=== PATIENT | female | born 1970 | race Caucasian/White ===

== ENCOUNTER 2023-05-31 13:55 | Inpatient (IN) | payer OTHER, SELFPAY ==
[2023-05-31 14:09] VITALS: PULSE 88; RESP 18; TEMP 36.8; O2SAT 99; BMI 39.5
[2023-05-31 14:13] VITALS: BP 150/82
--- NOTE | 2023-05-31 14:14 | XR_ITS ---
The [address] [address] Patient Name: LILI MADRID MRN: [id number] date: 1970 Sex: F Assigned Patient Location: ER Current Patient Location: ER Accession/Order Number: [id number] Exam Date: 05/31/2023 14:30 Report Date: 05/31/2023 15:41 At the request of: DAVID MAHAJAN Procedure: XR tibia fibula RT 2V EXAM: XR tibia fibula RT 2V HISTORY: fall COMPARISON: None. TECHNIQUE: AP and lateral views of the right tibia and fibula FINDINGS: Acute comminuted displaced distal third diaphysis right tibia is seen. Acute comminuted distal fibular fracture is also seen with mild medial and posterior displacement. Right ankle x-rays been scheduled. The ankle mortise can be better evaluated with a dedicated ankle x-ray. Soft tissue swelling is seen. Large plantar calcaneal spur is seen. XR/XR tibia fibula RT 2V IMPRESSION: Acute comminuted fractures of the distal tibia and fibula. Electronically authenticated by: THERESA HERNÁNDEZ Date: 05/31/2023 15:41
--- NOTE | 2023-05-31 15:07 | XR_ITS ---
The [address] [address] Patient Name: LILI MADRID MRN: [id number] date: 1970 Sex: F Assigned Patient Location: ER Current Patient Location: ER Accession/Order Number: [id number] Exam Date: 05/31/2023 15:20 Report Date: 05/31/2023 16:49 At the request of: DAVID MAHAJAN Procedure: XR chest 1V PROCEDURE: XR chest 1V, 05/31/2023 3:20 PM EST CLINICAL INDICATIONS: Preoperative assessment, lower extremity fracture COMPARISON: None TECHNIQUE: Upright AP portable chest 1521 hours FINDINGS: The heart is normal. The mediastinum unremarkable. Lung volumes are diminished with perihilar subsegmental atelectasis. Acute consolidation, pleural effusion, or pneumothorax is not demonstrated. No acute osseous abnormality is seen. Regional soft tissues are unremarkable. XR/XR chest 1V IMPRESSION: 1. Decreased lung volumes with perihilar subsegmental atelectasis 2. No acute pulmonary consolidation, pleural effusion or pneumothorax Electronically authenticated by: JERROD GUTIÉRREZ Date: 05/31/2023 16:49
--- NOTE | 2023-05-31 15:07 | ECG_ITS ---
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
[2023-05-31 15:24] VITALS: PULSE 86
--- NOTE | 2023-05-31 15:24 | ED_ITS ---
HPI - General Adult General Chief complaint: Extremity Injury, Lower Stated complaint: FALL/ LOWER EXTREMITY INJURY TO RIGHT LEG Time Seen by Provider: 05/31/23 14:48 Source: patient Mode of arrival: Wheelchair Limitations: no limitations History of Present Illness HPI narrative: Patient is a 53-year-old female who is presenting to the Emergency Room with complaint Of a right lower extremity injury. Patient is walked down the steps, patient had a misstep, uncertain the mechanism of injury the patient felt a snapping sensation to her right lower leg and ankle. Patient only takes Ritalin and Flexeril for medications, she is on no blood thinners. Patient did not have any type of head injury or no other injuries. She has no headache or neck pain. No chest pain or shortness of breath. No abdominal complaints, no nausea or vomiting, patient has no other acute complaints besides right lower extremity pain. Patient has no obvious for many, patient doesn't swelling with no signs of compartment syndrome. Patient neurovascular intact distally to the right lower extremity. Patient mother and daughter at bedside. Patient does have a history of MS. Related Data Home Medications Medication Instructions Recorded Confirmed aspirin 81 mg capsule 81 mg PO DAILY 05/31/23 05/31/23 cyclobenzaprine 10 mg tablet 10 mg PO QPM 05/31/23 05/31/23 methylphenidate HCl 5 mg tablet 5 mg PO TID 05/31/23 05/31/23 (Ritalin) Allergies Allergy/AdvReac Type Severity Reaction Status Date / Time No Known Drug Allergies Allergy Verified 05/31/23 14:12 Review of Systems ROS Narrative All systems are negative except as noted/marked. All systems reviewed and otherwise negative. Nurses note and vital signs reviewed and patient is not hypoxic. Patient has a modified Splint to the right lower extremity. General: The patient appears well and in no apparent distress. Patient is resting uncomfortably on cart. Patient is not toxic, lethargic, or listless Skin: Warm, dry, no pallor noted. There is no rash noted. No petechiae, purpura. Head: Normocephalic, atraumatic Eye: Normal conjunctiva, no drainage, EOMI. PERRL Ears, Nose, Mouth, and Throat: oral mucosa is moist. Nares patent. Mouth without vesicles. Cardiovascular: Regular Rate and Rhythm, no murmur, gallop, rub Respiratory: Patient is in no distress, no accessory muscle use, lungs are clear to auscultation, no wheezing, rales or rhonchi Back: non-tender, no CVA tenderness bilaterally to percussion. No CT LS midline pain GI: soft, no tenderness Musculoskeletal: Patient has full range of motion of all of the extremities Exc ept to the right lower extremity. Patient has severe pain with any range of motion to the right foot, ankle, knee. Patient has no tenderness to palpation to the right hip, pelvis is stable. Full range of motion of bilateral upper extremities and left lower leg with no difficulty. No signs of compartment syndrome. Patient is neurovascularly intact distally to the right ankle, normal cap refill to the right foot, normal sensation and normal motor skills to the right foot. Otherwise no motor, sensory, or focal neurological deficits Neurological: A&O x3, normal speech Psychiatric: Cooperative [facility] Medical History (Updated 05/31/23 @ 21:21 by Alexander Lopez MD) Degenerative disc disease Multiple sclerosis ?G35 - Multiple sclerosis (ICD-10) Surgical History (Updated 05/31/23 @ 17:44 by Angelica Hurst RN) H/O: hysterectomy ?Z90.710 - Acquired absence of both cervix and uterus (ICD-10) Family History (Updated 05/31/23 @ 17:19 by Angelica Hurst RN) Grandfather Family history of CHF (congestive heart failure) Family history of COPD (chronic obstructive pulmonary disease) Family history of diabetes mellitus Family history of hypertension Family history of myocardial infarction Mother Family history of cancer Aunt Family history of diabetes mellitus Family history of hypertension Family history of stroke Social History (Updated 05/31/23 @ 17:19 by Angelica Hurst RN) Within the past year, how often did you have a drink containing alcohol: 2-4 times a month Smoking status: Former smoker Non-prescribed substance use: denies use Gender Identity: female Exam Constitutional Vital Signs, click to edit/add: Last Vital Signs Temp 98.1 F 05/31/23 17:27 Pulse 88 05/31/23 20:12 Resp 18 05/31/23 17:27 BP 162/89 H 05/31/23 17:27 Pulse Ox 98 05/31/23 17:27 O2 Del Method Room Air 05/31/23 17:27 Course Vital Signs Vital signs: Vital Signs Temperature 98.3 F 05/31/23 14:09 Pulse Rate 88 05/31/23 14:09 Respiratory Rate 18 05/31/23 14:09 Pulse Oximetry 99 05/31/23 14:09 Oxygen Delivery Method Room Air 05/31/23 14:09 Temperature 98.1 F 05/31/23 17:27 Pulse Rate 88 05/31/23 20:12 Respiratory Rate 18 05/31/23 17:27 Blood Pressure 162/89 H 05/31/23 17:27 Pulse Oximetry 98 05/31/23 17:27 Oxygen Delivery Method Room Air 05/31/23 17:27 Medical Decision Making MDM Narrative Medical decision making narrative: Dr. Rivera has visualize patient's pictures of the right leg. He recommended patient be admitted to the hospital, have preop testing, and by mouth after midnight, and patient will have surgery tomorrow. Patient had a long posterior right leg and a long right leg stirrup/sugar tong splint placed to the right leg. Patient again pain relief after the splint was placed. Patient was initially given 1 mg of Dilaudid and Zofran to help with pain.. Testing was done. Patient will be admitted to medicine with preop testing done and patient will follow-up with orthopedic surgeon tomorrow. No other recommendations from Dr. Rivera. Dr. Rivera will be in consultation and perform surgery tomorrow on Thursday. He requested patient be admitted to medicine was Dr. Nicole was gracious to do. Patient takes Ritalin and Flexeril daily, patient has a history of MS with no symptoms at this time. She is on the blood thinners. Lab Data Lab results reviewed: Yes I reviewed the patient's lab results Labs: Lab Results 05/31/23 Range/Units 15:16 WBC 6.6 (4.0-11.0) 10^3/uL RBC 4.40 (4.20-5.40) 10^6/uL Hgb 13.5 (12.0-16.0) g/dL Hct 40.2 (36.0-48.0) % MCV 91.4 (81.0-99.0) fL MCH 30.7 (26.7-34.0) pg MCHC 33.6 (29.9-35.2) g/dL RDW 12.4 (11.0-15.0) % Plt Count 209 (150-450) 10^3/uL MPV 8.6 L (9.5-13.5) fL Neut % (Auto) 74.0 (43.0-75.0) % Lymph % (Auto) 14.0 L (20.5-60.0) % Harmon % (Auto) 8.6 (1.7-12.0) % Eos % (Auto) 2.3 (0.9-7.0) % Baso % (Auto) 0.5 (0.2-2.0) % Neut # (Auto) 4.9 (1.4-6.5) 10^3/uL Lymph # (Auto) 0.9 L (1.2-3.8) 10^3/uL Harmon # (Auto) 0.6 (0.3-0.8) 10^3/uL Eos # (Auto) 0.2 (0.0-0.7) 10^3/uL Baso # (Auto) 0.0 (0.0-0.1) 10^3/uL Abs Immat Gran (auto) 0.04 H (0.00-0.03) 10^3/uL Imm/Tot Granulo (auto) 0.6 H (0.0-0.5) % PT 10.2 (9.0-11.6) sec INR 0.96 Sodium 141 (136-145) mmol/L Potassium 3.7 (3.5-5.1) mmol/L Chloride 104 (98-107) mmol/L Carbon Dioxide 26.8 (21.0-32.0) mmol/L Anion Gap 13.9 BUN 11.0 (7.0-18.0) mg/dL Creatinine 0.66 (0.55-1.02) mg/dL Est GFR ( Amer) >60 (>=60) Est GFR (Non-Af Amer) >60 (>=60) BUN/Creatinine Ratio 16.7 Glucose 100 (74-106) mg/dL Calcium 9.1 (8.5-10.1) mg/dL ECG Data Attestation: I personally reviewed and interpreted this ECG as follows: (EKG interpretation. Normal sinus rhythm at 79 beats a minute. Normal axis deviation. No acute ST elevation, no acute ectopy. QTC of 406.) Discharge Plan Discharge Chief Complaint: Extremity Injury, Lower Clinical Impression: Closed right fibular fracture, Closed right tibial fracture Patient Disposition: Admitted as Observation Condition: Serious Discharge Date/Time: 05/31/23 17:10 Procedures ED Procedure Instructions Procedures Procedures: Patient had a long posterior leg splint placed with a long leg stirrup placed to the right leg. 4 in Ortho-Glass was used. Splint was assisted with . the patient was neurovascularly intact before and after the splint was placed. the affected bones/injured area had proper alignment in a splint. Education on splint care at home was given at bedside. Patient and family have no questions at discharge.
--- NOTE | 2023-05-31 15:25 | XR_ITS ---
The [address] [address] Patient Name: LILI MADRID MRN: [id number] date: 1970 Sex: F Assigned Patient Location: MS Current Patient Location: MS Accession/Order Number: [id number] Exam Date: 05/31/2023 18:00 Report Date: 05/31/2023 19:15 At the request of: DAVID MAHAJAN Procedure: XR ankle RT min 3V EXAM: XR ankle RT min 3V HISTORY: ankle fx COMPARISON: Tibia/fibular films, same date TECHNIQUE: 3 views of the right ankle are performed. FINDINGS: There is fiberglass splinting material which obscures fine bony detail. The comminuted fracture of the distal tibial diaphysis demonstrates similar alignment. No change in alignment to the mildly displaced fracture of the distal fibula. The ankle mortise is not widened. There is soft tissue edema at the ankle. XR/XR ankle RT min 3V IMPRESSION: No significant change in alignment to the known distal tibial and fibular fractures. The ankle mortise is not widened. Electronically authenticated by: DAMION CLARK Date: 05/31/2023 19:15
[2023-05-31] MEDS: HYDROMORPHONE HCL 1 MG/ML CARTRIDGE IV (15:26)
[2023-05-31] MEDS: ONDANSETRON PF 4 MG/2 ML VIAL IV (15:26)
[2023-05-31 15:27] LABS: Basophils Percent Auto 0.5 % (0.2-2.0); Eosinophils Absolute Auto 0.2 10^3/uL (0.0-0.7); Eosinophils Percent Auto 2.3 % (0.9-7.0); Hematocrit 40.2 % (36.0-48.0); Hemoglobin 13.5 g/dL (12.0-16.0); Immature Granulocytes Abs Auto 0.04 10^3/uL (0.00-0.03); Immature Granulocytes Pct Auto 0.6 % (0.0-0.5); Lymphocytes Absolute Auto 0.9 10^3/uL (1.2-3.8); Mean Corpuscular HGB Conc 33.6 g/dL (29.9-35.2); Mean Corpuscular Hemoglobin 30.7 pg (26.7-34.0); Mean Corpuscular Volume 91.4 fL (81.0-99.0); Mean Platelet Volume 8.6 fL (9.5-13.5); Monocytes Absolute Auto 0.6 10^3/uL (0.3-0.8); Monocytes Percent Auto 8.6 % (1.7-12.0); Neutrophils Absolute Auto 4.9 10^3/uL (1.4-6.5); Platelet Count 209 10^3/uL (150-450); Red Cell Distribution Width 12.4 % (11.0-15.0); White Blood Count 6.6 10^3/uL (4.0-11.0)
[2023-05-31 15:37] LABS: Anion Gap 13.9; BUN Creatinine Ratio 16.7; Calcium 9.1 mg/dL (8.5-10.1); Carbon Dioxide 26.8 mmol/L (21.0-32.0); Chloride 104 mmol/L (98-107); Estimated GFR (African America >60 (>=60); Estimated GFR (Non-African Ame >60 (>=60); Glucose 100 mg/dL (74-106); Potassium 3.7 mmol/L (3.5-5.1); Sodium 141 mmol/L (136-145)
[2023-05-31 15:39] LABS: INR 0.96; Prothrombin Time 10.2 sec (9.0-11.6)
[2023-05-31 17:27] VITALS: BP 162/89; PULSE 78; RESP 18; TEMP 36.7; O2SAT 98; BMI 37.7
[2023-05-31 20:12] VITALS: PULSE 88
[2023-05-31] MEDS: OXYCODONE HCL/ACETAMINOPHEN 5MG/325MG 1 TAB PO (20:35)
[2023-05-31] MEDS: 0.9 % SODIUM CHLORIDE 1,000 ML 100 ML IV (20:35)
[2023-05-31] MEDS: ENOXAPARIN SODIUM 40 MG/0.4 ML SYRINGE SUBQ (20:35)
[2023-05-31] MEDS: CYCLOBENZAPRINE HCL 10 MG TABLET PO (20:37)
[2023-05-31 21:27] VITALS: BP 108/73; PULSE 88; RESP 16; TEMP 36.8; O2SAT 95
[2023-06-01] VITALS (19 sets, daily range): BP systolic 106–154; BP diastolic 70–90; PULSE 77–105; RESP 5–23; TEMP 36.6–37.3; O2SAT 89–98
--- NOTE | 2023-06-01 | FL_ITS ---
[place] [id number] Patient Name: LILI MADRID MRN: [id number] date: 1970 Sex: F Assigned Patient Location: MS Current Patient Location: MS Accession/Order Number: [id number] Exam Date: 06/01/2023 17:00 Report Date: 06/02/2023 08:12 At the request of: LEIDY RDZ Procedure: FL fluoroscopy <1hr NON-READ EXAM: FL fluoroscopy <1hr NON-READ HISTORY: ORIF TECHNIQUE: FINDINGS: Please see Operative Report. Electronically authenticated by: RADIOLOGIST NO Date: 06/02/2023 08:12
[2023-06-01] MEDS: OXYCODONE HCL/ACETAMINOPHEN 5MG/325MG 1 TAB PO ×4 (00:08→13:13)
[2023-06-01 05:02] LABS: Basophils Percent Auto 0.5 % (0.2-2.0); Eosinophils Absolute Auto 0.2 10^3/uL (0.0-0.7); Eosinophils Percent Auto 2.9 % (0.9-7.0); Hematocrit 34.8 % (36.0-48.0); Hemoglobin 11.6 g/dL (12.0-16.0); Immature Granulocytes Abs Auto 0.02 10^3/uL (0.00-0.03); Immature Granulocytes Pct Auto 0.3 % (0.0-0.5); Lymphocytes Absolute Auto 1.3 10^3/uL (1.2-3.8); Lymphocytes Percent Auto 21.2 % (20.5-60.0); Mean Corpuscular HGB Conc 33.3 g/dL (29.9-35.2); Mean Corpuscular Hemoglobin 31.3 pg (26.7-34.0); Mean Corpuscular Volume 93.8 fL (81.0-99.0); Mean Platelet Volume 8.7 fL (9.5-13.5); Monocytes Absolute Auto 0.8 10^3/uL (0.3-0.8); Neutrophils Absolute Auto 3.9 10^3/uL (1.4-6.5); Neutrophils Percent Auto 62.1 % (43.0-75.0); Platelet Count 199 10^3/uL (150-450); Red Blood Count 3.71 10^6/uL (4.20-5.40); Red Cell Distribution Width 12.8 % (11.0-15.0); White Blood Count 6.2 10^3/uL (4.0-11.0)
[2023-06-01 05:09] LABS: Anion Gap 11.6; BUN Creatinine Ratio 16.7; Calcium 8.6 mg/dL (8.5-10.1); Carbon Dioxide 27.2 mmol/L (21.0-32.0); Chloride 105 mmol/L (98-107); Estimated GFR (African America >60 (>=60); Estimated GFR (Non-African Ame >60 (>=60); Glucose 108 mg/dL (74-106); Potassium 3.8 mmol/L (3.5-5.1); Sodium 140 mmol/L (136-145)
[2023-06-01] MEDS: 0.9 % SODIUM CHLORIDE 1,000 ML 100 ML IV ×2 (06:15→20:15)
--- NOTE | 2023-06-01 07:24 | P.HP_ITS ---
H&P: HPI History of Present Illness Chief complaint: FALL/ LOWER EXTREMITY INJURY TO RIGHT LEG Narrative: Patient sustained a fall going down steps, she did not have any chest pain or shortness of breath or lightheaded episode, just a trip and fall. Had instant pain. Presented to emergency room and found to have tib-fib fractures. Only other complication for her immediately would be her blood pressure significantly elevated on admission. This is likely secondary to pain. Does have a history of MS but has not had a flareup in quite some time. She had a cardiac workup about 7 or 8 years ago but nothing abnormal was found. Review of Systems ROS Status of ROS 10 or more systems reviewed and unremarkable except as noted in history and below Constitutional Denies: fever Eyes Denies: change in vision Ears, nose, mouth, and throat Denies: throat pain Cardiovascular Denies: chest pain Respiratory Denies: shortness of breath Gastrointestinal Denies: abdominal pain Genitourinary Denies: painful urination Musculoskeletal Reports: extremity pain; Denies: back pain Integumentary/Breast Denies: rash Neurological Denies: headache PFSH PFSH Medical History (Updated 05/31/23 @ 21:21 by Alexander Lopez MD) Degenerative disc disease Multiple sclerosis ?G35 - Multiple sclerosis (ICD-10) Surgical History (Updated 05/31/23 @ 17:44 by Angelica Hurst RN) H/O: hysterectomy ?Z90.710 - Acquired absence of both cervix and uterus (ICD-10) Family History (Updated 05/31/23 @ 17:19 by Angelica Hurst RN) Grandfather Family history of CHF (congestive heart failure) Family history of COPD (chronic obstructive pulmonary disease) Family history of diabetes mellitus Family history of hypertension Family history of myocardial infarction Mother Family history of cancer Aunt Family history of diabetes mellitus Family history of hypertension Family history of stroke Social History (Updated 05/31/23 @ 17:19 by Angelica Hurst RN) Within the past year, how often did you have a drink containing alcohol: 2-4 ti mes a month Smoking status: Former smoker Non-prescribed substance use: denies use Gender Identity: female Meds Home Medications and Allergies Home Medications Medication Instructions Recorded Confirmed Type aspirin 81 mg capsule 81 mg PO DAILY 05/31/23 05/31/23 History cyclobenzaprine 10 mg tablet 10 mg PO QPM 05/31/23 05/31/23 History methylphenidate HCl 5 mg tablet 5 mg PO TID 05/31/23 05/31/23 History (Ritalin) Allergies Allergy/AdvReac Type Severity Reaction Status Date / Time No Known Drug Allergies Allergy Verified 05/31/23 14:12 Exam Constitutional Vital Signs, click to edit/add: Last Vital Signs Temp 98.2 F 06/01/23 06:00 Pulse 83 06/01/23 06:00 Resp 18 06/01/23 06:00 BP 135/83 06/01/23 06:00 Pulse Ox 93 L 06/01/23 06:00 O2 Del Method Room Air 06/01/23 06:00 Documenting provider has reviewed patient's vital signs: yes Common normals: no apparent distress HENMT Common normals: normocephalic and head/scalp atraumatic Chest Common normals: inspection of chest normal Respiratory Common normals: normal respiratory effort, no retractions and clear to auscultation bilaterally Cardio Common normals: regular rate and no murmurs GI Common normals: Normal to inspection, nondistended, normoactive bowel sounds present, soft to palpation and non-tender Extremity Common normals: abnormal to inspection (Splint on right lower leg) Results Labs Labs: Short CBC 05/31/23 06/01/23 Range/Units 15:16 04:29 WBC 6.6 6.2 (4.0-11.0) 10^3/uL Hgb 13.5 11.6 L (12.0-16.0) g/dL Hct 40.2 34.8 L (36.0-48.0) % Plt Count 209 199 (150-450) 10^3/uL BMP 05/31/23 06/01/23 15:16 04:29 Sodium 141 140 Potassium 3.7 3.8 Chloride 104 105 Carbon Dioxide 26.8 27.2 BUN 11.0 12.0 Creatinine 0.66 0.72 Glucose 100 108 H Calcium 9.1 8.6 Assessment and Plan Assessment and Plan (1) Closed right fibular fracture: (2) Closed right tibial fracture: (3) Multiple sclerosis: Plan Patient is status post fall with right tib-fib fractures. Consultation to orthopedics. Plan on surgery later today. Patient with no significant cardiac history. No history of strokes. No bleeding issues in the past. Patient is cleared for OR. Low cardiac risk Hypertension on admission-this is improved this morning. Will monitor as an outpatient. Acute blood loss anemia hemoglobin down almost 2 g -likely related to the above fractures with acute blood loss and as well as some delusional effect with fluids given so far. Can monitor as an outpatient Discharge disposition per orthopedics. Patient is anticipating being able to go home. Will maintain patient in observation status
[2023-06-01] MEDS: ENOXAPARIN SODIUM 40 MG/0.4 ML SYRINGE SUBQ (08:27)
--- NOTE | 2023-06-01 16:20 | PM.ORCN ---
History of Present Illness HPI Consult date: 06/01/23 Consult reason: fracture Chief complaint: FALL/ LOWER EXTREMITY INJURY TO RIGHT LEG Narrative: Patient is a 53-year-old who was walking down steps yesterday when she missed stepped feeling a crack in her right leg with the acute onset of pain and inability to bear weight. She was transported to the emergency room where x-rays revealed a right tib-fib fracture. Patient was admitted for operative treatment of this injury. She denies paresthesias in her right lower extremity. She denies pain elsewhere. She is a community ambulator. She has a history of multiple sclerosis. She denies head trauma or loss of consciousness. Review of Systems ROS Status of ROS 10 or more systems reviewed and unremarkable except as noted in history and below [facility] Medical History (Updated 05/31/23 @ 21:21 by Alexander Lopez MD) Degenerative disc disease Multiple sclerosis ?G35 - Multiple sclerosis (ICD-10) Surgical History (Updated 05/31/23 @ 17:44 by Angelica Hurst RN) H/O: hysterectomy ?Z90.710 - Acquired absence of both cervix and uterus (ICD-10) Family History (Updated 05/31/23 @ 17:19 by Angelica Hurst RN) Grandfather Family history of CHF (congestive heart failure) Family history of COPD (chronic obstructive pulmonary disease) Family history of diabetes mellitus Family history of hypertension Family history of myocardial infarction Mother Family history of cancer Aunt Family history of diabetes mellitus Family history of hypertension Family history of stroke Social History (Updated 05/31/23 @ 17:19 by Angelica Hurst RN) Within the past year, how often did you have a drink containing alcohol: 2-4 times a month Smoking status: Former smoker Non-prescribed substance use: denies use Gender Identity: female Meds Home Medications and Allergies Home Medications Medication Instructions Recorded Confirmed Type aspirin 81 mg capsule 81 mg PO DAILY 05/31/23 05/31/23 History cyclobenzaprine 10 mg tablet 10 mg PO QPM 05/31/23 05/31/23 History methylphenidate HCl 5 mg tablet 5 mg PO TID 05/31/23 05/31/23 History (Ritalin) Allergies Allergy/AdvReac Type Severity Reaction Status Date / Time No Known Drug Allergies Allergy Verified 05/31/23 14:12 Exam Narrative Exam Narrative: On exam she is in no obvious distress. Right lower extremity is appropriately splinted. Good capillary refill in the toes. Normal sensation in her toes. She is able to wiggle her toes. Left lower extremity has no swelling. Constitutional Vital Signs, click to edit/add: Last Vital Signs Temp 98.3 F 06/01/23 16:07 Pulse 85 06/01/23 16:07 Resp 18 06/01/23 16:07 BP 135/82 06/01/23 16:07 Pulse Ox 94 L 06/01/23 16:07 O2 Del Method Room Air 06/01/23 16:07 Results Labs Labs: Abnormal lab results 06/01/23 Range/Units 04:29 RBC 3.71 L (4.20-5.40) 10^6/uL Hgb 11.6 L (12.0-16.0) g/dL Hct 34.8 L (36.0-48.0) % MPV 8.7 L (9.5-13.5) fL Mayes % (Auto) 13.0 H (1.7-12.0) % Glucose 108 H (74-106) mg/dL H & H 05/31/23 06/01/23 Range/Units 15:16 04:29 Hgb 13.5 11.6 L (12.0-16.0) g/dL Hct 40.2 34.8 L (36.0-48.0) % Coagulation 05/31/23 Range/Units 15:16 INR 0.96 All other labs normal. Diagnostic results Ankle/Foot x-ray: report reviewed (Right tib-fib and ankle x-rays revealed a long spiral tibial shaft fracture in the distal third and a distal fibula fracture with mild displacement) Assessment and Plan Assessment and Plan (1) Closed right fibular fracture: (2) Closed right tibial fracture: (3) Multiple sclerosis: Plan For her right distal tibia and fibula fracture we will plan for a right tibia intramedullary nailing. Once this is aligned we will determine whether or not the fibula needs to be fixed. I have discussed risks of this injury and procedure including but not limited to risk of compartment syndrome, chronic numbness, neurovascular injury, chronic knee and ankle pain, nonunion and the need for additional surgery. She understands this can additional risks we have gone through the informed consent process and has elected to proceed.
--- NOTE | 2023-06-01 16:25 | PM.ORPRC ---
Procedure Note Date of procedure: 06/01/23 Pre-op diagnosis: Right tibia shaft fracture and right distal fibula fracture Post-op diagnosis: same as pre-op Procedure: Operation performed: Intramedullary nailing of right tibia shaft fracture Operative procedure: After informed consent was obtained the patient was brought to the operating room where general anesthetic was administered. A well-padded proximal thigh tourniquet was placed. The right leg was prepped and draped in the usual sterile fashion. Leg was elevated, exsanguinated, and the tourniquet was inflated to 275 mmHg. A 5 cm incision was made overlying the anterior knee in line with the shaft of the tibia. Blunt dissection was carried down through soft tissue. Patellar tendon was retracted laterally. Guidepin was placed at the ventral leading edge of the tibial plateau in line with the central axis of the tibia on the AP view. Appropriate placement was confirmed in the AP and lateral planes. This was then overreamed and next the long guidewire was placed. This was measured to 330 millimeters in length. The tourniquet was deflated. Sequential reaming was then performed to 10.5 mm. A Synthes 9 mm tibial nail was then placed. Nice reduction of the fracture was achieved. Using a freehand technique 2 distal locking screws were placed. X-rays in the AP and lateral views revealed maintained reduction at the fracture site and no gap at the fracture site. 2 additional locking screws were then placed proximally in the standard fashion from medial to lateral. Final x-rays of the tibia revealed reduced tibia fracture and appropriate implant placement and lengths. The fibula fracture with AP lateral and mortise views was reduced with a reduced ankle joint and thus no surgical indication. Wounds were irrigated. The anterior knee incision deep layer was closed with a 0 Vicryl suture in a [id number] fashion. Peritenon was closed with a 3-0 Vicryl in a running fashion and wounds were closed in standard fashion in layers. Sterile dressing was placed followed by a well-padded short leg fiberglass splint with stirrups. Patient was awakened and brought to the recovery room in stable condition. There were no intraoperative or immediate postoperative complications. Anesthesia: General-LMA Surgeon: Juan David Rivera Estimated blood loss (mL): 50 Pathology: none sent Condition: stable Disposition: PACU
[2023-06-01] MEDS: CEFAZOLIN SODIUM/DEXTROSE,ISO 2 GM/50 ML PIGGYBACK IV (16:34)
[2023-06-01] MEDS: LACTATED RINGER'S SOLUTION 1,000 ML 1000 ML IV (17:55)
[2023-06-01] MEDS: HYDROMORPHONE HCL 0.5 MG/0.5 ML SYRINGE IV (19:12)
--- NOTE | 2023-06-01 20:08 | PC.NURSE ---
Patient right toes noted pink warm with good capillary refill patient able to wiggle toes
[2023-06-01] MEDS: CYCLOBENZAPRINE HCL 10 MG TABLET PO (20:14)
[2023-06-01] MEDS: OXYCODONE HCL/ACETAMINOPHEN 5MG/325MG 2 TAB PO (20:14)
--- NOTE | 2023-06-01 23:10 | PC.NURSE ---
patient able to feel and wiggle toes
[2023-06-02] VITALS (7 sets, daily range): BP systolic 140–155; BP diastolic 80–92; PULSE 90–92; RESP 18–20; TEMP 36.4–37.2; O2SAT 94–98
[2023-06-02] MEDS: OXYCODONE HCL/ACETAMINOPHEN 5MG/325MG 2 TAB PO ×4 (03:17→17:55)
[2023-06-02 05:20] LABS: Basophils Percent Auto 0.2 % (0.2-2.0); Hematocrit 34.5 % (36.0-48.0); Immature Granulocytes Abs Auto 0.02 10^3/uL (0.00-0.03); Immature Granulocytes Pct Auto 0.3 % (0.0-0.5); Lymphocytes Absolute Auto 0.5 10^3/uL (1.2-3.8); Lymphocytes Percent Auto 7.4 % (20.5-60.0); Mean Corpuscular HGB Conc 31.9 g/dL (29.9-35.2); Mean Corpuscular Hemoglobin 30.5 pg (26.7-34.0); Mean Corpuscular Volume 95.6 fL (81.0-99.0); Mean Platelet Volume 8.8 fL (9.5-13.5); Monocytes Absolute Auto 0.4 10^3/uL (0.3-0.8); Monocytes Percent Auto 5.9 % (1.7-12.0); Neutrophils Absolute Auto 5.7 10^3/uL (1.4-6.5); Neutrophils Percent Auto 86.2 % (43.0-75.0); Platelet Count 186 10^3/uL (150-450); Red Blood Count 3.61 10^6/uL (4.20-5.40); Red Cell Distribution Width 12.6 % (11.0-15.0); White Blood Count 6.6 10^3/uL (4.0-11.0)
[2023-06-02 05:36] LABS: Anion Gap 10.6; BUN Creatinine Ratio 9.6; Calcium 8.1 mg/dL (8.5-10.1); Chloride 107 mmol/L (98-107); Estimated GFR (African America >60 (>=60); Estimated GFR (Non-African Ame >60 (>=60); Glucose 162 mg/dL (74-106); Potassium 3.6 mmol/L (3.5-5.1); Sodium 142 mmol/L (136-145)
[2023-06-02] MEDS: 0.9 % SODIUM CHLORIDE 1,000 ML 100 ML IV (06:08)
--- NOTE | 2023-06-02 09:17 | P.DS_ITS ---
DS: Providers Provider Date of admission: 06/01/23 12:57 Primary care physician: Raymond Sanderson MD Consults: 05/31/23 17:45 Occupational Therapy Eval and Treat Routine Reason for consultation: Tib/fib fracture Physical Therapy Eval and Treat Routine Reason for consultation: Tib/fib fracture 05/31/23 17:47 Consult to Orthopedic Surgery Routine Consulting Provider: Juan David Rivera Reason For Exam: Reason for consultation: Tib/Fib fracture 06/02/23 08:00 Physical Therapy Eval and Treat Routine Reason for consultation: non weight bearing right leg Has provider been notified: No DS: Diagnosis Discharge Diagnosis (1) Closed right fibular fracture: (2) Closed right tibial fracture: (3) Multiple sclerosis: Plan Patient is status post fall with right tib-fib fractures. Hypertension on admission Acute blood loss anemia hemoglobin down almost 2 g DS: Summary Hospital Course Hospital Course: Patient admitted status post fall. She did not have a syncopal episode she is not short of breath or chest pain just simply fell in the last couple of steps going down stairs. Sustained a tib-fib fracture. This was surgically repaired late last evening. Overnight her pain is fairly well-controlled this morning. Will have physical therapy and Occupational Therapy work with patient. Becky saunders on plan from orthopedics likely discharged home later today. Medications see list. Follow-up with orthopedics per his recommendations, does not need to follow-up in the office with me other than her routine office visits Status at Discharge Overall status at discharge: patient is not back to baseline Time Spent with Patient Time attestation: Total time spent providing and/or coordinating discharge services: Exam Constitutional Vital Signs, click to edit/add: Last Vital Signs Temp 98.1 F 06/02/23 04:49 Pulse 90 06/02/23 04:49 Resp 18 06/02/23 04:49 BP 140/80 06/02/23 04:49 Pulse Ox 95 06/02/23 04:49 O2 Del Method Room Air 06/02/23 04:49 O2 Flow Rate 2 06/02/23 03:12 Documenting provider has reviewed patient's vital signs: yes Common normals: no apparent distress HENMT Common normals: normocephalic and head/scalp atraumatic Chest Common normals: inspection of chest normal Respiratory Common normals: normal respiratory effort, no retractions and clear to auscultation bilaterally Cardio Common normals: regular rate and no murmurs GI Common normals: Normal to inspection, nondistended, normoactive bowel sounds present, soft to palpation and non-tender Extremity Common normals: abnormal to inspection (Splint on right lower leg) DS: Data Data Completed and Pending Labs on day of discharge: Labs from last 24 hours 06/02/23 04:20 WBC 6.6 RBC 3.61 L Hgb 11.0 L Hct 34.5 L MCV 95.6 MCH 30.5 MCHC 31.9 RDW 12.6 Plt Count 186 MPV 8.8 L Neut % (Auto) 86.2 H Lymph % (Auto) 7.4 L Dixon % (Auto) 5.9 Eos % (Auto) 0.0 L Baso % (Auto) 0.2 Neut # (Auto) 5.7 Lymph # (Auto) 0.5 L Dixon # (Auto) 0.4 Eos # (Auto) 0.0 Baso # (Auto) 0.0 Abs Immat Gran (auto) 0.02 Imm/Tot Granulo (auto) 0.3 Sodium 142 Potassium 3.6 Chloride 107 Carbon Dioxide 28.0 Anion Gap 10.6 BUN 7.0 Creatinine 0.73 Est GFR ( Amer) >60 Est GFR (Non-Af Amer) >60 BUN/Creatinine Ratio 9.6 Glucose 162 H Calcium 8.1 L Discharge Plan Discharge Disposition: Home, Self-Care Condition: Serious Discharge Medications: Continued methylphenidate HCl [Ritalin] 5 mg tablet 5 mg PO TID cyclobenzaprine 10 mg tablet 10 mg PO QPM aspirin 81 mg capsule 81 mg PO DAILY Forms: Portal Instructions
--- NOTE | 2023-06-02 10:29 | CM.NOTE ---
Message Dr. Sanderson about PT recommendations. Pt would need script for rolling walker and wheelchair.
--- NOTE | 2023-06-02 10:37 | CM.NOTE ---
Dr. Sanderson will send scripts to [facility].
--- NOTE | 2023-06-02 11:34 | CM.NOTE ---
Dr. Sanderson will send scripts for wheeled walker and wheelchair to [facility], updated pt. Pt verbalizes she has someone that is available to pick them up prior to her discharge to home.
[2023-06-02] MEDS: CALCIUM CARBONATE 600 MG TABLET PO ×2 (13:59→20:14)
[2023-06-02] MEDS: CEFAZOLIN SODIUM/DEXTROSE,ISO 1 GM/50 ML IV.SOLN IV (15:03)
--- NOTE | 2023-06-02 16:00 | CM.NOTE ---
Phone call received from Dr. Sanderson regarding the need for rolling walker and wheelchair at discharge. Discharge Summary, P.T. and O.T. notes faxed to [facility] in [place] ([phone]). They will check availability and insurance and call Latisha with insurance response. Questionable discharge today or in the a.m. Carleen aware of DME company and that they will call her. Carleen made aware that insurance will likely only pay for one DME. Agreeable and will purchase or rent if needed.
[2023-06-02] MEDS: ENOXAPARIN SODIUM 40 MG/0.4 ML SYRINGE SUBQ (16:29)
--- NOTE | 2023-06-02 17:27 | P.ORPN_ITS ---
Progress Note: A&P Assessment and Plan (1) Closed right fibular fracture: (2) Closed right tibial fracture: Assessment and Plan: POD#1 from IM nail right tib-fib fracture Continues to have significant knee pain Will have therapy see her tomorrow Plan for discharge home tomorrow Follow up in 2 weeks in [place] office. Call to schedule appointment. (3) Multiple sclerosis: Subjective Subjective Interval history: Patient complains of knee pain at the site of nail insertion. No paresthesias Exam Narrative Exam Narrative: Splint intact. Good cap. refill in toes. Normal sensation in toes. Constitutional Vital Signs, click to edit/add: Last Vital Signs Temp 98.4 F 06/02/23 13:24 Pulse 90 06/02/23 13:24 Resp 20 06/02/23 13:24 BP 141/83 06/02/23 13:24 Pulse Ox 98 06/02/23 13:24 O2 Del Method Room Air 06/02/23 13:24 O2 Flow Rate 2 06/02/23 03:12
[2023-06-02] MEDS: CYCLOBENZAPRINE HCL 10 MG TABLET PO (20:14)
[2023-06-03] MEDS: OXYCODONE HCL/ACETAMINOPHEN 5MG/325MG 2 TAB PO ×2 (02:35→13:53)
[2023-06-03 04:15] VITALS: BP 166/80; PULSE 90; RESP 20; TEMP 37.1; O2SAT 96
[2023-06-03] MEDS: CALCIUM CARBONATE 600 MG TABLET PO ×2 (04:54→13:06)
[2023-06-03 04:55] VITALS: O2SAT 95
[2023-06-03 05:13] LABS: Basophils Percent Auto 0.2 % (0.2-2.0); Eosinophils Absolute Auto 0.2 10^3/uL (0.0-0.7); Eosinophils Percent Auto 2.6 % (0.9-7.0); Hematocrit 33.1 % (36.0-48.0); Hemoglobin 10.6 g/dL (12.0-16.0); Immature Granulocytes Abs Auto 0.02 10^3/uL (0.00-0.03); Immature Granulocytes Pct Auto 0.3 % (0.0-0.5); Lymphocytes Absolute Auto 1.6 10^3/uL (1.2-3.8); Lymphocytes Percent Auto 25.6 % (20.5-60.0); Mean Corpuscular Hemoglobin 29.9 pg (26.7-34.0); Mean Corpuscular Volume 93.2 fL (81.0-99.0); Mean Platelet Volume 8.8 fL (9.5-13.5); Monocytes Absolute Auto 0.7 10^3/uL (0.3-0.8); Monocytes Percent Auto 12.1 % (1.7-12.0); Neutrophils Absolute Auto 3.6 10^3/uL (1.4-6.5); Neutrophils Percent Auto 59.2 % (43.0-75.0); Platelet Count 189 10^3/uL (150-450); Red Blood Count 3.55 10^6/uL (4.20-5.40); Red Cell Distribution Width 12.6 % (11.0-15.0); White Blood Count 6.1 10^3/uL (4.0-11.0)
[2023-06-03 05:29] LABS: Anion Gap 9.9; BUN Creatinine Ratio 14.5; Calcium 8.3 mg/dL (8.5-10.1); Carbon Dioxide 29.9 mmol/L (21.0-32.0); Chloride 106 mmol/L (98-107); Estimated GFR (African America >60 (>=60); Estimated GFR (Non-African Ame >60 (>=60); Glucose 126 mg/dL (74-106); Potassium 3.8 mmol/L (3.5-5.1); Sodium 142 mmol/L (136-145)
[2023-06-03 09:30] VITALS: O2SAT 95
--- NOTE | 2023-06-03 10:42 | CM.NOTE ---
Reached out to [facility] to see when wheelchair and walker could be picked up today. No record of pt in the system. Will receive call back once pt is located in the system and they have information.
--- NOTE | 2023-06-03 11:31 | PT.DAILY ---
Physical Therapy Daily Note PT Daily Note/Assess Start: 06/03/23 11:28 Freq: Status: Active Protocol: Document 06/03/23 11:28 MASON (Rec: 06/03/23 11:31 ANTONETTELILLY [id number]) Physical Therapy Daily Note/Assessment Time In/Time Out Time In 10:25 Time Out 10:40 Pain In Pain N/A Pain Out Pain N/A Subjective Subjective Pt supine upon arrival. needs to use restroom. Agrees to amb to restroom vs use bedside commode. Therapeutic Activity Time Therapeutic Activity Minutes (minutes) 10 Therapeutic Activity Units 1 Therapeutic Activity Treatment Bed Mobility Ability Minimum Assist Chair Transfer Ability Contact Guard Assist Therapeutic Activity Comments Supine>sit [place] with R LE. Sit >sit to RW CGA. Pt amb 25' with RW, NWB R LE (hops on L) and lowers herself to toilet with grab bar SBA. Pt able to perform pericare IND. Sit> stand using grab bar SBA. Amb 35' with RW, NWB R LE over to bedside chair. Pt's R foot is propped on end table and 3 pillows to elevate properly. Pt remains in BS chair with call light in reach. Pt is very fatigued with this - knee pain 7/10 upon completion. Total Physical Therapy Time Total Therapy Minutes 10 Total Physical Therapy Units 1 Summary Daily Note Summary Improved gait ability and endurance but is fatigued with activity.
[2023-06-03 13:36] VITALS: BP 125/82; PULSE 102; RESP 16; TEMP 36.6; O2SAT 98
== END 2023-06-03 15:03 | disposition home or self-care (01) | DRG 313 ==
LOC: ER 17:26 → MS 17:26
PROVIDERS: Family Medicine; Orthopaedic Surgery; Admitting Provider Family Medicine; Emergency Provider Emergency Medicine; PCP Family Medicine; Visit Provider Family Medicine
PROC: 0QSG06Z Reposition Right Tibia with Intramedullary Internal Fixation Device, Open Approach (ICD-10-PCS; principal; 2023-06-01 15:40)
DX: S82.291A Other fracture of shaft of right tibia, initial encounter for closed fracture (principal); S82.831A Other fracture of upper and lower end of right fibula, initial encounter for closed fracture; W10.9XXA Fall (on) (from) unspecified stairs and steps, initial encounter; G35 Multiple sclerosis; Z90.710 Acquired absence of both cervix and uterus; Z87.891 Personal history of nicotine dependence; Z79.82 Long term (current) use of aspirin; Z79.899 Other long term (current) drug therapy; I10 Essential (primary) hypertension; D62 Acute posthemorrhagic anemia
CPT/HCPCS: 29505; 36415; 71045; 73590; 73610; 76000; 80048; 85025; 85610; 93005; 94761; 96365; 96372; 96375; 96376; 97161; 97165; 97530; 99285; C1773; C1776; G0378; J1170; J2704

== ENCOUNTER 2023-06-15 10:17 | Outpatient (OUT) | payer OTHER, SELFPAY ==
--- NOTE | 2023-06-15 10:40 | XR_ITS ---
The [address] [address] Patient Name: LILI MADRID MRN: [id number] date: 1970 Sex: F Assigned Patient Location: [facility] Current Patient Location: RAD Accession/Order Number: [id number] Exam Date: 06/15/2023 10:30 Report Date: 06/15/2023 23:18 At the request of: DARINEL BROWNING Procedure: XR tibia fibula RT 2V PROCEDURE: XR tibia fibula RT 2V HISTORY: Displaced Spiral Fracture Right Tibia S82.241D COMPARISON: XR tibia fibula right 05/31/2023 FINDINGS: BONES:Mechanical repair of the distal tibia fracture via intramedullary abhi and locking screws; near normal alignment. Stable nondisplaced oblique fracture of distal fibula with 2 mm posterior displacement. SOFT TISSUES:Soft tissue swelling. EFFUSION:None visible. OTHER: Negative. XR/XR tibia fibula RT 2V IMPRESSION: 1. Mechanical repair of distal tibia fracture, now in near-anatomic alignment. 2. Stable minimally displaced distal fibular fracture. Electronically authenticated by: DARINEL LEWIS Date: 06/15/2023 23:18
== END 2023-06-15 10:18 | disposition home or self-care (01) ==
LOC: RAD 10:17
PROVIDERS: PCP Family Medicine; Visit Provider Orthopaedic Surgery
DX: S82.241D Displaced spiral fracture of shaft of right tibia, subsequent encounter for closed fracture with routine healing (principal); S82.441D Displaced spiral fracture of shaft of right fibula, subsequent encounter for closed fracture with routine healing
CPT/HCPCS: 73590

== ENCOUNTER 2023-07-20 08:34 | Outpatient (OUT) | payer OTHER, SELFPAY ==
--- NOTE | 2023-07-20 | XR_ITS ---
The [address] [address] Patient Name: LILI MADRID MRN: [id number] date: 1970 Sex: F Assigned Patient Location: [facility] Current Patient Location: [facility] Accession/Order Number: [id number] Exam Date: 07/20/2023 08:37 Report Date: 07/20/2023 11:52 At the request of: DARINEL BROWNING Procedure: XR tibia fibula RT 2V EXAMINATION: XR tibia fibula RT 2V, [id number] HISTORY: RIGHT LEG PAIN COMPARISON: Right tibia and fibula x-rays 06/15/2023. FINDINGS: Distal tibia and fibular fractures are similar in alignment and degree of displacement compared with 06/15/2023. There has been interval bony consolidation and callus formation compatible with healing. The fracture lines remain evident. Intramedullary abhi from the tibial ORIF is intact without evidence of loosening. No new osseous abnormality. XR/XR tibia fibula RT 2V IMPRESSION: Healing distal tibia and fibular fractures which are similar alignment and degree of displacement. Electronically authenticated by: RORO LOUIS Date: 07/20/2023 11:52
--- OUTSIDE RECORDS SUMMARY | 2023-07-20 08:37 | XMS_ITS | CCD ---
Author Name Unknown Address [address] [place] [address] Organization [facility] Care Team Providers Care Vision Mixer Name Role Phone ABEL BOOGIE Referring Unavailable ANGEL SANDERSON Primary Care Unavailable ABEL BOOGIE Referring Unavailable ANGEL SANDERSON Primary Care Unavailable Angel Sanderson Primary Care Provider [phone] KVNG, DR ORTIZ Attending Unavailable KVNG, DR ORTIZ Consulting Unavailable DR ANGEL SANDERSON Primary Care Unavailable KVNG, DR ORTIZ Admitting Unavailable CLEMENTINA, DR NICOLAS Consulting Unavailable GERARD LANDEROS Consulting Unavailable AYLIN JOHNSON Consulting Unavailable CRISTINA, DR LAGUNA Admitting Unavailable KVNG, DR ORTIZ Primary Care Unavailable DR JASE AGUSTIN Attending Unavailable DR JASE AGUSTIN Consulting Unavailable LIZETTE WILKS Admitting Unavailable LIZETTE WILKS Attending Unavailable LIZETTE WILKS Consulting Unavailable DR ANGEL SANDERSON Referring Unavailable Medications Completed/Discontinued Medications Medication Drug Class(es) Dates Sig (Normalized) Sig (Original) gadoteridol (PROHANCE) injection 20 mL (1 source) Start: 09-01-2019 End: 09-01-2019 gadoteridol (PROHANCE) injection 20 mL Problems Active Problems Problem Classification Problem Date Documented Da te Episodic/Chronic Blindness and vision defects (3 sources) Left homonymous hemianopsia; Translations: [Heteronymous bilateral visual field defects] Episodic Blindness and vision defects (1 source) Visual field defect of left eye; Translations: [Visual field defect of left eye] Diseases of white blood cells (1 source) Neutropenia, unspecified; Translations: [NEUTROPENIA UNSPECIFIED] Onset: 11-05-2020 Chronic Multiple sclerosis (7 sources) Multiple sclerosis; Translations: [Multiple sclerosis] Onset: 11-05-2020 Chronic Other aftercare (1 source) Encounter for therapeutic drug level monitoring; Translations: [ENC THERAPEUTC DRUG LEVL MONITORING] Onset: 07-23-2021 Episodic Pneumonia (except that caused by tuberculosis or sexually transmitted disease) (1 source) Pneumonia (except that caused by tuberculosis or sexually transmitted disease); Translations: [PNEUMONIA D/T CORONAVIRUS DIS 2019] Onset: 11-05-2020 Viral infection (3 sources) COVID-19; Translations: [COVID-19] Onset: 10-27-2020 Past or Other Problems Problem Classification Problem Date Documented Da te Episodic/Chronic Cardiac dysrhythmias (1 source) Tachycardia, unspecified; Translations: [TACHYCARDIA UNSPECIFIED] Onset: 11-05-2020 Episodic Fever of unknown origin (1 source) Fever, unspecified; Translations: [FEVER UNSPECIFIED] Onset: 11-05-2020 Episodic Other aftercare (1 source) Other residential (current) drug therapy; Translations: [OTH OPERATIONS LEAD CURRENT DRUG THERAPY] Onset: 11-05-2020 Episodic Other lower respiratory disease (1 source) Hypoxemia; Translations: [HYPOXEMIA] Onset: 11-05-2020 Episodic Residual codes; unclassified (1 source) Acquired absence of both cervix and uterus; Translations: [ACQUIRED ABSENCE BOTH CERVIX AND UTERUS] Onset: 11-05-2020 Episodic Results Test Name Value Interpretation Reference Range Facility CBC AUTO DIFFon 07-19-2021 BASO # 0.0 103/ul Normal 0.0-0.1 [facility] Comment on above: Performed By: #### C BC #### [facility] [address] [address] [address] Morris Castro Basophils/100 WBC (Bld) 0.5 % Normal 0.2-2.0 [facility] Comment on above: Performed By: #### C BC #### [facility] [address] [address] [address] Morris Castro EO # 0.2 103/ul Normal 0.0-0.7 [facility] Comment on above: Performed By: #### C BC #### [facility] [address] [address] [address] Morris Castro Eosinophils/100 WBC (Bld) 5.2 % Normal 0.9-7.0 [facility] Comment on above: Performed By: #### C BC #### [facility] [address] [address] [address] Morris Castro Erythrocyte distribution width (RBC) [Ratio] 12.6 % Normal 11.0-15.0 [facility] Comment on above: Performed By: #### C BC #### [facility] [address] [place] [address] Dr. Morris Castro Hematocrit (Bld) [Volume fraction] 39.0 % Normal 36.0-48.0 [facility] Comment on above: Performed By: #### C BC #### [facility] [address] [place] [address] Dr. Morris Castro Hemoglobin (Bld) [Mass/Vol] 13.1 g/dL Normal 12.0-16.0 [facility] Comment on above: Performed By: #### C BC #### [facility] [address] [place] [address] Dr. Morris Castro IG # 0.02 10e3/ul Normal 0.00-0.03 [facility] Comment on above: Performed By: #### C BC #### [facility] [address] [place] [address] Dr. Morris Castro IG % 0.5 % Normal 0.0-0.5 [facility] Comment on above: Performed By: #### C BC #### [facility] [address] [place] [address] Dr. Morris Castro LYMPH # 0.9 103/ul Critically low 1.2-3.8 [facility] Comment on above: Performed By: #### C BC #### [facility] [address] [place] [address] Dr. Morris Castro Lymphocytes/100 WBC (Bld) 23.1 % Normal 20.5-60.0 [facility] Comment on above: Performed By: #### C BC #### [facility] [address] [place] [address] Dr. Morris Castro MANUAL DIFF REQ NO Normal [facility] Comment on above: Performed By: #### C BC #### [facility] [address] [place] [address] Dr. Morris Castro MCH (RBC) [Entitic mass] 30.3 pg Normal 26.7-34.0 [facility] Comment on above: Performed By: #### C BC #### [facility] [address] [place] [address] Dr. Morris Castro MCHC (RBC) [Mass/Vol] 33.6 g/dL Normal 29.9-35.2 [facility] Comment on above: Performed By: #### C BC #### [facility] [address] [place] [address] Dr. Morris Castro MCV (RBC) [Entitic vol] 90.1 fL Normal 81.0-99.0 [facility] Comment on above: Performed By: #### C BC #### [facility] [address] [place] [address] Dr. Morris Castro MONO # 0.6 103/ul Normal 0.3-0.8 [facility] Comment on above: Performed By: #### C BC #### [facility] [address] [place] [address] Dr. Morris Castro Monocytes/100 WBC (Bld) 15.6 % Critically high 1.7-12.0 [facility] Comment on above: Performed By: #### C BC #### [facility] [address] [place] [address] Dr. Morris Castro NEUT # 2.1 103/ul Normal 1.4-6.5 [facility] Comment on above: Performed By: #### C BC #### [facility] [address] [place] [address] Dr. Morris Castro Neutrophils/100 WBC (Bld) 55.1 % Normal 43.0-75.0 [facility] Comment on above: Performed By: #### C BC #### [facility] [address] [place] [address] Dr. Morris Castro Platelet mean volume (Bld) [Entitic vol] 8.3 fL Critically low 9.5-13.5 [facility] Comment on above: Performed By: #### C BC #### [facility] [address] [place] [address] [address] [address] Morris Castro PLT 223 103/ul Normal 150-450 [facility] Comment on above: Performed By: #### C BC #### [facility] [address] [place], [place] [address] Dr. Morris Castro RBC 4.33 106/ul Normal 4.20-5.40 [facility] Comment on above: Performed By: #### C BC #### [facility] [address] [place] [address] Dr. Morris Castro WBC 3.9 103/ul Critically low 4.0-11.0 [facility] Comment on above: Performed By: #### C BC #### [facility] [address] [place] [address] Dr. Morris Castro LIVER PROFILEon 07-19-2021 Albumin [Mass/Vol] 3.9 g/dL Normal 3.5-5.0 [facility] Comment on above: Performed By: #### L ACT #### [facility] [address] [place], [place] [id number] Mere Brittany Albumin/Globulin [Mass ratio] 1.2 {ratio} Normal [facility] Comment on above: Performed By: #### L ACT #### [facility] [address] [place], [place] [address] Mere Brittany ALP [Catalytic activity/Vol] 77 U/L Normal 38-126 [facility] Comment on above: Performed By: #### L ACT #### [facility] [address] [place] [address] Mere Brittany ALT [Catalytic activity/Vol] 45 U/L Normal 9-52 [facility] Comment on above: Performed By: #### L ACT #### [facility] [address] [place], [place] [id number] Mere Brittany AST [Catalytic activity/Vol] 23 U/L Normal 14-36 [facility] Comment on above: Performed By: #### L ACT #### [facility] [address] [place], [place] [address] Mere Brittany BILI, CONJUGATED 0.1 mg/dL Normal 0.0-0.[address] [facility] Comment on above: Performed By: #### L ACT #### [facility] [address] [place], [place] [address] Mere Brittany Bilirubin [Mass/Vol] 0.6 mg/dL Normal 0.2-1.3 [facility] Comment on above: Performed By: #### L ACT #### [facility] [address] [place], [place] [address] Mere Brittany Globulin (S) [Mass/Vol] 3.3 g/dL Normal [facility] Comment on above: Performed By: #### L ACT #### [facility] [address] [place], [place] [address] Mere [place]any Protein [Mass/Vol] 7.2 g/dL Normal 6.1-8.2 [facility] Comment on above: Performed By: #### L ACT #### [facility] [address] [place], [place] [address] Mere Brittany PROF CHEM 8 (BAS METB)on Anion gap [Moles/Vol] 11.8 mmol/L Normal [facility] Comment on above: Performed By: #### C BC #### [facility] [address] [place], [place] [address] Mere Brittany Calcium [Mass/Vol] 9.0 mg/dL Normal 8.4-10.2 [facility] Comment on above: Performed By: #### C BC #### [facility] [address] [place], [place] [address] Mere Brittany Chloride [Moles/Vol] 106 mmol/L Normal 98-107 [facility] Comment on above: Performed By: #### C BC #### [facility] [address] [place], [place] [address] Mere Brittany CO2 [Moles/Vol] 27.5 mmol/L Normal 22.0-30.[address] [facility] Comment on above: Performed By: #### C BC #### [facility] [address] [place], [place] [address] Mere Brittany Creatinine [Mass/Vol] 0.68 mg/dL Normal 0.52-1.04 [facility] Comment on above: Performed By: #### C BC #### [facility] [address] [place], [place] [address] Mere Brittany EGFR-AF LIBYAN >60 Normal >=[address] [facility] Comment on above: Performed By: #### C BC #### [facility] [address] [place], [place] [address] Mere Brittany EGFR-NON AF LIBYAN >60 Normal >=60 [facility] Comment on above: Performed By: #### C BC #### [facility] [address] [id number] Mere Brittany Glucose [Mass/Vol] 103 mg/dL Normal 74-106 [facility] Comment on above: Performed By: #### C BC #### [facility] [address] [id number] Mere Brittany Potassium [Moles/Vol] 4.3 mmol/L Normal 3.4-5.0 [facility] Comment on above: Performed By: #### C BC #### [facility] [address] [place], [place] [address] Mere Brittany Sodium [Moles/Vol] 141 mmol/L Normal 137-145 [facility] Comment on above: Performed By: #### C BC #### [facility] [address] [place], [place] [address] Mere Brittany Urea nitrogen [Mass/Vol] 8.0 mg/dL Normal 7.0-17.0 [facility] Comment on above: Performed By: #### C BC #### [facility] [address] [place], [place] [address] Mere Brittany Urea nitrogen/Creatinine [Mass ratio] 11.8 mg/mg Normal [facility] Comment on above: Performed By: #### C BC #### [facility] [address] [place], [place] [address] Mere Brittany CBC W MANUAL DIFFon 10-31-19 21 ATYPICAL LYMPH # Normal [facility] Comment on above: Performed By: #### C BCMAN #### [facility] [address] [place], [place] [address] Mere Brittany ATYPICAL LYMPH % Normal [facility] Comment on above: Performed By: #### C BRAIN #### [facility] [address] [place] [address] Mere Brittany BAND # 0.3 103/ul Normal 0.0-0.3 [facility] Comment on above: Performed By: #### C BRAIN #### [facility] [address] [address] Mere Brittany BAND % 7 % Critically high 0-5 [facility] Comment on above: Performed By: #### C BRAIN #### [facility] [address] [place] [address] Mere Brittany BASOM # 0.00 103/ul Normal 0.00-0.10 [facility] Comment on above: Performed By: #### C BRAIN #### [facility] [address] [place] [address] Mere Brittany BASOM % 0.0 % Critically low 0.2-2.0 [facility] Comment on above: Performed By: #### C BRAIN #### [facility] [address] [place] [address] Mere Brittany BLAST # Normal [facility] Comment on above: Performed By: #### C BRAIN #### [facility] [address] [place] [address] Mere Brittany BLAST % Normal [facility] Comment on above: Performed By: #### C BRAIN #### [facility] [address] [place] [address] Mere Brittany CORRECTED WBC Normal 4.0-11.0 [facility] Comment on above: Performed By: #### C BRAIN #### [facility] [address] [place] [address] Mere Brittany EOS # 0.00 103/ul Normal 0.00-0.70 [facility] Comment on above: Performed By: #### C BRAIN #### [facility] [address] [place] [address] Mere Brittany EOS% 0.0 % Critically low 0.9-7.0 [facility] Comment on above: Performed By: #### Nia DE LA PAZ #### [facility] [address] [place] [address] Mere [place] HCT 33.4 % Critically low 36.0-48.0 [facility] Comment on above: Performed By: #### Nia DE LA PAZ #### [facility] [address] [address] Mereshahnaz Patelen HGB 11.6 g/dl Critically low 12.0-16.0 [facility] Comment on above: Performed By: #### Nia DE LA PAZ #### [facility] [address] [place] [address] Mere S[place] LYMPHM # 0.22 103/ul Critically low 1.20-3.80 [facility] Comment on above: Performed By: #### Nia DE LA PAZ #### [facility] [address] [place] [address] Mere [place] LYMPHM% 6.0 % Critically low 20.5-60.0 [facility] Comment on above: Performed By: #### Nia DE LA PAZ #### [facility] [address] [place] [address] Mere S[place] MCH 30.4 pg Normal 26.7-34.0 [facility] Comment on above: Performed By: #### Nia DE LA PAZ #### [facility] [address] [place] [address] Mere Soto MCHC 34.7 g/dl Normal 29.9-35.2 [facility] Comment on above: Performed By: #### Nia DE LA PAZ #### [facility] [address] [place] [address] Mere S[place] MCV 87.4 fL Normal 81.0-99.0 [facility] Comment on above: Performed By: #### Nia DE LA PAZ #### [facility] [address] [place] [address] Mere Patelen METAMYELOCYTE # Normal [facility] Comment on above: Performed By: #### Nia DE LA PAZ #### [facility] [address] [place], [place] [address] Mere Brittany METAMYELOCYTE % Normal [facility] Comment on above: Performed By: #### Nia DE LA PAZ #### [facility] [address] [place] [address] Mere Brittany MONOM# 0.41 103/ul Normal 0.30-0.80 [facility] Comment on above: Performed By: #### Nia DE LA PAZ #### [facility] [address] [place] [address] Mere Brittany MONOM% 11.0 % Normal 1.7-12.0 [facility] Comment on above: Performed By: #### Nia DE LA PAZ #### [facility] [address] [place] [address] Mere Brittany MPV 9.1 fL Critically low 9.5-13.5 [facility] Comment on above: Performed By: #### Nia DE LA PAZ #### [facility] [address] [place] [address] Mere Brittany MYELOCYTE # Normal [facility] Comment on above: Performed By: #### Nia DE LA PAZ #### [facility] [address] [place] [address] Mere Brittany MYELOCYTE % Normal [facility] Comment on above: Performed By: #### Nia DE LA PAZ #### [facility] [address] [place], [place] [address] Mere Brittany NRBC Normal [facility] Comment on above: Performed By: #### Nia DE LA PAZ #### [facility] [address] [place] [address] Mere Brittany PLT 219 103/ul Normal 150-450 [facility] Comment on above: Performed By: #### Nia DE LA PAZ #### [facility] [address] [place] [address] Mere Brittany RBC 3.82 106/ul Critically low 4.20-5.40 [facility] Comment on above: Performed By: #### Nia DE LA PAZ #### [facility] [address] [place] [address] Mere Brittany RDW 12.8 % Normal 11.0-15.0 [facility] Comment on above: Performed By: #### C BRAIN #### [facility] [address] [place] [address] Mere Brittany SEG # 2.81 103/ul Normal 1.40-6.50 [facility] Comment on above: Performed By: #### C BRAIN #### [facility] [address] [place], [place] [address] Mere Brittany SEG % 76.0 % Critically high 43.0-75.0 [facility] Comment on above: Performed By: #### C BRAIN #### [facility] [address] [place], [place] [address] Mere Brittany WBC 3.7 103/ul Critically low 4.0-11.0 [facility] Comment on above: Performed By: #### C BRAIN #### [facility] [address] [place] [address] Mere Brittany PROF CHEM 8 (BAS METB)on Anion gap [Moles/Vol] 12.7 mmol/L Normal [facility] Comment on above: Performed By: #### L ACT #### [facility] [address] [place], [place] [address] Mere Brittany Calcium [Mass/Vol] 9.1 mg/dL Normal 8.4-10.2 [facility] Comment on above: Performed By: #### L ACT #### [facility] [address] [place], [place] [address] Mere Brittany Chloride [Moles/Vol] 108 mmol/L Critically high 98-107 [facility] Comment on above: Performed By: #### L ACT #### [facility] [address] [place], [place] [address] Mere Brittany CO2 [Moles/Vol] 25.5 mmol/L Normal 22.0-30.0 [facility] Comment on above: Performed By: #### L ACT #### [facility] [address] [place], [place] [address] Mere Brittany Creatinine [Mass/Vol] 0.80 mg/dL Normal 0.52-1.04 [facility] Comment on above: Performed By: #### L ACT #### [facility] [address] [id number] Mere Brittany EGFR-AF LIBYAN >60 Normal >=60 [facility] Comment on above: Performed By: #### L ACT #### [facility] [address] [id number] Mere Brittany EGFR-NON AF LIBYAN >60 Normal >=60 [facility] Comment on above: Performed By: #### L ACT #### [facility] [address] [address] Mere Brittany Glucose [Mass/Vol] 166 mg/dL Critically high 74-106 [facility] Comment on above: Performed By: #### L ACT #### [facility] [address] [place] [address] Mere Brittany Potassium [Moles/Vol] 3.2 mmol/L Critically low 3.4-5.0 [facility] Comment on above: Performed By: #### L ACT #### [facility] [address] [place] [address] Mere Brittany Sodium [Moles/Vol] 143 mmol/L Normal 137-145 [facility] Comment on above: Performed By: #### L ACT #### [facility] [address] [place] [address] Mere Brittany Urea nitrogen [Mass/Vol] 15.0 mg/dL Normal 7.0-17.0 [facility] Comment on above: Performed By: #### L ACT #### [facility] [address] [place] [address] Mere Brittany Urea nitrogen/Creatinine [Mass ratio] 18.8 mg/mg Normal [facility] Comment on above: Performed By: #### L ACT #### [facility] [address] [place], [place] [address] Mere Brittany CBC AUTO DIFFon 10-29-2020 BASO # 0.0 103/ul Normal 0.0-0.1 [facility] Comment on above: Performed By: #### C BC #### [facility] [address] [id number] Mere Brittany Basophils/100 WBC (Bld) 0.7 % Normal 0.2-2.0 [facility] Comment on above: Performed By: #### C BC #### [facility] [address] [place], [place] [address] Mere Brittany EO # 0.0 103/ul Normal 0.0-0.7 [facility] Comment on above: Performed By: #### C BC #### [facility] [address] [place], [place] [address] Mere Brittany Eosinophils/100 WBC (Bld) 0.0 % Critically low 0.9-7.0 [facility] Comment on above: Performed By: #### C BC #### [facility] [address] [place] [address] Mere Brittany Erythrocyte distribution width (RBC) [Ratio] 12.8 % Normal 11.0-15.0 [facility] Comment on above: Performed By: #### C BC #### [facility] [address] [place] [address] Mere Brittany Hematocrit (Bld) [Volume fraction] 35.1 % Critically low 36.0-48.0 [facility] Comment on above: Performed By: #### C BC #### [facility] [address] [place], [place] [address] Mere Brittany Hemoglobin (Bld) [Mass/Vol] 12.3 g/dL Normal 12.0-16.0 [facility] Comment on above: Performed By: #### C BC #### [facility] [address] [place] [address] Mere Brittany IG # 0.02 10e3/ul Normal 0.00-0.03 [facility] Comment on above: Performed By: #### C BC #### [facility] [address] [place], [place] [address] Mere Brittany IG % 1.5 % Critically high 0.0-0.5 [facility] Comment on above: Performed By: #### C BC #### [facility] [address] [id number] Mere Brittany LYMPH # 0.2 103/ul Critically low 1.2-3.8 [facility] Comment on above: Performed By: #### C BC #### [facility] [address] [id number] Mere Brittany Lymphocytes/100 WBC (Bld) 11.8 % Critically low 20.5-60.0 [facility] Comment on above: Performed By: #### C BC #### [facility] [address] [place], [place] [address] Mere Brittany MANUAL DIFF REQ NO Normal [facility] Comment on above: Performed By: #### C BC #### [facility] [address] [place] [address] [place] MCH (RBC) [Entitic mass] 30.8 pg Normal 26.7-34.0 [facility] Comment on above: Performed By: #### C BC #### [facility] [address] [place] [address] [place] MCHC (RBC) [Mass/Vol] 35.0 g/dL Normal 29.9-35.2 [facility] Comment on above: Performed By: #### C BC #### [facility] [address] [place] [address] [place] MCV (RBC) [Entitic vol] 88.0 fL Normal 81.0-99.0 [facility] Comment on above: Performed By: #### C BC #### [facility] [address] [place] [address] [place] MONO # 0.1 103/ul Critically low 0.3-0.8 [facility] Comment on above: Performed By: #### C BC #### [facility] [address] [place], [place] [id number] [place] Monocytes/100 WBC (Bld) 9.6 % Normal 1.7-12.0 [facility] Comment on above: Performed By: #### C BC #### [facility] [address] [place] [address] [place] NEUT # 1.0 103/ul Critically low 1.4-6.5 [facility] Comment on above: Performed By: #### C BC #### [facility] [address] [id number] [place] Neutrophils/100 WBC (Bld) 76.4 % Critically high 43.0-75.0 [facility] Comment on above: Performed By: #### C BC #### [facility] [address] [address] [place] Platelet mean volume (Bld) [Entitic vol] 9.5 fL Normal 9.5-13.5 [facility] Comment on above: Performed By: #### C BC #### [facility] [address] [place] [address] [place] PLT 190 103/ul Normal 150-450 [facility] Comment on above: Performed By: #### C BC #### [facility] [address] [address] [place] RBC 3.99 106/ul Critically low 4.20-5.40 [facility] Comment on above: Performed By: #### C BC #### [facility] [address] [id number] [place] WBC 1.4 103/ul Critically low 4.0-11.0 [facility] Comment on above: Performed By: #### C BC #### [facility] [address] [place], [place] [address] [place] PROF CHEM 8 (BAS METB)on Anion gap [Moles/Vol] 11.9 mmol/L Normal [facility] Comment on above: Performed By: #### B MP #### [facility] [address] [id number] [place] Calcium [Mass/Vol] 9.2 mg/dL Normal 8.4-10.2 [facility] Comment on above: Performed By: #### B MP #### [facility] [address] [id number] [place] Chloride [Moles/Vol] 106 mmol/L Normal 98-107 [facility] Comment on above: Performed By: #### B MP #### [facility] [address] [address] [place] CO2 [Moles/Vol] 25.5 mmol/L Normal 22.0-30.0 [facility] Comment on above: Performed By: #### B MP #### [facility] [address] [place] [address] [place] Creatinine [Mass/Vol] 0.62 mg/dL Normal 0.52-1.04 [facility] Comment on above: Performed By: #### B MP #### [facility] [address] [place] [address] [place] EGFR-AF LIBYAN >60 Normal >=60 [facility] Comment on above: Performed By: #### B MP #### [facility] [address] [place] [address] [place] EGFR-NON AF LIBYAN >60 Normal >=60 [facility] Comment on above: Performed By: #### B MP #### [facility] [address] [place] [address] [place] Glucose [Mass/Vol] 223 mg/dL Critically high 74-106 [facility] Comment on above: Performed By: #### B MP #### [facility] [address] [place] [address] [place] Potassium [Moles/Vol] 3.4 mmol/L Normal 3.4-5.0 [facility] Comment on above: Performed By: #### B MP #### [facility] [address] [place] [address] [place] Sodium [Moles/Vol] 140 mmol/L Normal 137-145 [facility] Comment on above: Performed By: #### B MP #### [facility] [address] [place], [place] [address] [place] Urea nitrogen [Mass/Vol] 10.0 mg/dL Normal 7.0-17.0 [facility] Comment on above: Performed By: #### B MP #### [facility] [address] [place] [address] [place] Urea nitrogen/Creatinine [Mass ratio] 16.1 mg/mg Normal [facility] Comment on above: Performed By: #### B MP #### [facility] [address] [place] [address] [place] CBC W MANUAL DIFFon 10-29-19 ATYPICAL LYMPH # 0.03 103/ul Normal [facility] Comment on above: Performed By: #### L ACT #### [facility] [address] [place] [address] [place] ATYPICAL LYMPH % 2 % Normal [facility] Comment on above: Performed By: #### L ACT #### [facility] [address] [place] [address] [place] BAND # 0.0 103/ul Normal 0.0-0.3 [facility] Comment on above: Performed By: #### L ACT #### [facility] [address] [place] [address] [place] BAND % 0 % Normal 0-5 [facility] Comment on above: Performed By: #### L ACT #### [facility] [address] [place] [address] [place] BASOM # 0.00 103/ul Normal 0.00-0.10 [facility] Comment on above: Performed By: #### L ACT #### [facility] [address] [place] [address] [place] BASOM % 0.0 % Critically low 0.2-2.0 [facility] Comment on above: Performed By: #### L ACT #### [facility] [address] [place] [address] [place] BLAST # Normal [facility] Comment on above: Performed By: #### L ACT #### [facility] [address] [place] [address] [place] BLAST % Normal [facility] Comment on above: Performed By: #### L ACT #### [facility] [address] [address] [place] CORRECTED WBC Normal 4.0-11.0 [facility] Comment on above: Performed By: #### L ACT #### [facility] [address] [id number] [place] Patelen EOS # 0.00 103/ul Normal 0.00-0.70 [facility] Comment on above: Performed By: #### L ACT #### [facility] [address] [address] [place] EOS% 0.0 % Critically low 0.9-7.0 [facility] Comment on above: Performed By: #### L ACT #### [facility] [address] [place] [address] [place] HCT 34.0 % Critically low 36.0-48.0 [facility] Comment on above: Performed By: #### L ACT #### [facility] [address] [place] [address] [place] HGB 11.6 g/dl Critically low 12.0-16.0 [facility] Comment on above: Performed By: #### L ACT #### [facility] [address] [place] [address] [place] LYMPHM # 0.36 103/ul Critically low 1.20-3.80 [facility] Comment on above: Performed By: #### L ACT #### [facility] [address] [place] [address] [place] LYMPHM% 26.0 % Normal 20.5-60.0 [facility] Comment on above: Performed By: #### L ACT #### [facility] [address] [place], [place] [address] [place] MCH 30.7 pg Normal 26.7-34.0 [facility] Comment on above: Performed By: #### L ACT #### [facility] [address] [place] [address] [place] MCHC 34.1 g/dl Normal 29.9-35.2 [facility] Comment on above: Performed By: #### L ACT #### [facility] [address] [place] [address] [place] MCV 89.9 fL Normal 81.0-99.0 [facility] Comment on above: Performed By: #### L ACT #### [facility] [address] [place] [address] [place] METAMYELOCYTE # Normal [facility] Comment on above: Performed By: #### L ACT #### [facility] [address] [place] [address] [place] METAMYELOCYTE % Normal [facility] Comment on above: Performed By: #### L ACT #### [facility] [address] [place] [address] [place] MONOM# 0.21 103/ul Critically low 0.30-0.80 [facility] Comment on above: Performed By: #### L ACT #### [facility] [address] [place] [address] [place] MONOM% 15.0 % Critically high 1.7-12.0 [facility] Comment on above: Performed By: #### L ACT #### [facility] [address] [place] [address] [place] Patelen MPV 9.1 fL Critically low 9.5-13.5 [facility] Comment on above: Performed By: #### L ACT #### [facility] [address] [place] [address] [place] MYELOCYTE # Normal [facility] Comment on above: Performed By: #### L ACT #### [facility] [address] [place] [address] [place] MYELOCYTE % Normal [facility] Comment on above: Performed By: #### L ACT #### [facility] [address] [place] [address] [place] NRBC Normal [facility] Comment on above: Performed By: #### L ACT #### [facility] [address] [place] [address] [place] PLT 166 103/ul Normal 150-450 [facility] Comment on above: Performed By: #### L ACT #### [facility] [address] [id number] [place] RBC 3.78 106/ul Critically low 4.20-5.40 [facility] Comment on above: Performed By: #### L ACT #### [facility] [address] [id number] [place] RDW 13.0 % Normal 11.0-15.0 [facility] Comment on above: Performed By: #### L ACT #### [facility] [address] [place], [place] [address] [place] SEG # 0.80 103/ul Critically low 1.40-6.50 [facility] Comment on above: Performed By: #### L ACT #### [facility] [address] [place] [address] [place] SEG % 57.0 % Normal 43.0-75.0 [facility] Comment on above: Performed By: #### L ACT #### [facility] [address] [place], [place] [address] [place] WBC 1.4 103/ul Critically low 4.0-11.0 [facility] Comment on above: Performed By: #### L ACT #### [facility] [address] [place], [place] [address] [place] CULTURE BLOODon 10-28-2020 Microscopic examination of blood, culture Culture Observations: No growth at 5 days Normal [facility] Comment on above: Performed By: #### C BC #### [facility] [address] [place] [id number] [place] CULTURE SPUTUMon 10-28-2020 CULTURE SPUTUM Culture Observations : Normal respiratory bee. Normal [facility] Comment on above: Performed By: #### C BC #### [facility] [address] [place], [place] [address] [place] PROF CHEM 8 (BAS METB)on Anion gap [Moles/Vol] 16.1 mmol/L Normal [facility] Comment on above: Performed By: #### B MP #### [facility] [address] [id number] [place] Calcium [Mass/Vol] 8.4 mg/dL Normal 8.4-10.2 [facility] Comment on above: Performed By: #### B MP #### [facility] [address] [address] [place] Chloride [Moles/Vol] 104 mmol/L Normal 98-107 [facility] Comment on above: Performed By: #### B MP #### [facility] [address] [address] [place] CO2 [Moles/Vol] 21.2 mmol/L Critically low 22.0-30.0 [facility] Comment on above: Performed By: #### B MP #### [facility] [address] [address] [place] Creatinine [Mass/Vol] 0.77 mg/dL Normal 0.52-1.04 [facility] Comment on above: Performed By: #### B MP #### [facility] [address] [address] [place] EGFR-AF LIBYAN >60 Normal >=[address] [facility] Comment on above: Performed By: #### B MP #### [facility] [address] [address] [place] EGFR-NON AF LIBYAN >60 Normal >=60 [facility] Comment on above: Performed By: #### B MP #### [facility] [address] [address] [place] Glucose [Mass/Vol] 81 mg/dL Normal 74-106 [facility] Comment on above: Performed By: #### B MP #### [facility] [address] [address] [place] Potassium [Moles/Vol] 3.3 mmol/L Critically low 3.4-5.0 [facility] Comment on above: Performed By: #### B MP #### [facility] [address] [address] [place] Sodium [Moles/Vol] 138 mmol/L Normal 137-145 [facility] Comment on above: Performed By: #### B MP #### [facility] [address] [place] [address] [place] Urea nitrogen [Mass/Vol] 10.0 mg/dL Normal 7.0-17.0 [facility] Comment on above: Performed By: #### B MP #### [facility] [address] [place] [address] [place] Urea nitrogen/Creatinine [Mass ratio] 13.0 mg/mg Normal [facility] Comment on above: Performed By: #### B MP #### [facility] [address] [place] [address] [place] SPUTUM GRAM STAINon 10-29-19 COMMENTS Normal [facility] Comment on above: Performed By: #### S PUTGS #### [facility] [address] [place] [address] [place] DIPHTHEROIDS Normal [facility] Comment on above: Performed By: #### S PUTGS #### [facility] [address] [place] [address] [place] EPITHELIALS <25 Normal [facility] Comment on above: Performed By: #### S PUTGS #### [facility] [address] [place] [address] [place] FUNGAL ELEMENTS Normal [facility] Comment on above: Performed By: #### S PUTGS #### [facility] [address] [place] [address] [place] GRAM NEG BACILLI Normal [facility] Comment on above: Performed By: #### S PUTGS #### [facility] [address] [place] [address] [place] GRAM NEG DIPPLOCOCCI Normal [facility] Comment on above: Performed By: #### S PUTGS #### [facility] [address] [place] [address] [place] GRAM POS BACILLI MANY Normal [facility] Comment on above: Performed By: #### S PUTGS #### [facility] [address] [place] [address] [place] GRAM POSITIVE COCCI MANY Normal [facility] Comment on above: Performed By: #### S ARABELLA #### [facility] [address] [place] [address] [place] WBC (Bld) [#/Vol] 10*3/uL Normal [facility] Comment on above: Performed By: #### S ARABELLA #### [facility] [address] [place] [address] [place] CBC W MANUAL DIFFon 10-28-19 21 ATYPICAL LYMPH # 0.02 103/ul Normal [facility] Comment on above: Performed By: #### C BRAIN PERS #### [facility] [address] [place] [address] [place] ATYPICAL LYMPH % 2 % Normal [facility] Comment on above: Performed By: #### Nia DE LA PAZ PERS #### [facility] [address] [place] [address] [place] BAND # 0.0 103/ul Normal 0.0-0.3 [facility] Comment on above: Performed By: #### Nia DE LA PAZ PERS #### [facility] [address] [place] [address] [place] BAND % 0 % Normal 0-5 [facility] Comment on above: Performed By: #### Nia DE LA PAZ PERSMR #### [facility] [address] [place] [address] [place] BASOM # 0.00 103/ul Normal 0.00-0.10 [facility] Comment on above: Performed By: #### Nia DE LA PAZ PERS #### [facility] [address] [place] [address] [place] BASOM % 0.0 % Critically low 0.2-2.0 [facility] Comment on above: Performed By: #### Nia DE LA PAZ PERS #### [facility] [address] [place] [address] [place] BLAST # Normal [facility] Comment on above: Performed By: #### Nia DE LA PAZ, PERSMR #### [facility] [address] [address] [place] BLAST % Normal [facility] Comment on above: Performed By: #### Nia DE LA PAZ, PERSMR #### [facility] [address] [id number] [place] CORRECTED WBC Normal 4.0-11.0 [facility] Comment on above: Performed By: #### Nia DE LA PAZ, PERSMR #### [facility] [address] [address] [place] EOS # 0.02 103/ul Normal 0.00-0.70 [facility] Comment on above: Performed By: #### Nia DE LA PAZ, PERSMR #### [facility] [address] [address] [place] EOS% 2.0 % Normal 0.9-7.0 [facility] Comment on above: Performed By: #### Nia DE LA PAZ, PERSMR #### [facility] [address] [address] [place] HCT 38.3 % Normal 36.0-48.0 [facility] Comment on above: Performed By: #### Nia DE LA PAZ, PERSMR #### [facility] [address] [address] [place] HGB 13.0 g/dl Normal 12.0-16.0 [facility] Comment on above: Performed By: #### Nia DE LA PAZ, PERSMR #### [facility] [address] [address] [place] LYMPHM # 0.13 103/ul Critically low 1.20-3.80 [facility] Comment on above: Performed By: #### Nia DE LA PAZ, PERSMR #### [facility] [address] [address] [place] LYMPHM% 14.0 % Critically low 20.5-60.0 [facility] Comment on above: Performed By: #### Nia DE LA PAZ, PERSMR #### [facility] [address] [id number] [place] MCH 30.4 pg Normal 26.7-34.0 [facility] Comment on above: Performed By: #### Nia DE LA PAZ PERSMR #### [facility] [address] [id number] [place] MCHC 33.9 g/dl Normal 29.9-35.2 [facility] Comment on above: Performed By: #### Nia DE LA PAZ PERSMR #### [facility] [address] [address] [place] MCV 89.7 fL Normal 81.0-99.0 [facility] Comment on above: Performed By: #### Nia DE LA PAZ PERSMR #### [facility] [address] [address] [place] METAMYELOCYTE # Normal [facility] Comment on above: Performed By: #### Nia DE LA PAZ PERSMR #### [facility] [address] [address] [place] METAMYELOCYTE % Normal [facility] Comment on above: Performed By: #### Nia DE LA PAZ PERSMR #### [facility] [address] [address] [place] MONOM# 0.16 103/ul Critically low 0.30-0.80 [facility] Comment on above: Performed By: #### Nia DE LA PAZ PERSMR #### [facility] [address] [address] [place] MONOM% 18.0 % Critically high 1.7-12.0 [facility] Comment on above: Performed By: #### Nia DE LA PAZ PERSMR #### [facility] [address] [address] [place] MPV 8.6 fL Critically low 9.5-13.5 [facility] Comment on above: Performed By: #### Nia DE LA PAZ PERSMR #### [facility] [address] [address] [place] MYELOCYTE # Normal [facility] Comment on above: Performed By: #### Nia DE LA PAZ, PERSMR #### [facility] [address] [place], [place] [address] [place] MYELOCYTE % Normal [facility] Comment on above: Performed By: #### Nia DE LA PAZ, PERSMR #### [facility] [address] [id number] [place] NRBC Normal [facility] Comment on above: Performed By: #### Nia DE LA PAZ, PERSMR #### [facility] [address] [id number] [place] PLT 183 103/ul Normal 150-450 [facility] Comment on above: Performed By: #### Nia DE LA PAZ PERSMR #### [facility] [address] [address] [place] RBC 4.27 106/ul Normal 4.20-5.40 [facility] Comment on above: Performed By: #### Nia DE LA PAZ PERSMR #### [facility] [address] [place] [address] [place] RDW 12.8 % Normal 11.0-15.0 [facility] Comment on above: Performed By: #### Nia DE LA PAZ PERSMR #### [facility] [address] [address] [place]n SEG # 0.58 103/ul Critically low 1.40-6.50 [facility] Comment on above: Performed By: #### Nia DE LA PAZ PERSMR #### [facility] [address] [id number] [place] SEG % 64.0 % Normal 43.0-75.0 [facility] Comment on above: Performed By: #### Nia DE LA PAZ, PERSMR #### [facility] [address] [id number] [place] WBC 0.9 103/ul Critically low 4.0-11.0 [facility] Comment on above: Result Comment: test repeated critical value verified Performed By: #### Nia DE LA PAZ, PERSMR #### [facility] [address] [place], [place] [id number] [place] ER URINE PROFILEon 1 Bilirubin Ql (U) MODERATE Abnormal NEGATIVE [facility] Comment on above: Performed By: #### C BC #### [facility] [address] [place] [address] [place] Clarity (U) CLEAR Normal CLEAR [facility] Comment on above: Performed By: #### C BC #### [facility] [address] [address] [place] Color (U) YELLOW Normal YELLOW [facility] Comment on above: Performed By: #### C BC #### [facility] [address] [place] [address] [place] ERUAHD A micrscopic examination will be performed if indicated. Normal [facility] Comment on above: Performed By: #### C BC #### [facility] [address] [place] [address] [place] Glucose Ql (U) Negative Normal NEGATIVE [facility] Comment on above: Performed By: #### C BC #### [facility] [facility] [address] [place] [address] Mere Brittany Hemoglobin Ql (U) SMALL Abnormal NEGATIVE [facility] Comment on above: Performed By: #### C BC #### [facility] [address] [place] [address] Mere Brittany Ketones Ql (U) >=80 Abnormal NEGATIVE [facility] Comment on above: Performed By: #### C BC #### [facility] [address] [place] [address] Mere Brittany LEUKOCYTES Negative Normal NEGATIVE [facility] Comment on above: Performed By: #### C BC #### [facility] [address] [place] [address] Mere Brittany Nitrite Ql (U) Negative Normal NEGATIVE [facility] Comment on above: Performed By: #### C BC #### [facility] [address] [place] [address] Mere Brittany pH (U) 6.0 [pH] Normal 5-9 [facility] Comment on above: Performed By: #### C BC #### [facility] [address] [place], [place] [address] Mereshahnaz Soto Protein (U) [Mass/Vol] 30 mg/dL Abnormal NEGATIVE/ TRACE [facility] Comment on above: Performed By: #### C BC #### [facility] [address] [place], [place] [address] Mere Soto SPEC GRAVITY 1.020 Normal 1.005-<=1.025 [facility] Comment on above: Performed By: #### C BC #### [facility] [address] [place], [place] [address] Mere Soto UR MICRO IND INDICATED Normal [facility] Comment on above: Performed By: #### C BC #### [facility] [address] [place] [address] Mere Soto Urobilinogen Qn (U) 1.0 {Sage'U}/dL Normal 0.2 - 1. 0 [facility] Comment on above: Performed By: #### C BC #### [facility] [address] [place] [address] Mere Soto LACTATE/LACTIC ACIDon 2020 Lactate [Moles/Vol] 1.3 mmol/L Normal 0.7-2.0 [facility] Comment on above: Performed By: #### L ACT #### [facility] [address] [place] [address] Mere Soto LIPASEon 10-27-2020 Lipase [Catalytic activity/Vol] 94.0 U/L Normal 23.0-300.0 [facility] Comment on above: Performed By: #### C BC #### [facility] [address] [place] [address] Mere Soto PERIPHERAL SMEARon Pathologist Cyto stain Nom (Cvx/Vag) [ID] DR. COLLETTE COKER Normal [facility] Comment on above: Result Comment: Neut ropenia and lymphopenia of unknown etiology. CPT: [address] Dr. Collette Coker 10/30/2020 Performed By: #### C BCMAN, PERSMR #### [facility] [address] [place], [place] [id number] Mereshahnaz Patelen PROF 14(COMP METB)on 021 Albumin [Mass/Vol] 3.2 g/dL Critically low 3.5-5.0 [facility] Comment on above: Performed By: #### C BC #### [facility] [address] [place], [place] [id number] Mere Brittany Albumin/Globulin [Mass ratio] 0.7 {ratio} Normal [facility] Comment on above: Performed By: #### C BC #### [facility] [address] [place] [address] Mere Brittany ALP [Catalytic activity/Vol] 59 U/L Normal 38-126 [facility] Comment on above: Performed By: #### C BC #### [facility] [address] [place] [address] Mere Brittany ALT [Catalytic activity/Vol] 24 U/L Normal 9-52 [facility] Comment on above: Performed By: #### C BC #### [facility] [address] [place] [address] Mere Brittany Anion gap [Moles/Vol] 16.7 mmol/L Normal [facility] Comment on above: Performed By: #### C BC #### [facility] [address] [place] [address] Mere Brittany AST [Catalytic activity/Vol] 21 U/L Normal 14-36 [facility] Comment on above: Performed By: #### C BC #### [facility] [address] [place], [place] [id number] Mere Brittany Bilirubin [Mass/Vol] 0.4 mg/dL Normal 0.2-1.3 [facility] Comment on above: Performed By: #### C BC #### [facility] [address] [place], [place] [address] Mere Brittany Calcium [Mass/Vol] 8.8 mg/dL Normal 8.4-10.2 [facility] Comment on above: Performed By: #### C BC #### [facility] [address] [place], [place] [address] Mere Brittany Chloride [Moles/Vol] 98 mmol/L Normal 98-107 [facility] Comment on above: Performed By: #### C BC #### [facility] [address] [place], [place] [address] Mere Brittany CO2 [Moles/Vol] 25.0 mmol/L Normal 22.0-30.[address] [facility] Comment on above: Performed By: #### C BC #### [facility] [address] [place] [address] Mere Brittany Creatinine [Mass/Vol] 0.92 mg/dL Normal 0.52-1.04 [facility] Comment on above: Performed By: #### C BC #### [facility] [address] [place] [address] Mere Brittany EGFR-AF LIBYAN >60 Normal >=[address] [facility] Comment on above: Performed By: #### C BC #### [facility] [address] [place] [address] Mere Brittany EGFR-NON AF LIBYAN >60 Normal >=60 [facility] Comment on above: Performed By: #### C BC #### [facility] [address] [place], [place] [id number] Mere Brittany Globulin (S) [Mass/Vol] 4.8 g/dL Normal [facility] Comment on above: Performed By: #### C BC #### [facility] [address] [place] [address] Mere Brittany Glucose [Mass/Vol] 93 mg/dL Normal 74-106 [facility] Comment on above: Performed By: #### C BC #### [facility] [address] [place], [place] [address] Mere Brittany Potassium [Moles/Vol] 3.7 mmol/L Normal 3.4-5.0 [facility] Comment on above: Performed By: #### C BC #### [facility] [address] [place] [address] Mere Brittany Protein [Mass/Vol] 8.0 g/dL Normal 6.1-8.2 [facility] Comment on above: Performed By: #### C BC #### [facility] [address] [place] [id number] Mere Brittany Sodium [Moles/Vol] 136 mmol/L Critically low 137-[address] [facility] Comment on above: Performed By: #### C BC #### [facility] [address] [place] [id number] Mere Brittany Urea nitrogen [Mass/Vol] 14.0 mg/dL Normal 7.0-17.0 [facility] Comment on above: Performed By: #### C BC #### [facility] [address] [place], [place] [address] Mere Brittany Urea nitrogen/Creatinine [Mass ratio] 15.2 mg/mg Normal [facility] Comment on above: Performed By: #### C BC #### [facility] [address] [place] [address] Mere Brittany TROPONIN, HIGH SENSITIVITYon 10-27-2020 HSTROP 10.4 pg/mL Normal 4.0-35.5 [facility] Comment on above: Result Comment: CUT- OFF POINTS HAVE BEEN ESTABLISHED BASED ON THE FOURTH UNIVERSAL DEFINITIONS OF MYOCARDIAL INFARCTION. THE UPPER REFERENCE LIMIT (URL) OF TROPONIN, DEFINED THE 99TH PERCENTILE OF cTnI DISTRIBUTION IN A REFERENCE POPULATION, HAS BEEN CONFIRMED THE DECISION THRESHOLD FOR AL DIAGNOSIS. Performed By: #### C BC #### [facility] [address] [place], [place] [address] Mere Brittany URINE MICROSCOPIC ONLYon BACTERIA TRACE Abnormal NONE SEEN [facility] Comment on above: Performed By: #### C BC #### [facility] [address] [place], [place] [address] Mere Brittany Bacteria identified Cx Nom (U) NOT INDICATED Normal [facility] Comment on above: Performed By: #### C BC #### [facility] [address] [place], [place] [address] Mere Brittany CAST NONE SEEN Normal NONE SEEN [facility] Comment on above: Performed By: #### C BC #### [facility] [address] [place], [place] [id number] Mere Brittany Crystals LM Nom (Urine sed) NONE SEEN Normal NONE SEEN [facility] Comment on above: Performed By: #### C BC #### [facility] [address] [place], [place] [address] Mere Brittany Epithelial cells LM Ql (Urine sed) RARE Normal NONE SEEN /RARE [facility] Comment on above: Performed By: #### C BC #### [facility] [address] [place], [place] [address] Mere Brittany MUCOUS NONE SEEN Normal NONE SEEN [facility] Comment on above: Performed By: #### C BC #### [facility] [address] [place], [place] [address] Mere Brittany RBC 2-5 Abnormal 0-2 [facility] Comment on above: Performed By: #### C BC #### [facility] [address] [place], [place] [address] Mere Brittany WBC NONE SEEN Normal NONE SEEN [facility] Comment on above: Performed By: #### C BC #### [facility] [address] [place], [place] [address] Mere Brittany XR CHEST 1 Von 10-27-2020 SARS-CoV-2 (COVID-19) RNA SHANTA+probe Ql (Unsp spec) EXAM: XR CHEST 1 V HISTORY: Cough. Covid positive. COMPARISON: None. TECHNIQUE: Single AP view of the chest was performed. FINDINGS: Bilateral airspace opacity is noted. No pneumothorax or pleural effusion. The cardiomediastinal silhouette is unremarkable. The osseous structures are intact. IMPRESSION: Bilateral airspace opacity consistent with multifocal pneumonia, likely of a viral etiology given patient clinical history. Electronically authenticated by: AYLIN JOHNSON Date: 2020-10-27 20:41 Normal [facility] CBC AUTO DIFFon 07-27-2020 BASO # 0.0 103/ul Normal 0.0-0.1 [facility] Comment on above: Performed By: #### C BC #### [facility] [address] [place], [place] [address] Mere Brittany Basophils/100 WBC (Bld) 0.5 % Normal 0.2-2.0 [facility] Comment on above: Performed By: #### C BC #### [facility] [address] [place] [address] Mere Brittany EO # 0.1 103/ul Normal 0.0-0.7 [facility] Comment on above: Performed By: #### C BC #### [facility] [address] [place], [place] [address] Mere Brittany Eosinophils/100 WBC (Bld) 3.2 % Normal 0.9-7.0 [facility] Comment on above: Performed By: #### C BC #### [facility] [address] [place] [address] Mere Brittany Erythrocyte distribution width (RBC) [Ratio] 12.6 % Normal 11.0-15.0 [facility] Comment on above: Performed By: #### C BC #### [facility] [address] [place] [address] Mere Brittany Hematocrit (Bld) [Volume fraction] 39.9 % Normal 36.0-48.0 [facility] Comment on above: Performed By: #### C BC #### [facility] [address] [place] [address] Mere Brittany Hemoglobin (Bld) [Mass/Vol] 13.5 g/dL Normal 12.0-16.0 [facility] Comment on above: Performed By: #### C BC #### [facility] [address] [place] [address] Mere Brittany IG # 0.01 10e3/ul Normal 0.00-0.03 [facility] Comment on above: Performed By: #### C BC #### [facility] [address] [place] [address] Mere Brittany IG % 0.2 % Normal 0.0-0.5 [facility] Comment on above: Performed By: #### C BC #### [facility] [address] [place] [address] Mere Brittany LYMPH # 1.1 103/ul Critically low 1.2-3.8 [facility] Comment on above: Performed By: #### C BC #### [facility] [address] [place], [place] [address] Mere Brittany Lymphocytes/100 WBC (Bld) 24.0 % Normal 20.5-60.0 [facility] Comment on above: Performed By: #### C BC #### [facility] [address] [place], [place] [address] Mereshahnaz Soto MANUAL DIFF REQ NO Normal [facility] Comment on above: Performed By: #### C BC #### [facility] [address] [place], [place] [address] Mere Brittany MCH (RBC) [Entitic mass] 30.7 pg Normal 26.7-34.0 [facility] Comment on above: Performed By: #### C BC #### [facility] [address] [place], [place] [address] Mereshahnaz Soto MCHC (RBC) [Mass/Vol] 33.8 g/dL Normal 29.9-35.2 [facility] Comment on above: Performed By: #### C BC #### [facility] [address] [place] [address] Mere Brittany MCV (RBC) [Entitic vol] 90.7 fL Normal 81.0-99.0 [facility] Comment on above: Performed By: #### C BC #### [facility] [address] [place], [place] [address] Mere Brittany MONO # 0.5 103/ul Normal 0.3-0.8 [facility] Comment on above: Performed By: #### C BC #### [facility] [address] [place] [address] Mere Brittany Monocytes/100 WBC (Bld) 10.4 % Normal 1.7-12.0 [facility] Comment on above: Performed By: #### C BC #### [facility] [address] [place], [place] [address] Mere Brittany NEUT # 2.7 103/ul Normal 1.4-6.5 [facility] Comment on above: Performed By: #### C BC #### [facility] [address] [place], [place] [address] Mere Brittany Neutrophils/100 WBC (Bld) 61.7 % Normal 43.0-75.0 [facility] Comment on above: Performed By: #### C BC #### [facility] [address] [place], [place] [address] Mere Soto Platelet mean volume (Bld) [Entitic vol] 8.8 fL Critically low 9.5-13.5 [facility] Comment on above: Performed By: #### C BC #### [facility] [address] [place], [place] [address] Mere Soto PLT 224 103/ul Normal 150-450 [facility] Comment on above: Performed By: #### C BC #### [facility] [address] [place], [place] [address] Mere Soto RBC 4.40 106/ul Normal 4.20-5.40 [facility] Comment on above: Performed By: #### C BC #### [facility] [address] [place], [place] [address] Mere Soto WBC 4.4 103/ul Normal 4.0-11.0 [facility] Comment on above: Performed By: #### C BC #### [facility] [address] [place] [address] Mere Soto MRI BRAIN W WO CONTRASTon MRI BRAIN W WO CONTRAST EXAMINATION: MRI OF THE BRAIN WITHOUT AND WITH CONTRAST; MRI OF THE BRAIN AND MRI OF THE ORBITS WITH AND WITHOUT CONTRAST 09/01/2019 9:24 am TECHNIQUE: Multiplanar multisequence MRI of the head/brain was performed without and with the administration of intravenous contrast.; Multiplanar multisequence MRI of the brain and MRI of the orbits was performed with and without intravenous contrast. COMPARISON: None. HISTORY: ORDERING SYSTEM PROVIDED HISTORY: 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, left TECHNOLOGIST PROVIDED HISTORY: Atten: Orbits Is the patient ?->No; ORDERING SYSTEM PROVIDED HISTORY: 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, left TECHNOLOGIST PROVIDED HISTORY: Is the patient ?->No Initial evaluation. FINDINGS: MRI BRAIN: INTRACRANIAL STRUCTURES/VENTRICLES: There is no evidence of an acute infarct. There is an area of T2 shine through involving the right occipital lobe with associated patchy enhancement. No abnormal enhancement otherwise seen. No evidence of an acute intracranial hemorrhage. The size and configuration of the ventricles and sulci appear normal. Areas of T2 FLAIR hyperintensity are seen in the periventricular and subcortical white matter, which are nonspecific. No acute abnormality within the sellar or suprasellar region. SINUSES: The visualized paranasal sinuses and mastoid air cells are well aerated. BONES/SOFT TISSUES: The bone marrow signal intensity appears normal. The soft tissues demonstrate no acute abnormality. MRI ORBITS: ORBITS: The lenses are normally located. No acute abnormality identified of the globes. No abnormal signal or enhancement of the optic nerves. The extraocular muscles are symmetric. No orbital mass. IMPRESSION: 1. There is an area of T2 shine through involving the right occipital lobe with associated enhancement. Given history multiple sclerosis, this could represent an area of active demyelination. A subacute infarct is also a consideration, but less likely given patient's age. 2. Otherwise, no acute intracranial abnormality. No acute infarct. 3. T2 FLAIR hyperintense lesions within the periventricular and subcortical white matter compatible with a clinical diagnosis of multiple sclerosis. 4. No acute abnormality identified of the orbits. These results were sent to the [facility] ([facility]) on 09/01/2019 at 10:42 am to be communicated to the referring/covering health care provider/office. Interpreted by: Max Hunter MD Signed by: Max Hunter MD 09/01/19 Final result Normal [facility] MRI ORBITS FACE NECK W WO CO NTRASTon 09-01-2019 MRI ORBITS FACE NECK W WO CONTRAST EXAMINATION: MRI OF THE BRAIN WITHOUT AND WITH CONTRAST; MRI OF THE BRAIN AND MRI OF THE ORBITS WITH AND WITHOUT CONTRAST 09/01/2019 9:24 am TECHNIQUE: Multiplanar multisequence MRI of the head/brain was performed without and with the administration of intravenous contrast.; Multiplanar multisequence MRI of the brain and MRI of the orbits was performed with and without intravenous contrast. COMPARISON: None. HISTORY: ORDERING SYSTEM PROVIDED HISTORY: 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, left TECHNOLOGIST PROVIDED HISTORY: Atten: Orbits Is the patient ?->No; ORDERING SYSTEM PROVIDED HISTORY: 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, left TECHNOLOGIST PROVIDED HISTORY: Is the patient ?->No Initial evaluation. FINDINGS: MRI BRAIN: INTRACRANIAL STRUCTURES/VENTRICLES: There is no evidence of an acute infarct. There is an area of T2 shine through involving the right occipital lobe with associated patchy enhancement. No abnormal enhancement otherwise seen. No evidence of an acute intracranial hemorrhage. The size and configuration of the ventricles and sulci appear normal. Areas of T2 FLAIR hyperintensity are seen in the periventricular and subcortical white matter, which are nonspecific. No acute abnormality within the sellar or suprasellar region. SINUSES: The visualized paranasal sinuses and mastoid air cells are well aerated. BONES/SOFT TISSUES: The bone marrow signal intensity appears normal. The soft tissues demonstrate no acute abnormality. MRI ORBITS: ORBITS: The lenses are normally located. No acute abnormality identified of the globes. No abnormal signal or enhancement of the optic nerves. The extraocular muscles are symmetric. No orbital mass. IMPRESSION: 1. There is an area of T2 shine through involving the right occipital lobe with associated enhancement. Given history multiple sclerosis, this could represent an area of active demyelination. A subacute infarct is also a consideration, but less likely given patient's age. 2. Otherwise, no acute intracranial abnormality. No acute infarct. 3. T2 FLAIR hyperintense lesions within the periventricular and subcortical white matter compatible with a clinical diagnosis of multiple sclerosis. 4. No acute abnormality identified of the orbits. These results were sent to the [facility] ([facility]) on 09/01/2019 at 10:42 am to be communicated to the referring/covering health care provider/office. Interpreted by: Max Hunter MD Signed by: Max Hunter MD 09/01/19 Recipients: Jase Agustin MD - In Basket Final result Normal [facility] 09-01-2019 1. There is an area of T2 shine through involving the right occipital lobe with associated enhancement. Given history multiple sclerosis, this could represent an area of active demyelination. A subacute infarct is also a consideration, but less likely given patient's age. 2. Otherwise, no acute intracranial abnormality. No acute infarct. 3. T2 FLAIR hyperintense lesions within the periventricular and subcortical white matter compatible with a clinical diagnosis of multiple sclerosis. 4. No acute abnormality identified of the orbits. These results were sent to the [facility] ([facility]) on 09/01/2019 at 10:42 am to be communicated to the referring/covering health care provider/office. [facility] [place] EXAMINATION: MRI OF THE BRAIN WITHOUT AND WITH CONTRAST; MRI OF THE BRAIN AND MRI OF THE ORBITS WITH AND WITHOUT CONTRAST 09/01/2019 9:24 am TECHNIQUE: Multiplanar multisequence MRI of the head/brain was performed without and with the administration of intravenous contrast.; Multiplanar multisequence MRI of the brain and MRI of the orbits was performed with and without intravenous contrast. COMPARISON: None. HISTORY: ORDERING SYSTEM PROVIDED HISTORY: 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, left TECHNOLOGIST PROVIDED HISTORY: Atten: Orbits Is the patient ?->No; ORDERING SYSTEM PROVIDED HISTORY: 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, left TECHNOLOGIST PROVIDED HISTORY: Is the patient ?->No Initial evaluation. FINDINGS: MRI BRAIN: INTRACRANIAL STRUCTURES/VENTRICLES: There is no evidence of an acute infarct. There is an area of T2 shine through involving the right occipital lobe with associated patchy enhancement. No abnormal enhancement otherwise seen. No evidence of an acute intracranial hemorrhage. The size and configuration of the ventricles and sulci appear normal. Areas of T2 FLAIR hyperintensity are seen in the periventricular and subcortical white matter, which are nonspecific. No acute abnormality within the sellar or suprasellar region. SINUSES: The visualized paranasal sinuses and mastoid air cells are well aerated. BONES/SOFT TISSUES: The bone marrow signal intensity appears normal. The soft tissues demonstrate no acute abnormality. MRI ORBITS: ORBITS: The lenses are normally located. No acute abnormality identified of the globes. No abnormal signal or enhancement of the optic nerves. The extraocular muscles are symmetric. No orbital mass. [place], [place] [facility], [facility] Incoming Radiant Results From [employer] - 09/01/2019 10:44 AM EST EXAMINATION: MRI OF THE BRAIN WITHOUT AND WITH CONTRAST; MRI OF THE BRAIN AND MRI OF THE ORBITS WITH AND WITHOUT CONTRAST 09/01/2019 9:24 am TECHNIQUE: Multiplanar multisequence MRI of the head/brain was performed without and with the administration of intravenous contrast.; Multiplanar multisequence MRI of the brain and MRI of the orbits was performed with and without intravenous contrast. COMPARISON: None. HISTORY: ORDERING SYSTEM PROVIDED HISTORY: 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, left TECHNOLOGIST PROVIDED HISTORY: Atten: Orbits Is the patient ?->No; ORDERING SYSTEM PROVIDED HISTORY: 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, left TECHNOLOGIST PROVIDED HISTORY: Is the patient ?->No Initial evaluation. FINDINGS: MRI BRAIN: INTRACRANIAL STRUCTURES/VENTRICLES: There is no evidence of an acute infarct. There is an area of T2 shine through involving the right occipital lobe with associated patchy enhancement. No abnormal enhancement otherwise seen. No evidence of an acute intracranial hemorrhage. The size and configuration of the ventricles and sulci appear normal. Areas of T2 FLAIR hyperintensity are seen in the periventricular and subcortical white matter, which are nonspecific. No acute abnormality within the sellar or suprasellar region. SINUSES: The visualized paranasal sinuses and mastoid air cells are well aerated. BONES/SOFT TISSUES: The bone marrow signal intensity appears normal. The soft tissues demonstrate no acute abnormality. MRI ORBITS: ORBITS: The lenses are normally located. No acute abnormality identified of the globes. No abnormal signal or enhancement of the optic nerves. The extraocular muscles are symmetric. No orbital mass. IMPRESSION: 1. There is an area of T2 shine through involving the right occipital lobe with associated enhancement. Given history multiple sclerosis, this could represent an area of active demyelination. A subacute infarct is also a consideration, but less likely given patient's age. 2. Otherwise, no acute intracranial abnormality. No acute infarct. 3. T2 FLAIR hyperintense lesions within the periventricular and subcortical white matter compatible with a clinical diagnosis of multiple sclerosis. 4. No acute abnormality identified of the orbits. These results were sent to the [facility] ([facility]) on 09/01/2019 at 10:42 am to be communicated to the referring/covering health care provider/office. [place], [place] Coding Summary.on 01-12-2019 Coding Summary. CODING DATE: 019 FINAL [facility] STATUS: Home (Routine DC) PAYOR: Commercial Insurance ADMIT DX: REASON FOR VISIT DX: Z51.81 Encounter for therapeutic drug level monitoring FINAL DX: PRINCIPAL: Z51.81 Encounter for therapeutic drug level monitoring SECONDARY: G35 Multiple sclerosis PROCEDURES DOCTOR NAME DATE NOTE: The code number assigned matches the documented diagnosis and / or procedure in the patient's chart. However, the narrative phrase printed from the coding software may appear abbreviated, or result in slightly different terminology. Coded By: Laura Burns CphT Date Saved: 01/12/2019 11:24 am Normal [facility] Hbv Core Abon 01-12-2019 HBV core Ab IA Ql Negative Negative [facility] Comment on above: Result Comment: Perf ormed at: [address] [id number] PhD Roshan Carmona Performed By: #### 2 067209, 4614256, 4970316, 27681271, 8156581, 0232815, 36181828, [id number] ####[facility] [address] [place] [address] HBV core IgM IA Ql Negative Negative [facility] Comment on above: Performed By: #### 2 503499, 3375140, 7388078, 81520535, 2695849, 5581993, 73035539, 75517319 ####[facility] [address] [place] [address] Hep Bs Agon 01-12-2019 HBV surface Ag IA Ql Negative Negative [facility] Comment on above: Result Comment: Perf ormed at: [address] [id number] PhD Roshan Carmona Performed By: #### 2 212564, 4942246, 5448979, 17409940, 6578823, 0680660, 53655698, 31616470 #### [facility] [address] [place] [address] Varic IgGon 01-12-2019 VZV IgG IA Qn (S) 2223 Immune >165 [facility] Comment on above: Result Comment: Nega tive <135 Equivocal 135 - 165 Positive >165 A positive result generally indicates exposure to the pathogen or administration of specific immunoglobulins, but it is not indication of active infection or stage of disease. Performed at: [facility] [address] [place] [id number] PhD Roshan Carmona Performed By: #### 2 884976, 7224445, 8301374, 98993267, 1632876, 8437382, 02126036, 88873982 ####[facility] [address] [place] [address] Auto Diffon 01-11-2019 Basophils/100 WBC (Bld) 0.7 % Normal 0.0-2.0 [facility] Comment on above: Order Comment: Order Added by Discern Expert. Performed By: #### 2 472764, 6707156, 5756457, 48461389, 3705079, 6485361, 80900796, 62930991 #### [facility] [address] [place] [address] Basophils/Leukocyte s Auto (Bld) [Pure # fraction] 0.0 E9/L Normal 0.0-0.2 [facility] Comment on above: Order Comment: Order Added by Discern Expert. Performed By: #### 2 764327, 4744341, 8862836, 83604862, 9178491, 8126532, 56515005, 65087478 #### [facility] [address] [place] [address] Eosinophils/100 WBC (Bld) 3.3 % Normal 0.0-8.0 [facility] Comment on above: Order Comment: Order Added by Discern Expert. Performed By: #### 2 354546, 7671601, 0299331, 72605009, 8530017, 8918471, 23015804, 60661609 #### [facility] [address] [place] [address] Eosinophils/Leukocy cassi Auto (Bld) [Pure # fraction] 0.2 E9/L Normal 0.0-0.5 [facility] Comment on above: Order Comment: Order Added by Discern Expert. Performed By: #### 2 140421, 8961829, 7287406, 24003910, 6952906, 5245352, 67967916, 51070122 #### [facility] [address] [place] [address] Lymphocytes/100 WBC (Bld) 28.7 % Normal 14.0-50.0 [facility] Comment on above: Order Comment: Order Added by Discern Expert. Performed By: #### 2 037648, 0449352, 4920864, 39736750, 5332534, 7637181, 84307879, 18891756 #### [facility] [address] [place] [address] Lymphocytes/Leukocy cassi Auto (Bld) [Pure # fraction] 1.3 E9/L Normal 1.0-4.0 [facility] Comment on above: Order Comment: Order Added by Discern Expert. Performed By: #### 2 881248, 7796745, 7982399, 05789518, 8970642, 4369263, 64655450, 79177454 #### [facility] [address] [place] [address] Monocytes/100 WBC (Bld) 7.4 % Normal 4.0-14.0 [facility] Comment on above: Order Comment: Order Added by Discern Expert. Performed By: #### 2 500328, 4803304, 1578195, 85400698, 8057115, 5028396, 57582938, 08981384 #### [facility] [address] [place] [address] Monocytes/Leukocyte s Auto (Bld) [Pure # fraction] 0.3 E9/L Normal 0.2-1.0 [facility] Comment on above: Order Comment: Order Added by Discern Expert. Performed By: #### 2 551107, 3253444, 2057034, 26162331, 5650177, 7902487, 79310525, 74743969 #### [facility] [address] [place] [address] Neutrophils/100 WBC (Bld) 59.9 % Normal 36.0-75.0 [facility] Comment on above: Order Comment: Order Added by Discern Expert. Performed By: #### 2 120055, 5746635, 3432004, 65338216, 1232365, 0521548, 45645771, 60770516 #### [facility] [address] [place] [address] Neutrophils/Leukocy cassi Auto (Bld) [Pure # fraction] 2.8 E9/L Normal 2.0-7.5 [facility] Comment on above: Order Comment: Order Added by Discern Expert. Performed By: #### 2 732493, 4523142, 0370139, 72814442, 8200021, 5552968, 63803152, 09758670 #### [facility] [address] [place] [address] BMPon 01-11-2019 Anion gap [Moles/Vol] 14 mmol/L Normal 6-16 [facility] Comment on above: Performed By: #### 2 709804, 5089365, 8010327, 17895064, 4705688, 0289897, 38591113, 77646111 #### [facility] [address] [place] [address] Calcium [Mass/Vol] 9.0 mg/dL Normal 8.9-11.1 [facility] Comment on above: Performed By: #### 2 177524, 1460923, 0832228, 87922308, 5165226, 9720548, 30026346, 65927839 #### [facility] [address] [place] [address] Chloride [Moles/Vol] 103 mmol/L Normal 101-111 [facility] Comment on above: Performed By: #### 2 348839, 3553327, 5250557, 91433074, 0544900, 0946263, 59577383, 10628002 #### [facility] [address] [place] [address] CO2 [Moles/Vol] 24 mmol/L Normal 21-31 [facility] Comment on above: Performed By: #### 2 754063, 4765353, 4906089, 84765095, 9325281, 0908639, 15523342, 16662951 #### [facility] [address] [place] [address] Creatinine [Mass/Vol] 0.7 mg/dL Normal 0.5-1.3 [facility] Comment on above: Performed By: #### 2 794028, 7780597, 2105853, 04486675, 9971925, 3752372, 68752718, 82094965 #### [facility] [address] [place] [address] Glucose [Mass/Vol] 104 mg/dL Normal 55-199 [facility] Comment on above: Result Comment: If t his glucose result represents a fasting glucose, interpretation should refer to the following reference range: 55-99 mg/dL Performed By: #### 2 130093, 0461251, 8070303, 42847233, 5459938, 1567962, 17997785, 82017622 #### [facility] [address] [place] [address] Potassium [Moles/Vol] 3.0 mmol/L Low 3.5-5.3 [facility] Comment on above: Performed By: #### 2 603168, 7024753, 3557594, 93787192, 1307658, 3695408, 84724228, 67832979 #### [facility] [address] [place] [address] Sodium [Moles/Vol] 138 mmol/L Normal 135-145 [facility] Comment on above: Performed By: #### 2 351322, 1801352, 3638726, 91484442, 3848312, 7278316, 63019428, 80478595 #### [facility] [address] [place] [address] Urea nitrogen [Mass/Vol] 8 mg/dL Normal 5-21 [facility] Comment on above: Performed By: #### 2 605599, 4916396, 6445058, 66758281, 7068866, 1451797, 70394357, 34685106 #### [facility] [address] [place] [address] Urea nitrogen/Creatinine [Mass ratio] 11 No Units Normal 10-20 [facility] Comment on above: Performed By: #### 2 111393, 0997649, 4857622, 05770192, 5879157, 7795357, 17235679, 29463333 #### [facility] [address] [place] [address] CBC w/ Auto Diffon 9 Erythrocyte distribution width (RBC) [Ratio] 13.8 % Normal 10.9-14.2 [facility] Comment on above: Performed By: #### 2 192287, 7094905, 8658550, 05365422, 7620891, 4132237, 75624931, 41674898 #### [facility] [address] [place] [address] Hematocrit (Bld) [Volume fraction] 41.3 % Normal 34.0-46.0 [facility] Comment on above: Performed By: #### 2 125445, 1392979, 2693470, 89336080, 3447271, 9519256, 72747276, 07951244 #### [facility] [address] [place] [address] Hemoglobin (Bld) [Mass/Vol] 13.9 g/dL Normal 12.0-16.0 [facility] Comment on above: Performed By: #### 2 399127, 2006475, 4691374, 01212430, 9093325, 7636421, 18091074, 35651010 #### [facility] [address] [place] [address] MCH (RBC) [Entitic mass] 29.5 pg Normal 27.0-34.0 [facility] Comment on above: Performed By: #### 2 509827, 3353401, 6871801, 65618113, 2513469, 9106486, 58277007, 53495050 #### [facility] [address] [place] [address] MCHC (RBC) [Mass/Vol] 33.7 g/dL Normal 33.3-35.7 [facility] Comment on above: Performed By: #### 2 853924, 0101018, 9631993, 27327024, 5616139, 2074839, 15371913, 14828534 #### [facility] [address] [place] [address] MCV (RBC) [Entitic vol] 87.5 fL Normal 80.0-100.0 [facility] Comment on above: Performed By: #### 2 533525, 4687446, 8958776, 78193903, 4905374, 7970165, 17744614, 54292887 #### [facility] [address] [place] [address] Platelet mean volume (Bld) [Entitic vol] 7.7 fL Normal 6.4-10.8 [facility] Comment on above: Performed By: #### 2 315020, 7649096, 4677981, 30461205, 1475609, 7378619, 21501705, 94921063 #### [facility] [address] [place] [address] Platelets (Bld) [#/Vol] 290.0 E9/L Normal 150.0-500.0 [facility] Comment on above: Performed By: #### 2 354051, 8846405, 1853047, 56064683, 6994272, 6827729, 57967281, 95948217 #### [facility] [address] [place] [address] RBC (Bld) [#/Vol] 4.7 E12/L Normal 4.3-5.9 [facility] Comment on above: Performed By: #### 2 091701, 8253505, 6481929, 24967067, 0912953, 2214516, 01634110, 10867382 #### [facility] [address] [place] [address] WBC corrected for nucl RBC Auto (Bld) [#/Vol] 4.7 E9/L Normal 4.0-11.0 [facility] Comment on above: Performed By: #### 2 561796, 6266041, 4394130, 86768734, 3203487, 7274762, 77014248, 22865936 #### [facility] [address] [place] [address] TSHon 01-11-2019 TSH Qn 1.84 mcIU/mL Normal 0.34-5.60 [facility] Comment on above: Performed By: #### 2 628314, 7244006, 9804204, 13839170, 5602951, 9322634, 64231567, 92169696 #### [facility] [address] [place] [address] Urinalysison 01-11-2019 Bilirubin Ql (U) Negative Normal Negative [facility] Comment on above: Performed By: #### 1 3090666 #### [facility] [address] [place] [address] Clarity (U) CLEAR Normal Clear [facility] Comment on above: Performed By: #### 1 9124249 #### [facility] [address] [place] [address] Color (U) YELLOW Normal Yellow [facility] Comment on above: Performed By: #### 1 3634953 #### [facility] [address] [place] [address] Epithelial cells.squamous LM.HPF (Urine sed) [#/Area] 3-4 Normal 0-2 [facility] Comment on above: Performed By: #### 1 2790537 #### [facility] [address] [place] [address] Glucose Test strip (U) [Mass/Vol] Negative Normal Negative [facility] Comment on above: Performed By: #### 1 4787071 #### [facility] [address] [place] [address] Hemoglobin Ql (U) TRACE Abnormal Negative [facility] Comment on above: Performed By: #### 1 8978409 #### [facility] [address] [place] [address] Ketones (U) [Mass/Vol] Negative Normal Negative [facility] Comment on above: Performed By: #### 1 0128499 #### [facility] [address] [place] [address] [place].plasma/Lith ium.RBC (Bld) [Mass ratio] 0-3 Normal 0-3 [facility] Comment on above: Performed By: #### 1 6894018 #### [facility] [address] [place] [address] Mucus Ql (Urine sed) 1+ Normal [facility] Comment on above: Performed By: #### 1 8911840 #### [facility] [address] [place] [address] Nitrite Ql (U) Negative Normal Negative [facility] Comment on above: Performed By: #### 1 7641419 #### [facility] [address] [place] [address] pH (U) 5.5 [pH] 5.0-9.0 [facility] Comment on above: Performed By: #### 1 8827810 #### [facility] [address] [place] [address] Protein (U) [Mass/Vol] Negative Normal Negative [facility] Comment on above: Performed By: #### 1 4543207 #### [facility] [address] [place] [address] Specific gravity (U) [Rel density] 1.025 1.005-1.030 [facility] Comment on above: Performed By: #### 1 8627395 #### [facility] [address] [place] [address] UA Spec Desc Clean Catch Normal [facility] Comment on above: Performed By: #### 1 2638540 #### [facility] [address] [place] [address] Urobilinogen Qn (U) 0.2 {Sage'U}/dL Normal 0.0-1.0 [facility] Comment on above: Performed By: #### 1 6159842 #### [facility] [address] [place] [address] WBC Auto Ql (U) Negative Normal Negative [facility] Comment on above: Performed By: #### 1 1651576 #### [facility] [address] [place] [address] WBC LM.HPF (Urine sed) [#/Area] 0-5 Normal 0-5 [facility] Comment on above: Performed By: #### 1 1452620 #### [facility] [address] [place] [address] eGFRon 01-11-2019 GFR/1.73 sq M predicted among blacks MDRD (S/P/Bld) [Vol rate/Area] mL/min/{1.73_m2} Normal >=59 [facility] Comment on above: Order Comment: Order added by Discern Expert. Result Comment: eGFR is race adjusted. AA=. Performed By: #### 2 206108, 9293202, 6899488, 69366693, 5554433, 0919521, 12563077, 59532905 #### [facility] [address] [place] [address] GFR/1.73 sq M predicted among non-blacks MDRD (S/P/Bld) [Vol rate/Area] mL/min/{1.73_m2} Normal >=59 [facility] Comment on above: Order Comment: Order added by Discern Expert. Result Comment: Jewel Sawyer gautam kidney disease could be indicated at eGFR's of less than 60 mL/min/1.73m2. Kidney failure is indicated at less than 15 mL/min/1.73m2. Performed By: #### 2 845619, 8683634, 5133370, 93518038, 7889902, 6530487, 84333170, 76908064 #### [facility] [address] [place] [address] Coding Summary.on 12-14-2018 Coding Summary. CODING DATE: 019 FINAL [facility] STATUS: Home (Routine DC) PAYOR: Commercial Insurance APC DESCRIPTION 5572 Level 2 Imaging with Contrast ADMIT DX: REASON FOR VISIT DX: Z51.81 Encounter for therapeutic drug level monitoring FINAL DX: PRINCIPAL: Z51.81 Encounter for therapeutic drug level monitoring SECONDARY: G35 Multiple sclerosis PYMT PROC APC STAT DESCRIPTION DOCTOR NAME DATE NOTE: The code number assigned matches the documented diagnosis and / or procedure in the patient's chart. However, the narrative phrase printed from the coding software may appear abbreviated, or result in slightly different terminology. Coded By: Laura Burns CphT Date Saved: 12/14/2018 07:18 am Normal [facility] Hep Func Panelon 12-13-2018 Bilirubin.direct [Mass/Vol] UTC Abnormal 0.1-0.9 [facility] Comment on above: Result Comment: Resu lt verified by Discern Rule. Performed result UTC (Unable to Calculate) was sent as an Alpha code due the inability to calculate a valid numeric value. Performed By: #### 2 219120 #### [facility] [address] [place] [address] Albumin [Mass/Vol] 1.1 g/dL Normal 1.1-2.2 [facility] Comment on above: Performed By: #### 2 466576 #### [facility] [address] [place] [address] Albumin [Mass/Vol] 4.2 g/dL Normal 3.3-5.0 [facility] Comment on above: Performed By: #### 2 452903 #### [facility] [address] [place] [address] ALP [Catalytic activity/Vol] 63 Int._Unit/L Normal 21-98 [facility] Comment on above: Performed By: #### 2 344323 #### [facility] [address] [place] [address] ALT No additional P-5'-P [Catalytic activity/Vol] 21 Int._Unit/L Normal 6-46 [facility] Comment on above: Performed By: #### 2 260065 #### [facility] [address] [place] [address] AST [Catalytic activity/Vol] 19 Int._Unit/L Normal 5-43 [facility] Comment on above: Performed By: #### 2 453736 #### [facility] [address] [place] [address] Bilirubin [Mass/Vol] 0.8 mg/dL Normal 0.0-1.1 [facility] Comment on above: Performed By: #### 2 281002 #### [facility] [address] [place] [address] Bilirubin.direct [Mass/Vol] mg/dL Normal 0.1-0.4 [facility] Comment on above: Performed By: #### 2 700455 #### [facility] [address] [place] [address] Globulin (S) [Mass/Vol] 3.8 g/dL Normal 1.4-4.0 [facility] Comment on above: Performed By: #### 2 696212 #### [facility] [address] [place] [address] Protein [Mass/Vol] 8.0 g/dL High 6.0-7.8 [facility] Comment on above: Performed By: #### 2 878297 #### [facility] [address] [place] [address] MRI Brain w/ + w/o Contrasto n 12-13-2018 MRI Brain w/ + w/o Contrast Exam Date/Time: 12/13/2018 15:10 EDT Reason for Exam: G35 MS, Encounter for therapeutic drug level monitoring Report IMPRESSION: MULTIPLE EXTENSIVE FINDINGS CONSISTENT WITH THE CLINICAL DIAGNOSIS OF MULTIPLE SCLEROSIS, AND MOST OF THE LESIONS ARE UNCHANGED. HOWEVER, THERE ARE NEW CONTRAST-ENHANCING LESIONS, ONE INVOLVING RIGHT FRONTAL WHITE MATTER AND THE OTHER INVOLVING LEFT OCCIPITAL WHITE MATTER LATERALLY. TUMEFACTIVE MULTIPLE SCLEROSIS COULD ACCOUNT FOR THESE NEW LESIONS. THE LACK OF RESTRICTED DIFFUSION WOULD BE EVIDENCE AGAINST THESE REPRESENTING BRAIN ABSCESSES. MORE PROMINENT WHITE MATTER EDEMA AND ASSOCIATED MASS EFFECT WOULD BE MORE TYPICALLY SEEN WITH NEOPLASTIC LESIONS (PRIMARY OR METASTATIC), BUT NEOPLASTIC LESIONS ARE NOT ENTIRELY EXCLUDED ON THE BASIS OF THIS STUDY. FURTHER CLINICAL EVALUATION AND FOLLOW-UP ARE RECOMMENDED. CLINICAL HISTORY: G35 MS, Encounter for therapeutic drug level monitoring. COMPARISON: 12/05/2016. COMMENT: Unenhanced and intravenous contrast enhanced images were obtained. The ventricles and basal cisterns and cortical sulci appear normal. On T2-weighted and FLAIR images, there are multiple focal areas of increased signal intensity involving cerebral white matter bilaterally, including bilateral areas of confluent periventricular white matter posteriorly, focal ovoid shaped periventricular areas of increased signal intensity perpendicular to the lateral ventricles bilaterally, an area of confluent increased signal intensity involving subcortical white matter of the right frontal lobe, multiple small focal areas of increased signal intensity involving subcortical cerebral white matter bilaterally, small focal areas of increased signal intensity involving the right and left cerebellar peduncles, and a small focus involving white matter within the left cerebellar hemisphere. There also are very small areas of increased signal intensity within the tc. Most of these findings are unchanged when compared to the prior study. The confluent area of increased signal intensity involving right frontal white matter and the confluent area of increased signal intensity involving left occipital white matter laterally are interval changes, and within these areas, there are focal roughly ovoid shaped areas of contrast enhancement. These contrast enhancing lesions have developed since the prior study. The contrast enhancement of each lesion is nonuniform and is more prominent peripherally. Although there is some surrounding white matter edema around these enhancing lesions, there is no significant mass effect. There is no mass effect on the ventricular system and there is no midline shift. On diffusion-weighted images, the contrast enhancing lesions are of increased signal intensity, but there is also corresponding increased signal intensity on the ADC images, consistent with T2 shine through effect. These contrast enhancing lesions do not demonstrate restricted diffusion as would be expected if these were brain abscesses. Some of the other described white matter lesions also demonstrate T2 shine through effect on diffusion-weighted images. No recent/acute infarct is demonstrated on the diffusion weighted images. There is no evidence of brain hemorrhage on the gradient echo heme Exam Date/Time: 12/13/2018 15:10 EDT Report sequence. No extra-axial hematoma is noted. FINAL REPORT Dictated: 12/13/2018 5:35 pm Mik Avalos M.D. Signed (Electronic Signature): 12/13/2018 5:35 pm Signed by: Mik Avalos M.D. Transcribed by: PIERCE Technologist: DARLIN Technical Comments MultiHance Contrast amount in ml's: 20 Normal [facility] Encounters Encounter Date Encounter Type Care Provider Facility Start: 07-19-2021 End: 07-20-[address] JASE AGUSTIN Facility:[facility] Start: 10-27-2020 End: 10-30-2020 Evaluation and management of inpatient DR ANGEL SANDERSON Facility:[facility] Start: 07-27-2020 End: 07-28-2020 ambulatory LIZETTE WILKS Facility:[facility] Start: 09-01-2019 End: 09-04-2019 Patient encounter procedure ABEL BOOGIE [facility] Start: 09-01-2019 End: 09-03-2019 Subsequent hospital visit by physician [facility] MRI Comment on above: 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, left; MS (multiple sclerosis) (HCC) Heteronymous bilater al field defects; MS (multiple sclerosis) (HCC); Visual field defect of left eye; 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, left Procedures Date Procedure Procedure Detail Performing Clinician Start: 09-01-2019 Mri orbit face & nec k w/o & w/contrast cynthia BOOGIE Start: 09-01-2019 Mri brain brain stem w/o w/contrast material ABEL BOOGIE Start: 09-01-2019 Mri orbit face & nec k w/o & w/contrast denizl Abel Boogie Work Phone: Start: 09-01-2019 Mri brain brain stem w/o w/contrast material Abel Boogie Work Phone: Plan of Treatment Date Care Activity Detail Author Start: 2022 Shingles Vaccine (1 of 2) Shannon gles Vaccine (1 of 2) [place] Start: 03-06-2019 Influenza vaccination Flu vaccine (# 1) [place] Start: 2012 Lipid screen Lipid screen [place], [place] Start: 1993 Cervical cancer screen Cervical canc er screen [place], [place] Start: 1987 HIV screen HIV screen [place], [place] Start: 1983 DTaP/Tdap/Td vaccine (1 - Tdap) DTaP/Tdap/Td vaccine (1 - Tdap) [place] Payers Date Payer Category Payer Unknown [facility] xxxxxxxxxxxx 2014-Present [phone] [address] [place] [address] xxxxxxxxxxxx [id number] 1972 Unknown [id number] 1972 Unknown [id number] 1972 Unknown [id number] 1972 Unknown [id number] 1972 Unknown [id number] 1959 Unknown [id number] Social History Date Type Detail Facility Tobacco smoking status NHIS Unknown if ev er smoked [place], [place] Sex Assigned At Not on file [place] Summary Purpose Family History No Family History Records FoundNo Family History Records FoundNo Family History Records Found Advance Directives No Advanced Directives Records FoundDocuments on File Type Date 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 Advance Directives and Living Will Power of Pouncer Reason for Referral Status Reason Specialty Diagnoses / Procedures Referred By Contact Referred To Contact Canceled Radiology Diagnoses 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, left MS (multiple sclerosis) (HCC) Procedures MRI ORBITS FACE NECK W WO CONTRAST Abel Boogie, DO [address] [place] [address] Assessments Diagnosis 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, left MS (multiple sclerosis) (HCC) Multiple sclerosis Diagnosis Heteronymous bilateral field defects Heteronymous bilateral field defects in visual field MS (multiple sclerosis) (HCC) Multiple sclerosis Visual field defect of left eye 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, left Additional Source Comments INFORMATION SOURCE (unrecogn ized section and content) DATE CREATED AUTHOR 01/16/2019 [facility] DATE CREATED AUTHOR AUTHOR'S ORGANIZ ATION 09/03/2019 [facility] DATE CREATED AUTHOR AUTHOR'S ORGANIZ ATION 07/24/2021 [facility] Reason for Visit (unrecogniz ed section and content) Status Reason Specialty Diagnoses / Procedures Referred By Contact Referred To Contact Authorized Radiology Diagnoses MS (multiple sclerosis) (HCC) Visual field defects Procedures HC MRI FACE NECK EYE W CONTRAST Abel Boogie, DO [address] [place] [address] [facility] [address] [place] [address] Status Reason Specialty Diagnoses / Procedures Referred By Contact Referred To Contact Authorized Radiology Diagnoses MS (multiple sclerosis) (HCC) Visual field defects Procedures HC MRI-BRAIN WO & W CONTRAST Abel Boogie, DO [address] [place] [address] [place] [address] FOR RECORDS PERTAINING TO PATIENTS WHO ARE OR HAVE BEEN ENROLLED IN A CHEMICAL DEPENDENCY/SUBSTANCEABUSE PROGRAM, SOME INFORMATION MAY BE OMITTED. This clinical summary was aggregated from multiple sources. Caution should be exercised in using it in the provision of clinical care. This summary normalizes information from multiple sources, and as a consequence, information in this document may materially change the coding, format and clinical context of patient data. In addition, data may be omitted in some cases. CLINICAL DECISIONS SHOULD BE BASED ON THE PRIMARY CLINICAL RECORDS. [employer] provides no warranty or guarantee of the accuracy or completeness of information in this document.
== END 2023-07-20 08:35 | disposition home or self-care (01) ==
LOC: RAD 08:34
PROVIDERS: PCP Family Medicine; Visit Provider Orthopaedic Surgery
DX: S82.441D Displaced spiral fracture of shaft of right fibula, subsequent encounter for closed fracture with routine healing (principal); S82.241D Displaced spiral fracture of shaft of right tibia, subsequent encounter for closed fracture with routine healing
CPT/HCPCS: 73590

== ENCOUNTER 2023-08-17 09:19 | Outpatient (OUT) | payer SELFPAY ==
--- NOTE | 2023-08-17 | XR_ITS ---
The [address] [address] Patient Name: LILI MADRID MRN: [id number] date: 1970 Sex: F Assigned Patient Location: [facility] Current Patient Location: [facility] Accession/Order Number: [id number] Exam Date: 08/17/2023 09:19 Report Date: 08/17/2023 10:09 At the request of: DARINEL BROWNING Procedure: XR tibia fibula RT 2V PROCEDURE: XR tibia fibula RT 2V COMPARISON: 07/20/2023 HISTORY: RIGHT LOWER LEG PAIN FINDINGS: BONES:Stable distal tibial diaphyseal fracture with internal fixation utilizing a retrograde intramedullary nail pinned proximally and distally. Interval bony sclerosis. Stable remote distal fibular fracture SOFT TISSUES:Negative. No visible soft tissue swelling. EFFUSION:None visible. OTHER: Negative. XR/XR tibia fibula RT 2V IMPRESSION: Stable healing distal tibia and fibular fractures Electronically authenticated by: JESSICA BALDERRAMA Date: 08/17/2023 10:09
--- OUTSIDE RECORDS SUMMARY | 2023-08-17 09:23 | XMS_ITS | CCD ---
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 [address] [address] [address] Morris Castro Basophils/100 WBC (Bld) 0.5 % Normal 0.2-2.0 [facility] Comment on above: Performed By: #### C BC #### [facility] [address] [address] [address] Morris Castro EO # 0.2 103/ul Normal 0.0-0.7 [facility] Comment on above: Performed By: #### C BC #### [facility] [address] [address] [address] Morris Castro Eosinophils/100 WBC (Bld) 5.2 % Normal 0.9-7.0 [facility] Comment on above: Performed By: #### C BC #### [facility] [address] [address] [address] Morris Castro Erythrocyte distribution width (RBC) [Ratio] 12.6 % Normal 11.0-15.0 [facility] Comment on above: Performed By: #### C BC #### [facility] [address] [place] [address] Dr. Morris Castro Hematocrit (Bld) [Volume fraction] 39.0 % Normal 36.0-48.0 [facility] Comment on above: Performed By: #### C BC #### [facility] [address] [place] [address] Dr. Morris Castro Hemoglobin (Bld) [Mass/Vol] 13.1 g/dL Normal 12.0-16.0 [facility] Comment on above: Performed By: #### C BC #### [facility] [address] [place] [address] Dr. Morris Castro IG # 0.02 10e3/ul Normal 0.00-0.03 [facility] Comment on above: Performed By: #### C BC #### [facility] [address] [place] [address] Dr. Morris Castro IG % 0.5 % Normal 0.0-0.5 [facility] Comment on above: Performed By: #### C BC #### [facility] [address] [place] [address] Dr. Morris Castro LYMPH # 0.9 103/ul Critically low 1.2-3.8 [facility] Comment on above: Performed By: #### C BC #### [facility] [address] [place] [address] Dr. Morris Castro Lymphocytes/100 WBC (Bld) 23.1 % Normal 20.5-60.0 [facility] Comment on above: Performed By: #### C BC #### [facility] [address] [place] [address] Dr. Morris Castro MANUAL DIFF REQ NO Normal [facility] Comment on above: Performed By: #### C BC #### [facility] [address] [place] [address] Dr. Morris Castro MCH (RBC) [Entitic mass] 30.3 pg Normal 26.7-34.[address] [facility] Comment on above: Performed By: #### C BC #### [facility] [address] [place] [address] Dr. Morris Castro MCHC (RBC) [Mass/Vol] 33.6 g/dL Normal 29.9-35.[address] [facility] Comment on above: Performed By: #### C BC #### [facility] [address] [place] [address] Dr. Morris Castro MCV (RBC) [Entitic vol] 90.1 fL Normal 81.0-99.0 [facility] Comment on above: Performed By: #### C BC #### [facility] [address] [place] [address] Dr. Morris Castro MONO # 0.6 103/ul Normal 0.3-0.8 [facility] Comment on above: Performed By: #### C BC #### [facility] [address] [place] [address] Dr. Morris Castro Monocytes/100 WBC (Bld) 15.6 % Critically high 1.7-12.0 [facility] Comment on above: Performed By: #### C BC #### [facility] [address] [place] [address] Dr. Morris Castro NEUT # 2.1 103/ul Normal 1.4-6.[address] [facility] Comment on above: Performed By: #### C BC #### [facility] [address] [place] [address] Dr. Morris Castro Neutrophils/100 WBC (Bld) 55.1 % Normal 43.0-75.[address] [facility] Comment on above: Performed By: #### C BC #### [facility] [address] [place] [address] Dr. Morris Castro Platelet mean volume (Bld) [Entitic vol] 8.3 fL Critically low 9.5-13.[address] [facility] Comment on above: Performed By: #### C BC #### [facility] [address] [place] [address] [address] [address] Morris Castro PLT 223 103/ul Normal 150-450 [facility] Comment on above: Performed By: #### C BC #### [facility] [address] [place], [place] [address] Dr. Morris Castro RBC 4.33 106/ul Normal 4.20-5.40 [facility] Comment on above: Performed By: #### C BC #### [facility] [address] [place] [address] Dr. Morris Castro WBC 3.9 103/ul Critically low 4.0-11.0 [facility] Comment on above: Performed By: #### C BC #### [facility] [address] [place] [address] Dr. Morris Castro LIVER PROFILEon 07-19-2021 Albumin [Mass/Vol] 3.9 g/dL Normal 3.5-5.0 [facility] Comment on above: Performed By: #### L ACT #### [facility] [address] [place], [place] [address] Mere Brittany Albumin/Globulin [Mass ratio] 1.2 {ratio} Normal [facility] Comment on above: Performed By: #### L ACT #### [facility] [address] [place], [place] [address] Mere Brittany ALP [Catalytic activity/Vol] 77 U/L Normal 38-[address] [facility] Comment on above: Performed By: #### L ACT #### [facility] [address] [place] [address] Mere Brittany ALT [Catalytic activity/Vol] 45 U/L Normal 9-52 [facility] Comment on above: Performed By: #### L ACT #### [facility] [address] [place], [place] [address] Mere Brittany AST [Catalytic activity/Vol] 23 U/L Normal 14-36 [facility] Comment on above: Performed By: #### L ACT #### [facility] [address] [place], [place] [address] Mere Brittany BILI, CONJUGATED 0.1 mg/dL Normal 0.0-0.3 [facility] Comment on above: Performed By: #### L ACT #### [facility] [address] [place], [place] [address] Mere Brittany Bilirubin [Mass/Vol] 0.6 mg/dL Normal 0.2-1.[address] [facility] Comment on above: Performed By: #### L ACT #### [facility] [address] [place], [place] [address] Mere Brittany Globulin (S) [Mass/Vol] 3.3 g/dL Normal [facility] Comment on above: Performed By: #### L ACT #### [facility] [address] [place], [place] [address] Mere Brittany Protein [Mass/Vol] 7.2 g/dL Normal 6.1-8.2 [facility] Comment on above: Performed By: #### L ACT #### [facility] [address] [place], [place] [address] Mere Brittany PROF CHEM 8 (BAS METB)on Anion gap [Moles/Vol] 11.8 mmol/L Normal [facility] Comment on above: Performed By: #### C BC #### [facility] [address] [place], [place] [address] Mere Brittany Calcium [Mass/Vol] 9.0 mg/dL Normal 8.4-10.2 [facility] Comment on above: Performed By: #### C BC #### [facility] [address] [place], [place] [address] Mere Brittany Chloride [Moles/Vol] 106 mmol/L Normal 98-[address] [facility] Comment on above: Performed By: #### C BC #### [facility] [address] [place], [place] [address] Mere Brittany CO2 [Moles/Vol] 27.5 mmol/L Normal 22.0-30.0 [facility] Comment on above: Performed By: #### C BC #### [facility] [address] [place], [place] [address] Mere Brittany Creatinine [Mass/Vol] 0.68 mg/dL Normal 0.52-1.[address] [facility] Comment on above: Performed By: #### C BC #### [facility] [address] [place], [place] [address] Mere Brittany EGFR-AF EQUATORIAL GUINEAN >60 Normal >=60 [facility] Comment on above: Performed By: #### C BC #### [facility] [address] [place], [place] [address] Mere Brittany EGFR-NON AF EQUATORIAL GUINEAN >60 Normal >=60 [facility] Comment on above: Performed By: #### C BC #### [facility] [address] [id number] Mere Brittany Glucose [Mass/Vol] 103 mg/dL Normal 74-106 [facility] Comment on above: Performed By: #### C BC #### [facility] [address] [id number] Mere Brittany Potassium [Moles/Vol] 4.3 mmol/L Normal 3.4-5.0 [facility] Comment on above: Performed By: #### C BC #### [facility] [address] [place], [place] [address] Mere Brittany Sodium [Moles/Vol] 141 mmol/L Normal 137-145 [facility] Comment on above: Performed By: #### C BC #### [facility] [address] [place], [place] [address] Mere Brittany Urea nitrogen [Mass/Vol] 8.0 mg/dL Normal 7.0-17.[address] [facility] Comment on above: Performed By: #### C BC #### [facility] [address] [place], [place] [address] Mere Brittany Urea nitrogen/Creatinine [Mass ratio] 11.8 mg/mg Normal [facility] Comment on above: Performed By: #### C BC #### [facility] [address] [place], [place] [address] Mere Brittany CBC W MANUAL DIFFon 10-31-19 21 ATYPICAL LYMPH # Normal [facility] Comment on above: Performed By: #### C BCMAN #### [facility] [address] [place], [place] [address] Mere Brittany ATYPICAL LYMPH % Normal [facility] Comment on above: Performed By: #### C BRAIN #### [facility] [address] [place] [address] Mere Brittany BAND # 0.3 103/ul Normal 0.0-0.3 [facility] Comment on above: Performed By: #### C BRAIN #### [facility] [address] [address] Mere Brittany BAND % 7 % Critically high 0-5 [facility] Comment on above: Performed By: #### C BRAIN #### [facility] [address] [place] [address] Mere Brittany BASOM # 0.00 103/ul Normal 0.00-0.10 [facility] Comment on above: Performed By: #### C BRAIN #### [facility] [address] [place] [address] Mere Brittany BASOM % 0.0 % Critically low 0.2-2.0 [facility] Comment on above: Performed By: #### C BRAIN #### [facility] [address] [place] [address] Mere Brittany BLAST # Normal [facility] Comment on above: Performed By: #### C BRAIN #### [facility] [address] [place] [address] Mere Brittany BLAST % Normal [facility] Comment on above: Performed By: #### C BRAIN #### [facility] [address] [place] [address] Mere Brittany CORRECTED WBC Normal 4.0-11.0 [facility] Comment on above: Performed By: #### C BRAIN #### [facility] [address] [place] [address] Mere Brittany EOS # 0.00 103/ul Normal 0.00-0.[address] [facility] Comment on above: Performed By: #### C BRAIN #### [facility] [address] [place] [address] Mere Brittany EOS% 0.0 % Critically low 0.9-7.0 [facility] Comment on above: Performed By: #### Nia DE LA PAZ #### [facility] [address] [place] [address] Mere Soto HCT 33.4 % Critically low 36.0-48.0 [facility] Comment on above: Performed By: #### Nia DE LA PAZ #### [facility] [address] [address] Mereshahnaz Patelen HGB 11.6 g/dl Critically low 12.0-16.0 [facility] Comment on above: Performed By: #### Nia DE LA PAZ #### [facility] [address] [place] [address] Mere Soto LYMPHM # 0.22 103/ul Critically low 1.20-3.80 [facility] Comment on above: Performed By: #### Nia DE LA PAZ #### [facility] [address] [place] [address] Mere Soto LYMPHM% 6.0 % Critically low 20.5-60.0 [facility] Comment on above: Performed By: #### Nia DE LA PAZ #### [facility] [address] [place] [address] Mere Soto MCH 30.4 pg Normal 26.7-34.0 [facility] Comment on above: Performed By: #### Nia DE LA PAZ #### [facility] [address] [place] [address] Mere Soto MCHC 34.7 g/dl Normal 29.9-35.[address] [facility] Comment on above: Performed By: #### Nia DE LA PAZ #### [facility] [address] [place] [address] Mere Soto MCV 87.4 fL Normal 81.0-99.[address] [facility] Comment on above: Performed By: #### Nia DE LA PAZ #### [facility] [address] [place] [address] Mere Patelen METAMYELOCYTE # Normal [facility] Comment on above: Performed By: #### Nia DE LA PAZ #### [facility] [address] [place], [place] [address] Mere Brittany METAMYELOCYTE % Normal [facility] Comment on above: Performed By: #### Nia DE LA PAZ #### [facility] [address] [place] [address] Mere Brittany MONOM# 0.41 103/ul Normal 0.30-0.80 [facility] Comment on above: Performed By: #### Nia DE LA PAZ #### [facility] [address] [place] [address] Mere Brittany MONOM% 11.0 % Normal 1.7-12.0 [facility] Comment on above: Performed By: #### Nia DE LA PAZ #### [facility] [address] [place] [address] Mere Brittany MPV 9.1 fL Critically low 9.5-13.5 [facility] Comment on above: Performed By: #### Nia DE LA PAZ #### [facility] [address] [place] [address] Mere Brittany MYELOCYTE # Normal [facility] Comment on above: Performed By: #### Nia DE LA PAZ #### [facility] [address] [place] [address] Mere Brittany MYELOCYTE % Normal [facility] Comment on above: Performed By: #### Nia DE LA PAZ #### [facility] [address] [place], [place] [address] Mere Brittany NRBC Normal [facility] Comment on above: Performed By: #### Nia DE LA PAZ #### [facility] [address] [place] [address] Mere Brittany PLT 219 103/ul Normal 150-[address] [facility] Comment on above: Performed By: #### Nia DE LA PAZ #### [facility] [address] [place] [address] Mere Brittany RBC 3.82 106/ul Critically low 4.20-5.40 [facility] Comment on above: Performed By: #### Nia DE LA PAZ #### [facility] [address] [place] [address] Mere Brittany RDW 12.8 % Normal 11.0-15.0 [facility] Comment on above: Performed By: #### C BRAIN #### [facility] [address] [place] [address] Mere Brittany SEG # 2.81 103/ul Normal 1.40-6.50 [facility] Comment on above: Performed By: #### C BRAIN #### [facility] [address] [place], [place] [address] Mere Brittany SEG % 76.0 % Critically high 43.0-75.0 [facility] Comment on above: Performed By: #### C BRAIN #### [facility] [address] [place], [place] [address] Mere Brittany WBC 3.7 103/ul Critically low 4.0-11.0 [facility] Comment on above: Performed By: #### C BRAIN #### [facility] [address] [place] [address] Mere Brittany PROF CHEM 8 (BAS METB)on Anion gap [Moles/Vol] 12.7 mmol/L Normal [facility] Comment on above: Performed By: #### L ACT #### [facility] [address] [place], [place] [address] Mere Brittany Calcium [Mass/Vol] 9.1 mg/dL Normal 8.4-10.2 [facility] Comment on above: Performed By: #### L ACT #### [facility] [address] [place], [place] [address] Mere Brittany Chloride [Moles/Vol] 108 mmol/L Critically high 98-[address] [facility] Comment on above: Performed By: #### L ACT #### [facility] [address] [place], [place] [address] Mere Brittany CO2 [Moles/Vol] 25.5 mmol/L Normal 22.0-30.0 [facility] Comment on above: Performed By: #### L ACT #### [facility] [address] [place], [place] [address] Mere Brittany Creatinine [Mass/Vol] 0.80 mg/dL Normal 0.52-1.04 [facility] Comment on above: Performed By: #### L ACT #### [facility] [address] [id number] Mere Brittany EGFR-AF EQUATORIAL GUINEAN >60 Normal >=60 [facility] Comment on above: Performed By: #### L ACT #### [facility] [address] [id number] Mere Brittany EGFR-NON AF EQUATORIAL GUINEAN >60 Normal >=60 [facility] Comment on above: Performed By: #### L ACT #### [facility] [address] [address] Mere Brittany Glucose [Mass/Vol] 166 mg/dL Critically high 74-106 [facility] Comment on above: Performed By: #### L ACT #### [facility] [address] [place] [address] Mere Brittany Potassium [Moles/Vol] 3.2 mmol/L Critically low 3.4-5.0 [facility] Comment on above: Performed By: #### L ACT #### [facility] [address] [place] [address] Mere Brittany Sodium [Moles/Vol] 143 mmol/L Normal 137-145 [facility] Comment on above: Performed By: #### L ACT #### [facility] [address] [place] [address] Mere Brittany Urea nitrogen [Mass/Vol] 15.0 mg/dL Normal 7.0-17.0 [facility] Comment on above: Performed By: #### L ACT #### [facility] [address] [place] [address] Mere Brittany Urea nitrogen/Creatinine [Mass ratio] 18.8 mg/mg Normal [facility] Comment on above: Performed By: #### L ACT #### [facility] [address] [place], [place] [address] Mere Brittany CBC AUTO DIFFon 10-29-2020 BASO # 0.0 103/ul Normal 0.0-0.1 [facility] Comment on above: Performed By: #### C BC #### [facility] [address] [id number] Mere Brittany Basophils/100 WBC (Bld) 0.7 % Normal 0.2-2.0 [facility] Comment on above: Performed By: #### C BC #### [facility] [address] [place], [place] [address] Mere Brittany EO # 0.0 103/ul Normal 0.0-0.7 [facility] Comment on above: Performed By: #### C BC #### [facility] [address] [place], [place] [address] Mere Brittany Eosinophils/100 WBC (Bld) 0.0 % Critically low 0.9-7.0 [facility] Comment on above: Performed By: #### C BC #### [facility] [address] [place] [address] Mere Brittany Erythrocyte distribution width (RBC) [Ratio] 12.8 % Normal 11.0-15.0 [facility] Comment on above: Performed By: #### C BC #### [facility] [address] [place] [address] Mere Brittany Hematocrit (Bld) [Volume fraction] 35.1 % Critically low 36.0-48.0 [facility] Comment on above: Performed By: #### C BC #### [facility] [address] [place], [place] [address] Mere Brittany Hemoglobin (Bld) [Mass/Vol] 12.3 g/dL Normal 12.0-16.[address] [facility] Comment on above: Performed By: #### C BC #### [facility] [address] [place] [address] Mere Brittany IG # 0.02 10e3/ul Normal 0.00-0.[address] [facility] Comment on above: Performed By: #### C BC #### [facility] [address] [place], [place] [address] Mere Brittany IG % 1.5 % Critically high 0.0-0.[address] [facility] Comment on above: Performed By: #### C BC #### [facility] [address] [id number] Mere Brittany LYMPH # 0.2 103/ul Critically low 1.2-3.8 [facility] Comment on above: Performed By: #### C BC #### [facility] [address] [id number] Mere Brittany Lymphocytes/100 WBC (Bld) 11.8 % Critically low 20.5-60.[address] [facility] Comment on above: Performed By: #### C BC #### [facility] [address] [place], [place] [address] Mere Brittany MANUAL DIFF REQ NO Normal [facility] Comment on above: Performed By: #### C BC #### [facility] [address] [place] [address] Mere Brittany MCH (RBC) [Entitic mass] 30.8 pg Normal 26.7-34.[address] [facility] Comment on above: Performed By: #### C BC #### [facility] [address] [place] [address] Mere Brittany MCHC (RBC) [Mass/Vol] 35.0 g/dL Normal 29.9-35.[address] [facility] Comment on above: Performed By: #### C BC #### [facility] [address] [place] [address] Mere Brittany MCV (RBC) [Entitic vol] 88.0 fL Normal 81.0-99.[address] [facility] Comment on above: Performed By: #### C BC #### [facility] [address] [place] [address] Mere Brittany MONO # 0.1 103/ul Critically low 0.3-0.8 [facility] Comment on above: Performed By: #### C BC #### [facility] [address] [place], [place] [address] Mere Brittany Monocytes/100 WBC (Bld) 9.6 % Normal 1.7-12.[address] [facility] Comment on above: Performed By: #### C BC #### [facility] [address] [place] [address] Mere Soto NEUT # 1.0 103/ul Critically low 1.4-6.5 [facility] Comment on above: Performed By: #### C BC #### [facility] [address] [id number] Mere Soto Neutrophils/100 WBC (Bld) 76.4 % Critically high 43.0-75.0 [facility] Comment on above: Performed By: #### C BC #### [facility] [address] [address] Mere Soto Platelet mean volume (Bld) [Entitic vol] 9.5 fL Normal 9.5-13.[address] [facility] Comment on above: Performed By: #### C BC #### [facility] [address] [place] [address] Mere Soto PLT 190 103/ul Normal 150-[address] [facility] Comment on above: Performed By: #### C BC #### [facility] [address] [address] Mereshahnaz Soto RBC 3.99 106/ul Critically low 4.20-5.[address] [facility] Comment on above: Performed By: #### C BC #### [facility] [address] [id number] Mereshahnaz Soto WBC 1.4 103/ul Critically low 4.0-11.0 [facility] Comment on above: Performed By: #### C BC #### [facility] [address] [place], [place] [address] Mere Soto PROF CHEM 8 (BAS METB)on Anion gap [Moles/Vol] 11.9 mmol/L Normal [facility] Comment on above: Performed By: #### B MP #### [facility] [facility] [address] [id number] [place] Calcium [Mass/Vol] 9.2 mg/dL Normal 8.4-10.2 [facility] Comment on above: Performed By: #### B MP #### [facility] [address] [id number] [place] Chloride [Moles/Vol] 106 mmol/L Normal 98-107 [facility] Comment on above: Performed By: #### B MP #### [facility] [address] [address] [place] CO2 [Moles/Vol] 25.5 mmol/L Normal 22.0-30.0 [facility] Comment on above: Performed By: #### B MP #### [facility] [address] [place] [address] [place] Creatinine [Mass/Vol] 0.62 mg/dL Normal 0.52-1.04 [facility] Comment on above: Performed By: #### B MP #### [facility] [address] [place] [address] [place] EGFR-AF EQUATORIAL GUINEAN >60 Normal >=60 [facility] Comment on above: Performed By: #### B MP #### [facility] [address] [place] [address] [place] EGFR-NON AF EQUATORIAL GUINEAN >60 Normal >=60 [facility] Comment on above: Performed By: #### B MP #### [facility] [address] [place] [address] [place] Glucose [Mass/Vol] 223 mg/dL Critically high 74-106 [facility] Comment on above: Performed By: #### B MP #### [facility] [address] [place] [address] [place] Potassium [Moles/Vol] 3.4 mmol/L Normal 3.4-5.0 [facility] Comment on above: Performed By: #### B MP #### [facility] [address] [place] [address] [place] Sodium [Moles/Vol] 140 mmol/L Normal 137-145 [facility] Comment on above: Performed By: #### B MP #### [facility] [address] [place], [place] [id number] [place] Urea nitrogen [Mass/Vol] 10.0 mg/dL Normal 7.0-17.0 [facility] Comment on above: Performed By: #### B MP #### [facility] [address] [place] [address] [place] Urea nitrogen/Creatinine [Mass ratio] 16.1 mg/mg Normal [facility] Comment on above: Performed By: #### B MP #### [facility] [address] [place] [address] [place] CBC W MANUAL DIFFon 10-29-19 ATYPICAL LYMPH # 0.03 103/ul Normal [facility] Comment on above: Performed By: #### L ACT #### [facility] [address] [place] [address] [place] ATYPICAL LYMPH % 2 % Normal [facility] Comment on above: Performed By: #### L ACT #### [facility] [address] [place] [address] [place] BAND # 0.0 103/ul Normal 0.0-0.[address] [facility] Comment on above: Performed By: #### L ACT #### [facility] [address] [place] [address] [place] BAND % 0 % Normal 0-[address] [facility] Comment on above: Performed By: #### L ACT #### [facility] [address] [place] [address] [place] BASOM # 0.00 103/ul Normal 0.00-0.[address] [facility] Comment on above: Performed By: #### L ACT #### [facility] [address] [place] [address] [place] BASOM % 0.0 % Critically low 0.2-2.0 [facility] Comment on above: Performed By: #### L ACT #### [facility] [address] [place] [address] [place] BLAST # Normal [facility] Comment on above: Performed By: #### L ACT #### [facility] [address] [place] [address] [place] BLAST % Normal [facility] Comment on above: Performed By: #### L ACT #### [facility] [address] [address] [place] CORRECTED WBC Normal 4.0-11.0 [facility] Comment on above: Performed By: #### L ACT #### [facility] [address] [id number] Mereshahnaz Patelen EOS # 0.00 103/ul Normal 0.00-0.[address] [facility] Comment on above: Performed By: #### L ACT #### [facility] [address] [address] [place] EOS% 0.0 % Critically low 0.9-7.0 [facility] Comment on above: Performed By: #### L ACT #### [facility] [address] [place] [address] [place] HCT 34.0 % Critically low 36.0-48.0 [facility] Comment on above: Performed By: #### L ACT #### [facility] [address] [place] [address] [place] HGB 11.6 g/dl Critically low 12.0-16.0 [facility] Comment on above: Performed By: #### L ACT #### [facility] [address] [place] [address] [place] LYMPHM # 0.36 103/ul Critically low 1.20-3.[address] [facility] Comment on above: Performed By: #### L ACT #### [facility] [address] [place] [address] [place] LYMPHM% 26.0 % Normal 20.5-60.[address] [facility] Comment on above: Performed By: #### L ACT #### [facility] [address] [place], [place] [address] [place] MCH 30.7 pg Normal 26.7-34.[address] [facility] Comment on above: Performed By: #### L ACT #### [facility] [address] [place] [address] [place] MCHC 34.1 g/dl Normal 29.9-35.[address] [facility] Comment on above: Performed By: #### L ACT #### [facility] [address] [place] [address] Mereshahnaz Soto MCV 89.9 fL Normal 81.0-99.0 [facility] Comment on above: Performed By: #### L ACT #### [facility] [address] [place] [address] [place] METAMYELOCYTE # Normal [facility] Comment on above: Performed By: #### L ACT #### [facility] [address] [place] [address] [place] METAMYELOCYTE % Normal [facility] Comment on above: Performed By: #### L ACT #### [facility] [address] [place] [address] [place] MONOM# 0.21 103/ul Critically low 0.30-0.[address] [facility] Comment on above: Performed By: #### L ACT #### [facility] [address] [place] [address] [place] MONOM% 15.0 % Critically high 1.7-12.[address] [facility] Comment on above: Performed By: #### L ACT #### [facility] [address] [place] [address] Mereshahnaz aPtelen MPV 9.1 fL Critically low 9.5-13.5 [facility] Comment on above: Performed By: #### L ACT #### [facility] [address] [place] [address] [place] MYELOCYTE # Normal [facility] Comment on above: Performed By: #### L ACT #### [facility] [address] [place] [address] [place] MYELOCYTE % Normal [facility] Comment on above: Performed By: #### L ACT #### [facility] [address] [place] [address] [place] NRBC Normal [facility] Comment on above: Performed By: #### L ACT #### [facility] [address] [place] [address] [place] PLT 166 103/ul Normal 150-450 [facility] Comment on above: Performed By: #### L ACT #### [facility] [address] [id number] [place] RBC 3.78 106/ul Critically low 4.20-5.40 [facility] Comment on above: Performed By: #### L ACT #### [facility] [address] [id number] [place] RDW 13.0 % Normal 11.0-15.0 [facility] Comment on above: Performed By: #### L ACT #### [facility] [address] [place], [place] [address] [place] SEG # 0.80 103/ul Critically low 1.40-6.50 [facility] Comment on above: Performed By: #### L ACT #### [facility] [address] [place] [address] [place] SEG % 57.0 % Normal 43.0-75.0 [facility] Comment on above: Performed By: #### L ACT #### [facility] [address] [place], [place] [address] [place] WBC 1.4 103/ul Critically low 4.0-11.0 [facility] Comment on above: Performed By: #### L ACT #### [facility] [address] [place], [place] [address] [place] CULTURE BLOODon 10-28-2020 Microscopic examination of blood, culture Culture Observations: No growth at [address] [facility] Comment on above: Performed By: #### C BC #### [facility] [address] [place] [address] [place] CULTURE SPUTUMon 10-28-2020 CULTURE SPUTUM Culture Observations : Normal respiratory bee. Normal [facility] Comment on above: Performed By: #### C BC #### [facility] [address] [place], [place] [address] [place] PROF CHEM 8 (BAS METB)on Anion gap [Moles/Vol] 16.1 mmol/L Normal [facility] Comment on above: Performed By: #### B MP #### [facility] [address] [id number] [place] Calcium [Mass/Vol] 8.4 mg/dL Normal 8.4-10.2 [facility] Comment on above: Performed By: #### B MP #### [facility] [address] [address] [place] Chloride [Moles/Vol] 104 mmol/L Normal 98-[address] [facility] Comment on above: Performed By: #### B MP #### [facility] [address] [address] [place] CO2 [Moles/Vol] 21.2 mmol/L Critically low 22.0-30.[address] [facility] Comment on above: Performed By: #### B MP #### [facility] [address] [address] [place] Creatinine [Mass/Vol] 0.77 mg/dL Normal 0.52-1.[address] [facility] Comment on above: Performed By: #### B MP #### [facility] [address] [address] [place] EGFR-AF EQUATORIAL GUINEAN >60 Normal >=60 [facility] Comment on above: Performed By: #### B MP #### [facility] [address] [address] [place] EGFR-NON AF EQUATORIAL GUINEAN >60 Normal >=[address] [facility] Comment on above: Performed By: #### B MP #### [facility] [address] [address] [place] Glucose [Mass/Vol] 81 mg/dL Normal 74-106 [facility] Comment on above: Performed By: #### B MP #### [facility] [address] [address] [place] Potassium [Moles/Vol] 3.3 mmol/L Critically low 3.4-5.[address] [facility] Comment on above: Performed By: #### B MP #### [facility] [address] [address] [place] Sodium [Moles/Vol] 138 mmol/L Normal 137-145 [facility] Comment on above: Performed By: #### B MP #### [facility] [address] [place] [address] [place] Urea nitrogen [Mass/Vol] 10.0 mg/dL Normal 7.0-17.0 [facility] Comment on above: Performed By: #### B MP #### [facility] [address] [place] [address] [place] Urea nitrogen/Creatinine [Mass ratio] 13.0 mg/mg Normal [facility] Comment on above: Performed By: #### B MP #### [facility] [address] [place] [address] [place] SPUTUM GRAM STAINon 10-29-19 COMMENTS Normal [facility] Comment on above: Performed By: #### S PUTGS #### [facility] [address] [place] [address] [place] DIPHTHEROIDS Normal [facility] Comment on above: Performed By: #### S PUTGS #### [facility] [address] [place] [address] [place] EPITHELIALS <25 Normal [facility] Comment on above: Performed By: #### S PUTGS #### [facility] [address] [place] [address] [place] FUNGAL ELEMENTS Normal [facility] Comment on above: Performed By: #### S PUTGS #### [facility] [address] [place] [address] [place] GRAM NEG BACILLI Normal [facility] Comment on above: Performed By: #### S PUTGS #### [facility] [address] [place] [address] [place] GRAM NEG DIPPLOCOCCI Normal [facility] Comment on above: Performed By: #### S PUTGS #### [facility] [address] [place] [address] [place] GRAM POS BACILLI MANY Normal [facility] Comment on above: Performed By: #### S PUTGS #### [facility] [address] [place] [address] [place] GRAM POSITIVE COCCI MANY Normal The [facility] Comment on above: Performed By: #### S ARABELLA #### [facility] [address] [place] [address] [place] WBC (Bld) [#/Vol] 10*3/uL Normal The [facility] Comment on above: Performed By: #### S ARABELLA #### [facility] [address] [place] [address] [place] CBC W MANUAL DIFFon 10-28-19 21 ATYPICAL LYMPH # 0.02 103/ul Normal [facility] Comment on above: Performed By: #### C BRAIN PERS #### [facility] [address] [place] [address] [place] ATYPICAL LYMPH % 2 % Normal [facility] Comment on above: Performed By: #### Nai DE LA PAZ PERS #### [facility] [address] [place] [address] [place] BAND # 0.0 103/ul Normal 0.0-0.[address] [facility] Comment on above: Performed By: #### Nia DE LA PAZ PERS #### [facility] [address] [place] [address] [place] BAND % 0 % Normal 0-[address] [facility] Comment on above: Performed By: #### Nia DE LA PAZ PERSMR #### [facility] [address] [place] [address] [place] BASOM # 0.00 103/ul Normal 0.00-0.[address] [facility] Comment on above: Performed By: #### Nia DE LA PAZ PERS #### [facility] [address] [place] [address] [place] BASOM % 0.0 % Critically low 0.2-2.0 [facility] Comment on above: Performed By: #### Nia DE LA PAZ PERS #### [facility] [address] [place] [address] [place] BLAST # Normal [facility] Comment on above: Performed By: #### Nia DE LA PAZ, PERSMR #### [facility] [address] [address] [place] BLAST % Normal [facility] Comment on above: Performed By: #### Nia DE LA PAZ, PERSMR #### [facility] [address] [id number] [place] CORRECTED WBC Normal 4.0-11.0 [facility] Comment on above: Performed By: #### Nia DE LA PAZ, PERSMR #### [facility] [address] [address] [place] EOS # 0.02 103/ul Normal 0.00-0.70 [facility] Comment on above: Performed By: #### Nia DE LA PAZ, PERSMR #### [facility] [address] [address] [place] EOS% 2.0 % Normal 0.9-7.0 [facility] Comment on above: Performed By: #### Nia DE LA PAZ, PERSMR #### [facility] [address] [address] [place] HCT 38.3 % Normal 36.0-48.0 [facility] Comment on above: Performed By: #### Nia DE LA PAZ, PERSMR #### [facility] [address] [address] [place] HGB 13.0 g/dl Normal 12.0-16.[address] [facility] Comment on above: Performed By: #### Nia DE LA PAZ, PERSMR #### [facility] [address] [address] [place] LYMPHM # 0.13 103/ul Critically low 1.20-3.[address] [facility] Comment on above: Performed By: #### Nia DE LA PAZ, PERSMR #### [facility] [address] [address] [place] LYMPHM% 14.0 % Critically low 20.5-60.0 [facility] Comment on above: Performed By: #### Nia DE LA PAZ, PERSMR #### [facility] [address] [id number] [place] MCH 30.4 pg Normal 26.7-34.[address] [facility] Comment on above: Performed By: #### Nia DE LA PAZ PERSMR #### [facility] [address] [id number] [place] MCHC 33.9 g/dl Normal 29.9-35.[address] [facility] Comment on above: Performed By: #### Nia DE LA PAZ PERSMR #### [facility] [address] [address] [place] MCV 89.7 fL Normal 81.0-99.[address] [facility] Comment on above: Performed By: #### Nia DE LA PAZ PERSMR #### [facility] [address] [address] [place] METAMYELOCYTE # Normal [facility] Comment on above: Performed By: #### Nia DE LA PAZ PERSMR #### [facility] [address] [address] [place] METAMYELOCYTE % Normal [facility] Comment on above: Performed By: #### Nia DE LA PAZ PERSMR #### [facility] [address] [address] [place] MONOM# 0.16 103/ul Critically low 0.30-0.[address] [facility] Comment on above: Performed By: #### Nia DE LA PAZ PERSMR #### [facility] [address] [address] [place] MONOM% 18.0 % Critically high 1.7-12.[address] [facility] Comment on above: Performed By: #### Nia DE LA PAZ PERSMR #### [facility] [address] [address] [place] MPV 8.6 fL Critically low 9.5-13.5 [facility] Comment on above: Performed By: #### Nia DE LA PAZ PERSMR #### [facility] [address] [address] [place] MYELOCYTE # Normal [facility] Comment on above: Performed By: #### Nia DE LA PAZ, PERSMR #### [facility] [address] [place], [place] [address] [place] MYELOCYTE % Normal [facility] Comment on above: Performed By: #### Nia DE LA PAZ, PERSMR #### [facility] [address] [id number] [place] NRBC Normal [facility] Comment on above: Performed By: #### Nai DE LA PAZ, PERSMR #### [facility] [address] [id number] [place] PLT 183 103/ul Normal 150-[address] [facility] Comment on above: Performed By: #### Nia DE LA PAZ PERSMR #### [facility] [address] [address] Mere Brtitany RBC 4.27 106/ul Normal 4.20-5.40 [facility] Comment on above: Performed By: #### Nia DE LA PAZ PERSMR #### [facility] [address] [place] [address] [place] RDW 12.8 % Normal 11.0-15.0 [facility] Comment on above: Performed By: #### Nia DE LA PAZ PERSMR #### [facility] [address] [address] [place] SEG # 0.58 103/ul Critically low 1.40-6.[address] [facility] Comment on above: Performed By: #### Nia DE LA PAZ PERSMR #### [facility] [address] [id number] [place] SEG % 64.0 % Normal 43.0-75.0 [facility] Comment on above: Performed By: #### Nia DE LA PAZ, PERSMR #### [facility] [address] [id number] [place] WBC 0.9 103/ul Critically low 4.0-11.0 [facility] Comment on above: Result Comment: test repeated critical value verified Performed By: #### Nia DE LA PAZ, PERSMR #### [facility] [address] [place], [place] [address] Mere Brittany ER URINE PROFILEon 1 Bilirubin Ql (U) MODERATE Abnormal NEGATIVE [facility] Comment on above: Performed By: #### C BC #### [facility] [address] [place] [address] [place] Clarity (U) CLEAR Normal CLEAR [facility] Comment on above: Performed By: #### C BC #### [facility] [address] [address] [place] Color (U) YELLOW Normal YELLOW [facility] Comment on above: Performed By: #### C BC #### [facility] [address] [place] [address] Me[place] ERUAHD A micrscopic examination will be performed if indicated. Normal [facility] Comment on above: Performed By: #### C BC #### [facility] [address] [place] [address] [place] Glucose Ql (U) Negative Normal NEGATIVE [facility] Comment on above: Performed By: #### C BC #### [facility] [address] [place] [address] [place] Hemoglobin Ql (U) SMALL Abnormal NEGATIVE [facility] Comment on above: Performed By: #### C BC #### [facility] [address] [place] [address] [place]any Ketones Ql (U) >=80 Abnormal NEGATIVE [facility] Comment on above: Performed By: #### C BC #### [facility] [address] [place] [address] [place] LEUKOCYTES Negative Normal NEGATIVE [facility] Comment on above: Performed By: #### C BC #### [facility] [address] [place] [address] [place] Nitrite Ql (U) Negative Normal NEGATIVE [facility] Comment on above: Performed By: #### C BC #### [facility] [address] [place] [address] Me[place] pH (U) 6.0 [pH] Normal 5-[address] [facility] Comment on above: Performed By: #### C BC #### [facility] [address] [place], [place] [address] Mereshahnaz Soto Protein (U) [Mass/Vol] 30 mg/dL Abnormal NEGATIVE/ TRACE [facility] Comment on above: Performed By: #### C BC #### [facility] [address] [place], [place] [address] [place] SPEC GRAVITY 1.020 Normal 1.005-<=1.025 [facility] Comment on above: Performed By: #### C BC #### [facility] [address] [place], [place] [address] [place] UR MICRO IND INDICATED Normal [facility] Comment on above: Performed By: #### C BC #### [facility] [address] [place] [address] [place] Urobilinogen Qn (U) 1.0 {Sage'U}/dL Normal 0.2 - 1. 0 [facility] Comment on above: Performed By: #### C BC #### [facility] [address] [place] [address] [place] LACTATE/LACTIC ACIDon 2020 Lactate [Moles/Vol] 1.3 mmol/L Normal 0.7-2.0 [facility] Comment on above: Performed By: #### L ACT #### [facility] [address] [place] [address] [place] LIPASEon 10-27-2020 Lipase [Catalytic activity/Vol] 94.0 U/L Normal 23.0-300.0 [facility] Comment on above: Performed By: #### C BC #### [facility] [address] [place] [address] [place] PERIPHERAL SMEARon Pathologist Cyto stain Nom (Cvx/Vag) [ID] DR. COLLETTE COKER Normal [facility] Comment on above: Result Comment: Neut ropenia and lymphopenia of unknown etiology. CPT: [address] Dr. Collette Coker 10/30/2020 Performed By: #### C BCMAN, PERSMR #### [facility] [address] [place], [place] [address] Mereshahnaz Patelen PROF 14(COMP METB)on 021 Albumin [Mass/Vol] 3.2 g/dL Critically low 3.5-5.[address] [facility] Comment on above: Performed By: #### C BC #### [facility] [address] [place], [place] [address] Mere Birttany Albumin/Globulin [Mass ratio] 0.7 {ratio} Normal [facility] Comment on above: Performed By: #### C BC #### [facility] [address] [place] [address] [place] ALP [Catalytic activity/Vol] 59 U/L Normal 38-126 [facility] Comment on above: Performed By: #### C BC #### [facility] [address] [place] [address] [place] ALT [Catalytic activity/Vol] 24 U/L Normal 9-52 [facility] Comment on above: Performed By: #### C BC #### [facility] [address] [place] [address] [place] Anion gap [Moles/Vol] 16.7 mmol/L Normal [facility] Comment on above: Performed By: #### C BC #### [facility] [address] [place] [address] Mere Brittany AST [Catalytic activity/Vol] 21 U/L Normal 14-36 [facility] Comment on above: Performed By: #### C BC #### [facility] [address] [place], [place] [address] Mere Brittany Bilirubin [Mass/Vol] 0.4 mg/dL Normal 0.2-1.3 [facility] Comment on above: Performed By: #### C BC #### [facility] [address] [place], [place] [address] Mere Brittany Calcium [Mass/Vol] 8.8 mg/dL Normal 8.4-10.2 [facility] Comment on above: Performed By: #### C BC #### [facility] [address] [place], [place] [address] Mere Brittany Chloride [Moles/Vol] 98 mmol/L Normal 98-[address] [facility] Comment on above: Performed By: #### C BC #### [facility] [address] [place], [place] [address] Mere Brittany CO2 [Moles/Vol] 25.0 mmol/L Normal 22.0-30.0 [facility] Comment on above: Performed By: #### C BC #### [facility] [address] [place] [address] Mere Brittany Creatinine [Mass/Vol] 0.92 mg/dL Normal 0.52-1.[address] [facility] Comment on above: Performed By: #### C BC #### [facility] [address] [place] [address] Mere Brittany EGFR-AF EQUATORIAL GUINEAN >60 Normal >=60 [facility] Comment on above: Performed By: #### C BC #### [facility] [address] [place] [address] Mere Brittany EGFR-NON AF EQUATORIAL GUINEAN >60 Normal >=[address] [facility] Comment on above: Performed By: #### C BC #### [facility] [address] [place], [place] [address] Mere Brittany Globulin (S) [Mass/Vol] 4.8 g/dL Normal [facility] Comment on above: Performed By: #### C BC #### [facility] [address] [place] [address] Mere Brittany Glucose [Mass/Vol] 93 mg/dL Normal 74-106 [facility] Comment on above: Performed By: #### C BC #### [facility] [address] [place], [place] [address] Mere Brittany Potassium [Moles/Vol] 3.7 mmol/L Normal 3.4-5.[address] [facility] Comment on above: Performed By: #### C BC #### [facility] [address] [place] [address] Mere Brittany Protein [Mass/Vol] 8.0 g/dL Normal 6.1-8.2 [facility] Comment on above: Performed By: #### C BC #### [facility] [address] [id number] Mere Brittany Sodium [Moles/Vol] 136 mmol/L Critically low 137-145 [facility] Comment on above: Performed By: #### C BC #### [facility] [address] [id number] Mere Brittany Urea nitrogen [Mass/Vol] 14.0 mg/dL Normal 7.0-17.0 [facility] Comment on above: Performed By: #### C BC #### [facility] [address] [place], [place] [address] Mere Brittany Urea nitrogen/Creatinine [Mass ratio] 15.2 mg/mg Normal [facility] Comment on above: Performed By: #### C BC #### [facility] [address] [place] [address] Mere Brittany TROPONIN, HIGH SENSITIVITYon 10-27-2020 HSTROP 10.4 pg/mL Normal 4.0-35.5 [facility] Comment on above: Result Comment: CUT- OFF POINTS HAVE BEEN ESTABLISHED BASED ON THE FOURTH UNIVERSAL DEFINITIONS OF MYOCARDIAL INFARCTION. THE UPPER REFERENCE LIMIT (URL) OF TROPONIN, DEFINED THE 99TH PERCENTILE OF cTnI DISTRIBUTION IN A REFERENCE POPULATION, HAS BEEN CONFIRMED THE DECISION THRESHOLD FOR DE DIAGNOSIS. Performed By: #### C BC #### [facility] [address] [place], [place] [address] Mere Brittany URINE MICROSCOPIC ONLYon BACTERIA TRACE Abnormal NONE SEEN [facility] Comment on above: Performed By: #### C BC #### [facility] [address] [place], [place] [address] Mere Brittany Bacteria identified Cx Nom (U) NOT INDICATED Normal [facility] Comment on above: Performed By: #### C BC #### [facility] [address] [place], [place] [address] Mere Brittany CAST NONE SEEN Normal NONE SEEN [facility] Comment on above: Performed By: #### C BC #### [facility] [address] [place], [place] [address] Mere Brittany Crystals LM Nom (Urine sed) NONE SEEN Normal NONE SEEN [facility] Comment on above: Performed By: #### C BC #### [facility] [address] [place], [place] [address] Mere Brittany Epithelial cells LM Ql (Urine sed) RARE Normal NONE SEEN /RARE [facility] Comment on above: Performed By: #### C BC #### [facility] [address] [place], [place] [address] Mere Brittany MUCOUS NONE SEEN Normal NONE SEEN [facility] Comment on above: Performed By: #### C BC #### [facility] [address] [place], [place] [address] Mere Brittany RBC 2-5 Abnormal 0-[address] [facility] Comment on above: Performed By: #### C BC #### [facility] [address] [place], [place] [address] Mere Brittany WBC NONE SEEN Normal NONE SEEN [facility] Comment on above: Performed By: #### C BC #### [facility] [address] [place], [place] [address] Mere Brittany XR CHEST 1 Von 10-27-2020 [...] AYLIN JOHNSON Date: 2020-10-27 20:[address] [facility] CBC AUTO DIFFon 07-27-2020 BASO # 0.0 103/ul Normal 0.0-0.[address] [facility] Comment on above: Performed By: #### C BC #### [facility] [address] [place], [place] [address] Mere Brittany Basophils/100 WBC (Bld) 0.5 % Normal 0.2-2.[address] [facility] Comment on above: Performed By: #### C BC #### [facility] [address] [place] [address] Mere Brittany EO # 0.1 103/ul Normal 0.0-0.7 [facility] Comment on above: Performed By: #### C BC #### [facility] [address] [place], [place] [address] Mere Brittany Eosinophils/100 WBC (Bld) 3.2 % Normal 0.9-7.0 [facility] Comment on above: Performed By: #### C BC #### [facility] [address] [place] [address] Mere Brittany Erythrocyte distribution width (RBC) [Ratio] 12.6 % Normal 11.0-15.0 [facility] Comment on above: Performed By: #### C BC #### [facility] [address] [place] [address] Mere Brittany Hematocrit (Bld) [Volume fraction] 39.9 % Normal 36.0-48.0 [facility] Comment on above: Performed By: #### C BC #### [facility] [address] [place] [address] Mere Brittany Hemoglobin (Bld) [Mass/Vol] 13.5 g/dL Normal 12.0-16.0 [facility] Comment on above: Performed By: #### C BC #### [facility] [address] [place] [address] Mere Brittany IG # 0.01 10e3/ul Normal 0.00-0.[address] [facility] Comment on above: Performed By: #### C BC #### [facility] [address] [place] [address] Mere Brittany IG % 0.2 % Normal 0.0-0.[address] [facility] Comment on above: Performed By: #### C BC #### [facility] [address] [place] [address] Mere Brittany LYMPH # 1.1 103/ul Critically low 1.2-3.8 [facility] Comment on above: Performed By: #### C BC #### [facility] [address] [place], [place] [address] Mere Brittany Lymphocytes/100 WBC (Bld) 24.0 % Normal 20.5-60.[address] [facility] Comment on above: Performed By: #### C BC #### [facility] [address] [place], [place] [address] Mereshahnaz Soto MANUAL DIFF REQ NO Normal [facility] Comment on above: Performed By: #### C BC #### [facility] [address] [place], [place] [address] Mere Brittany MCH (RBC) [Entitic mass] 30.7 pg Normal 26.7-34.[address] [facility] Comment on above: Performed By: #### C BC #### [facility] [address] [place], [place] [address] Mereshahnaz Soto MCHC (RBC) [Mass/Vol] 33.8 g/dL Normal 29.9-35.[address] [facility] Comment on above: Performed By: #### C BC #### [facility] [address] [place] [address] Mere Brittany MCV (RBC) [Entitic vol] 90.7 fL Normal 81.0-99.[address] [facility] Comment on above: Performed By: #### C BC #### [facility] [address] [place], [place] [address] Mere Brittany MONO # 0.5 103/ul Normal 0.3-0.[address] [facility] Comment on above: Performed By: #### C BC #### [facility] [address] [place] [address] Mere Brittany Monocytes/100 WBC (Bld) 10.4 % Normal 1.7-12.[address] [facility] Comment on above: Performed By: #### C BC #### [facility] [address] [place], [place] [address] Mere Brittany NEUT # 2.7 103/ul Normal 1.4-6.[address] [facility] Comment on above: Performed By: #### C BC #### [facility] [address] [place], [place] [address] Mere Brittany Neutrophils/100 WBC (Bld) 61.7 % Normal 43.0-75.[address] [facility] Comment on above: Performed By: #### C BC #### [facility] [address] [place], [place] [address] Mere Soto Platelet mean volume (Bld) [Entitic vol] 8.8 fL Critically low 9.5-13.[address] [facility] Comment on above: Performed By: #### C BC #### [facility] [address] [place], [place] [address] Mere Soto PLT 224 103/ul Normal 150-[address] [facility] Comment on above: Performed By: #### C BC #### [facility] [address] [place], [place] [address] Mere Soto RBC 4.40 106/ul Normal 4.20-5.40 [facility] Comment on above: Performed By: #### C BC #### [facility] [address] [place], [place] [address] Mere Soto WBC 4.4 103/ul Normal 4.0-11.0 [facility] Comment on above: Performed By: #### C BC #### [facility] [address] [place] [address] Mere S[place] MRI BRAIN W WO CONTRASTon [...] Max Hunter MD 09/01/19 Final result Normal [facility] MRI ORBITS FACE NECK W WO CO [...] were sent to the Results Communication Center ([facility]) on 09/01/2019 at 10:42 am to be communicated to the referring/covering health care provider/office. Interpreted by: Max Hunter MD Signed by: Max Hunter MD 09/01/19 Recipients: Jase Agustin MD - In Basket Final result Normal [facility] 09-01-2019 1. There is an area of [...] communicated to the referring/covering health care provider/office. [facility] [place] EXAMINATION: MRI OF THE BRAIN WITHOUT AND [...] extraocular muscles are symmetric. No orbital mass. [place], [place] Km, [facility] Incoming Radiant Results From [employer] - 09/01/2019 10:44 AM EST EXAMINATION: MRI [...] communicated to the referring/covering health care provider/office. [place], [place] Coding Summary.on 01-12-2019 Coding Summary. CODING DATE: [address] 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 [...] CphT Date Saved: 01/12/2019 11:24 am Normal [facility] Hbv Core Abon 01-12-2019 HBV core Ab IA Ql Negative Negative [facility] Comment on above: Result Comment: Perf ormed at: [address] [id number] PhD Roshan Carmona Performed By: #### 2 686796, 4781688, 8608030, 85401464, 9497438, 3655389, 22596470, 32038245 ####[facility] [address] [place] [address] HBV core IgM IA Ql Negative Negative [facility] Comment on above: Performed By: #### 2 644167, 3775308, 7911147, 82951255, 3345225, 8088146, 02278126, 19022082 ####[facility] [address] [place] [address] Hep Bs Agon 01-12-2019 HBV surface Ag IA Ql Negative Negative [facility] Comment on above: Result Comment: Perf ormed at: [address] [id number] PhD Roshan Carmona Performed By: #### 2 555731, 6304507, 2566017, 40982398, 3498773, 1445949, 89293250, 35582787 #### [facility] [address] [place] [address] Varic IgGon 01-12-2019 VZV IgG IA Qn (S) 2223 Immune >165 [facility] Comment on above: Result Comment: Nega tive <135 Equivocal 135 - 165 Positive >165 A positive result generally indicates exposure to the pathogen or administration of specific immunoglobulins, but it is not indication of active infection or stage of disease. Performed at: [facility] [address] [place] [address] [id number] PhD Roshan Carmona Performed By: #### 2 889606, 3159745, 3014983, 41380664, 4206425, 2088424, 75260443, 70896801 ####[facility] [address] [place] [address] Auto Diffon 01-11-2019 Basophils/100 WBC (Bld) 0.7 % Normal 0.0-2.0 [facility] Comment on above: Order Comment: Order Added by Discern Expert. Performed By: #### 2 593922, 4955593, 8886061, 06413228, 7425604, 8357209, 66607487, 43082004 #### [facility] [address] [place] [address] Basophils/Leukocyte s Auto (Bld) [Pure # fraction] 0.0 E9/L Normal 0.0-0.2 [facility] Comment on above: Order Comment: Order Added by Discern Expert. Performed By: #### 2 363247, 1967252, 2400922, 08923602, 3975814, 5257399, 71864178, 95271328 #### [facility] [address] [place] [address] Eosinophils/100 WBC (Bld) 3.3 % Normal 0.0-8.0 [facility] Comment on above: Order Comment: Order Added by Discern Expert. Performed By: #### 2 753742, 4202252, 7352902, 59855362, 1771691, 6268879, 39201245, 37176260 #### [facility] [address] [place] [address] Eosinophils/Leukocy cassi Auto (Bld) [Pure # fraction] 0.2 E9/L Normal 0.0-0.5 [facility] Comment on above: Order Comment: Order Added by Discern Expert. Performed By: #### 2 188893, 7270401, 5921892, 19675750, 9752970, 3424224, 03280688, 60068737 #### [facility] [address] [place] [address] Lymphocytes/100 WBC (Bld) 28.7 % Normal 14.0-50.0 [facility] Comment on above: Order Comment: Order Added by Discern Expert. Performed By: #### 2 026206, 0146915, 0026017, 97041437, 8708917, 1947697, 01144793, 88997464 #### [facility] [address] [place] [address] Lymphocytes/Leukocy cassi Auto (Bld) [Pure # fraction] 1.3 E9/L Normal 1.0-4.0 [facility] Comment on above: Order Comment: Order Added by Discern Expert. Performed By: #### 2 433373, 0285497, 4622427, 93055413, 3106872, 0678691, 75913925, 24705268 #### [facility] [address] [place] [address] Monocytes/100 WBC (Bld) 7.4 % Normal 4.0-14.0 [facility] Comment on above: Order Comment: Order Added by Discern Expert. Performed By: #### 2 892742, 8313803, 2801363, 63641262, 4076996, 6610733, 44274883, 59725227 #### [facility] [address] [place] [address] Monocytes/Leukocyte s Auto (Bld) [Pure # fraction] 0.3 E9/L Normal 0.2-1.0 [facility] Comment on above: Order Comment: Order Added by Discern Expert. Performed By: #### 2 566872, 9531568, 0618549, 38952521, 5916125, 7744556, 59683607, 98004613 #### [facility] [address] [place] [address] Neutrophils/100 WBC (Bld) 59.9 % Normal 36.0-75.0 [facility] Comment on above: Order Comment: Order Added by Discern Expert. Performed By: #### 2 505546, 7059569, 0495546, 06112691, 7351877, 5766301, 72697667, 58426708 #### [facility] [address] [place] [address] Neutrophils/Leukocy cassi Auto (Bld) [Pure # fraction] 2.8 E9/L Normal 2.0-7.5 [facility] Comment on above: Order Comment: Order Added by Discern Expert. Performed By: #### 2 601160, 4279416, 9629694, 95167833, 3889194, 0204110, 36427266, 36549399 #### [facility] [address] [place] [address] BMPon 01-11-2019 Anion gap [Moles/Vol] 14 mmol/L Normal 6-16 [facility] Comment on above: Performed By: #### 2 036701, 5418422, 4341384, 96397622, 8178121, 0672755, 93817497, 40684581 #### [facility] [address] [place] [address] Calcium [Mass/Vol] 9.0 mg/dL Normal 8.9-11.1 [facility] Comment on above: Performed By: #### 2 381157, 4143176, 1648441, 14387248, 5358018, 2153603, 93771360, 44574343 #### [facility] [address] [place] [address] Chloride [Moles/Vol] 103 mmol/L Normal 101-111 [facility] Comment on above: Performed By: #### 2 172579, 8761725, 9198737, 14243901, 1975220, 7004360, 50026893, 66207148 #### [facility] [address] [place] [address] CO2 [Moles/Vol] 24 mmol/L Normal 21-31 [facility] Comment on above: Performed By: #### 2 838774, 0044408, 0168342, 59113655, 5583337, 9961513, 36194245, 99586187 #### [facility] [address] [place] [address] Creatinine [Mass/Vol] 0.7 mg/dL Normal 0.5-1.3 [facility] Comment on above: Performed By: #### 2 946039, 0016669, 5837578, 36749482, 8000492, 6334055, 31398276, 36379799 #### [facility] [address] [place] [address] Glucose [Mass/Vol] 104 mg/dL Normal 55-199 [facility] Comment on above: Result Comment: If t his glucose result represents a fasting glucose, interpretation should refer to the following reference range: 55-99 mg/dL Performed By: #### 2 044914, 7659231, 5555122, 88674848, 9272080, 8564269, 94803476, 38697331 #### [facility] [address] [place] [address] Potassium [Moles/Vol] 3.0 mmol/L Low 3.5-5.3 [facility] Comment on above: Performed By: #### 2 267087, 3480315, 3922170, 59951867, 7089459, 3153389, 10688847, 92705526 #### [facility] [address] [place] [address] Sodium [Moles/Vol] 138 mmol/L Normal 135-145 [facility] Comment on above: Performed By: #### 2 219285, 5452904, 4279711, 42165297, 3637506, 4143155, 48302611, 58843682 #### [facility] [address] [place] [address] Urea nitrogen [Mass/Vol] 8 mg/dL Normal 5-21 [facility] Comment on above: Performed By: #### 2 142815, 6302944, 4197811, 58772202, 7964403, 8935086, 98265714, 75720986 #### [facility] [address] [place] [address] Urea nitrogen/Creatinine [Mass ratio] 11 No Units Normal 10-20 [facility] Comment on above: Performed By: #### 2 856794, 5427802, 5733986, 82950376, 9801771, 7174445, 97550011, 81343547 #### [facility] [address] [place] [address] CBC w/ Auto Diffon 9 Erythrocyte distribution width (RBC) [Ratio] 13.8 % Normal 10.9-14.2 [facility] Comment on above: Performed By: #### 2 867752, 7019801, 7680477, 17835252, 8491342, 8709900, 18837090, 10947082 #### [facility] [address] [place] [address] Hematocrit (Bld) [Volume fraction] 41.3 % Normal 34.0-46.0 [facility] Comment on above: Performed By: #### 2 222441, 2551277, 4162102, 00701973, 9995215, 2604329, 38336458, 24385227 #### [facility] [address] [place] [address] Hemoglobin (Bld) [Mass/Vol] 13.9 g/dL Normal 12.0-16.0 [facility] Comment on above: Performed By: #### 2 846598, 1623573, 1374464, 08627497, 4757285, 2512639, 14422840, 66618171 #### [facility] [address] [place] [address] MCH (RBC) [Entitic mass] 29.5 pg Normal 27.0-34.0 [facility] Comment on above: Performed By: #### 2 883984, 0648098, 9830185, 92134146, 3791496, 7184449, 73551072, 47932972 #### [facility] [address] [place] [address] MCHC (RBC) [Mass/Vol] 33.7 g/dL Normal 33.3-35.7 [facility] Comment on above: Performed By: #### 2 979381, 5046798, 0864706, 91511572, 5675439, 7418690, 20154001, 51665515 #### [facility] [address] [place] [address] MCV (RBC) [Entitic vol] 87.5 fL Normal 80.0-100.0 [facility] Comment on above: Performed By: #### 2 915673, 6131141, 0198053, 15797589, 6994863, 3939380, 90878619, 12346559 #### [facility] [address] [place] [address] Platelet mean volume (Bld) [Entitic vol] 7.7 fL Normal 6.4-10.8 [facility] Comment on above: Performed By: #### 2 654085, 7436007, 8990866, 03710129, 8401434, 1215815, 27468461, 08708226 #### [facility] [address] [place] [address] Platelets (Bld) [#/Vol] 290.0 E9/L Normal 150.0-500.0 [facility] Comment on above: Performed By: #### 2 937042, 1007226, 7458407, 25002587, 1703718, 5465185, 42324280, 39594259 #### [facility] [address] [place] [address] RBC (Bld) [#/Vol] 4.7 E12/L Normal 4.3-5.9 [facility] Comment on above: Performed By: #### 2 142048, 9452515, 3501692, 41624646, 8286706, 9775203, 61378080, 17878882 #### [facility] [address] [place] [address] WBC corrected for nucl RBC Auto (Bld) [#/Vol] 4.7 E9/L Normal 4.0-11.0 [facility] Comment on above: Performed By: #### 2 620838, 0750822, 4478765, 97337024, 9005046, 1111197, 70300599, 94933599 #### [facility] [address] [place] [address] TSHon 01-11-2019 TSH Qn 1.84 mcIU/mL Normal 0.34-5.60 [facility] Comment on above: Performed By: #### 2 772071, 5565987, 8110650, 15235738, 9133221, 5554976, 46581005, 78920110 #### [facility] [address] [place] [address] Urinalysison 01-11-2019 Bilirubin Ql (U) Negative Normal Negative [facility] Comment on above: Performed By: #### 1 0273622 #### [facility] [address] [place] [address] Clarity (U) CLEAR Normal Clear [facility] Comment on above: Performed By: #### 1 1983837 #### [facility] [address] [place] [address] Color (U) YELLOW Normal Yellow [facility] Comment on above: Performed By: #### 1 4183210 #### [facility] [address] [place] [address] Epithelial cells.squamous LM.HPF (Urine sed) [#/Area] 3-4 Normal 0-2 [facility] Comment on above: Performed By: #### 1 9743109 #### [facility] [address] [place] [address] Glucose Test strip (U) [Mass/Vol] Negative Normal Negative [facility] Comment on above: Performed By: #### 1 2380269 #### [facility] [address] [place] [address] Hemoglobin Ql (U) TRACE Abnormal Negative [facility] [place] Comment on above: Performed By: #### 1 [id number] #### [facility] [place] [facility] [address] [place] [address] Ketones (U) [Mass/Vol] Negative Normal Negative [facility] [place] Comment on above: Performed By: #### 1 [id number] #### [facility] [place] [facility] [address] [place] [address] [place].plasma/Lith ium.RBC (Bld) [Mass ratio] 0-3 Normal 0-3 [facility] [place] Comment on above: Performed By: #### 1 [id number] #### [facility] [place] [facility] [address] [place] [address] Mucus Ql (Urine sed) 1+ Normal [facility] [place] Comment on above: Performed By: #### 1 [id number] #### [facility] [place] [facility] [address] [place] [address] Nitrite Ql (U) Negative Normal Negative [facility] Comment on above: Performed By: #### 1 [id number] #### [facility] [place] [facility] [address] [place] [address] pH (U) 5.5 [pH] 5.0-9.0 [facility] [place] Comment on above: Performed By: #### 1 [id number] #### [facility] [place] [facility] [address] [place] [address] Protein (U) [Mass/Vol] Negative Normal Negative [facility] [place] Comment on above: Performed By: #### 1 [id number] #### [facility] [place] [facility] [address] [place] [address] Specific gravity (U) [Rel density] 1.025 1.005-1.030 [facility] [place] Comment on above: Performed By: #### 1 [id number] #### [facility] [place] [facility] [address] [place] [address] UA Spec Desc Clean Catch Normal [facility] Comment on above: Performed By: #### 1 [id number] #### [facility] [place] [facility] [address] [place] [address] Urobilinogen Qn (U) 0.2 {Sage'U}/dL Normal 0.0-1.0 [facility] [place] Comment on above: Performed By: #### 1 [id number] #### [facility] [place] [facility] [address] [place] [address] WBC Auto Ql (U) Negative Normal Negative [facility] Comment on above: Performed By: #### 1 [id number] #### [facility] [place] [facility] [address] [place] [address] WBC LM.HPF (Urine sed) [#/Area] 0-5 Normal 0-5 [facility] [place] Comment on above: Performed By: #### 1 [id number] #### [facility] [place] [facility] [address] [place] [address] eGFRon 01-11-2019 GFR/1.73 sq M predicted among blacks MDRD (S/P/Bld) [Vol rate/Area] mL/min/{1.73_m2} Normal >=59 [facility] [place] Comment on above: Order Comment: Order added by Discern Expert. Result Comment: eGFR is race adjusted. AA=. Performed By: #### 2 [id number], [id number], [id number], [id number], [id number], [id number], [id number], [id number] #### [facility] [place] [facility] [address] [place] [address] GFR/1.73 sq M predicted among non-blacks MDRD (S/P/Bld) [Vol rate/Area] mL/min/{1.73_m2} Normal >=59 [facility] [place] Comment on above: Order Comment: Order added by Discern Expert. Result Comment: Automotive Dismantler gautam kidney disease could be indicated at eGFR's of less than 60 mL/min/1.73m2. Kidney failure is indicated at less than 15 mL/min/1.73m2. Performed By: #### 2 [id number], [id number], [id number], [id number], [id number], [id number], [id number], [id number] #### [facility] [place] [facility] [address] [place] [address] Coding Summary.on 12-14-2018 Coding Summary. CODING DATE: [address] 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 Performed result UTC (Unable to Calculate) was sent as an Alpha code due the inability to calculate a valid numeric value. Performed By: #### 2 [id number] #### [facility] [place] [facility] [address] [place] [address] Albumin [Mass/Vol] 1.1 g/dL Normal 1.1-2.2 [facility] [place] Comment on above: Performed By: #### 2 [id number] #### [facility] [place] [facility] [address] [place] [address] Albumin [Mass/Vol] 4.2 g/dL Normal 3.3-5.0 [facility] [place] Comment on above: Performed By: #### 2 [id number] #### [facility] [place] [facility] [address] [place] [address] ALP [Catalytic activity/Vol] 63 Int._Unit/L Normal 21-98 [facility] [place] Comment on above: Performed By: #### 2 [id number] #### [facility] [place] [facility] [address] [place] [address] ALT No additional P-5'-P [Catalytic activity/Vol] 21 Int._Unit/L Normal 6-46 [facility] [place] Comment on above: Performed By: #### 2 [id number] #### [facility] [place] [facility] [address] [place] [address] AST [Catalytic activity/Vol] 19 Int._Unit/L Normal 5-43 [facility] [place] Comment on above: Performed By: #### 2 [id number] #### [facility] [place] [facility] [address] [place] [address] Bilirubin [Mass/Vol] 0.8 mg/dL Normal 0.0-1.1 [facility] [place] Comment on above: Performed By: #### 2 [id number] #### [facility] [place] [facility] [address] [place] [address] Bilirubin.direct [Mass/Vol] mg/dL Normal 0.1-0.4 [facility] [place] Comment on above: Performed By: #### 2 [id number] #### [facility] [place] [facility] [address] [place] [address] Globulin (S) [Mass/Vol] 3.8 g/dL Normal 1.4-4.0 [facility] [place] Comment on above: Performed By: #### 2 [id number] #### [facility] [place] [facility] [address] [place] [address] Protein [Mass/Vol] 8.0 g/dL High 6.0-7.8 [facility] [place] Comment on above: Performed By: #### 2 [id number] #### [facility] [place] [facility] [address] [place] [address] MRI Brain w/ + w/o Contrasto n [...] MultiHance Contrast amount in ml's: 20 Normal [facility] [place] Encounters Encounter Date Encounter Type Care Provider Facility Start: 07-19-2021 End: 07-20-[address] JASE AGUSTIN Facility:[facility] Start: 10-27-2020 End: 10-30-2020 Evaluation and management of inpatient DR ANGEL SANDERSON Facility:[facility] Start: 07-27-2020 End: 07-28-2020 ambulatory LIZETTE WILKS Facility:[facility] Start: 09-01-2019 End: 09-04-2019 Patient encounter procedure ABEL BOOGIE [facility] Start: 09-01-2019 End: 09-03-2019 Subsequent hospital visit by physician [facility] Sc[facility] Comment on above: Homonymous bilateral field [...] 2) Shannon gles Vaccine (1 of 2) [place], [place] Start: 03-06-2019 Influenza vaccination Flu vaccine (# 1) [place] Start: 2012 Lipid screen Lipid screen [place], [place] Start: 1993 Cervical cancer screen Cervical canc er screen [place], [place] Start: 1987 HIV screen HIV screen [place], [place] Start: 1983 DTaP/Tdap/Td vaccine (1 - Tdap) DTaP/Tdap/Td vaccine (1 - Tdap) [place] Payers Date Payer Category Payer Unknown [facility] xxxxxxxxxxxx 2014-Present [phone] [address] [place] [address] xxxxxxxxxxxx [id number] 1972 Unknown [id number] 1972 Unknown [id number] 1972 Unknown [id number] 1972 Unknown [id number] 1972 Unknown [id number] 1959 Unknown [id number] Social History Date Type Detail Facility Tobacco smoking status NHIS Unknown if ev er smoked [place], [place] Sex Assigned At Not on file [place] Summary Purpose Family History No Family History Records FoundNo Family History Records FoundNo Family History Records Found Advance Directives No Advanced Directives Records FoundDocuments on File Type Date Recorded 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 Advance Directives and Living Will 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 Reason for Referral Status Reason Specialty Diagnoses / Procedures Referred By Contact Referred To Contact Canceled Radiology Diagnoses 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, left MS (multiple sclerosis) (HCC) Procedures MRI ORBITS FACE NECK W WO CONTRAST Abel Boogie, DO [address] [place] [address] Assessments Diagnosis 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, left MS (multiple sclerosis) (HCC) Multiple sclerosis Diagnosis Heteronymous bilateral field defects Heteronymous bilateral field defects in visual field MS (multiple sclerosis) (HCC) Multiple sclerosis Visual field defect of left eye 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, left Additional Source Comments INFORMATION SOURCE (unrecogn ized section and content) DATE CREATED AUTHOR 01/16/2019 [facility] DATE CREATED AUTHOR AUTHOR'S ORGANIZ ATION 09/03/2019 [facility] DATE CREATED AUTHOR AUTHOR'S ORGANIZ ATION 07/24/2021 [facility] Reason for Visit (unrecogniz ed section and content) Status Reason Specialty Diagnoses / Procedures Referred By Contact Referred To Contact Authorized Radiology Diagnoses MS (multiple sclerosis) (HCC) Visual field defects Procedures HC MRI FACE NECK EYE W CONTRAST Abel Boogie, DO [address] [place] [address] [facility] [address] [place] [address] Status Reason Specialty Diagnoses / Procedures Referred By Contact Referred To Contact Authorized Radiology Diagnoses MS (multiple sclerosis) (HCC) Visual field defects Procedures HC MRI-BRAIN WO & W CONTRAST Abel Boogie, DO [address] [place] [address] [place] [address] FOR RECORDS PERTAINING TO PATIENTS WHO ARE [...] BE BASED ON THE PRIMARY CLINICAL RECORDS. [employer] provides no warranty or guarantee of the accuracy or completeness of information in this document.
== END 2023-08-17 09:20 | disposition home or self-care (01) ==
LOC: RAD 09:19
PROVIDERS: PCP Family Medicine; Visit Provider Orthopaedic Surgery
DX: S82.441D Displaced spiral fracture of shaft of right fibula, subsequent encounter for closed fracture with routine healing (principal); S82.241D Displaced spiral fracture of shaft of right tibia, subsequent encounter for closed fracture with routine healing
CPT/HCPCS: 73590

== ENCOUNTER 2023-09-14 09:25 | Outpatient (OUT) | payer OTHER, SELFPAY ==
--- NOTE | 2023-09-14 | XR_ITS ---
[facility] [place] [id number] Patient Name: LILI MADRID MRN: [id number] date: 1970 Sex: F Assigned Patient Location: Current Patient Location: Accession/Order Number: [id number] Exam Date: 09/14/2023 09:30 Report Date: 09/14/2023 12:14 At the request of: DARINEL BROWNING Procedure: XR tibia fibula RT 2V PROCEDURE: XR tibia fibula RT 2V COMPARISON: 08/17/2023 HISTORY: RIGHT TIBFIB PAIN FINDINGS: BONES:Stable distal tibia and fibular fractures. Internal fixation of the fibular fracture with an intramedullary nail and proximally and distally. Interval increase in bone formation at both fracture sites SOFT TISSUES:Negative. No visible soft tissue swelling. EFFUSION:None visible. OTHER: Negative. XR/XR tibia fibula RT 2V IMPRESSION: Stable healing distal tibia and fibular fractures with internal fixation of the tibia Electronically authenticated by: JESSICA BALDERRAMA Date: 09/14/2023 12:14
--- OUTSIDE RECORDS SUMMARY | 2023-09-14 09:28 | XMS_ITS | CCD ---
Author Name Unknown Address [address] [place] [address] Organization [facility] Care Team Providers Care Fisheries Enforcement Officer Name Role Phone ABEL BOOGIE Referring Unavailable ANGEL SANDERSON Primary Care Unavailable ABEL BOOGIE Referring Unavailable ANGEL SANDERSON Primary Care Unavailable Angel Sanderson Primary Care Provider [phone] KVNG, DR ORTIZ Attending Unavailable KVNG, DR [...] 11-05-2020 Episodic Other aftercare (1 source) Other alf (current) drug therapy; Translations: [OTH LONGTERM CURRENT DRUG THERAPY] Onset: 11-05-2020 Episodic Other lower respiratory disease (1 source) Hypoxemia; Translations: [HYPOXEMIA] Onset: 11-05-2020 Episodic Residual codes; unclassified (1 source) Acquired absence of both cervix and uterus; Translations: [ACQUIRED ABSENCE BOTH CERVIX AND UTERUS] Onset: 11-05-2020 Episodic Results Test Name Value Interpretation Reference Range Facility CBC AUTO DIFFon 07-19-2021 BASO # 0.0 103/ul Normal 0.0-0.1 [facility] Comment on above: Performed By: #### C BC #### [facility] [address] [address] [address] Morris Castro Basophils/100 WBC (Bld) 0.5 % Normal 0.2-2.0 [facility] Comment on above: Performed By: #### C BC #### [facility] [address] [address] [address] Morris Castro EO # 0.2 103/ul Normal 0.0-0.7 [facility] Comment on above: Performed By: #### C BC #### [facility] [address] [address] [address] Morris Castro Eosinophils/100 WBC (Bld) 5.2 % Normal 0.9-7.0 [facility] Comment on above: Performed By: #### C BC #### [facility] [address] [address] [address] Morris Castro Erythrocyte distribution width (RBC) [Ratio] 12.6 % Normal 11.0-15.0 [facility] Comment on above: Performed By: #### C BC #### [facility] [address] [place] [address] Dr. Morris Castro Hematocrit (Bld) [Volume fraction] 39.0 % Normal 36.0-48.0 [facility] Comment on above: Performed By: #### C BC #### [facility] [address] [place] [address] Dr. Morris Castro Hemoglobin (Bld) [Mass/Vol] 13.1 g/dL Normal 12.0-16.0 [facility] Comment on above: Performed By: #### C BC #### [facility] [address] [place] [address] Dr. Morris Castro IG # 0.02 10e3/ul Normal 0.00-0.03 [facility] Comment on above: Performed By: #### C BC #### [facility] [address] [place] [address] Dr. Morris Castro IG % 0.5 % Normal 0.0-0.5 [facility] Comment on above: Performed By: #### C BC #### [facility] [address] [place] [address] Dr. Morris Castro LYMPH # 0.9 103/ul Critically low 1.2-3.8 [facility] Comment on above: Performed By: #### C BC #### [facility] [address] [place] [address] Dr. Morris Castro Lymphocytes/100 WBC (Bld) 23.1 % Normal 20.5-60.0 [facility] Comment on above: Performed By: #### C BC #### [facility] [address] [place] [address] Dr. Morris Castro MANUAL DIFF REQ NO Normal [facility] Comment on above: Performed By: #### C BC #### [facility] [address] [place] [address] Dr. Morris Castro MCH (RBC) [Entitic mass] 30.3 pg Normal 26.7-34.0 [facility] Comment on above: Performed By: #### C BC #### [facility] [address] [place] [address] Dr. Morris Castro MCHC (RBC) [Mass/Vol] 33.6 g/dL Normal 29.9-35.2 [facility] Comment on above: Performed By: #### C BC #### [facility] [address] [place] [address] Dr. Morris Castro MCV (RBC) [Entitic vol] 90.1 fL Normal 81.0-99.0 [facility] Comment on above: Performed By: #### C BC #### [facility] [address] [place] [address] Dr. Morris Castro MONO # 0.6 103/ul Normal 0.3-0.8 [facility] Comment on above: Performed By: #### C BC #### [facility] [address] [place] [address] Dr. Morris Castro Monocytes/100 WBC (Bld) 15.6 % Critically high 1.7-12.0 [facility] Comment on above: Performed By: #### C BC #### [facility] [address] [place] [address] Dr. Morris Castro NEUT # 2.1 103/ul Normal 1.4-6.5 [facility] Comment on above: Performed By: #### C BC #### [facility] [address] [place] [address] Dr. Morris Castro Neutrophils/100 WBC (Bld) 55.1 % Normal 43.0-75.0 [facility] Comment on above: Performed By: #### C BC #### [facility] [address] [place] [address] Dr. Morris Castro Platelet mean volume (Bld) [Entitic vol] 8.3 fL Critically low 9.5-13.5 [facility] Comment on above: Performed By: #### C BC #### [facility] [address] [place] [address] [address] [address] Morris Castro PLT 223 103/ul Normal 150-450 [facility] Comment on above: Performed By: #### C BC #### [facility] [address] [place], [place] [address] Dr. Morris Castro RBC 4.33 106/ul Normal 4.20-5.40 [facility] Comment on above: Performed By: #### C BC #### [facility] [address] [place] [address] Dr. Morris Castro WBC 3.9 103/ul Critically low 4.0-11.0 [facility] Comment on above: Performed By: #### C BC #### [facility] [address] [place] [address] Dr. Morris Castro LIVER PROFILEon 07-19-2021 Albumin [Mass/Vol] 3.9 g/dL Normal 3.5-5.0 [facility] Comment on above: Performed By: #### L ACT #### [facility] [address] [place], [place] [address] Mere Brittany Albumin/Globulin [Mass ratio] 1.2 {ratio} Normal [facility] Comment on above: Performed By: #### L ACT #### [facility] [address] [place], [place] [address] Mere Brittany ALP [Catalytic activity/Vol] 77 U/L Normal 38-126 [facility] Comment on above: Performed By: #### L ACT #### [facility] [address] [place] [address] Mere Brittany ALT [Catalytic activity/Vol] 45 U/L Normal 9-52 [facility] Comment on above: Performed By: #### L ACT #### [facility] [address] [place], [place] [address] Mere Brittany AST [Catalytic activity/Vol] 23 U/L Normal 14-36 [facility] Comment on above: Performed By: #### L ACT #### [facility] [address] [place], [place] [address] Mere Brittany BILI, CONJUGATED 0.1 mg/dL Normal 0.0-0.[address] [facility] Comment on above: Performed By: #### L ACT #### [facility] [address] [place], [place] [address] Mere Brittany Bilirubin [Mass/Vol] 0.6 mg/dL Normal 0.2-1.3 [facility] Comment on above: Performed By: #### L ACT #### [facility] [address] [place], [place] [address] Mere Brittany Globulin (S) [Mass/Vol] 3.3 g/dL Normal [facility] Comment on above: Performed By: #### L ACT #### [facility] [address] [place], [place] [address] Mere Brittany Protein [Mass/Vol] 7.2 g/dL Normal 6.1-8.2 [facility] Comment on above: Performed By: #### L ACT #### [facility] [address] [place], [place] [address] Mere Brittany PROF CHEM 8 (BAS METB)on Anion gap [Moles/Vol] 11.8 mmol/L Normal [facility] Comment on above: Performed By: #### C BC #### [facility] [address] [place], [place] [address] Mere Brittany Calcium [Mass/Vol] 9.0 mg/dL Normal 8.4-10.2 [facility] Comment on above: Performed By: #### C BC #### [facility] [address] [place], [place] [address] Mere Brittany Chloride [Moles/Vol] 106 mmol/L Normal 98-107 [facility] Comment on above: Performed By: #### C BC #### [facility] [address] [place], [place] [address] Mere Brittany CO2 [Moles/Vol] 27.5 mmol/L Normal 22.0-30.[address] [facility] Comment on above: Performed By: #### C BC #### [facility] [address] [place], [place] [address] Mere Brittany Creatinine [Mass/Vol] 0.68 mg/dL Normal 0.52-1.04 [facility] Comment on above: Performed By: #### C BC #### [facility] [address] [place], [place] [address] Mere Brittany EGFR-AF IRAQI >60 Normal >=[address] [facility] Comment on above: Performed By: #### C BC #### [facility] [address] [place], [place] [address] Mere Brittany EGFR-NON AF IRAQI >60 Normal >=60 [facility] Comment on above: Performed By: #### C BC #### [facility] [address] [id number] Mere Brittany Glucose [Mass/Vol] 103 mg/dL Normal 74-106 [facility] Comment on above: Performed By: #### C BC #### [facility] [address] [id number] Mere Brittany Potassium [Moles/Vol] 4.3 mmol/L Normal 3.4-5.0 [facility] Comment on above: Performed By: #### C BC #### [facility] [address] [place], [place] [address] Mere Brittany Sodium [Moles/Vol] 141 mmol/L Normal 137-145 [facility] Comment on above: Performed By: #### C BC #### [facility] [address] [place], [place] [address] Mere Brittany Urea nitrogen [Mass/Vol] 8.0 mg/dL Normal 7.0-17.0 [facility] Comment on above: Performed By: #### C BC #### [facility] [address] [place], [place] [address] Mere Brittany Urea nitrogen/Creatinine [Mass ratio] 11.8 mg/mg Normal [facility] Comment on above: Performed By: #### C BC #### [facility] [address] [place], [place] [address] Mere Brittany CBC W MANUAL DIFFon 10-31-19 21 ATYPICAL LYMPH # Normal [facility] Comment on above: Performed By: #### C BCMAN #### [facility] [address] [place], [place] [address] Mere Brittany ATYPICAL LYMPH % Normal [facility] Comment on above: Performed By: #### C BRAIN #### [facility] [address] [place] [address] Mere Brittany BAND # 0.3 103/ul Normal 0.0-0.3 [facility] Comment on above: Performed By: #### C BRAIN #### [facility] [address] [address] Mere Brittany BAND % 7 % Critically high 0-5 [facility] Comment on above: Performed By: #### C BRAIN #### [facility] [address] [place] [address] Mere Brittany BASOM # 0.00 103/ul Normal 0.00-0.10 [facility] Comment on above: Performed By: #### C BRAIN #### [facility] [address] [place] [address] Mere Brittany BASOM % 0.0 % Critically low 0.2-2.0 [facility] Comment on above: Performed By: #### C BRAIN #### [facility] [address] [place] [address] Mere Brittany BLAST # Normal [facility] Comment on above: Performed By: #### C BRAIN #### [facility] [address] [place] [address] Mere Brittany BLAST % Normal [facility] Comment on above: Performed By: #### C BRAIN #### [facility] [address] [place] [address] Mere Brittany CORRECTED WBC Normal 4.0-11.0 [facility] Comment on above: Performed By: #### C BRAIN #### [facility] [address] [place] [address] Mere Brittany EOS # 0.00 103/ul Normal 0.00-0.70 [facility] Comment on above: Performed By: #### C BRAIN #### [facility] [address] [place] [address] Mere Brittany EOS% 0.0 % Critically low 0.9-7.0 [facility] Comment on above: Performed By: #### Nia DE LA PAZ #### [facility] [address] [place] [address] Mere Soto HCT 33.4 % Critically low 36.0-48.0 [facility] Comment on above: Performed By: #### Nia DE LA PAZ #### [facility] [address] [address] Mereshahnaz Patelen HGB 11.6 g/dl Critically low 12.0-16.0 [facility] Comment on above: Performed By: #### Nia DE LA PAZ #### [facility] [address] [place] [address] Mere Soto LYMPHM # 0.22 103/ul Critically low 1.20-3.80 [facility] Comment on above: Performed By: #### Nia DE LA PAZ #### [facility] [address] [place] [address] Mere Soto LYMPHM% 6.0 % Critically low 20.5-60.0 [facility] Comment on above: Performed By: #### Nia DE LA PAZ #### [facility] [address] [place] [address] Mere Soto MCH 30.4 pg Normal 26.7-34.0 [facility] Comment on above: Performed By: #### Nia DE LA PAZ #### [facility] [address] [place] [address] Mere Soto MCHC 34.7 g/dl Normal 29.9-35.2 [facility] Comment on above: Performed By: #### Nia DE LA PAZ #### [facility] [address] [place] [address] Mere Soto MCV 87.4 fL Normal 81.0-99.0 [facility] Comment on above: Performed By: #### Nia DE LA PAZ #### [facility] [address] [place] [address] Mere Patelen METAMYELOCYTE # Normal [facility] Comment on above: Performed By: #### Nia DE LA PAZ #### [facility] [address] [place], [place] [address] Mere Brittany METAMYELOCYTE % Normal [facility] Comment on above: Performed By: #### Nia DE LA PAZ #### [facility] [address] [place] [address] Mere Brittany MONOM# 0.41 103/ul Normal 0.30-0.80 [facility] Comment on above: Performed By: #### Nia DE LA PAZ #### [facility] [address] [place] [address] Mere Brittany MONOM% 11.0 % Normal 1.7-12.0 [facility] Comment on above: Performed By: #### Nia DE LA PAZ #### [facility] [address] [place] [address] Mere Brittany MPV 9.1 fL Critically low 9.5-13.5 [facility] Comment on above: Performed By: #### Nia DE LA PAZ #### [facility] [address] [place] [address] Mere Brittany MYELOCYTE # Normal [facility] Comment on above: Performed By: #### Nia DE LA PAZ #### [facility] [address] [place] [address] Mere Brittany MYELOCYTE % Normal [facility] Comment on above: Performed By: #### Nia DE LA PAZ #### [facility] [address] [place], [place] [address] Mere Brittany NRBC Normal [facility] Comment on above: Performed By: #### Nia DE LA PAZ #### [facility] [address] [place] [address] Mere Brittany PLT 219 103/ul Normal 150-450 [facility] Comment on above: Performed By: #### Nia DE LA PAZ #### [facility] [address] [place] [address] Mere Brittany RBC 3.82 106/ul Critically low 4.20-5.40 [facility] Comment on above: Performed By: #### Nia DE LA PAZ #### [facility] [address] [place] [address] Mere Brittany RDW 12.8 % Normal 11.0-15.0 [facility] Comment on above: Performed By: #### C BRAIN #### [facility] [address] [place] [address] Mere Brittany SEG # 2.81 103/ul Normal 1.40-6.50 [facility] Comment on above: Performed By: #### C BRAIN #### [facility] [address] [place], [place] [address] Mere Brittany SEG % 76.0 % Critically high 43.0-75.0 [facility] Comment on above: Performed By: #### C BRAIN #### [facility] [address] [place], [place] [address] Mere Brittany WBC 3.7 103/ul Critically low 4.0-11.0 [facility] Comment on above: Performed By: #### C BRAIN #### [facility] [address] [place] [address] Mere Brittany PROF CHEM 8 (BAS METB)on Anion gap [Moles/Vol] 12.7 mmol/L Normal [facility] Comment on above: Performed By: #### L ACT #### [facility] [address] [place], [place] [address] Mere Brittany Calcium [Mass/Vol] 9.1 mg/dL Normal 8.4-10.2 [facility] Comment on above: Performed By: #### L ACT #### [facility] [address] [place], [place] [address] Mere Brittany Chloride [Moles/Vol] 108 mmol/L Critically high 98-107 [facility] Comment on above: Performed By: #### L ACT #### [facility] [address] [place], [place] [address] Mere Brittany CO2 [Moles/Vol] 25.5 mmol/L Normal 22.0-30.0 [facility] Comment on above: Performed By: #### L ACT #### [facility] [address] [place], [place] [address] Mere Brittany Creatinine [Mass/Vol] 0.80 mg/dL Normal 0.52-1.04 [facility] Comment on above: Performed By: #### L ACT #### [facility] [address] [id number] Mere Brittany EGFR-AF IRAQI >60 Normal >=60 [facility] Comment on above: Performed By: #### L ACT #### [facility] [address] [id number] Mere Brittany EGFR-NON AF IRAQI >60 Normal >=60 [facility] Comment on above: Performed By: #### L ACT #### [facility] [address] [address] Mere Brittany Glucose [Mass/Vol] 166 mg/dL Critically high 74-106 [facility] Comment on above: Performed By: #### L ACT #### [facility] [address] [place] [address] Mere Brittany Potassium [Moles/Vol] 3.2 mmol/L Critically low 3.4-5.0 [facility] Comment on above: Performed By: #### L ACT #### [facility] [address] [place] [address] Mere Brittany Sodium [Moles/Vol] 143 mmol/L Normal 137-145 [facility] Comment on above: Performed By: #### L ACT #### [facility] [address] [place] [address] Mere Brittany Urea nitrogen [Mass/Vol] 15.0 mg/dL Normal 7.0-17.0 [facility] Comment on above: Performed By: #### L ACT #### [facility] [address] [place] [address] Mere Brittany Urea nitrogen/Creatinine [Mass ratio] 18.8 mg/mg Normal [facility] Comment on above: Performed By: #### L ACT #### [facility] [address] [place], [place] [address] Mere Brittany CBC AUTO DIFFon 10-29-2020 BASO # 0.0 103/ul Normal 0.0-0.1 [facility] Comment on above: Performed By: #### C BC #### [facility] [address] [id number] Mere Brittany Basophils/100 WBC (Bld) 0.7 % Normal 0.2-2.0 [facility] Comment on above: Performed By: #### C BC #### [facility] [address] [place], [place] [address] Mere Brittany EO # 0.0 103/ul Normal 0.0-0.7 [facility] Comment on above: Performed By: #### C BC #### [facility] [address] [place], [place] [address] Mere Brittany Eosinophils/100 WBC (Bld) 0.0 % Critically low 0.9-7.0 [facility] Comment on above: Performed By: #### C BC #### [facility] [address] [place] [address] Mere Brittany Erythrocyte distribution width (RBC) [Ratio] 12.8 % Normal 11.0-15.0 [facility] Comment on above: Performed By: #### C BC #### [facility] [address] [place] [address] Mere Brittany Hematocrit (Bld) [Volume fraction] 35.1 % Critically low 36.0-48.0 [facility] Comment on above: Performed By: #### C BC #### [facility] [address] [place], [place] [address] Mere Brittany Hemoglobin (Bld) [Mass/Vol] 12.3 g/dL Normal 12.0-16.0 [facility] Comment on above: Performed By: #### C BC #### [facility] [address] [place] [address] Mere Brittany IG # 0.02 10e3/ul Normal 0.00-0.03 [facility] Comment on above: Performed By: #### C BC #### [facility] [address] [place], [place] [address] Mere Brittany IG % 1.5 % Critically high 0.0-0.5 [facility] Comment on above: Performed By: #### C BC #### [facility] [address] [id number] Mere Brittany LYMPH # 0.2 103/ul Critically low 1.2-3.8 [facility] Comment on above: Performed By: #### C BC #### [facility] [address] [id number] Mere Brittany Lymphocytes/100 WBC (Bld) 11.8 % Critically low 20.5-60.0 [facility] Comment on above: Performed By: #### C BC #### [facility] [address] [place], [place] [address] Mere Brittany MANUAL DIFF REQ NO Normal [facility] Comment on above: Performed By: #### C BC #### [facility] [address] [place] [address] Mere Brittany MCH (RBC) [Entitic mass] 30.8 pg Normal 26.7-34.0 [facility] Comment on above: Performed By: #### C BC #### [facility] [address] [place] [address] Mere Brittany MCHC (RBC) [Mass/Vol] 35.0 g/dL Normal 29.9-35.2 [facility] Comment on above: Performed By: #### C BC #### [facility] [address] [place] [address] Mere Brittany MCV (RBC) [Entitic vol] 88.0 fL Normal 81.0-99.0 [facility] Comment on above: Performed By: #### C BC #### [facility] [address] [place] [address] Mere Brittany MONO # 0.1 103/ul Critically low 0.3-0.8 [facility] Comment on above: Performed By: #### C BC #### [facility] [address] [place], [place] [address] Mere Brittany Monocytes/100 WBC (Bld) 9.6 % Normal 1.7-12.0 [facility] Comment on above: Performed By: #### C BC #### [facility] [address] [place] [address] Mere Soto NEUT # 1.0 103/ul Critically low 1.4-6.5 [facility] Comment on above: Performed By: #### C BC #### [facility] [address] [id number] Mere Soto Neutrophils/100 WBC (Bld) 76.4 % Critically high 43.0-75.0 [facility] Comment on above: Performed By: #### C BC #### [facility] [address] [address] Mere Soto Platelet mean volume (Bld) [Entitic vol] 9.5 fL Normal 9.5-13.5 [facility] Comment on above: Performed By: #### C BC #### [facility] [address] [place] [address] Mere Soto PLT 190 103/ul Normal 150-450 [facility] Comment on above: Performed By: #### C BC #### [facility] [address] [address] Mereshahnaz Soto RBC 3.99 106/ul Critically low 4.20-5.40 [facility] Comment on above: Performed By: #### C BC #### [facility] [address] [id number] Mereshahnaz Soto WBC 1.4 103/ul Critically low 4.0-11.0 [facility] Comment on above: Performed By: #### C BC #### [facility] [address] [place], [place] [id number] Mere Soto PROF CHEM 8 (BAS METB)on Anion gap [Moles/Vol] 11.9 mmol/L Normal [facility] Comment on above: Performed By: #### B MP #### [facility] [address] [id number] Mere Soto Calcium [Mass/Vol] 9.2 mg/dL Normal 8.4-10.2 [facility] Comment on above: Performed By: #### B MP #### [facility] [address] [id number] Mere Brittany Chloride [Moles/Vol] 106 mmol/L Normal 98-107 [facility] Comment on above: Performed By: #### B MP #### [facility] [address] [address] Mere Brittany CO2 [Moles/Vol] 25.5 mmol/L Normal 22.0-30.0 [facility] Comment on above: Performed By: #### B MP #### [facility] [address] [place] [address] Mere Brittany Creatinine [Mass/Vol] 0.62 mg/dL Normal 0.52-1.04 [facility] Comment on above: Performed By: #### B MP #### [facility] [address] [place] [address] Mere Brittany EGFR-AF IRAQI >60 Normal >=60 [facility] Comment on above: Performed By: #### B MP #### [facility] [address] [place] [address] Mere Brittany EGFR-NON AF IRAQI >60 Normal >=60 [facility] Comment on above: Performed By: #### B MP #### [facility] [address] [place] [address] Mere Brittany Glucose [Mass/Vol] 223 mg/dL Critically high 74-106 [facility] Comment on above: Performed By: #### B MP #### [facility] [address] [place] [address] Mere Brittany Potassium [Moles/Vol] 3.4 mmol/L Normal 3.4-5.0 [facility] Comment on above: Performed By: #### B MP #### [facility] [address] [place] [address] Mere Brittany Sodium [Moles/Vol] 140 mmol/L Normal 137-145 [facility] Comment on above: Performed By: #### B MP #### [facility] [address] [place], [place] [id number] Mere Brittany Urea nitrogen [Mass/Vol] 10.0 mg/dL Normal 7.0-17.0 [facility] Comment on above: Performed By: #### B MP #### [facility] [address] [place] [address] Mere Brittany Urea nitrogen/Creatinine [Mass ratio] 16.1 mg/mg Normal [facility] Comment on above: Performed By: #### B MP #### [facility] [address] [place] [address] Mere Brittany CBC W MANUAL DIFFon 10-29-19 ATYPICAL LYMPH # 0.03 103/ul Normal [facility] Comment on above: Performed By: #### L ACT #### [facility] [address] [place] [address] Mere Brittany ATYPICAL LYMPH % 2 % Normal [facility] Comment on above: Performed By: #### L ACT #### [facility] [address] [place] [address] Mere Brittany BAND # 0.0 103/ul Normal 0.0-0.3 [facility] Comment on above: Performed By: #### L ACT #### [facility] [address] [place] [address] Mere Brittany BAND % 0 % Normal 0-5 [facility] Comment on above: Performed By: #### L ACT #### [facility] [address] [place] [address] Mere Brittany BASOM # 0.00 103/ul Normal 0.00-0.10 [facility] Comment on above: Performed By: #### L ACT #### [facility] [address] [place] [address] Mere Brittany BASOM % 0.0 % Critically low 0.2-2.0 [facility] Comment on above: Performed By: #### L ACT #### [facility] [address] [place] [address] Mere Brittany BLAST # Normal [facility] Comment on above: Performed By: #### L ACT #### [facility] [address] [place] [address] Mere Brittany BLAST % Normal [facility] Comment on above: Performed By: #### L ACT #### [facility] [address] [address] Mere Brittany CORRECTED WBC Normal 4.0-11.0 [facility] Comment on above: Performed By: #### L ACT #### [facility] [address] [id number] Mereshahnaz Patelen EOS # 0.00 103/ul Normal 0.00-0.70 [facility] Comment on above: Performed By: #### L ACT #### [facility] [address] [address] Mere Brittany EOS% 0.0 % Critically low 0.9-7.0 [facility] Comment on above: Performed By: #### L ACT #### [facility] [address] [place] [address] Mere Brittany HCT 34.0 % Critically low 36.0-48.0 [facility] Comment on above: Performed By: #### L ACT #### [facility] [address] [place] [address] Mere Brittany HGB 11.6 g/dl Critically low 12.0-16.0 [facility] Comment on above: Performed By: #### L ACT #### [facility] [address] [place] [address] Mere Birttany LYMPHM # 0.36 103/ul Critically low 1.20-3.80 [facility] Comment on above: Performed By: #### L ACT #### [facility] [address] [place] [address] Mere Brittany LYMPHM% 26.0 % Normal 20.5-60.0 [facility] Comment on above: Performed By: #### L ACT #### [facility] [address] [place], [place] [id number] Mere Brittany MCH 30.7 pg Normal 26.7-34.0 [facility] Comment on above: Performed By: #### L ACT #### [facility] [address] [place] [address] Mere Brittany MCHC 34.1 g/dl Normal 29.9-35.2 [facility] Comment on above: Performed By: #### L ACT #### [facility] [address] [place] [address] Mereshahnaz Soto MCV 89.9 fL Normal 81.0-99.0 [facility] Comment on above: Performed By: #### L ACT #### [facility] [address] [place] [address] Mere Brittany METAMYELOCYTE # Normal [facility] Comment on above: Performed By: #### L ACT #### [facility] [address] [place] [address] Mere Brittany METAMYELOCYTE % Normal [facility] Comment on above: Performed By: #### L ACT #### [facility] [address] [place] [address] Mere Brittany MONOM# 0.21 103/ul Critically low 0.30-0.80 [facility] Comment on above: Performed By: #### L ACT #### [facility] [address] [place] [address] Mere Brittany MONOM% 15.0 % Critically high 1.7-12.0 [facility] Comment on above: Performed By: #### L ACT #### [facility] [address] [place] [address] Mereshahnaz Patelen MPV 9.1 fL Critically low 9.5-13.5 [facility] Comment on above: Performed By: #### L ACT #### [facility] [address] [place] [address] Mere Brittany MYELOCYTE # Normal [facility] Comment on above: Performed By: #### L ACT #### [facility] [address] [place] [address] Mere Brittany MYELOCYTE % Normal [facility] Comment on above: Performed By: #### L ACT #### [facility] [address] [place] [address] Mere Brittany NRBC Normal [facility] Comment on above: Performed By: #### L ACT #### [facility] [address] [place] [address] Mere Brittany PLT 166 103/ul Normal 150-450 [facility] Comment on above: Performed By: #### L ACT #### [facility] [address] [id number] Mere Soto RBC 3.78 106/ul Critically low 4.20-5.40 [facility] Comment on above: Performed By: #### L ACT #### [facility] [address] [id number] Mere Soto RDW 13.0 % Normal 11.0-15.0 [facility] Comment on above: Performed By: #### L ACT #### [facility] [address] [place], [place] [address] Mere Soto SEG # 0.80 103/ul Critically low 1.40-6.50 [facility] Comment on above: Performed By: #### L ACT #### [facility] [address] [place] [address] Mere Soto SEG % 57.0 % Normal 43.0-75.0 [facility] Comment on above: Performed By: #### L ACT #### [facility] [address] [place], [place] [address] Mere Soto WBC 1.4 103/ul Critically low 4.0-11.0 [facility] Comment on above: Performed By: #### L ACT #### [facility] [address] [place], [place] [address] Mere Soto CULTURE BLOODon 10-28-2020 Microscopic examination of blood, culture Culture Observations: No growth at 5 days Normal [facility] Comment on above: Performed By: #### C BC #### [facility] [address] [place] [address] Mere Soto CULTURE SPUTUMon 10-28-2020 CULTURE SPUTUM Culture Observations : Normal respiratory bee. Normal [facility] Comment on above: Performed By: #### C BC #### [facility] [address] [place], [place] [id number] Mere Soto PROF CHEM 8 (BAS METB)on Anion gap [Moles/Vol] 16.1 mmol/L Normal [facility] Comment on above: Performed By: #### B MP #### [facility] [address] [id number] Mere Brittany Calcium [Mass/Vol] 8.4 mg/dL Normal 8.4-10.2 [facility] Comment on above: Performed By: #### B MP #### [facility] [address] [address] Mere Brittany Chloride [Moles/Vol] 104 mmol/L Normal 98-107 [facility] Comment on above: Performed By: #### B MP #### [facility] [address] [address] Mere Brittany CO2 [Moles/Vol] 21.2 mmol/L Critically low 22.0-30.0 [facility] Comment on above: Performed By: #### B MP #### [facility] [address] [address] Mere Brittany Creatinine [Mass/Vol] 0.77 mg/dL Normal 0.52-1.04 [facility] Comment on above: Performed By: #### B MP #### [facility] [address] [address] Mere Brittany EGFR-AF IRAQI >60 Normal >=[address] [facility] Comment on above: Performed By: #### B MP #### [facility] [address] [address] Mere Brittany EGFR-NON AF IRAQI >60 Normal >=60 [facility] Comment on above: Performed By: #### B MP #### [facility] [address] [address] Mere Brittany Glucose [Mass/Vol] 81 mg/dL Normal 74-106 [facility] Comment on above: Performed By: #### B MP #### [facility] [address] [address] Mere Brittany Potassium [Moles/Vol] 3.3 mmol/L Critically low 3.4-5.0 [facility] Comment on above: Performed By: #### B MP #### [facility] [address] [address] Mere Brittany Sodium [Moles/Vol] 138 mmol/L Normal 137-145 [facility] Comment on above: Performed By: #### B MP #### [facility] [address] [place] [address] Mere Brittany Urea nitrogen [Mass/Vol] 10.0 mg/dL Normal 7.0-17.0 [facility] Comment on above: Performed By: #### B MP #### [facility] [address] [place] [address] Mere Brittany Urea nitrogen/Creatinine [Mass ratio] 13.0 mg/mg Normal [facility] Comment on above: Performed By: #### B MP #### [facility] [address] [place] [address] Mere Brittany SPUTUM GRAM STAINon 10-29-19 COMMENTS Normal [facility] Comment on above: Performed By: #### S PUTGS #### [facility] [address] [place] [address] Mere Brittany DIPHTHEROIDS Normal [facility] Comment on above: Performed By: #### S PUTGS #### [facility] [address] [place] [address] Mere Brittany EPITHELIALS <25 Normal [facility] Comment on above: Performed By: #### S PUTGS #### [facility] [address] [place] [address] Mere Brittany FUNGAL ELEMENTS Normal [facility] Comment on above: Performed By: #### S PUTGS #### [facility] [address] [place] [address] Mere Brittany GRAM NEG BACILLI Normal [facility] Comment on above: Performed By: #### S PUTGS #### [facility] [address] [place] [address] Mere Brittany GRAM NEG DIPPLOCOCCI Normal [facility] Comment on above: Performed By: #### S PUTGS #### [facility] [address] [place] [address] Mere Brittany GRAM POS BACILLI MANY Normal [facility] Comment on above: Performed By: #### S PUTGS #### [facility] [address] [place] [address] Mere Brittany GRAM POSITIVE COCCI MANY Normal [facility] Comment on above: Performed By: #### S ARABELLA #### [facility] [address] [place] [address] Mere Brittany WBC (Bld) [#/Vol] 10*3/uL Normal [facility] Comment on above: Performed By: #### S ARABELLA #### [facility] [address] [place] [address] Mere Brittany CBC W MANUAL DIFFon 10-28-19 21 ATYPICAL LYMPH # 0.02 103/ul Normal [facility] Comment on above: Performed By: #### C BRAIN PERS #### [facility] [address] [place] [address] Mere Brittany ATYPICAL LYMPH % 2 % Normal [facility] Comment on above: Performed By: #### Nia DE LA PAZ PERS #### [facility] [address] [place] [address] Mere Brittany BAND # 0.0 103/ul Normal 0.0-0.3 [facility] Comment on above: Performed By: #### Nia DE LA PAZ PERS #### [facility] [address] [place] [address] Mere Brittany BAND % 0 % Normal 0-5 [facility] Comment on above: Performed By: #### Nia DE LA PAZ PERSMR #### [facility] [address] [place] [address] Mere Brittany BASOM # 0.00 103/ul Normal 0.00-0.10 [facility] Comment on above: Performed By: #### Nia DE LA PAZ PERS #### [facility] [address] [place] [address] Mere Brittany BASOM % 0.0 % Critically low 0.2-2.0 [facility] Comment on above: Performed By: #### Nia DE LA PAZ PERS #### [facility] [address] [place] [address] Mere Brittany BLAST # Normal [facility] Comment on above: Performed By: #### Nia DE LA PAZ, PERSMR #### [facility] [address] [address] Mere Brittany BLAST % Normal [facility] Comment on above: Performed By: #### Nia DE LA PAZ, PERSMR #### [facility] [address] [id number] Mere Brittany CORRECTED WBC Normal 4.0-11.0 [facility] Comment on above: Performed By: #### Nia DE LA PAZ, PERSMR #### [facility] [address] [address] Mere Brittany EOS # 0.02 103/ul Normal 0.00-0.70 [facility] Comment on above: Performed By: #### Nia DE LA PAZ, PERSMR #### [facility] [address] [address] Mere Brittany EOS% 2.0 % Normal 0.9-7.0 [facility] Comment on above: Performed By: #### Nia DE LA PAZ, PERSMR #### [facility] [address] [address] Mere Brittany HCT 38.3 % Normal 36.0-48.0 [facility] Comment on above: Performed By: #### Nia DE LA PAZ, PERSMR #### [facility] [address] [address] Mere Brittany HGB 13.0 g/dl Normal 12.0-16.0 [facility] Comment on above: Performed By: #### Nia DE LA PAZ, PERSMR #### [facility] [address] [address] Mere Brittany LYMPHM # 0.13 103/ul Critically low 1.20-3.80 [facility] Comment on above: Performed By: #### Nia DE LA PAZ, PERSMR #### [facility] [address] [address] Mere Brittany LYMPHM% 14.0 % Critically low 20.5-60.0 [facility] Comment on above: Performed By: #### Nia DE LA PAZ, PERSMR #### [facility] [address] [id number] Mere Brittany MCH 30.4 pg Normal 26.7-34.0 [facility] Comment on above: Performed By: #### Nia DE LA PAZ PERSMR #### [facility] [address] [id number] Mere Brittany MCHC 33.9 g/dl Normal 29.9-35.2 [facility] Comment on above: Performed By: #### Nia DE LA PAZ PERSMR #### [facility] [address] [address] Mere Brittany MCV 89.7 fL Normal 81.0-99.0 [facility] Comment on above: Performed By: #### Nia DE LA PAZ PERSMR #### [facility] [address] [address] Mere Brittany METAMYELOCYTE # Normal [facility] Comment on above: Performed By: #### Nia DE LA PAZ PERSMR #### [facility] [address] [address] Mere Brittany METAMYELOCYTE % Normal [facility] Comment on above: Performed By: #### Nia DE LA PAZ PERSMR #### [facility] [address] [address] Mere Brittany MONOM# 0.16 103/ul Critically low 0.30-0.80 [facility] Comment on above: Performed By: #### Nia DE LA PAZ PERSMR #### [facility] [address] [address] Mere Brittany MONOM% 18.0 % Critically high 1.7-12.0 [facility] Comment on above: Performed By: #### Nia DE LA PAZ PERSMR #### [facility] [address] [address] Mere Brittany MPV 8.6 fL Critically low 9.5-13.5 [facility] Comment on above: Performed By: #### Nia DE LA PAZ PERSMR #### [facility] [address] [address] Mere Brittany MYELOCYTE # Normal [facility] Comment on above: Performed By: #### Nia DE LA PAZ, PERSMR #### [facility] [address] [place], [place] [address] Mere Brittany MYELOCYTE % Normal [facility] Comment on above: Performed By: #### Nia DE LA PAZ, PERSMR #### [facility] [address] [id number] Mere Brittany NRBC Normal [facility] Comment on above: Performed By: #### Nia DE LA PAZ, PERSMR #### [facility] [address] [id number] Mere Brittany PLT 183 103/ul Normal 150-450 [facility] Comment on above: Performed By: #### Nia DE LA PAZ PERSMR #### [facility] [address] [address] Mere Brittany RBC 4.27 106/ul Normal 4.20-5.40 [facility] Comment on above: Performed By: #### Nia DE LA PAZ PERSMR #### [facility] [address] [place] [address] Mere Brittany RDW 12.8 % Normal 11.0-15.0 [facility] Comment on above: Performed By: #### Nia DE LA PAZ PERSMR #### [facility] [address] [address] Mere Brittany SEG # 0.58 103/ul Critically low 1.40-6.50 [facility] Comment on above: Performed By: #### Nia DE LA PAZ PERSMR #### [facility] [address] [id number] Mere Brittany SEG % 64.0 % Normal 43.0-75.0 [facility] Comment on above: Performed By: #### Nia DE LA PAZ, PERSMR #### [facility] [address] [id number] Mere Brittany WBC 0.9 103/ul Critically low 4.0-11.0 [facility] Comment on above: Result Comment: test repeated critical value verified Performed By: #### Nia DE LA PAZ, PERSMR #### [facility] [address] [place], [place] [id number] Mere Brittany ER URINE PROFILEon 1 Bilirubin Ql (U) MODERATE Abnormal NEGATIVE [facility] Comment on above: Performed By: #### C BC #### [facility] [address] [place] [address] Mere Brittany Clarity (U) CLEAR Normal CLEAR [facility] Comment on above: Performed By: #### C BC #### [facility] [address] [address] Mere Brittany Color (U) YELLOW Normal YELLOW [facility] Comment on above: Performed By: #### C BC #### [facility] [address] [place] [address] Mere Brittany ERUAHD A micrscopic examination will be performed if indicated. Normal [facility] Comment on above: Performed By: #### C BC #### [facility] [address] [place] [address] Mere Brittany Glucose Ql (U) Negative Normal NEGATIVE [facility] Comment on above: Performed By: #### C BC #### [facility] [address] [place] [address] Mere Brittany Hemoglobin Ql (U) SMALL Abnormal NEGATIVE [facility] Comment on above: Performed By: #### C BC #### [facility] [address] [place] [address] Mere Brittany Ketones Ql (U) >=80 Abnormal NEGATIVE [facility] Comment on above: Performed By: #### C BC #### [facility] [address] [place] [address] Mere Brittany LEUKOCYTES Negative Normal NEGATIVE [facility] Comment on above: Performed By: #### C BC #### [facility] [address] [place] [address] Mere Brittany Nitrite Ql (U) Negative Normal NEGATIVE [facility] Comment on above: Performed By: #### C BC #### [facility] [address] [place] [address] Mere Brittany pH (U) 6.0 [pH] Normal 5-9 [facility] Comment on above: Performed By: #### C BC #### [facility] [address] [place], [place] [address] Mereshahnaz Soto Protein (U) [Mass/Vol] 30 mg/dL Abnormal NEGATIVE/ TRACE [facility] Comment on above: Performed By: #### C BC #### [facility] [address] [place], [place] [address] Mere Soto SPEC GRAVITY 1.020 Normal 1.005-<=1.025 [facility] Comment on above: Performed By: #### C BC #### [facility] [address] [place], [place] [address] Mere Soto UR MICRO IND INDICATED Normal [facility] Comment on above: Performed By: #### C BC #### [facility] [address] [place] [address] Mere Soto Urobilinogen Qn (U) 1.0 {Sage'U}/dL Normal 0.2 - 1. 0 [facility] Comment on above: Performed By: #### C BC #### [facility] [address] [place] [address] Mere Soto LACTATE/LACTIC ACIDon 2020 Lactate [Moles/Vol] 1.3 mmol/L Normal 0.7-2.0 [facility] Comment on above: Performed By: #### L ACT #### [facility] [address] [place] [address] Mere Soto LIPASEon 10-27-2020 Lipase [Catalytic activity/Vol] 94.0 U/L Normal 23.0-300.0 [facility] Comment on above: Performed By: #### C BC #### [facility] [address] [place] [address] Mere Soto PERIPHERAL SMEARon Pathologist Cyto stain Nom (Cvx/Vag) [ID] DR. COLLETTE COKER Normal [facility] Comment on above: Result Comment: Neut ropenia and lymphopenia of unknown etiology. CPT: [address] Dr. Collette Coker 10/30/2020 Performed By: #### C BCMAN, PERSMR #### [facility] [address] [place], [place] [address] Mereshahnaz Patelen PROF 14(COMP METB)on 021 Albumin [Mass/Vol] 3.2 g/dL Critically low 3.5-5.0 Th e [facility] Comment on above: Performed By: #### C BC #### [facility] [address] [place], [place] [address] Mere Brittany Albumin/Globulin [Mass ratio] 0.7 {ratio} Normal [facility] Comment on above: Performed By: #### C BC #### [facility] [address] [place] [address] Mere Brittany ALP [Catalytic activity/Vol] 59 U/L Normal 38-126 [facility] Comment on above: Performed By: #### C BC #### [facility] [address] [place] [address] Mere Brittany ALT [Catalytic activity/Vol] 24 U/L Normal 9-52 [facility] Comment on above: Performed By: #### C BC #### [facility] [address] [place] [address] Mere Brittany Anion gap [Moles/Vol] 16.7 mmol/L Normal [facility] Comment on above: Performed By: #### C BC #### [facility] [address] [place] [address] Mere Brittany AST [Catalytic activity/Vol] 21 U/L Normal 14-36 [facility] Comment on above: Performed By: #### C BC #### [facility] [address] [place], [place] [address] Mere Brittany Bilirubin [Mass/Vol] 0.4 mg/dL Normal 0.2-1.3 [facility] Comment on above: Performed By: #### C BC #### [facility] [address] [place], [place] [address] Mere Brittany Calcium [Mass/Vol] 8.8 mg/dL Normal 8.4-10.2 [facility] Comment on above: Performed By: #### C BC #### [facility] [address] [place], [place] [address] Mere Brittany Chloride [Moles/Vol] 98 mmol/L Normal 98-107 [facility] Comment on above: Performed By: #### C BC #### [facility] [address] [place], [place] [address] Mere Brittany CO2 [Moles/Vol] 25.0 mmol/L Normal 22.0-30.[address] [facility] Comment on above: Performed By: #### C BC #### [facility] [address] [place] [address] Mere Brittany Creatinine [Mass/Vol] 0.92 mg/dL Normal 0.52-1.04 [facility] Comment on above: Performed By: #### C BC #### [facility] [address] [place] [address] Mere Brittany EGFR-AF IRAQI >60 Normal >=[address] [facility] Comment on above: Performed By: #### C BC #### [facility] [address] [place] [address] Mere Brittany EGFR-NON AF IRAQI >60 Normal >=60 [facility] Comment on above: Performed By: #### C BC #### [facility] [address] [place], [place] [address] Mere Brittany Globulin (S) [Mass/Vol] 4.8 g/dL Normal [facility] Comment on above: Performed By: #### C BC #### [facility] [address] [place] [address] Mere Brittany Glucose [Mass/Vol] 93 mg/dL Normal 74-106 [facility] Comment on above: Performed By: #### C BC #### [facility] [address] [place], [place] [address] Mere Brittany Potassium [Moles/Vol] 3.7 mmol/L Normal 3.4-5.0 [facility] Comment on above: Performed By: #### C BC #### [facility] [address] [place] [address] Mere Brittany Protein [Mass/Vol] 8.0 g/dL Normal 6.1-8.2 [facility] Comment on above: Performed By: #### C BC #### [facility] [address] [id number] Mere Brittany Sodium [Moles/Vol] 136 mmol/L Critically low 137-145 [facility] Comment on above: Performed By: #### C BC #### [facility] [address] [id number] Mere Brittany Urea nitrogen [Mass/Vol] 14.0 mg/dL Normal 7.0-17.0 [facility] Comment on above: Performed By: #### C BC #### [facility] [address] [place], [place] [address] Mere Brittany Urea nitrogen/Creatinine [Mass ratio] 15.2 mg/mg Normal [facility] Comment on above: Performed By: #### C BC #### [facility] [address] [place] [address] Mere Brittany TROPONIN, HIGH SENSITIVITYon 10-27-2020 HSTROP 10.4 pg/mL Normal 4.0-35.5 [facility] Comment on above: Result Comment: CUT- OFF POINTS HAVE BEEN ESTABLISHED BASED ON THE FOURTH UNIVERSAL DEFINITIONS OF MYOCARDIAL INFARCTION. THE UPPER REFERENCE LIMIT (URL) OF TROPONIN, DEFINED THE 99TH PERCENTILE OF cTnI DISTRIBUTION IN A REFERENCE POPULATION, HAS BEEN CONFIRMED THE DECISION THRESHOLD FOR [place] DIAGNOSIS. Performed By: #### C BC #### [facility] [address] [place], [place] [address] Meer Brittany URINE MICROSCOPIC ONLYon BACTERIA TRACE Abnormal NONE SEEN [facility] Comment on above: Performed By: #### C BC #### [facility] [address] [place], [place] [address] Mere Brittany Bacteria identified Cx Nom (U) NOT INDICATED Normal [facility] Comment on above: Performed By: #### C BC #### [facility] [address] [place], [place] [address] Mere Brittany CAST NONE SEEN Normal NONE SEEN [facility] Comment on above: Performed By: #### C BC #### [facility] [address] [place], [place] [address] Mere Brittany Crystals LM Nom (Urine sed) NONE SEEN Normal NONE SEEN The [facility] Comment on above: Performed By: #### C BC #### [facility] [address] [place], [place] [address] Mere Brittany Epithelial cells LM Ql (Urine sed) RARE Normal NONE SEEN /RARE [facility] Comment on above: Performed By: #### C BC #### [facility] [address] [place], [place] [address] Mere Brittany MUCOUS NONE SEEN Normal NONE SEEN The [facility] Comment on above: Performed By: #### C BC #### [facility] [address] [place], [place] [address] Mere Brittany RBC 2-5 Abnormal 0-2 [facility] Comment on above: Performed By: #### C BC #### [facility] [address] [place], [place] [address] Mere Brittany WBC NONE SEEN Normal NONE SEEN The [facility] Comment on above: Performed By: #### C BC #### [facility] [address] [place], [place] [address] Mere Brittany XR CHEST 1 Von 10-27-2020 [...] AYLIN JOHNSON Date: 2020-10-27 20:41 Normal [facility] CBC AUTO DIFFon 07-27-2020 BASO # 0.0 103/ul Normal 0.0-0.1 [facility] Comment on above: Performed By: #### C BC #### [facility] [address] [place], [place] [address] Mere Brittany Basophils/100 WBC (Bld) 0.5 % Normal 0.2-2.0 [facility] Comment on above: Performed By: #### C BC #### [facility] [address] [place] [address] Mere Brittany EO # 0.1 103/ul Normal 0.0-0.7 [facility] Comment on above: Performed By: #### C BC #### [facility] [address] [place], [place] [address] Mere Brittany Eosinophils/100 WBC (Bld) 3.2 % Normal 0.9-7.0 [facility] Comment on above: Performed By: #### C BC #### [facility] [address] [place] [address] Mere Brittany Erythrocyte distribution width (RBC) [Ratio] 12.6 % Normal 11.0-15.0 [facility] Comment on above: Performed By: #### C BC #### [facility] [address] [place] [address] Mere Brittany Hematocrit (Bld) [Volume fraction] 39.9 % Normal 36.0-48.0 [facility] Comment on above: Performed By: #### C BC #### [facility] [address] [place] [address] Mere Brittany Hemoglobin (Bld) [Mass/Vol] 13.5 g/dL Normal 12.0-16.0 [facility] Comment on above: Performed By: #### C BC #### [facility] [address] [place] [address] Mere Brittany IG # 0.01 10e3/ul Normal 0.00-0.03 [facility] Comment on above: Performed By: #### C BC #### [facility] [address] [place] [address] Mere Brittany IG % 0.2 % Normal 0.0-0.5 [facility] Comment on above: Performed By: #### C BC #### [facility] [address] [place] [address] Mere Brittany LYMPH # 1.1 103/ul Critically low 1.2-3.8 The [facility] Comment on above: Performed By: #### C BC #### [facility] [address] [place], [place] [address] Mere Brittany Lymphocytes/100 WBC (Bld) 24.0 % Normal 20.5-60.0 [facility] Comment on above: Performed By: #### C BC #### [facility] [address] [place], [place] [address] Mereshahnaz Soto MANUAL DIFF REQ NO Normal [facility] Comment on above: Performed By: #### C BC #### [facility] [address] [place], [place] [address] Mere Brittany MCH (RBC) [Entitic mass] 30.7 pg Normal 26.7-34.0 [facility] Comment on above: Performed By: #### C BC #### [facility] [address] [place], [place] [address] Mereshahnaz Soto MCHC (RBC) [Mass/Vol] 33.8 g/dL Normal 29.9-35.2 [facility] Comment on above: Performed By: #### C BC #### [facility] [address] [place] [address] Mere Brittany MCV (RBC) [Entitic vol] 90.7 fL Normal 81.0-99.0 [facility] Comment on above: Performed By: #### C BC #### [facility] [address] [place], [place] [address] Mere Brittany MONO # 0.5 103/ul Normal 0.3-0.8 [facility] Comment on above: Performed By: #### C BC #### [facility] [address] [place] [address] Mere Brittany Monocytes/100 WBC (Bld) 10.4 % Normal 1.7-12.0 [facility] Comment on above: Performed By: #### C BC #### [facility] [address] [place], [place] [address] Mere Brittany NEUT # 2.7 103/ul Normal 1.4-6.5 [facility] Comment on above: Performed By: #### C BC #### [facility] [address] [place], [place] [address] Mere Brittany Neutrophils/100 WBC (Bld) 61.7 % Normal 43.0-75.0 [facility] Comment on above: Performed By: #### C BC #### [facility] [address] [place], [place] [address] Mere Soto Platelet mean volume (Bld) [Entitic vol] 8.8 fL Critically low 9.5-13.5 [facility] Comment on above: Performed By: #### C BC #### [facility] [address] [place], [place] [address] Mere Soto PLT 224 103/ul Normal 150-450 [facility] Comment on above: Performed By: #### C BC #### [facility] [address] [place], [place] [address] Mere Soto RBC 4.40 106/ul Normal 4.20-5.40 [facility] Comment on above: Performed By: #### C BC #### [facility] [address] [place], [place] [address] Mere Soto WBC 4.4 103/ul Normal 4.0-11.0 [facility] Comment on above: Performed By: #### C BC #### [facility] [address] [place] [address] Mere Soto MRI BRAIN W WO CONTRASTon [...] Max Hunter MD 09/01/19 Final result Normal [facility] MRI ORBITS FACE NECK W WO [...] were sent to the [facility] ([facility]) on 09/01/2019 at 10:42 am to be communicated to the referring/covering health care provider/office. Interpreted by: Max Hunter MD Signed by: Max Hunter MD 09/01/19 Recipients: Jase Agustin MD - In Basket Final result Normal [facility] 09-01-2019 1. There is an area [...] communicated to the referring/covering health care provider/office. [facility] [place] EXAMINATION: MRI OF THE BRAIN WITHOUT AND [...] extraocular muscles are symmetric. No orbital mass. [place], [place] Km, [facility] Incoming Radiant Results From [employer] - 09/01/2019 10:44 AM EST EXAMINATION: MRI [...] communicated to the referring/covering health care provider/office. [place], [place] Coding Summary.on 01-12-2019 Coding Summary. CODING DATE: 019 FINAL [facility] STATUS: Home (Routine DC) PAYOR: Commercial [...] CphT Date Saved: 01/12/2019 11:24 am Normal [facility] Hbv Core Abon 01-12-2019 HBV core Ab IA Ql Negative Negative [facility] Comment on above: Result Comment: Perf ormed at: [address] [id number] PhD Roshan Carmona Performed By: #### 2 350398, 3297450, 0141264, 71797179, 9040389, 9278135, 62555142, 54289011 ####[facility] [id number] [place] [address] HBV core IgM IA Ql Negative Negative [facility] Comment on above: Performed By: #### 2 337517, 3155790, 0543206, 75275389, 1337647, 3572420, 60157802, 51351201 ####[facility] [id number] [place] [address] Hep Bs Agon 01-12-2019 HBV surface Ag IA Ql Negative Negative [facility] Comment on above: Result Comment: Perf ormed at: [address] [id number] PhD Roshan Carmona Performed By: #### 2 857412, 0358763, 6818244, 80330488, 9674810, 0091872, 42735286, 94793676 #### [facility] [address] [place] [address] Varic IgGon 01-12-2019 VZV IgG IA Qn (S) 2223 Immune >165 [facility] Comment on above: Result Comment: Nega tive <135 Equivocal 135 - 165 Positive >165 A positive result generally indicates exposure to the pathogen or administration of specific immunoglobulins, but it is not indication of active infection or stage of disease. Performed at: [facility] [address] [place] [address] [id number] PhD Roshan Carmona Performed By: #### 2 880468, 8083252, 2424072, 37184561, 6598797, 6226260, 16018410, 25152027 ####[facility] [id number] [place] [address] Auto Diffon 01-11-2019 Basophils/100 WBC (Bld) 0.7 % Normal 0.0-2.0 [facility] Comment on above: Order Comment: Order Added by Discern Expert. Performed By: #### 2 439373, 1784736, 6354232, 75246701, 5908965, 6736512, 47009121, 62085046 #### [facility] [address] [place] [address] Basophils/Leukocyte s Auto (Bld) [Pure # fraction] 0.0 E9/L Normal 0.0-0.2 [facility] Comment on above: Order Comment: Order Added by Discern Expert. Performed By: #### 2 534802, 9984588, 0558473, 61048474, 3934069, 8452600, 10439773, 27737062 #### [facility] [address] [place] [address] Eosinophils/100 WBC (Bld) 3.3 % Normal 0.0-8.0 [facility] Comment on above: Order Comment: Order Added by Discern Expert. Performed By: #### 2 745487, 2294082, 7179908, 81913601, 8297825, 5540701, 00157437, 10908430 #### [facility] [address] [place] [address] Eosinophils/Leukocy cassi Auto (Bld) [Pure # fraction] 0.2 E9/L Normal 0.0-0.5 [facility] Comment on above: Order Comment: Order Added by Discern Expert. Performed By: #### 2 187534, 1945974, 3008940, 70606285, 9953584, 9917049, 15319030, 66370408 #### [facility] [address] [place] [address] Lymphocytes/100 WBC (Bld) 28.7 % Normal 14.0-50.0 [facility] Comment on above: Order Comment: Order Added by Discern Expert. Performed By: #### 2 780698, 8552118, 9194381, 23163674, 1574761, 3444272, 74960351, 34007382 #### [facility] [address] [place] [address] Lymphocytes/Leukocy cassi Auto (Bld) [Pure # fraction] 1.3 E9/L Normal 1.0-4.0 [facility] Comment on above: Order Comment: Order Added by Discern Expert. Performed By: #### 2 353565, 5377102, 7136979, 09214054, 8338320, 3653186, 56909746, 70523001 #### [facility] [address] [place] [address] Monocytes/100 WBC (Bld) 7.4 % Normal 4.0-14.0 [facility] Comment on above: Order Comment: Order Added by Discern Expert. Performed By: #### 2 256917, 5605531, 3545063, 88702330, 5546252, 7625698, 07343736, 40788862 #### [facility] [address] [place] [address] Monocytes/Leukocyte s Auto (Bld) [Pure # fraction] 0.3 E9/L Normal 0.2-1.0 [facility] Comment on above: Order Comment: Order Added by Discern Expert. Performed By: #### 2 208781, 8843684, 1376235, 23000918, 3763938, 6846893, 07383152, 03603573 #### [facility] [address] [place] [address] Neutrophils/100 WBC (Bld) 59.9 % Normal 36.0-75.0 [facility] Comment on above: Order Comment: Order Added by Discern Expert. Performed By: #### 2 480413, 0020215, 7464341, 72146972, 2420880, 5441782, 89176367, 40174287 #### [facility] [address] [place] [address] Neutrophils/Leukocy cassi Auto (Bld) [Pure # fraction] 2.8 E9/L Normal 2.0-7.5 [facility] Comment on above: Order Comment: Order Added by Discern Expert. Performed By: #### 2 373375, 2717310, 1051742, 45485430, 5571895, 4864331, 95552631, 03310154 #### [facility] [address] [place] [address] BMPon 01-11-2019 Anion gap [Moles/Vol] 14 mmol/L Normal 6-16 [facility] Comment on above: Performed By: #### 2 533429, 7900227, 8700212, 04416606, 4012194, 2888052, 02643174, 38518513 #### [facility] [address] [place] [address] Calcium [Mass/Vol] 9.0 mg/dL Normal 8.9-11.1 [facility] Comment on above: Performed By: #### 2 600133, 1687750, 3080268, 67819811, 6784120, 4527493, 99924466, 29050411 #### [facility] [address] [place] [address] Chloride [Moles/Vol] 103 mmol/L Normal 101-111 [facility] Comment on above: Performed By: #### 2 744651, 8926155, 3156346, 10751082, 7712034, 3729455, 78214494, 37859021 #### [facility] [address] [place] [address] CO2 [Moles/Vol] 24 mmol/L Normal 21-31 [facility] Comment on above: Performed By: #### 2 028548, 3919869, 8102274, 06938086, 4573548, 4500669, 20622234, 20297313 #### [facility] [address] [place] [address] Creatinine [Mass/Vol] 0.7 mg/dL Normal 0.5-1.3 [facility] Comment on above: Performed By: #### 2 413094, 1578097, 4142601, 54218160, 2004470, 4821536, 58141256, 10430944 #### [facility] [address] [place] [address] Glucose [Mass/Vol] 104 mg/dL Normal 55-199 [facility] Comment on above: Result Comment: If t his glucose result represents a fasting glucose, interpretation should refer to the following reference range: 55-99 mg/dL Performed By: #### 2 519771, 7879573, 0852149, 46683310, 2936306, 6715148, 85248869, 91485467 #### [facility] [address] [place] [address] Potassium [Moles/Vol] 3.0 mmol/L Low 3.5-5.3 [facility] Comment on above: Performed By: #### 2 412947, 5716511, 3981454, 93730235, 3504118, 4127861, 50719406, 72648390 #### [facility] [address] [place] [address] Sodium [Moles/Vol] 138 mmol/L Normal 135-145 [facility] Comment on above: Performed By: #### 2 379733, 1339281, 3978477, 15592965, 6658584, 5648799, 68788931, 29031633 #### [facility] [address] [place] [address] Urea nitrogen [Mass/Vol] 8 mg/dL Normal 5-21 [facility] Comment on above: Performed By: #### 2 273157, 4022706, 0607274, 95011035, 7956048, 5451490, 28203663, 72734572 #### [facility] [address] [place] [address] Urea nitrogen/Creatinine [Mass ratio] 11 No Units Normal 10-20 [facility] Comment on above: Performed By: #### 2 376107, 4809460, 0152679, 91132004, 9889389, 0604071, 67383914, 21805815 #### [facility] [address] [place] [address] CBC w/ Auto Diffon 9 Erythrocyte distribution width (RBC) [Ratio] 13.8 % Normal 10.9-14.2 [facility] Comment on above: Performed By: #### 2 082566, 5024370, 9580466, 79427222, 5282777, 2239083, 76378179, 79336907 #### [facility] [address] [place] [address] Hematocrit (Bld) [Volume fraction] 41.3 % Normal 34.0-46.0 [facility] Comment on above: Performed By: #### 2 884506, 7758085, 4177799, 43497879, 8877170, 3295380, 36155427, 18395059 #### [facility] [address] [place] [address] Hemoglobin (Bld) [Mass/Vol] 13.9 g/dL Normal 12.0-16.0 [facility] Comment on above: Performed By: #### 2 618492, 8080513, 4699267, 81732548, 5143650, 1295575, 87865121, 83653324 #### [facility] [address] [place] [address] MCH (RBC) [Entitic mass] 29.5 pg Normal 27.0-34.0 [facility] Comment on above: Performed By: #### 2 679540, 4686100, 8764094, 92295648, 1966751, 0273854, 61692608, 53702006 #### [facility] [address] [place] [address] MCHC (RBC) [Mass/Vol] 33.7 g/dL Normal 33.3-35.7 [facility] Comment on above: Performed By: #### 2 189522, 9050566, 6159677, 80977800, 2085760, 8054435, 79387099, 60474103 #### [facility] [address] [place] [address] MCV (RBC) [Entitic vol] 87.5 fL Normal 80.0-100.0 [facility] Comment on above: Performed By: #### 2 155792, 4055020, 7195780, 14563907, 2381909, 0020892, 24300422, 15681215 #### [facility] [address] [place] [address] Platelet mean volume (Bld) [Entitic vol] 7.7 fL Normal 6.4-10.8 [facility] Comment on above: Performed By: #### 2 955718, 5059870, 3985569, 09072119, 4170115, 2530443, 93567910, 21773924 #### [facility] [address] [place] [address] Platelets (Bld) [#/Vol] 290.0 E9/L Normal 150.0-500.0 [facility] Comment on above: Performed By: #### 2 [id number], [id number], 3900121, [id number], 9326752, 2397983, [id number], [id number] #### [facility] [address] [place] [address] 84888 RBC (Bld) [#/Vol] 4.7 E12/L Normal 4.3-5.9 [facility] Comment on above: Performed By: #### 2 132438, 3463468, 2380003, [id number], 3642710, 5947222, 30696656, [id number] #### [facility] [address] [place] [address]1755 WBC corrected for nucl RBC Auto (Bld) [#/Vol] 4.7 E9/L Normal 4.0-11.0 [facility] Comment on above: Performed By: #### 2 [id number], 2159032, 7601452, 03112697, 6310851, 7329214, 90686589, 96055644 #### [facility] [address] [place] [address] TSHon 01-11-2019 TSH Qn 1.84 mcIU/mL Normal 0.34-5.60 [facility] Comment on above: Performed By: #### 2 565276, 4184100, 5866350, 79034822, 9082012, 8671455, 57837050, 30433946 #### [facility] [address] [place] [address] Urinalysison 01-11-2019 Bilirubin Ql (U) Negative Normal Negative [facility] Comment on above: Performed By: #### 1 [id number] #### [facility] [address] [place] [address] 90755 Clarity (U) CLEAR Normal Clear [facility] Comment on above: Performed By: #### 1 [id number] #### [facility] [address] [place] [address] 42798 Color (U) YELLOW Normal Yellow [facility] Comment on above: Performed By: #### 1 [id number] #### [facility] [address] [place] [address] 43651 Epithelial cells.squamous LM.HPF (Urine sed) [#/Area] 3-4 Normal 0-2 [facility] Comment on above: Performed By: #### 1 [id number] #### [facility] [address] [place] [address] Glucose Test strip (U) [Mass/Vol] Negative Normal Negative [facility] Comment on above: Performed By: #### 1 [id number] #### [facility] [address] [place] [address] 24104 Hemoglobin Ql (U) TRACE Abnormal Negative [facility] Comment on above: Performed By: #### 1 [id number] #### [facility] [address] [place] [address]7819 Ketones (U) [Mass/Vol] Negative Normal Negative [facility] Comment on above: Performed By: #### 1 [id number] #### [facility] [address] [place] [address] [place].plasma/Lith ium.RBC (Bld) [Mass ratio] 0-3 Normal 0-3 [facility] Comment on above: Performed By: #### 1 [id number] #### [facility] [address] [place] [address] Mucus Ql (Urine sed) 1+ Normal [facility] Comment on above: Performed By: #### 1 [id number] #### [facility] [address] [place] [address] Nitrite Ql (U) Negative Normal Negative [facility] Comment on above: Performed By: #### 1 [id number] #### [facility] [address] [place] [address] pH (U) 5.5 [pH] 5.0-9.0 [facility] Comment on above: Performed By: #### 1 [id number] #### [facility] [address] [place] [address] Protein (U) [Mass/Vol] Negative Normal Negative [facility] Comment on above: Performed By: #### 1 [id number] #### [facility] [address] [place] [address] Specific gravity (U) [Rel density] 1.025 1.005-1.030 [facility] Comment on above: Performed By: #### 1 6358921 #### [facility] [address] [place] [address] UA Spec Desc Clean Catch Normal [facility] Comment on above: Performed By: #### 1 [id number] #### [facility] [address] [place] [address] Urobilinogen Qn (U) 0.2 {Sage'U}/dL Normal 0.0-1.0 [facility] Comment on above: Performed By: #### 1 [id number] #### [facility] [address] [place] [address] WBC Auto Ql (U) Negative Normal Negative [facility] Comment on above: Performed By: #### 1 [id number] #### [facility] [address] [place] [address] WBC LM.HPF (Urine sed) [#/Area] 0-5 Normal 0-5 [facility] Comment on above: Performed By: #### 1 [id number] #### [facility] [address] [place] [address] eGFRon 01-11-2019 GFR/1.73 sq M predicted among blacks MDRD (S/P/Bld) [Vol rate/Area] mL/min/{1.73_m2} Normal >=59 [facility] Comment on above: Order Comment: Order added by Discern Expert. Result Comment: eGFR is race adjusted. AA=. Performed By: #### 2 337249, 6893064, 2989110, 01742934, 8463319, 6824940, 35108322, [id number] #### [facility] [address] [place] [address] GFR/1.73 sq M predicted among non-blacks MDRD (S/P/Bld) [Vol rate/Area] mL/min/{1.73_m2} Normal >=59 [facility] Comment on above: Order Comment: Order added by Discern Expert. Result Comment: Substance Abuse Therapist gautam kidney disease could be indicated at eGFR's of less than 60 mL/min/1.73m2. Kidney failure is indicated at less than 15 mL/min/1.73m2. Performed By: #### 2 679347, 3455269, 5639389, 23634664, 6877843, 4908617, 62270842, 83087854 #### [facility] [address] [place] [address] Coding Summary.on 12-14-2018 Coding Summary. CODING DATE: 019 FINAL [facility] STATUS: Home (Routine DC) PAYOR: Commercial [...] CphT Date Saved: 12/14/2018 07:18 am Normal [facility] Hep Func Panelon 12-13-2018 Bilirubin.direct [Mass/Vol] UTC Abnormal 0.1-0.9 [facility] Comment on above: Result Comment: Resu lt verified by Discern Rule. Performed result UTC (Unable to Calculate) was sent as an Alpha code due the inability to calculate a valid numeric value. Performed By: #### 2 [id number] #### [facility] [address] [place] [address] Albumin [Mass/Vol] 1.1 g/dL Normal 1.1-2.2 [facility] Comment on above: Performed By: #### 2 056036 #### [facility] [address] [place] [address] Albumin [Mass/Vol] 4.2 g/dL Normal 3.3-5.0 [facility] Comment on above: Performed By: #### 2 801413 #### [facility] [address] [place] [address] ALP [Catalytic activity/Vol] 63 Int._Unit/L Normal 21-98 [facility] Comment on above: Performed By: #### 2 746652 #### [facility] [address] [place] [address] ALT No additional P-5'-P [Catalytic activity/Vol] 21 Int._Unit/L Normal 6-46 [facility] Comment on above: Performed By: #### 2 932751 #### [facility] [address] [place] [address] AST [Catalytic activity/Vol] 19 Int._Unit/L Normal 5-43 [facility] Comment on above: Performed By: #### 2 393216 #### [facility] [address] [place] [address] Bilirubin [Mass/Vol] 0.8 mg/dL Normal 0.0-1.1 [facility] Comment on above: Performed By: #### 2 675367 #### [facility] [address] [place] [address] Bilirubin.direct [Mass/Vol] mg/dL Normal 0.1-0.4 [facility] Comment on above: Performed By: #### 2 417490 #### [facility] [address] [place] [address] Globulin (S) [Mass/Vol] 3.8 g/dL Normal 1.4-4.0 [facility] Comment on above: Performed By: #### 2 975838 #### [facility] [address] [place] [address] Protein [Mass/Vol] 8.0 g/dL High 6.0-7.8 [facility] Comment on above: Performed By: #### 2 514045 #### [facility] [address] [place] [address] MRI Brain w/ + w/o Contrasto n [...] MultiHance Contrast amount in ml's: 20 Normal [facility] Encounters Encounter Date Encounter Type Care Provider Facility Start: 07-19-2021 End: 07-20-[address] JASE AGUSTIN Facility:[facility] Start: 10-27-2020 End: 10-30-2020 Evaluation and management of inpatient DR ANGEL SANDERSON Facility:[facility] Start: 07-27-2020 End: 07-28-2020 ambulatory LIZETTE WILKS Facility:[facility] Start: 09-01-2019 End: 09-04-2019 Patient encounter procedure ABEL BOOGIE [facility] Start: 09-01-2019 End: 09-03-2019 Subsequent hospital visit by physician [facility] M[facility] Scanner [facility] MRI Comment on above: Homonymous bilateral [...] 2) Shannon gles Vaccine (1 of 2) [place], [place] Start: 03-06-2019 Influenza vaccination Flu vaccine (# 1) [place] Start: 2012 Lipid screen Lipid screen [place], [place] Start: 1993 Cervical cancer screen Cervical canc er screen [place], [place] Start: 1987 HIV screen HIV screen [place], [place] Start: 1983 DTaP/Tdap/Td vaccine (1 - Tdap) DTaP/Tdap/Td vaccine (1 - Tdap) [place] Payers Date Payer Category Payer Unknown [facility] xxxxxxxxxxxx 2014-Present [phone] [address] [place] [address] xxxxxxxxxxxx [id number] 1972 Unknown [id number] 1972 Unknown [id number] 1972 Unknown [id number] 1972 Unknown [id number] 1972 Unknown [id number] 1959 Unknown [id number] Social History Date Type Detail Facility Tobacco smoking status NHIS Unknown if ev er smoked [place] Sex Assigned At Not on file [place] Summary Purpose Family History No Family History Records FoundNo Family History Records FoundNo Family History Records Found Advance Directives No Advanced Directives Records FoundDocuments on File Type Date Recorded 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 Expl 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 Advance Directives and Living Will Power of Bullion Weigher Reason for Referral Status Reason Specialty Diagnoses / Procedures Referred By Contact Referred To Contact Canceled Radiology Diagnoses 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, left MS (multiple sclerosis) (HCC) Procedures MRI ORBITS FACE NECK W WO CONTRAST Abel Boogie, DO [address] [place] [address] Assessments Diagnosis 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, left MS (multiple sclerosis) (HCC) Multiple sclerosis Diagnosis Heteronymous bilateral field defects Heteronymous bilateral field defects in visual field MS (multiple sclerosis) (HCC) Multiple sclerosis Visual field defect of left eye 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, left Additional Source Comments INFORMATION SOURCE (unrecogn ized section and content) DATE CREATED AUTHOR 01/16/2019 [facility] DATE CREATED AUTHOR AUTHOR'S ORGANIZ ATION 09/03/2019 [facility] DATE CREATED AUTHOR AUTHOR'S ORGANIZ ATION 07/24/2021 [facility] Reason for Visit (unrecogniz ed section and content) Status Reason Specialty Diagnoses / Procedures Referred By Contact Referred To Contact Authorized Radiology Diagnoses MS (multiple sclerosis) (HCC) Visual field defects Procedures HC MRI FACE NECK EYE W CONTRAST Abel Boogie, DO [address] [place] [address] [facility] [address] [place] [address] Status Reason Specialty Diagnoses / Procedures Referred By Contact Referred To Contact Authorized Radiology Diagnoses MS (multiple sclerosis) (HCC) Visual field defects Procedures HC MRI-BRAIN WO & W CONTRAST Abel Boogie, DO [address] [place] [address] [place] [address] FOR RECORDS PERTAINING TO PATIENTS WHO ARE [...] BE BASED ON THE PRIMARY CLINICAL RECORDS. [employer] provides no warranty or guarantee of the accuracy or completeness of information in this document.
== END 2023-09-14 09:26 | disposition home or self-care (01) ==
LOC: EC 09:25
PROVIDERS: PCP Family Medicine; Visit Provider Orthopaedic Surgery
DX: S82.441D Displaced spiral fracture of shaft of right fibula, subsequent encounter for closed fracture with routine healing (principal); S82.241D Displaced spiral fracture of shaft of right tibia, subsequent encounter for closed fracture with routine healing
CPT/HCPCS: 73590

== ENCOUNTER 2023-11-16 09:26 | Outpatient (OUT) | payer SELFPAY ==
--- NOTE | 2023-11-16 | XR_ITS ---
The [address] [address] Patient Name: LILI MADRID MRN: [id number] date: 1970 Sex: F Assigned Patient Location: Current Patient Location: Accession/Order Number: [id number] Exam Date: 11/16/2023 09:29 Report Date: 11/16/2023 13:50 At the request of: DARINEL BROWNING Procedure: XR tibia fibula RT 2V PROCEDURE: XR tibia fibula RT 2V COMPARISON: 09/14/2023. HISTORY: RIGHT LOWER LEG PAIN FINDINGS: BONES:Remote tibia and fibular fractures with internal fixation of the tibia utilizing an antegrade intramedullary nail and proximally and distally. No change in the fractures with incomplete bony bridging of the distal fibular fracture. No mechanical failure SOFT TISSUES:Negative. No visible soft tissue swelling. EFFUSION:None visible. OTHER: Negative. XR/XR tibia fibula RT 2V IMPRESSION: Stable tibia and fibular fractures with internal fixation of the tibia Electronically authenticated by: JESSICA BALDERRAMA Date: 11/16/2023 13:50
--- OUTSIDE RECORDS SUMMARY | 2023-11-16 09:46 | XMS_ITS | CCD ---
Author Organization [facility] Care Team Providers Care Senior Administrative Associate Name Role Phone ABEL BOOGIE Referring Unavailable ANGEL SANDERSON Primary Care Unavailable ABEL BOOGIE Referring Unavailable ANGEL SANDERSON Primary Care Unavailable Angel Sanderson Primary Care Provider DR ANGEL SANDERSON Attending Unavailable KVNG, DR ORTIZ Consulting Unavailable DR ANGEL SANDERSON Primary Care Unavailable DR ANGEL SANDERSON Admitting Unavailable CLEMENTINA, DR NICOLAS Consulting Unavailable GERARD LANDEROS Consulting Unavailable SAMAYLIN FISHER Consulting Unavailable DR JASE AGUSTIN Admitting Unavailable DR ANGEL SANDERSON Primary Care Unavailable DR JASE AGUSTIN Attending [...] 11-05-2020 Episodic Other aftercare (1 source) 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; Translations: [OTH NURSING HOME CURRENT DRUG THERAPY] Onset: 11-05-2020 Episodic Other lower respiratory disease (1 source) Hypoxemia; Translations: [HYPOXEMIA] Onset: 11-05-2020 Episodic Residual codes; unclassified (1 source) Acquired absence of both cervix and uterus; Translations: [ACQUIRED ABSENCE BOTH CERVIX AND UTERUS] Onset: 11-05-2020 Episodic Results Test Name Value Interpretation Reference Range Facility CBC AUTO DIFFon 07-19-2021 BASO # 0.0 103/ul Normal 0.0-0.1 [facility] Comment on above: Performed By: #### C BC #### [facility] [address] [place] [address] Dr. Morris Castro Basophils/100 WBC (Bld) 0.5 % Normal 0.2-2.0 [facility] Comment on above: Performed By: #### C BC #### [facility] [address] [place] [address] Dr. Morris Castro EO # 0.2 103/ul Normal 0.0-0.7 [facility] Comment on above: Performed By: #### C BC #### [facility] [address] [address] [address] Morris Castro Eosinophils/100 WBC (Bld) 5.2 % Normal 0.9-7.0 [facility] Comment on above: Performed By: #### C BC #### [facility] [address] [place] [address] Dr. Morris Castro Erythrocyte distribution width (RBC) [Ratio] 12.6 % Normal 11.0-15.0 [facility] Comment on above: Performed By: #### C BC #### [facility] [address] [place] [address] Dr. Morris Castro Hematocrit (Bld) [Volume fraction] 39.0 % Normal 36.0-48.0 [facility] Comment on above: Performed By: #### C BC #### [facility] [address] [place] [address] Dr. Morris Castro Hemoglobin (Bld) [Mass/Vol] 13.1 g/dL Normal 12.0-16.0 [facility] Comment on above: Performed By: #### C BC #### [facility] [address] [place] [address] Dr. Morris Castro IG # 0.02 10e3/ul Normal 0.00-0.03 [facility] Comment on above: Performed By: #### C BC #### [facility] [address] [place] [address] Dr. Morris Castro IG % 0.5 % Normal 0.0-0.5 [facility] Comment on above: Performed By: #### C BC #### [facility] [address] [place] [address] Dr. Morris Castro LYMPH # 0.9 103/ul Critically low 1.2-3.8 [facility] Comment on above: Performed By: #### C BC #### [facility] [address] [place] [address] Dr. Morris Castro Lymphocytes/100 WBC (Bld) 23.1 % Normal 20.5-60.0 [facility] Comment on above: Performed By: #### C BC #### [facility] [address] [place] [address] Dr. Morris Castro MANUAL DIFF REQ NO Normal [facility] Comment on above: Performed By: #### C BC #### [facility] [address] [place] [address] Dr. Morris Castro MCH (RBC) [Entitic mass] 30.3 pg Normal 26.7-34.0 [facility] Comment on above: Performed By: #### C BC #### [facility] [address] [place] [address] Dr. Morris Castro MCHC (RBC) [Mass/Vol] 33.6 g/dL Normal 29.9-35.2 [facility] Comment on above: Performed By: #### C BC #### [facility] [address] [place] [address] Dr. Morris Castro MCV (RBC) [Entitic vol] 90.1 fL Normal 81.0-99.0 [facility] Comment on above: Performed By: #### C BC #### [facility] [address] [place] [address] Dr. Morris Castro MONO # 0.6 103/ul Normal 0.3-0.8 [facility] Comment on above: Performed By: #### C BC #### [facility] [address] [place] [address] Dr. Morris Castro Monocytes/100 WBC (Bld) 15.6 % Critically high 1.7-12.0 [facility] Comment on above: Performed By: #### C BC #### [facility] [address] [place] [address] Dr. Morris Castro NEUT # 2.1 103/ul Normal 1.4-6.5 [facility] Comment on above: Performed By: #### C BC #### [facility] [address] [place] [address] Dr. Morris Castro Neutrophils/100 WBC (Bld) 55.1 % Normal 43.0-75.0 [facility] Comment on above: Performed By: #### C BC #### [facility] [address] [place] [address] Dr. Morris Castro Platelet mean volume (Bld) [Entitic vol] 8.3 fL Critically low 9.5-13.5 [facility] Comment on above: Performed By: #### C BC #### [facility] [address] [place] [address] Dr. Morris Castro PLT 223 103/ul Normal 150-450 [facility] Comment on above: Performed By: #### C BC #### [facility] [address] [place] [address] Dr. Morris Castro RBC 4.33 106/ul Normal 4.20-5.40 [facility] Comment on above: Performed By: #### C BC #### [facility] [address] [place] [address] Dr. Morris Castro WBC 3.9 103/ul Critically low 4.0-11.0 [facility] Comment on above: Performed By: #### C BC #### [facility] [address] [place] [address] Dr. Morris Castro LIVER PROFILEon 07-19-2021 Albumin [Mass/Vol] 3.9 g/dL Normal 3.5-5.0 [facility] Comment on above: Performed By: #### L ACT #### [facility] [address] [place] [address] Mereshahnaz Soto Albumin/Globulin [Mass ratio] 1.2 {ratio} Normal [facility] Comment on above: Performed By: #### L ACT #### [facility] [address] [place], [place] [id number] Mere Brittany ALP [Catalytic activity/Vol] 77 U/L Normal 38-126 [facility] Comment on above: Performed By: #### L ACT #### [facility] [address] [place] [address] Mere Brittany ALT [Catalytic activity/Vol] 45 U/L Normal 9-52 [facility] Comment on above: Performed By: #### L ACT #### [facility] [address] [place], [place] [id number] Mere Brittany AST [Catalytic activity/Vol] 23 U/L Normal 14-36 [facility] Comment on above: Performed By: #### L ACT #### [facility] [address] [place], [place] [id number] Mere Brittany BILI, CONJUGATED 0.1 mg/dL Normal 0.0-0.3 [facility] Comment on above: Performed By: #### L ACT #### [facility] [address], [place] [address] Mere Brittany Bilirubin [Mass/Vol] 0.6 mg/dL Normal 0.2-1.3 [facility] Comment on above: Performed By: #### L ACT #### [facility] [address], [place] [address] Mere Brittany Globulin (S) [Mass/Vol] 3.3 g/dL Normal [facility] Comment on above: Performed By: #### L ACT #### [facility] [address] [id number] Mere Brittany Protein [Mass/Vol] 7.2 g/dL Normal 6.1-8.2 [facility] Comment on above: Performed By: #### L ACT #### [facility] [address] [place], [place] [id number] Mere Brittany PROF CHEM 8 (BAS METB)on Anion gap [Moles/Vol] 11.8 mmol/L Normal [facility] Comment on above: Performed By: #### C BC #### [facility] [address] [place], [place] [id number] Mere Brittany Calcium [Mass/Vol] 9.0 mg/dL Normal 8.4-10.2 [facility] Comment on above: Performed By: #### C BC #### [facility] [address] [place], [place] [id number] Mere Brittany Chloride [Moles/Vol] 106 mmol/L Normal 98-107 [facility] Comment on above: Performed By: #### C BC #### [facility] [address] [place], [place] [id number] Mere Brittany CO2 [Moles/Vol] 27.5 mmol/L Normal 22.0-30.0 [facility] Comment on above: Performed By: #### C BC #### [facility] [address] [place], [place] [id number] Mere Brittany Creatinine [Mass/Vol] 0.68 mg/dL Normal 0.52-1.04 [facility] Comment on above: Performed By: #### C BC #### [facility] [address], [place] [address] Mere Brittany EGFR-AF BURKINAN >60 Normal >=60 [facility] Comment on above: Performed By: #### C BC #### [facility] [address], [place] [address] Mere Brittany EGFR-NON AF BURKINAN >60 Normal >=60 [facility] Comment on above: Performed By: #### C BC #### [facility] [address] [id number] Mere Brittany Glucose [Mass/Vol] 103 mg/dL Normal 74-106 [facility] Comment on above: Performed By: #### C BC #### [facility] [address] [id number] Mere Brittany Potassium [Moles/Vol] 4.3 mmol/L Normal 3.4-5.0 [facility] Comment on above: Performed By: #### C BC #### [facility] [address] [place], [place] [id number] Mere Brittany Sodium [Moles/Vol] 141 mmol/L Normal 137-145 [facility] Comment on above: Performed By: #### C BC #### [facility] [address] [place], [place] [id number] Mere Brittany Urea nitrogen [Mass/Vol] 8.0 mg/dL Normal 7.0-17.0 [facility] Comment on above: Performed By: #### C BC #### [facility] [address] [place] [address] Mere Brittany Urea nitrogen/Creatinine [Mass ratio] 11.8 mg/mg Normal [facility] Comment on above: Performed By: #### C BC #### [facility] [address] [place], [place] [id number] Mere Brittany CBC W MANUAL DIFFon 10-31-19 21 ATYPICAL LYMPH # Normal [facility] Comment on above: Performed By: #### C BCMAN #### [facility] [address] [place], [place] [id number] Mere Brittany ATYPICAL LYMPH % Normal [facility] Comment on above: Performed By: #### C BRAIN #### [facility] [address] [id number] Meer Brittany BAND # 0.3 103/ul Normal 0.0-0.3 [facility] Comment on above: Performed By: #### C BRAIN #### [facility] [address] [id number] Mere Brittany BAND % 7 % Critically high 0-5 [facility] [place] [facility] Comment on above: Performed By: #### C BRAIN #### [facility] [address] [place] [address] Mere Brittany BASOM # 0.00 103/ul Normal 0.00-0.10 [facility] Comment on above: Performed By: #### C BRAIN #### [facility] [address] [place] [address] Mere Brittany BASOM % 0.0 % Critically low 0.2-2.0 [facility] Comment on above: Performed By: #### C BRAIN #### [facility] [address] [place] [address] Mere Brittany BLAST # Normal [facility] Comment on above: Performed By: #### C BRAIN #### [facility] [address] [place] [address] Mere Brittany BLAST % Normal [facility] Comment on above: Performed By: #### C BRAIN #### [facility] [address] [place] [address] Mere Brittany CORRECTED WBC Normal 4.0-11.0 [facility] Comment on above: Performed By: #### C BRAIN #### [facility] [address] [place] [address] Mere Brittany EOS # 0.00 103/ul Normal 0.00-0.70 [facility] Comment on above: Performed By: #### C BRAIN #### [facility] [address] [place] [address] Mere Brittany EOS% 0.0 % Critically low 0.9-7.0 [facility] Comment on above: Performed By: #### Nia DE LA PAZ #### [facility] [address] [id number] Mere Brittany HCT 33.4 % Critically low 36.0-48.0 [facility] Comment on above: Performed By: #### Nia DE LA PAZ #### [facility] [address] [address] Mere Brittany HGB 11.6 g/dl Critically low 12.0-16.0 [facility] Comment on above: Performed By: #### Nia DE LA PAZ #### [facility] [address] [address] Mere Brittany LYMPHM # 0.22 103/ul Critically low 1.20-3.80 [facility] Comment on above: Performed By: #### Nia DE LA PAZ #### [facility] [address] [address] Mere Brittany LYMPHM% 6.0 % Critically low 20.5-60.0 [facility] Comment on above: Performed By: #### Nia DE LA PAZ #### [facility] [address] [address] Mere Brittany MCH 30.4 pg Normal 26.7-34.0 [facility] Comment on above: Performed By: #### Nia DE LA PAZ #### [facility] [address] [address] Mere Brittany MCHC 34.7 g/dl Normal 29.9-35.2 [facility] Comment on above: Performed By: #### Nia DE LA PAZ #### [facility] [address] [address] Mere Brittany MCV 87.4 fL Normal 81.0-99.0 [facility] Comment on above: Performed By: #### Nia DE LA PAZ #### [facility] [address] [place] [address] Mere Brittany METAMYELOCYTE # Normal [facility] Comment on above: Performed By: #### Nia DE LA PAZ #### [facility] [address] [place] [address] Mere Brittany METAMYELOCYTE % Normal [facility] [place] [facility] Comment on above: Performed By: #### Nia DE LA PAZ #### [facility] [address], [place] [address] Mereshahnaz Patelen MONOM# 0.41 103/ul Normal 0.30-0.80 [facility] Comment on above: Performed By: #### C BRAIN #### [facility] [address] [id number] Mere Brittany MONOM% 11.0 % Normal 1.7-12.0 [facility] Comment on above: Performed By: #### C BRAIN #### [facility] [address] [id number] Mereshahnaz Patelen MPV 9.1 fL Critically low 9.5-13.5 [facility] Comment on above: Performed By: #### Nia DE LA PAZ #### [facility] [address] [place], [place] [id number] Mere Brittany MYELOCYTE # Normal [facility] Comment on above: Performed By: #### Nia DE LA PAZ #### [facility] [address] [place], [place] [id number] Mere Brittany MYELOCYTE % Normal [facility] Comment on above: Performed By: #### Nia DE LA PAZ #### [facility] [address] [place], [place] [id number] Mere Brittany NRBC Normal [facility] Comment on above: Performed By: #### Nia DE LA PAZ #### [facility] [address] [place], [place] [id number] Mere Brittany PLT 219 103/ul Normal 150-450 [facility] Comment on above: Performed By: #### iNa DE LA PAZ #### [facility] [address] [place], [place] [id number] Mere Brittany RBC 3.82 106/ul Critically low 4.20-5.40 [facility] Comment on above: Performed By: #### Nia DE LA PAZ #### [facility] [address] [place], [place] [id number] Mere Brittany RDW 12.8 % Normal 11.0-15.0 [facility] Comment on above: Performed By: #### C BRAIN #### [facility] [address], [place] [address] Mere Brittany SEG # 2.81 103/ul Normal 1.40-6.50 [facility] Comment on above: Performed By: #### C BRAIN #### [facility] [address], [place] [address] Mere Brittany SEG % 76.0 % Critically high 43.0-75.0 [facility] [place] [facility] Comment on above: Performed By: #### C BRAIN #### [facility] [address], [place] [address] Mere Brittany WBC 3.7 103/ul Critically low 4.0-11.0 [facility] Comment on above: Performed By: #### C BRAIN #### [facility] [address] [id number] Mere Brittany PROF CHEM 8 (BAS METB)on Anion gap [Moles/Vol] 12.7 mmol/L Normal [facility] Comment on above: Performed By: #### L ACT #### [facility] [address] [id number] Mere Brittany Calcium [Mass/Vol] 9.1 mg/dL Normal 8.4-10.2 [facility] Comment on above: Performed By: #### L ACT #### [facility] [address] [id number] Mere Brittany Chloride [Moles/Vol] 108 mmol/L Critically high 98-107 [facility] Comment on above: Performed By: #### L ACT #### [facility] [address], [place] [address] Mere Brittany CO2 [Moles/Vol] 25.5 mmol/L Normal 22.0-30.0 [facility] Comment on above: Performed By: #### L ACT #### [facility] [address] [id number] Mere Brittany Creatinine [Mass/Vol] 0.80 mg/dL Normal 0.52-1.04 [facility] Comment on above: Performed By: #### L ACT #### [facility] [address] [id number] Mere Brittany EGFR-AF BURKINAN >60 Normal >=60 [facility] Comment on above: Performed By: #### L ACT #### [facility] [address] [id number] Mere Brittany EGFR-NON AF BURKINAN >60 Normal >=60 [facility] Comment on above: Performed By: #### L ACT #### [facility] [address] [address] Mere Brittany Glucose [Mass/Vol] 166 mg/dL Critically high 74-106 [facility] Comment on above: Performed By: #### L ACT #### [facility] [address] [place] [address] Mere Brittany Potassium [Moles/Vol] 3.2 mmol/L Critically low 3.4-5.0 [facility] Comment on above: Performed By: #### L ACT #### [facility] [address] [place] [address] Mere Brittany Sodium [Moles/Vol] 143 mmol/L Normal 137-145 [facility] Comment on above: Performed By: #### L ACT #### [facility] [address] [place] [address] Mere Brittany Urea nitrogen [Mass/Vol] 15.0 mg/dL Normal 7.0-17.0 [facility] Comment on above: Performed By: #### L ACT #### [facility] [address] [place] [address] Mere Brittany Urea nitrogen/Creatinine [Mass ratio] 18.8 mg/mg Normal [facility] Comment on above: Performed By: #### L ACT #### [facility] [address] [place], [place] [id number] Mere Brittany CBC AUTO DIFFon 10-29-2020 BASO # 0.0 103/ul Normal 0.0-0.1 [facility] Comment on above: Performed By: #### C BC #### [facility] [address] [place], [place] [id number] Mere Brittany Basophils/100 WBC (Bld) 0.7 % Normal 0.2-2.0 [facility] Comment on above: Performed By: #### C BC #### [facility] [address] [place] [address] Mere Brittany EO # 0.0 103/ul Normal 0.0-0.7 [facility] Comment on above: Performed By: #### C BC #### [facility] [address] [place] [address] Mere Brittany Eosinophils/100 WBC (Bld) 0.0 % Critically low 0.9-7.0 [facility] Comment on above: Performed By: #### C BC #### [facility] [address] [place] [address] Mere Brittany Erythrocyte distribution width (RBC) [Ratio] 12.8 % Normal 11.0-15.0 [facility] Comment on above: Performed By: #### C BC #### [facility] [address] [place] [address] Mere Brittany Hematocrit (Bld) [Volume fraction] 35.1 % Critically low 36.0-48.0 [facility] Comment on above: Performed By: #### C BC #### [facility] [address] [place] [address] Mere Brittany Hemoglobin (Bld) [Mass/Vol] 12.3 g/dL Normal 12.0-16.0 [facility] Comment on above: Performed By: #### C BC #### [facility] [address] [place] [address] Mere Brittany IG # 0.02 10e3/ul Normal 0.00-0.03 [facility] Comment on above: Performed By: #### C BC #### [facility] [address] [place] [address] Mere Brittany IG % 1.5 % Critically high 0.0-0.5 [facility] Comment on above: Performed By: #### C BC #### [facility] [address] [place] [address] Mere Brittany LYMPH # 0.2 103/ul Critically low 1.2-3.8 [facility] Comment on above: Performed By: #### C BC #### [facility] [address] [place], [place] [id number] Mere Brittany Lymphocytes/100 WBC (Bld) 11.8 % Critically low 20.5-60.0 [facility] Comment on above: Performed By: #### C BC #### [facility] [address] [place] [address] Mere Soto MANUAL DIFF REQ NO Normal [facility] [place] [facility] Comment on above: Performed By: #### C BC #### [facility] [address] [place] [address] Mere Brittany MCH (RBC) [Entitic mass] 30.8 pg Normal 26.7-34.0 [facility] Comment on above: Performed By: #### C BC #### [facility] [address] [place] [address] Mere Soto MCHC (RBC) [Mass/Vol] 35.0 g/dL Normal 29.9-35.2 [facility] Comment on above: Performed By: #### C BC #### [facility] [address] [place] [address] Mere Soto MCV (RBC) [Entitic vol] 88.0 fL Normal 81.0-99.0 [facility] Comment on above: Performed By: #### C BC #### [facility] [address] [place] [address] Mere Brittany MONO # 0.1 103/ul Critically low 0.3-0.8 [facility] Comment on above: Performed By: #### C BC #### [facility] [address] [place], [place] [id number] Mere Brittany Monocytes/100 WBC (Bld) 9.6 % Normal 1.7-12.0 [facility] Comment on above: Performed By: #### C BC #### [facility] Laboratory [address] [place] [address] Mere Brittany NEUT # 1.0 103/ul Critically low 1.4-6.5 [facility] Comment on above: Performed By: #### C BC #### [facility] [address] [place], [place] [address] Mere Soto Neutrophils/100 WBC (Bld) 76.4 % Critically high 43.0-75.0 [facility] Comment on above: Performed By: #### C BC #### [facility] [address] [place], [place] [address] Mereshahnaz Soto Platelet mean volume (Bld) [Entitic vol] 9.5 fL Normal 9.5-13.5 [facility] Comment on above: Performed By: #### C BC #### [facility] [address] [place] [id number] Mere Brittany PLT 190 103/ul Normal 150-450 [facility] Comment on above: Performed By: #### C BC #### [facility] [address] [id number] Mere Brittany RBC 3.99 106/ul Critically low 4.20-5.40 [facility] [place] [facility] Comment on above: Performed By: #### C BC #### [facility] [address] [id number] Mere Brittany WBC 1.4 103/ul Critically low 4.0-11.0 [facility] Comment on above: Performed By: #### C BC #### [facility] [address] [place], [place] [address] Mere Soto PROF CHEM 8 (BAS METB)on Anion gap [Moles/Vol] 11.9 mmol/L Normal [facility] Comment on above: Performed By: #### B MP #### [facility] [address] [id number] Mere Brittany Calcium [Mass/Vol] 9.2 mg/dL Normal 8.4-10.2 [facility] Comment on above: Performed By: #### B MP #### [facility] [address] [id number] Mere Brittany Chloride [Moles/Vol] 106 mmol/L Normal 98-107 [facility] Comment on above: Performed By: #### B MP #### [facility] [address] [place], [place] [address] Mere Brittany CO2 [Moles/Vol] 25.5 mmol/L Normal 22.0-30.0 [facility] Comment on above: Performed By: #### B MP #### [facility] [address] [id number] Mere Brittany Creatinine [Mass/Vol] 0.62 mg/dL Normal 0.52-1.04 [facility] Comment on above: Performed By: #### B MP #### [facility] [address] [id number] Mere Brittany EGFR-AF BURKINAN >60 Normal >=60 [facility] Comment on above: Performed By: #### B MP #### [facility] [address] [place] [address] Mere Brittany EGFR-NON AF BURKINAN >60 Normal >=60 [facility] Comment on above: Performed By: #### B MP #### [facility] [address] [id number] Mere Brittany Glucose [Mass/Vol] 223 mg/dL Critically high 74-106 [facility] Comment on above: Performed By: #### B MP #### [facility] [address] [place], [place] [id number] Mere Brittany Potassium [Moles/Vol] 3.4 mmol/L Normal 3.4-5.0 [facility] Comment on above: Performed By: #### B MP #### [facility] [address] [place] [address] Mere Brittany Sodium [Moles/Vol] 140 mmol/L Normal 137-145 [facility] Comment on above: Performed By: #### B MP #### [facility] [address] [id number] Mere Brittany Urea nitrogen [Mass/Vol] 10.0 mg/dL Normal 7.0-17.0 [facility] Comment on above: Performed By: #### B MP #### [facility] [address] [place] [address] Mere Brittany Urea nitrogen/Creatinine [Mass ratio] 16.1 mg/mg Normal [facility] Comment on above: Performed By: #### B MP #### [facility] [address] [place] [address] Mere Brittany CBC W MANUAL DIFFon 10-29-19 21 ATYPICAL LYMPH # 0.03 103/ul Normal [facility] Comment on above: Performed By: #### L ACT #### [facility] [address] [place] [address] Mere Brittany ATYPICAL LYMPH % 2 % Normal [facility] Comment on above: Performed By: #### L ACT #### [facility] [address] [place] [address] Mere Brittany BAND # 0.0 103/ul Normal 0.0-0.3 [facility] Comment on above: Performed By: #### L ACT #### [facility] [address] [place] [address] Mere Brittany BAND % 0 % Normal 0-5 [facility] Comment on above: Performed By: #### L ACT #### [facility] [address] [place] [address] Mere Brittany BASOM # 0.00 103/ul Normal 0.00-0.10 [facility] Comment on above: Performed By: #### L ACT #### [facility] [address] [place] [address] Mere Brittany BASOM % 0.0 % Critically low 0.2-2.0 [facility] Comment on above: Performed By: #### L ACT #### [facility] [address] [place] [address] Mere Brittany BLAST # Normal [facility] Comment on above: Performed By: #### L ACT #### [facility] [address] [place] [address] Mere Brittany BLAST % Normal [facility] Comment on above: Performed By: #### L ACT #### [facility] [address] [place] [address] Mere Brittany CORRECTED WBC Normal 4.0-11.0 [facility] Comment on above: Performed By: #### L ACT #### [facility] [address] [address] Mere Brittany EOS # 0.00 103/ul Normal 0.00-0.70 [facility] Comment on above: Performed By: #### L ACT #### [facility] [address] [id number] Mere Brittany EOS% 0.0 % Critically low 0.9-7.0 [facility] Comment on above: Performed By: #### L ACT #### [facility] [address] [address] Mere Brittany HCT 34.0 % Critically low 36.0-48.0 [facility] Comment on above: Performed By: #### L ACT #### [facility] [address] [place] [address] Mere Brittany HGB 11.6 g/dl Critically low 12.0-16.0 [facility] Comment on above: Performed By: #### L ACT #### [facility] [address] [place] [address] Mere Brittany LYMPHM # 0.36 103/ul Critically low 1.20-3.80 [facility] Comment on above: Performed By: #### L ACT #### [facility] [address] [place] [address] Mere Brittany LYMPHM% 26.0 % Normal 20.5-60.0 [facility] Comment on above: Performed By: #### L ACT #### [facility] [address] [place] [address] Mere Brittnay MCH 30.7 pg Normal 26.7-34.0 [facility] Comment on above: Performed By: #### L ACT #### [facility] [address] [place] [address] Mere Brittany MCHC 34.1 g/dl Normal 29.9-35.2 [facility] Comment on above: Performed By: #### L ACT #### [facility] [address] [place] [address] Mere Soto MCV 89.9 fL Normal 81.0-99.0 [facility] Comment on above: Performed By: #### L ACT #### [facility] [address] [place] [address] Mere Brittany METAMYELOCYTE # Normal [facility] Comment on above: Performed By: #### L ACT #### [facility] [address] [place] [address] Mere Brittany METAMYELOCYTE % Normal [facility] Comment on above: Performed By: #### L ACT #### [facility] [address] [place] [address] Mere Brittany MONOM# 0.21 103/ul Critically low 0.30-0.80 [facility] Comment on above: Performed By: #### L ACT #### [facility] [address] [place] [address] Mere Brittany MONOM% 15.0 % Critically high 1.7-12.0 [facility] Comment on above: Performed By: #### L ACT #### [facility] [address] [place] [address] Mereshahnaz Patelen MPV 9.1 fL Critically low 9.5-13.5 [facility] Comment on above: Performed By: #### L ACT #### [facility] [address] [place] [address] Mere Brittany MYELOCYTE # Normal [facility] Comment on above: Performed By: #### L ACT #### [facility] [address] [place] [address] Mere Brittany MYELOCYTE % Normal [facility] Comment on above: Performed By: #### L ACT #### [facility] [address] [place] [address] Mere Brittany NRBC Normal [facility] Comment on above: Performed By: #### L ACT #### [facility] [address] [place] [address] Mere Brittany PLT 166 103/ul Normal 150-450 [facility] Comment on above: Performed By: #### L ACT #### [facility] [address] [id number] Mere S[place] RBC 3.78 106/ul Critically low 4.20-5.40 [facility] Comment on above: Performed By: #### L ACT #### [facility] [address] [id number] Mere Soto RDW 13.0 % Normal 11.0-15.0 [facility] Comment on above: Performed By: #### L ACT #### [facility] [address] [place] [address] Mere Soto SEG # 0.80 103/ul Critically low 1.40-6.50 [facility] Comment on above: Performed By: #### L ACT #### [facility] [address] [place] [address] Mere Soto SEG % 57.0 % Normal 43.0-75.0 [facility] Comment on above: Performed By: #### L ACT #### [facility] [address] [place] [address] Mere Soto WBC 1.4 103/ul Critically low 4.0-11.0 [facility] Comment on above: Performed By: #### L ACT #### [facility] [address] [place], [place] [id number] Mere S[place] CULTURE BLOODon 10-28-2020 Microscopic examination of blood, culture Culture Observations: No growth at 5 days Normal [facility] Comment on above: Performed By: #### C BC #### [facility] [address] [place] [address] Mere Soto CULTURE SPUTUMon 10-28-2020 CULTURE SPUTUM Culture Observations : Normal respiratory bee. Normal [facility] Comment on above: Performed By: #### C BC #### [facility] [address] [place], [place] [id number] Mere Soto PROF CHEM 8 (BAS METB)on Anion gap [Moles/Vol] 16.1 mmol/L Normal [facility] Comment on above: Performed By: #### B MP #### [facility] [address] [address] Mere Brittany Calcium [Mass/Vol] 8.4 mg/dL Normal 8.4-10.2 [facility] Comment on above: Performed By: #### B MP #### [facility] [address] [address] Mere Brittany Chloride [Moles/Vol] 104 mmol/L Normal 98-107 [facility] Comment on above: Performed By: #### B MP #### [facility] [address] [address] Mere Brittany CO2 [Moles/Vol] 21.2 mmol/L Critically low 22.0-30.0 [facility] Comment on above: Performed By: #### B MP #### [facility] [address] [address] Mere Brittany Creatinine [Mass/Vol] 0.77 mg/dL Normal 0.52-1.04 [facility] Comment on above: Performed By: #### B MP #### [facility] [address] [address] Mere Brittany EGFR-AF BURKINAN >60 Normal >=60 [facility] Comment on above: Performed By: #### B MP #### [facility] [address] [address] Mere Brittany EGFR-NON AF BURKINAN >60 Normal >=60 [facility] Comment on above: Performed By: #### B MP #### [facility] [address] [address] Mere Brittany Glucose [Mass/Vol] 81 mg/dL Normal 74-106 [facility] Comment on above: Performed By: #### B MP #### [facility] [address] [id number] Mere Brittany Potassium [Moles/Vol] 3.3 mmol/L Critically low 3.4-5.0 [facility] Comment on above: Performed By: #### B MP #### [facility] [address] [address] Mere Brittany Sodium [Moles/Vol] 138 mmol/L Normal 137-145 [facility] Comment on above: Performed By: #### B MP #### [facility] [address] [address] Mere Brittany Urea nitrogen [Mass/Vol] 10.0 mg/dL Normal 7.0-17.0 [facility] Comment on above: Performed By: #### B MP #### [facility] [address] [address] Mere Brittany Urea nitrogen/Creatinine [Mass ratio] 13.0 mg/mg Normal [facility] Comment on above: Performed By: #### B MP #### [facility] [address] [place] [address] Mere Brittany SPUTUM GRAM STAINon 10-29-19 COMMENTS Normal [facility] Comment on above: Performed By: #### S PUTGS #### [facility] [address] [place] [address] Mere Brittany DIPHTHEROIDS Normal [facility] Comment on above: Performed By: #### S PUTGS #### [facility] [address] [place] [address] Mere Brittany EPITHELIALS <25 Normal [facility] Comment on above: Performed By: #### S PUTGS #### [facility] [address] [place] [address] Mere Brittany FUNGAL ELEMENTS Normal [facility] Comment on above: Performed By: #### S PUTGS #### [facility] [address] [place] [address] Mere Brittany GRAM NEG BACILLI Normal [facility] Comment on above: Performed By: #### S PUTGS #### [facility] [address] [place] [address] Mere Brittany GRAM NEG DIPPLOCOCCI Normal [facility] Comment on above: Performed By: #### S PUTGS #### [facility] [address] [place] [address] Mere Brittany GRAM POS BACILLI MANY Normal [facility] Comment on above: Performed By: #### S PUTGS #### [facility] [address] [place] [address] Mere Brittany GRAM POSITIVE COCCI MANY Normal [facility] Comment on above: Performed By: #### S ARABELLA #### [facility] [address] [place] [address] Mere Soto WBC (Bld) [#/Vol] 10*3/uL Normal [facility] Comment on above: Performed By: #### S ARABELLA #### [facility] [address] [place] [address] Mere Brittany CBC W MANUAL DIFFon 10-28-19 21 ATYPICAL LYMPH # 0.02 103/ul Normal [facility] Comment on above: Performed By: #### Nia DE LA PAZ PERSMR #### [facility] [address] [place] [address] Mere Brittany ATYPICAL LYMPH % 2 % Normal [facility] Comment on above: Performed By: #### Nia DE LA PAZ PERSMR #### [facility] [address] [place] [address] Mere Brittany BAND # 0.0 103/ul Normal 0.0-0.3 [facility] Comment on above: Performed By: #### Nia DE LA PAZ PERSMR #### [facility] [address] [place] [address] Mere Brittany BAND % 0 % Normal 0-5 [facility] Comment on above: Performed By: #### Nia DE LA PAZ PERSMR #### [facility] [address] [place] [address] Mere Brittany BASOM # 0.00 103/ul Normal 0.00-0.10 [facility] Comment on above: Performed By: #### Nia DE LA PAZ PERSMR #### [facility] [address] [place] [address] Mere Brittany BASOM % 0.0 % Critically low 0.2-2.0 [facility] Comment on above: Performed By: #### Nia DE LA PAZ PERSMR #### [facility] [address] [place] [address] Mere Brittany BLAST # Normal [facility] Comment on above: Performed By: #### Nia DE LA PAZ PERSMR #### [facility] [address] [id number] Mere Brittany BLAST % Normal [facility] Comment on above: Performed By: #### Nia DE LA PAZ PERSMR #### [facility] [address] [id number] Mere Brittany CORRECTED WBC Normal 4.0-11.0 [facility] Comment on above: Performed By: #### Nia DE LA PAZ PERSMR #### [facility] [address] [address] Mere Brittany EOS # 0.02 103/ul Normal 0.00-0.70 [facility] Comment on above: Performed By: #### Nia DE LA PAZ PERSMR #### [facility] [address] [address] Mere Brittany EOS% 2.0 % Normal 0.9-7.0 [facility] Comment on above: Performed By: #### Nia DE LA PAZ PERSMR #### [facility] [address] [place] [address] Mere Brittany HCT 38.3 % Normal 36.0-48.0 [facility] Comment on above: Performed By: #### Nia DE LA PAZ PERSMR #### [facility] [address] [place] [address] Mere Brittany HGB 13.0 g/dl Normal 12.0-16.0 [facility] Comment on above: Performed By: #### Nia DE LA PAZ PERSMR #### [facility] [address] [address] Mere Brittany LYMPHM # 0.13 103/ul Critically low 1.20-3.80 [facility] Comment on above: Performed By: #### Nia DE LA PAZ PERSMR #### [facility] [address] [place] [address] Mere Brittany LYMPHM% 14.0 % Critically low 20.5-60.0 [facility] Comment on above: Performed By: #### Nia DE LA PAZ PERSMR #### [facility] [address] [place] [address] Mere Brittany MCH 30.4 pg Normal 26.7-34.0 [facility] Comment on above: Performed By: #### Nia DE LA PAZ PERSMR #### [facility] [address] [id number] Mere Soto MCHC 33.9 g/dl Normal 29.9-35.2 [facility] Comment on above: Performed By: #### Nia DE LA PAZ, PERSMR #### [facility] [address] [address] Mere Soto MCV 89.7 fL Normal 81.0-99.0 [facility] Comment on above: Performed By: #### Nia DE LA PAZ, PERSMR #### [facility] [address] [place] [address] Me[place] S[place] METAMYELOCYTE # Normal [facility] Comment on above: Performed By: #### Nia DE LA PAZ, PERSMR #### [facility] [address] [place] [address] Me[place] S[place] METAMYELOCYTE % Normal [facility] Comment on above: Performed By: #### Nia DE LA PAZ PERSMR #### [facility] [address] [place] [address] Mereshahnaz Soto MONOM# 0.16 103/ul Critically low 0.30-0.80 [facility] [place] [facility] Comment on above: Performed By: #### Nia DE LA PAZ, PERSMR #### [facility] [address] [place] [address] Mere Soto MONOM% 18.0 % Critically high 1.7-12.0 [facility] Comment on above: Performed By: #### Nia DE LA PAZ, PERSMR #### [facility] [address] [place] [address] Mere S[place] MPV 8.6 fL Critically low 9.5-13.5 [facility] Comment on above: Performed By: #### Nia DE LA PAZ, PERSMR #### [facility] [address] [place] [address] Mere Brittany MYELOCYTE # Normal [facility] Comment on above: Performed By: #### Nia DE LA PAZ, PERSMR #### [facility] [address], [place] [address] Mere Brittany MYELOCYTE % Normal [facility] Comment on above: Performed By: #### Nia DE LA PAZ, PERSMR #### [facility] [address] [id number] Mere Brittany NRBC Normal [facility] Comment on above: Performed By: #### Nia DE LA PAZ, PERSMR #### [facility] [address] [id number] Mere Brittany PLT 183 103/ul Normal 150-450 [facility] Comment on above: Performed By: #### Nia DE LA PAZ, PERSMR #### [facility] [address] [place] [address] Mere Brittany RBC 4.27 106/ul Normal 4.20-5.40 [facility] Comment on above: Performed By: #### Nia DE LA PAZ, PERSMR #### [facility] [address] [place] [address] Mere Brittany RDW 12.8 % Normal 11.0-15.0 [facility] Comment on above: Performed By: #### Nia DE LA PAZ, PERSMR #### [facility] [address] [place] [address] Mere Brittany SEG # 0.58 103/ul Critically low 1.40-6.50 [facility] [place] [facility] Comment on above: Performed By: #### Nia DE LA PAZ, PERSMR #### [facility] [address] [place] [address] Mere Brittany SEG % 64.0 % Normal 43.0-75.0 [facility] Comment on above: Performed By: #### Nia DE LA PAZ, PERSMR #### [facility] [address] [place], [place] [id number] Mere Brittany WBC 0.9 103/ul Critically low 4.0-11.0 [facility] Comment on above: Result Comment: test repeated critical value verified Performed By: #### Nia DE LA PAZ, PERSMR #### [facility] [address] [place], [place] [id number] Mere Brittany ER URINE PROFILEon 1 Bilirubin Ql (U) MODERATE Abnormal NEGATIVE [facility] Comment on above: Performed By: #### C BC #### [facility] [address] [place] [address] Mere Brittany Clarity (U) CLEAR Normal CLEAR [facility] Comment on above: Performed By: #### C BC #### [facility] [address] [place] [address] Mere Brittany Color (U) YELLOW Normal YELLOW [facility] Comment on above: Performed By: #### C BC #### [facility] [address] [place] [address] Mere Brittany ERUAHD A micrscopic examination will be performed if indicated. Normal [facility] Comment on above: Performed By: #### C BC #### [facility] [address] [place] [address] Mere Brittany Glucose Ql (U) Negative Normal NEGATIVE [facility] Comment on above: Performed By: #### C BC #### [facility] [address] [place] [address] Mere Brittany Hemoglobin Ql (U) SMALL Abnormal NEGATIVE [facility] Comment on above: Performed By: #### C BC #### [facility] [address] [place] [address] Mere Brittany Ketones Ql (U) >=80 Abnormal NEGATIVE The [facility] Comment on above: Performed By: #### C BC #### [facility] [address] [place] [address] Mere Brittany LEUKOCYTES Negative Normal NEGATIVE [facility] Comment on above: Performed By: #### C BC #### [facility] [address] [place] [address] Mere Brittany Nitrite Ql (U) Negative Normal NEGATIVE [facility] Comment on above: Performed By: #### C BC #### [facility] [address] [place] [address] Mere Brittany pH (U) 6.0 [pH] Normal 5-9 [facility] Comment on above: Performed By: #### C BC #### [facility] [address] [place] [address] Mere Soto Protein (U) [Mass/Vol] 30 mg/dL Abnormal NEGATIVE/ TRACE [facility] Comment on above: Performed By: #### C BC #### [facility] [address] [place], [place] [id number] Mere Soto SPEC GRAVITY 1.020 Normal 1.005-<=1.025 The [facility] Comment on above: Performed By: #### C BC #### [facility] [address] [place], [place] [id number] Mere Soto UR MICRO IND INDICATED Normal [facility] Comment on above: Performed By: #### C BC #### [facility] [address] [place], [place] [id number] Mere Soto Urobilinogen Qn (U) 1.0 {Sage'U}/dL Normal 0.2 - 1. 0 [facility] Comment on above: Performed By: #### C BC #### [facility] [address] [place], [place] [id number] Mere Soto LACTATE/LACTIC ACIDon 2020 Lactate [Moles/Vol] 1.3 mmol/L Normal 0.7-2.0 [facility] Comment on above: Performed By: #### L ACT #### [facility] [address] [place], [place] [id number] Mere Soto LIPASEon 10-27-2020 Lipase [Catalytic activity/Vol] 94.0 U/L Normal 23.0-300.0 [facility] Comment on above: Performed By: #### C BC #### [facility] [address] [place], [place] [id number] Mere Soto PERIPHERAL SMEARon Pathologist Cyto stain Nom (Cvx/Vag) [ID] DR. COLLETTE COKER Normal [facility] Comment on above: Result Comment: Neut ropenia and lymphopenia of unknown etiology. CPT: [address] Dr. Collette Coker 10/30/2020 Performed By: #### C BRAIN PERSMR #### [facility] [address] [place], [place] [id number] Mere S[place] PROF 14(COMP METB)on 021 Albumin [Mass/Vol] 3.2 g/dL Critically low 3.5-5.0 Th e [facility] Comment on above: Performed By: #### C BC #### [facility] [address] [place], [place] [address] Mere Brittany Albumin/Globulin [Mass ratio] 0.7 {ratio} Normal [facility] Comment on above: Performed By: #### C BC #### [facility] [address] [place] [address] Mere Brittany ALP [Catalytic activity/Vol] 59 U/L Normal 38-126 [facility] Comment on above: Performed By: #### C BC #### [facility] [address] [place] [address] Mere Brittany ALT [Catalytic activity/Vol] 24 U/L Normal 9-52 [facility] Comment on above: Performed By: #### C BC #### [facility] [address] [place] [address] Mere Brittany Anion gap [Moles/Vol] 16.7 mmol/L Normal [facility] Comment on above: Performed By: #### C BC #### [facility] [address] [place] [address] Mere Brittany AST [Catalytic activity/Vol] 21 U/L Normal 14-36 [facility] Comment on above: Performed By: #### C BC #### [facility] [address] [place], [place] [id number] Mere Brittany Bilirubin [Mass/Vol] 0.4 mg/dL Normal 0.2-1.3 [facility] Comment on above: Performed By: #### C BC #### [facility] [address] [place], [place] [address] Mere Brittany Calcium [Mass/Vol] 8.8 mg/dL Normal 8.4-10.2 [facility] Comment on above: Performed By: #### C BC #### [facility] [address] [place], [place] [address] Mere Brittany Chloride [Moles/Vol] 98 mmol/L Normal 98-107 [facility] Comment on above: Performed By: #### C BC #### [facility] [address] [id number] Mere Brittany CO2 [Moles/Vol] 25.0 mmol/L Normal 22.0-30.0 [facility] Comment on above: Performed By: #### C BC #### [facility] [address] [id number] Mere Brittany Creatinine [Mass/Vol] 0.92 mg/dL Normal 0.52-1.04 [facility] Comment on above: Performed By: #### C BC #### [facility] [address] [place], [place] [address] Mere Brittany EGFR-AF BURKINAN >60 Normal >=60 [facility] Comment on above: Performed By: #### C BC #### [facility] [address] [place] [address] Mere Brittany EGFR-NON AF BURKINAN >60 Normal >=60 [facility] Comment on above: Performed By: #### C BC #### [facility] [address] [place], [place] [id number] Emre Brittany Globulin (S) [Mass/Vol] 4.8 g/dL Normal [facility] Comment on above: Performed By: #### C BC #### [facility] [address] [place] [address] Mere Brittany Glucose [Mass/Vol] 93 mg/dL Normal 74-106 [facility] Comment on above: Performed By: #### C BC #### [facility] [address] [place] [address] Mere Brittany Potassium [Moles/Vol] 3.7 mmol/L Normal 3.4-5.0 [facility] Comment on above: Performed By: #### C BC #### [facility] [address] [place], [place] [address] Mere Brittany Protein [Mass/Vol] 8.0 g/dL Normal 6.1-8.2 [facility] Comment on above: Performed By: #### C BC #### [facility] [address] [address] Mere Brittany Sodium [Moles/Vol] 136 mmol/L Critically low 137-145 [facility] e [facility] Comment on above: Performed By: #### C BC #### [facility] [address] [place] [address] Mereshahnaz Soto Urea nitrogen [Mass/Vol] 14.0 mg/dL Normal 7.0-17.0 [facility] Comment on above: Performed By: #### C BC #### [facility] [address] [place] [address] Mere Brittany Urea nitrogen/Creatinine [Mass ratio] 15.2 mg/mg Normal [facility] Comment on above: Performed By: #### C BC #### [facility] [address] [place] [address] Mere Soto TROPONIN, HIGH SENSITIVITYon 10-27-2020 HSTROP 10.4 pg/mL Normal 4.0-35.5 [facility] Comment on above: Result Comment: CUT- OFF POINTS HAVE BEEN ESTABLISHED BASED ON THE FOURTH UNIVERSAL DEFINITIONS OF MYOCARDIAL INFARCTION. THE UPPER REFERENCE LIMIT (URL) OF TROPONIN, DEFINED THE 99TH PERCENTILE OF cTnI DISTRIBUTION IN A REFERENCE POPULATION, HAS BEEN CONFIRMED THE DECISION THRESHOLD FOR TX DIAGNOSIS. Performed By: #### C BC #### [facility] [address] [place] [address] Mere Brittany URINE MICROSCOPIC ONLYon BACTERIA TRACE Abnormal NONE SEEN [facility] Comment on above: Performed By: #### C BC #### [facility] [address] [place] [address] Mere Brittany Bacteria identified Cx Nom (U) NOT INDICATED Normal [facility] Comment on above: Performed By: #### C BC #### [facility] [address] [place], [place] [id number] Mere Brittany CAST NONE SEEN Normal NONE SEEN [facility] Comment on above: Performed By: #### C BC #### [facility] [address] [place], [place] [id number] Mere Brittany Crystals LM Nom (Urine sed) NONE SEEN Normal NONE SEEN [facility] Comment on above: Performed By: #### C BC #### [facility] [address] [place] [address] Mere Brittany Epithelial cells LM Ql (Urine sed) RARE Normal NONE SEEN /RARE [facility] Comment on above: Performed By: #### C BC #### [facility] [address] [place] [address] Mere Brittany MUCOUS NONE SEEN Normal NONE SEEN [facility] Comment on above: Performed By: #### C BC #### [facility] [address] [place] [address] Mere Brittany RBC 2-5 Abnormal 0-2 [facility] Comment on above: Performed By: #### C BC #### [facility] [address] [place] [address] Mere Brittany WBC NONE SEEN Normal NONE SEEN [facility] Comment on above: Performed By: #### C BC #### [facility] [address] [place] [address] Mere Brittany XR CHEST 1 Von 10-27-2020 [...] AYLIN JOHNSON Date: 2020-10-27 20:41 Normal [facility] CBC AUTO DIFFon 07-27-2020 BASO # 0.0 103/ul Normal 0.0-0.1 [facility] Comment on above: Performed By: #### C BC #### [facility] [address] [place] [address] Mere Brittany Basophils/100 WBC (Bld) 0.5 % Normal 0.2-2.0 [facility] Comment on above: Performed By: #### C BC #### [facility] [address] [place] [address] Mere Brittany EO # 0.1 103/ul Normal 0.0-0.7 [facility] Comment on above: Performed By: #### C BC #### [facility] [address] [place] [address] Mere Brittany Eosinophils/100 WBC (Bld) 3.2 % Normal 0.9-7.0 [facility] Comment on above: Performed By: #### C BC #### [facility] [address] [place] [address] Mere Brittany Erythrocyte distribution width (RBC) [Ratio] 12.6 % Normal 11.0-15.0 [facility] Comment on above: Performed By: #### C BC #### [facility] [address] [place] [address] Mere Brittany Hematocrit (Bld) [Volume fraction] 39.9 % Normal 36.0-48.0 [facility] Comment on above: Performed By: #### C BC #### [facility] [address] [place] [address] Mere Brittany Hemoglobin (Bld) [Mass/Vol] 13.5 g/dL Normal 12.0-16.0 [facility] Comment on above: Performed By: #### C BC #### [facility] [address] [place] [address] Mere Brittany IG # 0.01 10e3/ul Normal 0.00-0.03 [facility] Comment on above: Performed By: #### C BC #### [facility] [address] [place] [address] Mere Brittany IG % 0.2 % Normal 0.0-0.5 [facility] Comment on above: Performed By: #### C BC #### [facility] [address] [place] [address] Mere Brittany LYMPH # 1.1 103/ul Critically low 1.2-3.8 [facility] Comment on above: Performed By: #### C BC #### [facility] [address] [place] [address] Mere Brittany Lymphocytes/100 WBC (Bld) 24.0 % Normal 20.5-60.0 [facility] Comment on above: Performed By: #### C BC #### [facility] [address] [place], [place] [id number] Mere Soto MANUAL DIFF REQ NO Normal [facility] Comment on above: Performed By: #### C BC #### [facility] [address] [place], [place] [address] Mereshahnaz Soto MCH (RBC) [Entitic mass] 30.7 pg Normal 26.7-34.0 [facility] Comment on above: Performed By: #### C BC #### [facility] [address] [place] [address] Mereshahnaz Soto MCHC (RBC) [Mass/Vol] 33.8 g/dL Normal 29.9-35.2 [facility] Comment on above: Performed By: #### C BC #### [facility] [address] [place] [address] Mereshahnaz Soto MCV (RBC) [Entitic vol] 90.7 fL Normal 81.0-99.0 [facility] Comment on above: Performed By: #### C BC #### [facility] [address] [place], [place] [address] Mereshahnaz Soto MONO # 0.5 103/ul Normal 0.3-0.8 [facility] Comment on above: Performed By: #### C BC #### [facility] [address] [place] [address] Mere Soto Monocytes/100 WBC (Bld) 10.4 % Normal 1.7-12.0 [facility] Comment on above: Performed By: #### C BC #### [facility] [address] [place], [place] [address] Mere Brittany NEUT # 2.7 103/ul Normal 1.4-6.5 [facility] Comment on above: Performed By: #### C BC #### [facility] [address] [place] [address] Mere Brittany Neutrophils/100 WBC (Bld) 61.7 % Normal 43.0-75.0 [facility] Comment on above: Performed By: #### C BC #### [facility] [address] [place], [place] [address] Mere Soto Platelet mean volume (Bld) [Entitic vol] 8.8 fL Critically low 9.5-13.5 [facility] Comment on above: Performed By: #### C BC #### [facility] [address] [place], [place] [address] Mere Soto PLT 224 103/ul Normal 150-450 [facility] Comment on above: Performed By: #### C BC #### [facility] [address] [place], [place] [address] Mere Brittany RBC 4.40 106/ul Normal 4.20-5.40 [facility] Comment on above: Performed By: #### C BC #### [facility] [address] [place] [address] Mere Patelen WBC 4.4 103/ul Normal 4.0-11.0 [facility] Comment on above: Performed By: #### C BC #### [facility] [address] [place] [address] Mere Soto MRI BRAIN W WO CONTRASTon [...] Max Hunter MD 09/01/19 Final result Normal [facility] MRI ORBITS FACE NECK W WO [...] MD Signed by: Max Hunter MD 09/01/19 CC Recipients: Jase Agustin MD - In Basket Final result Normal [facility] Other 09-01-2019 1. There is an area of [...] communicated to the referring/covering health care provider/office. [facility], [place] EXAMINATION: MRI OF THE BRAIN WITHOUT AND [...] extraocular muscles are symmetric. No orbital mass. [facility] Incoming Radiant Results From [facility] - 09/01/2019 10:44 AM EST EXAMINATION: MRI [...] communicated to the referring/covering health care provider/office. [place], [place] Coding Summary.on 01-12-2019 Coding Summary. 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: Commercial Insurance [...] CphT Date Saved: 01/12/2019 11:24 am Normal [facility] Hbv Core Abon 01-12-2019 HBV core Ab IA Ql Negative Negative [facility] Comment on above: Result Comment: Perf ormed at: [facility] [id number] PhD Roshan Carmona Performed By: #### 2 517188, 0324140, 4048685, 81285656, 2561864, 8624139, 44435693, 83058462 ####[facility] [address] [place] [address] HBV core IgM IA Ql Negative Negative [facility] Comment on above: Performed By: #### 2 889699, 4150119, 9317221, 85838049, 2167732, 5855532, 39472951, 13923213 ####[facility] [address] [place] [address] Hep Bs Agon 01-12-2019 HBV surface Ag IA Ql Negative Negative [facility] Comment on above: Result Comment: Perf ormed at: [facility] [address] [id number] PhD Roshan Carmona Performed By: #### 2 465518, 9293648, 4824947, 13666630, 5402048, 5787157, 76908150, 93622480 #### [facility] [address] [place] [address] Varic IgGon 01-12-2019 VZV IgG IA Qn (S) 2223 Immune >165 [facility] Comment on above: Result Comment: Nega tive <135 Equivocal 135 - 165 Positive >165 A positive result generally indicates exposure to the pathogen or administration of specific immunoglobulins, but it is not indication of active infection or stage of disease. Performed at: [facility] [address] [place] [id number] PhD Roshan Carmona Performed By: #### 2 848877, 7208920, 4270647, 62049371, 2967678, 5698509, 69651277, 08075398 ####[facility] [address] [place] [address] Auto Diffon 01-11-2019 Basophils/100 WBC (Bld) 0.7 % Normal 0.0-2.0 [facility] Comment on above: Order Comment: Order Added by Discern Expert. Performed By: #### 2 028341, 8570172, 8834865, 41092729, 9449830, 8025357, 40354708, 21127163 #### [facility] [address] [place] [address] Basophils/Leukocyte s Auto (Bld) [Pure # fraction] 0.0 E9/L Normal 0.0-0.2 [facility] Comment on above: Order Comment: Order Added by Discern Expert. Performed By: #### 2 796932, 6428400, 8920407, 15215702, 6336240, 3086600, 07711042, 37884006 #### [facility] [address] [place] [address] Eosinophils/100 WBC (Bld) 3.3 % Normal 0.0-8.0 [facility] Comment on above: Order Comment: Order Added by Discern Expert. Performed By: #### 2 945223, 2971861, 0360796, 71669862, 5858960, 1143396, 04631154, 27754699 #### [facility] [address] [place] [address] Eosinophils/Leukocy cassi Auto (Bld) [Pure # fraction] 0.2 E9/L Normal 0.0-0.5 [facility] Comment on above: Order Comment: Order Added by Discern Expert. Performed By: #### 2 712128, 2997094, 8464859, 28400751, 6063991, 6359993, 06547395, 86528321 #### [facility] [address] [place] [address] Lymphocytes/100 WBC (Bld) 28.7 % Normal 14.0-50.0 [facility] Comment on above: Order Comment: Order Added by Discern Expert. Performed By: #### 2 101854, 5737220, 2906147, 51427250, 3089990, 0184314, 02074415, 77243779 #### [facility] [address] [place] [address] Lymphocytes/Leukocy cassi Auto (Bld) [Pure # fraction] 1.3 E9/L Normal 1.0-4.0 [facility] Comment on above: Order Comment: Order Added by Discern Expert. Performed By: #### 2 240378, 8401218, 4370336, 61942453, 6170696, 3896071, 09787834, 98815475 #### [facility] [address] [place] [address] Monocytes/100 WBC (Bld) 7.4 % Normal 4.0-14.0 [facility] Comment on above: Order Comment: Order Added by Discern Expert. Performed By: #### 2 221069, 0145174, 8011128, 70144948, 1878821, 0817152, 12950056, 85196961 #### [facility] [address] [place] [address] Monocytes/Leukocyte s Auto (Bld) [Pure # fraction] 0.3 E9/L Normal 0.2-1.0 [facility] Comment on above: Order Comment: Order Added by Discern Expert. Performed By: #### 2 487963, 9550046, 6322389, 29151744, 6602340, 1123134, 81470807, 95064399 #### [facility] [address] [place] [address] Neutrophils/100 WBC (Bld) 59.9 % Normal 36.0-75.0 [facility] Comment on above: Order Comment: Order Added by Discern Expert. Performed By: #### 2 772350, 4508096, 6821451, 09381683, 6882195, 5712933, 32327276, 49168744 #### [facility] [address] [place] [address] Neutrophils/Leukocy cassi Auto (Bld) [Pure # fraction] 2.8 E9/L Normal 2.0-7.5 [facility] Comment on above: Order Comment: Order Added by Discern Expert. Performed By: #### 2 813004, 7263417, 7894008, 06508874, 2727166, 7708661, 61158431, 03237419 #### [facility] [address] [place] [address] BMPon 01-11-2019 Anion gap [Moles/Vol] 14 mmol/L Normal 6-16 [facility] Comment on above: Performed By: #### 2 839078, 3104236, 8726472, 55970378, 3920745, 5953086, 12452464, 06594970 #### [facility] [address] [place] [address] Calcium [Mass/Vol] 9.0 mg/dL Normal 8.9-11.1 [facility] Comment on above: Performed By: #### 2 678599, 5299317, 7281020, 36888361, 3313157, 0106095, 24957492, 61076455 #### [facility] [address] [place] [address] Chloride [Moles/Vol] 103 mmol/L Normal 101-111 [facility] Comment on above: Performed By: #### 2 872963, 1343708, 9795573, 35675082, 2151936, 8992292, 95230949, 49388412 #### [facility] [address] [place] [address] CO2 [Moles/Vol] 24 mmol/L Normal 21-31 [facility] Comment on above: Performed By: #### 2 552444, 0378002, 7580206, 78737992, 6521484, 3020806, 42427556, 20432752 #### [facility] [address] [place] [address] Creatinine [Mass/Vol] 0.7 mg/dL Normal 0.5-1.3 [facility] Comment on above: Performed By: #### 2 082574, 5418305, 0237620, 74771476, 0947458, 2069200, 02967388, 40192156 #### [facility] [address] [place] [address] Glucose [Mass/Vol] 104 mg/dL Normal 55-199 [facility] Comment on above: Result Comment: If t his glucose result represents a fasting glucose, interpretation should refer to the following reference range: 55-99 mg/dL Performed By: #### 2 399360, 4569352, 9472461, 65865904, 3332591, 4299422, 69322734, 78198536 #### [facility] [address] [place] [address] Potassium [Moles/Vol] 3.0 mmol/L Low 3.5-5.3 [facility] Comment on above: Performed By: #### 2 606958, 0400890, 5139285, 69821091, 9266626, 8239266, 83786705, 42643791 #### [facility] [address] [place] [address] Sodium [Moles/Vol] 138 mmol/L Normal 135-145 [facility] Comment on above: Performed By: #### 2 494679, 1237283, 7519787, 78565120, 7745546, 2242038, 48598384, 17348676 #### [facility] [address] [place] [address] Urea nitrogen [Mass/Vol] 8 mg/dL Normal 5-21 [facility] Comment on above: Performed By: #### 2 335320, 5553999, 2863130, 83466252, 0194023, 5988620, 18177707, 09714497 #### [facility] [address] [place] [address] Urea nitrogen/Creatinine [Mass ratio] 11 No Units Normal 10-20 [facility] Comment on above: Performed By: #### 2 082687, 2058328, 8285660, 83319878, 7174284, 2107926, 74159608, 14053778 #### [facility] [address] [place] [address] CBC w/ Auto Diffon 9 Erythrocyte distribution width (RBC) [Ratio] 13.8 % Normal 10.9-14.2 [facility] Comment on above: Performed By: #### 2 351935, 4744604, 1047694, 83075851, 0700270, 0843656, 10477281, 83926572 #### [facility] [address] [place] [address] Hematocrit (Bld) [Volume fraction] 41.3 % Normal 34.0-46.0 [facility] Comment on above: Performed By: #### 2 924524, 1369489, 7062517, 80527294, 4898734, 8325756, 12764017, 41414495 #### [facility] [address] [place] [address] Hemoglobin (Bld) [Mass/Vol] 13.9 g/dL Normal 12.0-16.0 [facility] Comment on above: Performed By: #### 2 431670, 8119912, 7781513, 55126672, 2441650, 5300921, 13000013, 06671296 #### [facility] [address] [place] [address] MCH (RBC) [Entitic mass] 29.5 pg Normal 27.0-34.0 [facility] Comment on above: Performed By: #### 2 802443, 2647546, 1065676, 79728019, 3821257, 8696573, 80246167, 78597661 #### [facility] [address] [place] [address] MCHC (RBC) [Mass/Vol] 33.7 g/dL Normal 33.3-35.7 [facility] Comment on above: Performed By: #### 2 753831, 4014796, 7274712, 19539004, 6556660, 6228398, 56486738, 33708762 #### [facility] [address] [place] [address] MCV (RBC) [Entitic vol] 87.5 fL Normal 80.0-100.0 [facility] Comment on above: Performed By: #### 2 760845, 7216934, 7116069, 96774312, 4440359, 5085146, 83940565, 72267826 #### [facility] [address] [place] [address] Platelet mean volume (Bld) [Entitic vol] 7.7 fL Normal 6.4-10.8 [facility] Comment on above: Performed By: #### 2 [id number], 9056142, 1036809, 30936351, 0938531, 6006622, 64619483, [id number] #### [facility] [address] [place] [address] Platelets (Bld) [#/Vol] 290.0 E9/L Normal 150.0-500.0 [facility] Comment on above: Performed By: #### 2 066393, 4564397, 6504658, 05974290, 4376847, 3015290, 02232986, [id number] #### [facility] [address] [place] [address] RBC (Bld) [#/Vol] 4.7 E12/L Normal 4.3-5.9 [facility] Comment on above: Performed By: #### 2 228662, 8486147, 6220598, 60400653, 0100290, 4080317, 51591934, 94590761 #### [facility] [address] [place] [address] WBC corrected for nucl RBC Auto (Bld) [#/Vol] 4.7 E9/L Normal 4.0-11.0 [facility] Comment on above: Performed By: #### 2 459834, 7834176, 8159552, 35575094, 9340270, 1108317, 10441605, 44651052 #### [facility] [address] [place] [address] TSHon 01-11-2019 TSH Qn 1.84 mcIU/mL Normal 0.34-5.60 [facility] Comment on above: Performed By: #### 2 563336, 9598918, 9515503, 91360084, 9143380, 7123489, 15770345, 30827892 #### [facility] [address] [place] [address] Urinalysison 01-11-2019 Bilirubin Ql (U) Negative Normal Negative [facility] Comment on above: Performed By: #### 1 [id number] #### [facility] [address] [place] [address] Clarity (U) CLEAR Normal Clear [facility] Comment on above: Performed By: #### 1 [id number] #### [facility] [address] [place] [address] Color (U) YELLOW Normal Yellow [facility] Comment on above: Performed By: #### 1 [id number] #### [facility] [address] [place] [address] Epithelial cells.squamous LM.HPF (Urine sed) [#/Area] 3-4 Normal 0-2 [facility] Comment on above: Performed By: #### 1 [id number] #### [facility] [address] [place] [address] Glucose Test strip (U) [Mass/Vol] Negative Normal Negative [facility] Comment on above: Performed By: #### 1 [id number] #### [facility] [address] [place] [address] Hemoglobin Ql (U) TRACE Abnormal Negative [facility] Comment on above: Performed By: #### 1 [id number] #### [facility] [address] [place] [address] Ketones (U) [Mass/Vol] Negative Normal Negative [facility] Comment on above: Performed By: #### 1 [id number] #### [facility] [address] [place] [address] [place].plasma/Lith ium.RBC (Bld) [Mass ratio] 0-3 Normal 0-3 [facility] Comment on above: Performed By: #### 1 0610086 #### [facility] [address] [place] [address] Mucus Ql (Urine sed) 1+ Normal [facility] Comment on above: Performed By: #### 1 [id number] #### [facility] [address] [place] [address] Nitrite Ql (U) Negative Normal Negative [facility] Comment on above: Performed By: #### 1 0643683 #### [facility] [address] [place] [address] pH (U) 5.5 [pH] 5.0-9.0 [facility] Comment on above: Performed By: #### 1 4217700 #### [facility] [address] [place] [address] Protein (U) [Mass/Vol] Negative Normal Negative [facility] Comment on above: Performed By: #### 1 [id number] #### [facility] [address] [place] [address] Specific gravity (U) [Rel density] 1.025 1.005-1.030 [facility] Comment on above: Performed By: #### 1 [id number] #### [facility] [address] [place] [address] UA Spec Desc Clean Catch Normal [facility] Comment on above: Performed By: #### 1 [id number] #### [facility] [address] [place] [address] Urobilinogen Qn (U) 0.2 {Sage'U}/dL Normal 0.0-1.0 [facility] Comment on above: Performed By: #### 1 7463476 #### [facility] [address] [place] [address] WBC Auto Ql (U) Negative Normal Negative [facility] Comment on above: Performed By: #### 1 9378867 #### [facility] [address] [place] [address] WBC LM.HPF (Urine sed) [#/Area] 0-5 Normal 0-5 [facility] Comment on above: Performed By: #### 1 0355734 #### [facility] [address] [place] [address] eGFRon 01-11-2019 GFR/1.73 sq M predicted among blacks MDRD (S/P/Bld) [Vol rate/Area] mL/min/{1.73_m2} Normal >=59 [facility] Comment on above: Order Comment: Order added by Discern Expert. Result Comment: eGFR is race adjusted. AA=. Performed By: #### 2 332636, 4566182, 9376195, 00582133, 8329697, 9594672, 18124050, 23065000 #### [facility] [address] [place] [address] GFR/1.73 sq M predicted among non-blacks MDRD (S/P/Bld) [Vol rate/Area] mL/min/{1.73_m2} Normal >=59 [facility] Comment on above: Order Comment: Order added by Discern Expert. Result Comment: Decating Machine Operator gautam kidney disease could be indicated at eGFR's of less than 60 mL/min/1.73m2. Kidney failure is indicated at less than 15 mL/min/1.73m2. Performed By: #### 2 080264, 7121294, 7480585, 77935262, 8716375, 1181115, 82589462, 67112885 #### [facility] [address] [place] [address] Coding Summary.on 12-14-2018 Coding Summary. CODING DATE: 019 FINAL [facility] STATUS: Home (Routine DC) PAYOR: Commercial [...] CphT Date Saved: 12/14/2018 07:18 am Normal [facility] Hep Func Panelon 12-13-2018 Bilirubin.direct [Mass/Vol] UTC Abnormal 0.1-0.9 [facility] Comment on above: Result Comment: Resu lt verified by Discern Rule. Performed result UTC (Unable to Calculate) was sent as an Alpha code due the inability to calculate a valid numeric value. Performed By: #### 2 [id number] #### [facility] [address] [place] [address] Albumin [Mass/Vol] 1.1 g/dL Normal 1.1-2.2 [facility] Comment on above: Performed By: #### 2 973120 #### [facility] [address] [place] [address] Albumin [Mass/Vol] 4.2 g/dL Normal 3.3-5.0 [facility] Comment on above: Performed By: #### 2 031890 #### [facility] [address] [place] [address] ALP [Catalytic activity/Vol] 63 Int._Unit/L Normal 21-98 [facility] Comment on above: Performed By: #### 2 096744 #### [facility] [address] [place] [address] ALT No additional P-5'-P [Catalytic activity/Vol] 21 Int._Unit/L Normal 6-46 [facility] Comment on above: Performed By: #### 2 685644 #### [facility] [address] [place] [address] AST [Catalytic activity/Vol] 19 Int._Unit/L Normal 5-43 [facility] Comment on above: Performed By: #### 2 633234 #### [facility] [address] [place] [address] Bilirubin [Mass/Vol] 0.8 mg/dL Normal 0.0-1.1 [facility] Comment on above: Performed By: #### 2 267800 #### [facility] [address] [place] [address] Bilirubin.direct [Mass/Vol] mg/dL Normal 0.1-0.4 [facility] Comment on above: Performed By: #### 2 598693 #### [facility] [address] [place] [address] Globulin (S) [Mass/Vol] 3.8 g/dL Normal 1.4-4.0 [facility] Comment on above: Performed By: #### 2 611731 #### [facility] [address] [place] [address] Protein [Mass/Vol] 8.0 g/dL High 6.0-7.8 [facility] Comment on above: Performed By: #### 2 531231 #### [facility] [address] [place] [address] MRI Brain w/ + w/o Contrasto n [...] MultiHance Contrast amount in ml's: 20 Normal [facility] Encounters Encounter Date Encounter Type Care Provider Facility Start: 07-19-2021 End: 07-20-[address] JASE AGUSTIN Facility: Start: 10-27-2020 End: 10-30-2020 Evaluation and management of inpatient DR ANGEL SANDERSON Facility:[facility] Start: 07-27-2020 End: 07-28-2020 ambulatory LIZETTE CINDIBibi Facility:[facility] Start: 09-01-2019 End: 09-04-2019 Patient encounter procedure ABEL BOOGIE [facility] Start: 09-01-2019 End: 09-03-2019 Subsequent hospital visit by physician [facility] Sc[facility] MRI Comment on above: Homonymous bilateral field [...] & nec k w/o & w/contrast cynthia Boogie Work Phone: Start: 09-01-2019 Mri brain brain stem w/o w/contrast material Abel Boogie Work Phone: Plan of Treatment Date Care Activity Detail Author Start: 2022 Shingles Vaccine (1 of 2) Shannon gles Vaccine (1 of 2) [place] Start: 03-06-2019 Influenza vaccination Flu vaccine (# 1) [place] Start: 2012 Lipid screen Lipid screen [place], [place] Start: 1993 Cervical cancer screen Cervical canc er screen [place], [place] Start: 1987 HIV screen HIV screen [place] Start: 1983 DTaP/Tdap/Td vaccine (1 - Tdap) DTaP/Tdap/Td vaccine (1 - Tdap) [place] Payers Date Payer Category Payer Unknown [facility] xxxxxxxxxxxx 2014-Present [phone] [place], [place] [id number] xxxxxxxxxxxx [id number] 1972 Unknown [id number] 1972 Unknown [id number] 1972 Unknown [id number] 1972 Unknown [id number] 1972 Unknown [id number] 1959 Unknown [id number] Social History Date Type Detail Facility Tobacco smoking status NHIS Unknown if ev er smoked [place], [place] Sex Assigned At Not on file [place] Summary Purpose Family History No Family History Records FoundNo Family History Records FoundNo Family History Records Found Advance Directives No Advanced Directives Records FoundDocuments on File Type Date Recorded 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 Expl anation Advance Directives and Living Will Power of Oxygen Equipment Preparer Reason for Referral Status Reason Specialty Diagnoses / Procedures Referred By Contact Referred To Contact Canceled Radiology Diagnoses 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, left MS (multiple sclerosis) ([facility]) Procedures MRI ORBITS FACE NECK W WO CONTRAST Abel Boogie, DO [address] [place] [address] Assessments Diagnosis 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, left MS (multiple sclerosis) (HCC) Multiple sclerosis Diagnosis Heteronymous bilateral field defects Heteronymous bilateral field defects in visual field MS (multiple sclerosis) (HCC) Multiple sclerosis Visual field defect of left eye 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, left Additional Source Comments INFORMATION SOURCE (unrecogn ized section and content) DATE CREATED AUTHOR [facility]/16/2019 [facility] DATE CREATED AUTHOR AUTHOR'S ORGANIZ ATION 09/03/2019 [facility] DATE CREATED AUTHOR AUTHOR'S ORGANIZ ATION 07/24/2021 [facility] Reason for Visit (unrecogniz ed section and content) Status Reason Specialty Diagnoses / Procedures Referred By Contact Referred To Contact Authorized Radiology Diagnoses MS (multiple sclerosis) (HCC) Visual field defects Procedures HC MRI FACE NECK EYE W CONTRAST Abel Boogie, DO [address] [place] [address] [place] [address] Status Reason Specialty Diagnoses / Procedures Referred By Contact Referred To Contact Authorized Radiology Diagnoses MS (multiple sclerosis) (HCC) Visual field defects Procedures HC MRI-BRAIN WO & W CONTRAST Abel Boogie, DO [address] [place] [address] [place] [address] FOR RECORDS PERTAINING TO PATIENTS WHO ARE [...] BE BASED ON THE PRIMARY CLINICAL RECORDS. [facility]. provides no warranty or guarantee of the accuracy or completeness of information in this document.
== END 2023-11-16 09:27 | disposition home or self-care (01) ==
PROVIDERS: PCP Family Medicine; Visit Provider Orthopaedic Surgery
DX: S82.241D Displaced spiral fracture of shaft of right tibia, subsequent encounter for closed fracture with routine healing (principal); S82.441D Displaced spiral fracture of shaft of right fibula, subsequent encounter for closed fracture with routine healing
CPT/HCPCS: 73590

== ENCOUNTER 2024-02-15 08:56 | Outpatient (OUT) | payer SELFPAY ==
--- NOTE | 2024-02-15 09:02 | XR_ITS ---
The [address] [address] Patient Name: LILI MADRID MRN: [id number] date: 1970 Sex: F Assigned Patient Location: Current Patient Location: Accession/Order Number: [id number] Exam Date: 02/15/2024 08:57 Report Date: 02/17/2024 06:27 At the request of: DARINEL BROWNIGN Procedure: XR tibia fibula RT 2V PROCEDURE: XR tibia fibula RT 2V HISTORY: RIGHT LOWER LEG PAIN COMPARISON: XR tibia fibula 11/14/2023 FINDINGS: BONES:No evidence of remote fracture of distal tibia and repair via intramedullary abhi and locking screws. No hardware fracture loosening. No new bone fracture. SOFT TISSUES:No visible soft tissue swelling. EFFUSION:None visible. OTHER: Negative. XR/XR tibia fibula RT 2V IMPRESSION: 1. No hardware failure or acute fracture. 2. Remote, healed or nearly completely healed distal tibia fracture. Electronically authenticated by: DARINEL LEWIS Date: 02/17/2024 06:27
--- OUTSIDE RECORDS SUMMARY | 2024-02-15 09:14 | XMS_ITS | CCD ---
Author Organization 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 Name Role Phone ABEL BOOGIE Referring Unavailable ANGEL SANDERSON Primary Care Unavailable ABEL BOOGIE Referring Unavailable ANGEL SANDERSON Primary Care Unavailable Angel Sanderson Primary Care Provider [phone] KVNG, DR ORTIZ Attending Unavailable KVNG, DR ORTIZ Consulting Unavailable KVNG, DR ORTIZ Primary Care Unavailable DR ANGEL SANDERSON Admitting Unavailable CLEMENTINA, DR NICOLAS Consulting Unavailable GERARD LANDEROS Consulting Unavailable SAMAYLIN FISHER Consulting Unavailable CRISTINA, DR LAGUNA Admitting Unavailable DR ANGEL SANDERSON Primary Care Unavailable CRISTINA, DR LAGUNA Attending Unavailable DR JASE AGUSTIN Consulting Unavailable GRAZLIZETTE TAYLOR Admitting Unavailable LIZETTE WILKS Attending Unavailable LIZETTE [...] 11-05-2020 Episodic Other aftercare (1 source) 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; 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 Morris Castro Basophils/100 WBC (Bld) 0.5 % Normal 0.2-2.0 [facility] Comment on above: Performed By: #### C BC #### [facility] [address] [place] [address] Dr. Morris aCstro EO # 0.2 103/ul Normal 0.0-0.7 [facility] Comment on above: Performed By: #### C BC #### [facility] [address] [place] [address] Dr. Morris Castro Eosinophils/100 WBC (Bld) 5.2 % Normal 0.9-7.0 [facility] Comment on above: Performed By: #### C BC #### [facility] [address] [place] [address] Dr. Morris Castro Erythrocyte distribution width (RBC) [Ratio] 12.6 % Normal 11.0-15.0 [facility] Comment on above: Performed By: #### C BC #### [facility] [address] [place] [address] Dr. Morris Castro Hematocrit (Bld) [Volume fraction] 39.0 % Normal 36.0-48.0 [facility] Comment on above: Performed By: #### C BC #### [facility] [address] [place] [address] Dr. Morris Castro Hemoglobin (Bld) [Mass/Vol] 13.1 g/dL Normal 12.0-16.0 [facility] Comment on above: Performed By: #### C BC #### [facility] [address] [place] [address] Dr. Morris Castro IG # 0.02 10e3/ul Normal 0.00-0.03 [facility] Comment on above: Performed By: #### C BC #### [facility] [address] [place] [address] Dr. Morris Castro IG % 0.5 % Normal 0.0-0.5 [facility] Comment on above: Performed By: #### C BC #### [facility] [address] [place] [address] Dr. Morris Castro LYMPH # 0.9 103/ul Critically low 1.2-3.8 [facility] Comment on above: Performed By: #### C BC #### [facility] [address] [place] [address] Dr. Morris Castro Lymphocytes/100 WBC (Bld) 23.1 % Normal 20.5-60.0 [facility] Comment on above: Performed By: #### C BC #### [facility] [address] [place] [address] Dr. Morris Castro MANUAL DIFF REQ NO Normal [facility] Comment on above: Performed By: #### C BC #### [facility] [address] [place] [address] Dr. Morris Castro MCH (RBC) [Entitic mass] 30.3 pg Normal 26.7-34.0 [facility] Comment on above: Performed By: #### C BC #### [facility] [address] [place] [address] Dr. Morris Castro MCHC (RBC) [Mass/Vol] 33.6 g/dL Normal 29.9-35.2 [facility] Comment on above: Performed By: #### C BC #### [facility] [address] [place] [address] Dr. Morris Castro MCV (RBC) [Entitic vol] 90.1 fL Normal 81.0-99.0 [facility] Comment on above: Performed By: #### C BC #### [facility] [address] [place] [address] Dr. Morris Castro MONO # 0.6 103/ul Normal 0.3-0.8 [facility] Comment on above: Performed By: #### C BC #### [facility] [address] [place] [address] Dr. Morris Castro Monocytes/100 WBC (Bld) 15.6 % Critically high 1.7-12.0 [facility] Comment on above: Performed By: #### C BC #### [facility] [address] [place] [address] Dr. Morris Castro NEUT # 2.1 103/ul Normal 1.4-6.5 [facility] Comment on above: Performed By: #### C BC #### [facility] [address] [place] [address] Dr. Morris Castro Neutrophils/100 WBC (Bld) 55.1 % Normal 43.0-75.0 [facility] Comment on above: Performed By: #### C BC #### [facility] [address] [place] [address] Dr. Morris Castro Platelet mean volume (Bld) [Entitic vol] 8.3 fL Critically low 9.5-13.5 [facility] Comment on above: Performed By: #### C BC #### [facility] [address] [place] [address] Dr. Morris Castro PLT 223 103/ul Normal 150-450 [facility] Comment on above: Performed By: #### C BC #### [facility] [address] [place] [address] Dr. Morris Castro RBC 4.33 106/ul Normal 4.20-5.40 [facility] Comment on above: Performed By: #### C BC #### [facility] [address] [place] [address] Dr. Morris Castro WBC 3.9 103/ul Critically low 4.0-11.0 [facility] Comment on above: Performed By: #### C BC #### [facility] [address] [place] [address] Dr. Morris Castro LIVER PROFILEon 07-19-2021 Albumin [Mass/Vol] 3.9 g/dL Normal 3.5-5.0 [facility] Comment on above: Performed By: #### L ACT #### [facility] [address] [place] [address] Mereshahnaz Soto Albumin/Globulin [Mass ratio] 1.2 {ratio} Normal [facility] Comment on above: Performed By: #### L ACT #### [facility] [address] [place], [place] [id number] Emre Brittany ALP [Catalytic activity/Vol] 77 U/L Normal 38-126 [facility] Comment on above: Performed By: #### L ACT #### [facility] [address] [place] [address] Mere Brittany ALT [Catalytic activity/Vol] 45 U/L Normal 9-52 [facility] Comment on above: Performed By: #### L ACT #### [facility] [address] [place], [place] [id number] Mere Brittany AST [Catalytic activity/Vol] 23 U/L Normal 14-36 [facility] Comment on above: Performed By: #### L ACT #### [facility] [address] [place], [place] [id number] Mere Brittany BILI, CONJUGATED 0.1 mg/dL Normal 0.0-0.3 [facility] Comment on above: Performed By: #### L ACT #### [facility] [address] [place], [place] [id number] Mere Brittany Bilirubin [Mass/Vol] 0.6 mg/dL Normal 0.2-1.3 [facility] Comment on above: Performed By: #### L ACT #### [facility] [address] [place], [place] [id number] Mere Brittany Globulin (S) [Mass/Vol] 3.3 g/dL Normal [facility] Comment on above: Performed By: #### L ACT #### [facility] [address] [place], [place] [id number] Mere Brittany Protein [Mass/Vol] 7.2 g/dL Normal 6.1-8.2 [facility] Comment on above: Performed By: #### L ACT #### [facility] [address] [place], [place] [address] Mere Brittany PROF CHEM 8 (BAS METB)on Anion gap [Moles/Vol] 11.8 mmol/L Normal [facility] Comment on above: Performed By: #### C BC #### [facility] [address] [place], [place] [id number] Mere Brittany Calcium [Mass/Vol] 9.0 mg/dL Normal 8.4-10.2 [facility] Comment on above: Performed By: #### C BC #### [facility] [address] [place], [place] [address] Mere Brittany Chloride [Moles/Vol] 106 mmol/L Normal 98-107 [facility] Comment on above: Performed By: #### C BC #### [facility] [address] [place], [place] [address] Mere Brittany CO2 [Moles/Vol] 27.5 mmol/L Normal 22.0-30.0 [facility] Comment on above: Performed By: #### C BC #### [facility] [address] [place], [place] [address] Mere Brittany Creatinine [Mass/Vol] 0.68 mg/dL Normal 0.52-1.04 [facility] Comment on above: Performed By: #### C BC #### [facility] [address] [place], [place] [address] Mere Brittany EGFR-AF KITTITIAN >60 Normal >=60 [facility] Comment on above: Performed By: #### C BC #### [facility] [address] [place], [place] [address] Mere Brittany EGFR-NON AF KITTITIAN >60 Normal >=60 [facility] Comment on above: Performed By: #### C BC #### [facility] [address] [place] [id number] Mere Brittany Glucose [Mass/Vol] 103 mg/dL Normal 74-106 [facility] Comment on above: Performed By: #### C BC #### [facility] [address] [place] [address] Mere Brittany Potassium [Moles/Vol] 4.3 mmol/L Normal 3.4-5.0 [facility] Comment on above: Performed By: #### C BC #### [facility] [address] [place], [place] [address] Mere Brittany Sodium [Moles/Vol] 141 mmol/L Normal 137-145 [facility] Comment on above: Performed By: #### C BC #### [facility] [address] [place], [place] [address] Mere Brittany Urea nitrogen [Mass/Vol] 8.0 mg/dL Normal 7.0-17.0 [facility] Comment on above: Performed By: #### C BC #### [facility] [address] [place], [place] [address] Mere Brittany Urea nitrogen/Creatinine [Mass ratio] 11.8 mg/mg Normal [facility] Comment on above: Performed By: #### C BC #### [facility] [address] [place], [place] [address] Mere Brittany CBC W MANUAL DIFFon 10-31-19 21 ATYPICAL LYMPH # Normal [facility] Comment on above: Performed By: #### C BCMAN #### [facility] [address] [place], [place] [id number] Mere Brittany ATYPICAL LYMPH % Normal [facility] Comment on above: Performed By: #### C BRAIN #### [facility] [address] [place] [address] Mere Brittany BAND # 0.3 103/ul Normal 0.0-0.3 [facility] Comment on above: Performed By: #### C BRAIN #### [facility] [address] [place] [address] Mere Brittany BAND % 7 % Critically high 0-5 [facility] Comment on above: Performed By: #### C BRAIN #### [facility] [address] [place] [address] Mere Brittany BASOM # 0.00 103/ul Normal 0.00-0.10 [facility] Comment on above: Performed By: #### C BRAIN #### [facility] [address] [place] [address] Mere Brittany BASOM % 0.0 % Critically low 0.2-2.0 [facility] Comment on above: Performed By: #### C BRAIN #### [facility] [address] [place] [address] Mere Brittany BLAST # Normal [facility] Comment on above: Performed By: #### C BRAIN #### [facility] [address] [place] [address] Mere Brittany BLAST % Normal [facility] Comment on above: Performed By: #### C BRAIN #### [facility] [address] [place] [address] Mere Brittany CORRECTED WBC Normal 4.0-11.0 [facility] Comment on above: Performed By: #### C BRAIN #### [facility] [address] [place] [address] Mere Brittany EOS # 0.00 103/ul Normal 0.00-0.70 [facility] Comment on above: Performed By: #### C BRAIN #### [facility] [address] [place] [address] Mere Brittany EOS% 0.0 % Critically low 0.9-7.0 [facility] Comment on above: Performed By: #### Nia DE LA PAZ #### [facility] [address] [place] [address] Mere Brittany HCT 33.4 % Critically low 36.0-48.0 [facility] Comment on above: Performed By: #### Nia DE LA PAZ #### [facility] [address] [address] Mere Brittany HGB 11.6 g/dl Critically low 12.0-16.0 [facility] Comment on above: Performed By: #### Nia DE LA PAZ #### [facility] [address] [address] Mere Brittany LYMPHM # 0.22 103/ul Critically low 1.20-3.80 [facility] Comment on above: Performed By: #### Nia DE LA PAZ #### [facility] [address] [place] [address] Mere Brittany LYMPHM% 6.0 % Critically low 20.5-60.0 [facility] Comment on above: Performed By: #### Nia DE LA PAZ #### [facility] [address] [place] [address] Mere Brittany MCH 30.4 pg Normal 26.7-34.0 [facility] Comment on above: Performed By: #### Nia DE LA PAZ #### [facility] [address] [place] [address] Mere Brittany MCHC 34.7 g/dl Normal 29.9-35.2 [facility] Comment on above: Performed By: #### Nia DE LA PAZ #### [facility] [address] [place] [address] Mere Brittany MCV 87.4 fL Normal 81.0-99.0 [facility] Comment on above: Performed By: #### Nia DE LA PAZ #### [facility] [address] [place] [address] Mere Brittany METAMYELOCYTE # Normal [facility] Comment on above: Performed By: #### Nia DE LA PAZ #### [facility] [address] [place] [address] Mere Brittany METAMYELOCYTE % Normal [facility] Comment on above: Performed By: #### Nia DE LA PAZ #### [facility] [address] [place] [id number] Mere Brittany MONOM# 0.41 103/ul Normal 0.30-0.80 [facility] Comment on above: Performed By: #### Nia DE LA PAZ #### [facility] [address] [place] [address] Mere Brittany MONOM% 11.0 % Normal 1.7-12.0 [facility] Comment on above: Performed By: #### Nia DE LA PAZ #### [facility] [address] [id number] Mere Brittany MPV 9.1 fL Critically low 9.5-13.5 [facility] Comment on above: Performed By: #### Nia DE LA PAZ #### [facility] [address] [place] [address] Mere Brittany MYELOCYTE # Normal [facility] Comment on above: Performed By: #### Nia DE LA PAZ #### [facility] [address] [place] [id number] Mere Brittany MYELOCYTE % Normal [facility] Comment on above: Performed By: #### Nia DE LA PAZ #### [facility] [address] [place], [place] [id number] Mere Brittany NRBC Normal [facility] Comment on above: Performed By: #### Nia DE LA PAZ #### [facility] [address] [place] [id number] Mere Brittany PLT 219 103/ul Normal 150-450 [facility] Comment on above: Performed By: #### Nia DE LA PAZ #### [facility] [address] [id number] Mere Brittany RBC 3.82 106/ul Critically low 4.20-5.40 [facility] Comment on above: Performed By: #### Nia DE LA PAZ #### [facility] [address] [place] [id number] Mere Brittany RDW 12.8 % Normal 11.0-15.0 [facility] Comment on above: Performed By: #### C BRAIN #### [facility] [address] [place], [place] [address] Mere Brittany SEG # 2.81 103/ul Normal 1.40-6.50 [facility] Comment on above: Performed By: #### C BRAIN #### [facility] [address] [place], [place] [address] Mere Brittany SEG % 76.0 % Critically high 43.0-75.0 [facility] Comment on above: Performed By: #### C BRAIN #### [facility] [address] [place], [place] [address] Mere Brittany WBC 3.7 103/ul Critically low 4.0-11.0 [facility] Comment on above: Performed By: #### C BRAIN #### [facility] [address] [place] [id number] Mere Brittany PROF CHEM 8 (BAS METB)on Anion gap [Moles/Vol] 12.7 mmol/L Normal [facility] Comment on above: Performed By: #### L ACT #### [facility] [address] [id number] Mere Brittany Calcium [Mass/Vol] 9.1 mg/dL Normal 8.4-10.2 [facility] Comment on above: Performed By: #### L ACT #### [facility] [address] [place] [id number] Mere Brittany Chloride [Moles/Vol] 108 mmol/L Critically high 98-107 [facility] Comment on above: Performed By: #### L ACT #### [facility] [address] [place] [id number] Mere Brittany CO2 [Moles/Vol] 25.5 mmol/L Normal 22.0-30.0 [facility] Comment on above: Performed By: #### L ACT #### [facility] [address] [place] [id number] Mere Brittany Creatinine [Mass/Vol] 0.80 mg/dL Normal 0.52-1.04 [facility] Comment on above: Performed By: #### L ACT #### [facility] [address] [place], [place] [address] Mere Brittany EGFR-AF KITTITIAN >60 Normal >=60 [facility] Comment on above: Performed By: #### L ACT #### [facility] [address] [place], [place] [address] Mere Brittany EGFR-NON AF KITTITIAN >60 Normal >=60 [facility] Comment on above: Performed By: #### L ACT #### [facility] [address] [place] [id number] Mere Brittany Glucose [Mass/Vol] 166 mg/dL Critically high 74-106 [facility] Comment on above: Performed By: #### L ACT #### [facility] [address] [place] [address] Mere Brittany Potassium [Moles/Vol] 3.2 mmol/L Critically low 3.4-5.0 [facility] Comment on above: Performed By: #### L ACT #### [facility] [address] [place], [place] [address] Mere Brittany Sodium [Moles/Vol] 143 mmol/L Normal 137-145 [facility] Comment on above: Performed By: #### L ACT #### [facility] [address] [place] [address] Mere Brittany Urea nitrogen [Mass/Vol] 15.0 mg/dL Normal 7.0-17.0 [facility] Comment on above: Performed By: #### L ACT #### [facility] [address] [place] [address] Mere Brittany Urea nitrogen/Creatinine [Mass ratio] 18.8 mg/mg Normal [facility] Comment on above: Performed By: #### L ACT #### [facility] [address] [place], [place] [address] Mere Brittany CBC AUTO DIFFon 10-29-2020 BASO # 0.0 103/ul Normal 0.0-0.1 [facility] Comment on above: Performed By: #### C BC #### [facility] [address] [address] Mere Brittany Basophils/100 WBC (Bld) 0.7 % Normal 0.2-2.0 [facility] Comment on above: Performed By: #### C BC #### [facility] [address] [place], [place] [address] Mere Brittany EO # 0.0 103/ul Normal 0.0-0.7 [facility] Comment on above: Performed By: #### C BC #### [facility] [address] [place], [place] [id number] Mere Brittany Eosinophils/100 WBC (Bld) 0.0 % Critically low 0.9-7.0 [facility] Comment on above: Performed By: #### C BC #### [facility] [address] [place] [address] Mere Brittany Erythrocyte distribution width (RBC) [Ratio] 12.8 % Normal 11.0-15.0 [facility] Comment on above: Performed By: #### C BC #### [facility] [address] [place] [address] Mere Brittany Hematocrit (Bld) [Volume fraction] 35.1 % Critically low 36.0-48.0 [facility] Comment on above: Performed By: #### C BC #### [facility] [address] [place], [place] [id number] Mere Brittany Hemoglobin (Bld) [Mass/Vol] 12.3 g/dL Normal 12.0-16.0 [facility] Comment on above: Performed By: #### C BC #### [facility] [address] [place] [address] Mere Brittany IG # 0.02 10e3/ul Normal 0.00-0.03 [facility] Comment on above: Performed By: #### C BC #### [facility] [address] [place], [place] [id number] Mere Brittany IG % 1.5 % Critically high 0.0-0.5 [facility] Comment on above: Performed By: #### C BC #### [facility] [address] [place] [address] Mere Birttany LYMPH # 0.2 103/ul Critically low 1.2-3.8 [facility] Comment on above: Performed By: #### C BC #### [facility] [address] [place] [address] Mere Soto Lymphocytes/100 WBC (Bld) 11.8 % Critically low 20.5-60.0 [facility] Comment on above: Performed By: #### C BC #### [facility] [address] [place] [address] Mere Brittany MANUAL DIFF REQ NO Normal [facility] Comment on above: Performed By: #### C BC #### [facility] [address] [place] [address] Mere Soto MCH (RBC) [Entitic mass] 30.8 pg Normal 26.7-34.0 [facility] Comment on above: Performed By: #### C BC #### [facility] [address] [place] [address] Mere Soto MCHC (RBC) [Mass/Vol] 35.0 g/dL Normal 29.9-35.2 [facility] Comment on above: Performed By: #### C BC #### [facility] [address] [place] [address] Mere Soto MCV (RBC) [Entitic vol] 88.0 fL Normal 81.0-99.0 [facility] Comment on above: Performed By: #### C BC #### [facility] [address] [place] [address] Mere Patelen MONO # 0.1 103/ul Critically low 0.3-0.8 [facility] Comment on above: Performed By: #### C BC #### [facility] [address] [place] [address] Mere Soto Monocytes/100 WBC (Bld) 9.6 % Normal 1.7-12.0 [facility] Comment on above: Performed By: #### C BC #### [facility] [address] [place] [address] Mere Brittany NEUT # 1.0 103/ul Critically low 1.4-6.5 [facility] Comment on above: Performed By: #### C BC #### [facility] [address] [id number] Mere Soto Neutrophils/100 WBC (Bld) 76.4 % Critically high 43.0-75.0 [facility] Comment on above: Performed By: #### C BC #### [facility] [address] [id number] Mereshahnaz Soto Platelet mean volume (Bld) [Entitic vol] 9.5 fL Normal 9.5-13.5 [facility] Comment on above: Performed By: #### C BC #### [facility] [address] [id number] Mereshahnaz Patelen PLT 190 103/ul Normal 150-450 [facility] Comment on above: Performed By: #### C BC #### [facility] [address] [place], [place] [id number] Mere Brittany RBC 3.99 106/ul Critically low 4.20-5.40 [facility] Comment on above: Performed By: #### C BC #### [facility] [address] [id number] Mere Brittany WBC 1.4 103/ul Critically low 4.0-11.0 [facility] Comment on above: Performed By: #### C BC #### [facility] [address] [id number] Mere Soto PROF CHEM 8 (BAS METB)on Anion gap [Moles/Vol] 11.9 mmol/L Normal [facility] Comment on above: Performed By: #### B MP #### [facility] [address] [id number] Mereshahnaz Soto Calcium [Mass/Vol] 9.2 mg/dL Normal 8.4-10.2 [facility] Comment on above: Performed By: #### B MP #### [facility] [address] [id number] Mere Brittany Chloride [Moles/Vol] 106 mmol/L Normal 98-107 [facility] Comment on above: Performed By: #### B MP #### [facility] [address] [id number] Mere Brittany CO2 [Moles/Vol] 25.5 mmol/L Normal 22.0-30.0 [facility] Comment on above: Performed By: #### B MP #### [facility] [address] [id number] Mere Brittany Creatinine [Mass/Vol] 0.62 mg/dL Normal 0.52-1.04 [facility] Comment on above: Performed By: #### B MP #### [facility] [address] [id number] Mere Brittany EGFR-AF KITTITIAN >60 Normal >=60 [facility] Comment on above: Performed By: #### B MP #### [facility] [address] [address] Mere Brittany EGFR-NON AF KITTITIAN >60 Normal >=60 [facility] Comment on above: Performed By: #### B MP #### [facility] [address] [address] Mere Brittany Glucose [Mass/Vol] 223 mg/dL Critically high 74-106 [facility] Comment on above: Performed By: #### B MP #### [facility] [address] [id number] Mere Brittany Potassium [Moles/Vol] 3.4 mmol/L Normal 3.4-5.0 [facility] Comment on above: Performed By: #### B MP #### [facility] [address] [id number] Mere Brittany Sodium [Moles/Vol] 140 mmol/L Normal 137-145 [facility] Comment on above: Performed By: #### B MP #### [facility] [address] [id number] Mere Brittany Urea nitrogen [Mass/Vol] 10.0 mg/dL Normal 7.0-17.0 [facility] Comment on above: Performed By: #### B MP #### [facility] [address] [place] [address] Mere Brittany Urea nitrogen/Creatinine [Mass ratio] 16.1 mg/mg Normal [facility] Comment on above: Performed By: #### B MP #### [facility] [address] [place] [address] Mere Brittany CBC W MANUAL DIFFon 10-29-19 21 ATYPICAL LYMPH # 0.03 103/ul Normal [facility] Comment on above: Performed By: #### L ACT #### [facility] [address] [place] [address] Mere Brittany ATYPICAL LYMPH % 2 % Normal [facility] Comment on above: Performed By: #### L ACT #### [facility] [address] [place] [address] Mere Brittany BAND # 0.0 103/ul Normal 0.0-0.3 [facility] Comment on above: Performed By: #### L ACT #### [facility] [address] [place] [address] Mere Brittany BAND % 0 % Normal 0-5 [facility] Comment on above: Performed By: #### L ACT #### [facility] [address] [place] [address] Mere Brittany BASOM # 0.00 103/ul Normal 0.00-0.10 [facility] Comment on above: Performed By: #### L ACT #### [facility] [address] [place] [address] Mere Brittany BASOM % 0.0 % Critically low 0.2-2.0 [facility] Comment on above: Performed By: #### L ACT #### [facility] [address] [place] [address] Mere Brittany BLAST # Normal [facility] Comment on above: Performed By: #### L ACT #### [facility] [address] [place] [address] Mere Brittany BLAST % Normal [facility] Comment on above: Performed By: #### L ACT #### [facility] [address] [place] [address] Mere Brittany CORRECTED WBC Normal 4.0-11.0 [facility] Comment on above: Performed By: #### L ACT #### [facility] [address] [address] Mere Brittany EOS # 0.00 103/ul Normal 0.00-0.70 [facility] Comment on above: Performed By: #### L ACT #### [facility] [address] [address] Mere Brittany EOS% 0.0 % Critically low 0.9-7.0 [facility] Comment on above: Performed By: #### L ACT #### [facility] [address] [address] Mere Brittany HCT 34.0 % Critically low 36.0-48.0 [facility] Comment on above: Performed By: #### L ACT #### [facility] [address] [place] [address] Mere Brittany HGB 11.6 g/dl Critically low 12.0-16.0 [facility] Comment on above: Performed By: #### L ACT #### [facility] [address] [place] [address] Mere Brittany LYMPHM # 0.36 103/ul Critically low 1.20-3.80 [facility] Comment on above: Performed By: #### L ACT #### [facility] [address] [place] [address] Mereshahnaz Patelen LYMPHM% 26.0 % Normal 20.5-60.0 [facility] Comment on above: Performed By: #### L ACT #### [facility] [address] [place] [address] Mere Brittany MCH 30.7 pg Normal 26.7-34.0 [facility] Comment on above: Performed By: #### L ACT #### [facility] [address] [place] [address] Mere Brittany MCHC 34.1 g/dl Normal 29.9-35.2 [facility] Comment on above: Performed By: #### L ACT #### [facility] [address] [address] Mere Soto MCV 89.9 fL Normal 81.0-99.0 [facility] Comment on above: Performed By: #### L ACT #### [facility] [address] [place] [address] Mere Brittany METAMYELOCYTE # Normal [facility] Comment on above: Performed By: #### L ACT #### [facility] [address] [place], [place] [id number] Mere Brittany METAMYELOCYTE % Normal [facility] Comment on above: Performed By: #### L ACT #### [facility] [address] [place] [address] Mere Brittany MONOM# 0.21 103/ul Critically low 0.30-0.80 [facility] Comment on above: Performed By: #### L ACT #### [facility] [address] [place] [address] Mere Brittany MONOM% 15.0 % Critically high 1.7-12.0 [facility] Comment on above: Performed By: #### L ACT #### [facility] [address] [place] [address] Mereshahnaz Soto MPV 9.1 fL Critically low 9.5-13.5 [facility] Comment on above: Performed By: #### L ACT #### [facility] [address] [place] [address] Mere Brittany MYELOCYTE # Normal [facility] Comment on above: Performed By: #### L ACT #### [facility] [address] [place] [address] Mere Brittany MYELOCYTE % Normal [facility] Comment on above: Performed By: #### L ACT #### [facility] [address] [place] [address] Mere Brittany NRBC Normal [facility] Comment on above: Performed By: #### L ACT #### [facility] [address] [place] [address] Mere Brittany PLT 166 103/ul Normal 150-450 [facility] Comment on above: Performed By: #### L ACT #### [facility] [address] [id number] Mere aPtelen RBC 3.78 106/ul Critically low 4.20-5.40 [facility] Comment on above: Performed By: #### L ACT #### [facility] [address] [id number] Mere Patelen RDW 13.0 % Normal 11.0-15.0 [facility] Comment on above: Performed By: #### L ACT #### [facility] [address] [place] [address] Mere Patelen SEG # 0.80 103/ul Critically low 1.40-6.50 [facility] Comment on above: Performed By: #### L ACT #### [facility] [address] [place] [address] Mere Soto SEG % 57.0 % Normal 43.0-75.0 [facility] Comment on above: Performed By: #### L ACT #### [facility] [address] [place] [address] Mere Patelen WBC 1.4 103/ul Critically low 4.0-11.0 [facility] Comment on above: Performed By: #### L ACT #### [facility] [address] [place], [place] [id number] Mere Soto CULTURE BLOODon 10-28-2020 Microscopic examination of blood, culture Culture Observations: No growth at 5 days Normal [facility] Comment on above: Performed By: #### C BC #### [facility] [address] [place] [address] Mereshahnaz Soto CULTURE SPUTUMon 10-28-2020 CULTURE SPUTUM Culture Observations : Normal respiratory bee. Normal [facility] Comment on above: Performed By: #### C BC #### [facility] [address] [place], [place] [id number] Mere Soto PROF CHEM 8 (BAS METB)on Anion gap [Moles/Vol] 16.1 mmol/L Normal [facility] Comment on above: Performed By: #### B MP #### [facility] [address] [id number] Mere Brittany Calcium [Mass/Vol] 8.4 mg/dL Normal 8.4-10.2 [facility] Comment on above: Performed By: #### B MP #### [facility] [address] [address] Mere Brittany Chloride [Moles/Vol] 104 mmol/L Normal 98-107 [facility] Comment on above: Performed By: #### B MP #### [facility] [address] [address] Mere Brittany CO2 [Moles/Vol] 21.2 mmol/L Critically low 22.0-30.0 [facility] Comment on above: Performed By: #### B MP #### [facility] [address] [place] [address] Mere Brittany Creatinine [Mass/Vol] 0.77 mg/dL Normal 0.52-1.04 [facility] Comment on above: Performed By: #### B MP #### [facility] [address] [id number] Mere Brittany EGFR-AF KITTITIAN >60 Normal >=60 [facility] Comment on above: Performed By: #### B MP #### [facility] [address] [place] [address] Mere Brittany EGFR-NON AF KITTITIAN >60 Normal >=60 [facility] Comment on above: Performed By: #### B MP #### [facility] [address] [address] Mere Brittany Glucose [Mass/Vol] 81 mg/dL Normal 74-106 [facility] Comment on above: Performed By: #### B MP #### [facility] [address] [place], [place] [id number] Mere Brittany Potassium [Moles/Vol] 3.3 mmol/L Critically low 3.4-5.0 [facility] Comment on above: Performed By: #### B MP #### [facility] [address] [place] [address] Mere Brittany Sodium [Moles/Vol] 138 mmol/L Normal 137-145 [facility] Comment on above: Performed By: #### B MP #### [facility] [address] [address] Mere Brittany Urea nitrogen [Mass/Vol] 10.0 mg/dL Normal 7.0-17.0 [facility] Comment on above: Performed By: #### B MP #### [facility] [address] [place] [address] Mere Brittany Urea nitrogen/Creatinine [Mass ratio] 13.0 mg/mg Normal [facility] Comment on above: Performed By: #### B MP #### [facility] [address] [place] [address] Mere Brittany SPUTUM GRAM STAINon 10-29-19 COMMENTS Normal [facility] Comment on above: Performed By: #### S PUTGS #### [facility] [address] [place] [address] Mere Brittany DIPHTHEROIDS Normal [facility] Comment on above: Performed By: #### S PUTGS #### [facility] [address] [place] [address] Mere Brittany EPITHELIALS <25 Normal [facility] Comment on above: Performed By: #### S PUTGS #### [facility] [address] [place] [address] Mere Brittany FUNGAL ELEMENTS Normal [facility] Comment on above: Performed By: #### S PUTGS #### [facility] [address] [place] [address] Mere Brittany GRAM NEG BACILLI Normal [facility] Comment on above: Performed By: #### S PUTGS #### [facility] [address] [place] [address] Mere Brittany GRAM NEG DIPPLOCOCCI Normal [facility] Comment on above: Performed By: #### S PUTGS #### [facility] [address] [place] [address] Mere Brittany GRAM POS BACILLI MANY Normal [facility] Comment on above: Performed By: #### S PUTGS #### [facility] [address] [place] [address] Mere Soto GRAM POSITIVE COCCI MANY Normal The [facility] Comment on above: Performed By: #### S ARABELLA #### [facility] [address] [place] [address] Mere Soto WBC (Bld) [#/Vol] 10*3/uL Normal [facility] Comment on above: Performed By: #### S ARABELLA #### [facility] [address] [place] [address] Mereshahnaz Soto CBC W MANUAL DIFFon 10-28-19 21 ATYPICAL LYMPH # 0.02 103/ul Normal [facility] Comment on above: Performed By: #### Nia DE LA PAZ PERSMR #### [facility] [address] [place] [address] Mere Brittany ATYPICAL LYMPH % 2 % Normal [facility] Comment on above: Performed By: #### Nia DE LA PAZ PERSMR #### [facility] [address] [place] [address] Mere Brittany BAND # 0.0 103/ul Normal 0.0-0.3 [facility] Comment on above: Performed By: #### Nia DE LA PAZ PERS #### [facility] [address] [place] [address] Mere Brittany BAND % 0 % Normal 0-5 [facility] Comment on above: Performed By: #### Nia DE LA PAZ PERSMR #### [facility] [address] [place] [address] Mere Brittany BASOM # 0.00 103/ul Normal 0.00-0.10 [facility] Comment on above: Performed By: #### Nia DE LA PAZ PERSMR #### [facility] [address] [place] [address] Mere Brittany BASOM % 0.0 % Critically low 0.2-2.0 [facility] Comment on above: Performed By: #### Nia DE LA PAZ PERSMR #### [facility] [address] [place] [address] Mere Brittany BLAST # Normal [facility] Comment on above: Performed By: #### C BCMAN, PERSMR #### [facility] [address] [id number] Mere Brittany BLAST % Normal [facility] Comment on above: Performed By: #### Nia DE LA PAZ, PERSMR #### [facility] [address] [id number] Mere Brittany CORRECTED WBC Normal 4.0-11.0 [facility] Comment on above: Performed By: #### Nia DE LA PAZ, PERSMR #### [facility] [address] [address] Mere Brtitany EOS # 0.02 103/ul Normal 0.00-0.70 [facility] Comment on above: Performed By: #### Nia DE LA PAZ PERSMR #### [facility] [address] [place] [address] Mere Brittany EOS% 2.0 % Normal 0.9-7.0 [facility] Comment on above: Performed By: #### Nia DE LA PAZ PERSMR #### [facility] [address] [address] Mere Brittany HCT 38.3 % Normal 36.0-48.0 [facility] Comment on above: Performed By: #### Nia DE LA PAZ PERSMR #### [facility] [address] [place] [address] Mere Brittany HGB 13.0 g/dl Normal 12.0-16.0 [facility] Comment on above: Performed By: #### Nia DE LA PAZ PERSMR #### [facility] [address] [address] Mere Brittany LYMPHM # 0.13 103/ul Critically low 1.20-3.80 [facility] Comment on above: Performed By: #### Nia DE LA PAZ PERSMR #### [facility] [address] [address] Mere Brittany LYMPHM% 14.0 % Critically low 20.5-60.0 [facility] Comment on above: Performed By: #### Nia DE LA PAZ PERSMR #### [facility] [address] [address] Mere Soto MCH 30.4 pg Normal 26.7-34.0 [facility] Comment on above: Performed By: #### Nia DE LA PAZ PERSMR #### [facility] [address] [address] Mere Soto MCHC 33.9 g/dl Normal 29.9-35.2 [facility] Comment on above: Performed By: #### Nia DE LA PAZ PERSMR #### [facility] [address] [address] Mereshahnaz Soto MCV 89.7 fL Normal 81.0-99.0 [facility] Comment on above: Performed By: #### Nia DE LA PAZ PERSMR #### [facility] [address] [place] [address] Mereshahnaz Soto METAMYELOCYTE # Normal [facility] Comment on above: Performed By: #### Nia DE LA PAZ PERSMR #### [facility] [address] [place] [address] Mereshahnaz Soto METAMYELOCYTE % Normal [facility] Comment on above: Performed By: #### Nia DE LA PAZ PERSMR #### [facility] [address] [place] [address] Mere Brittany MONOM# 0.16 103/ul Critically low 0.30-0.80 [facility] Comment on above: Performed By: #### Nia DE LA PAZ, PERSMR #### [facility] [address] [place] [address] Mere Brittany MONOM% 18.0 % Critically high 1.7-12.0 [facility] Comment on above: Performed By: #### Nia DE LA PAZ PERSMR #### [facility] [address] [address] Mereshahnaz Soto MPV 8.6 fL Critically low 9.5-13.5 [facility] Comment on above: Performed By: #### Nia DE LA PAZ, PERSMR #### [facility] [address] [address] Mere Brittany MYELOCYTE # Normal [facility] Comment on above: Performed By: #### Nia DE LA PAZ, PERSMR #### [facility] [address] [id number] Mere Brittany MYELOCYTE % Normal [facility] Comment on above: Performed By: #### Nia DE LA PAZ, PERSMR #### [facility] [address] [id number] Mere Brittany NRBC Normal [facility] Comment on above: Performed By: #### Nia DE LA PAZ, PERSMR #### [facility] [address] [address] Mere Brittany PLT 183 103/ul Normal 150-450 [facility] Comment on above: Performed By: #### Nia DE LA PAZ PERSMR #### [facility] [address] [place] [address] Mere Brittany RBC 4.27 106/ul Normal 4.20-5.40 [facility] Comment on above: Performed By: #### Nia DE LA PAZ PERSMR #### [facility] [address] [place] [address] Mere Brittany RDW 12.8 % Normal 11.0-15.0 [facility] Comment on above: Performed By: #### Nia DE LA PAZ PERSMR #### [facility] [address] [place] [address] Mere Brittany SEG # 0.58 103/ul Critically low 1.40-6.50 [facility] Comment on above: Performed By: #### Nia DE LA PAZ PERSMR #### [facility] [address] [place] [address] Mere Brittany SEG % 64.0 % Normal 43.0-75.0 [facility] Comment on above: Performed By: #### Nia DE LA PAZ, PERSMR #### [facility] [address] [place], [place] [id number] Mere Brittany WBC 0.9 103/ul Critically low 4.0-11.0 [facility] Comment on above: Result Comment: test repeated critical value verified Performed By: #### Nia DE LA PAZ, PERSMR #### [facility] [address] [place] [address] Mere Brittany ER URINE PROFILEon 1 Bilirubin Ql (U) MODERATE Abnormal NEGATIVE [facility] Comment on above: Performed By: #### C BC #### [facility] [address] [place] [address] Mere Brittany Clarity (U) CLEAR Normal CLEAR [facility] Comment on above: Performed By: #### C BC #### [facility] [address] [place] [address] Mere Brittany Color (U) YELLOW Normal YELLOW [facility] Comment on above: Performed By: #### C BC #### [facility] [address] [place] [address] Mere Brittany ERUAHD A micrscopic examination will be performed if indicated. Normal [facility] Comment on above: Performed By: #### C BC #### [facility] [address] [place] [address] Mere Brittany Glucose Ql (U) Negative Normal NEGATIVE [facility] Comment on above: Performed By: #### C BC #### [facility] [address] [place] [address] Mere Brittany Hemoglobin Ql (U) SMALL Abnormal NEGATIVE [facility] Comment on above: Performed By: #### C BC #### [facility] [address] [place] [address] Mere Brittany Ketones Ql (U) >=80 Abnormal NEGATIVE [facility] Comment on above: Performed By: #### C BC #### [facility] [address] [place] [address] Mere Brittany LEUKOCYTES Negative Normal NEGATIVE [facility] Comment on above: Performed By: #### C BC #### [facility] [address] [place] [address] [place] Nitrite Ql (U) Negative Normal NEGATIVE [facility] Comment on above: Performed By: #### C BC #### [facility] [address] [place] [address] Me[place] pH (U) 6.0 [pH] Normal 5-9 [facility] Comment on above: Performed By: #### C BC #### [facility] [address], [place] [address] Me[place]ahnaz Soto Protein (U) [Mass/Vol] 30 mg/dL Abnormal NEGATIVE/ TRACE [facility] Comment on above: Performed By: #### C BC #### [facility] [address] [id number] [place] SPEC GRAVITY 1.020 Normal 1.005-<=1.025 [facility] Comment on above: Performed By: #### C BC #### [facility] [address] [place], [place] [address] [place] UR MICRO IND INDICATED Normal [facility] Comment on above: Performed By: #### C BC #### [facility] [address] [place], [place] [address] [place] Urobilinogen Qn (U) 1.0 {Sage'U}/dL Normal 0.2 - 1. 0 [facility] Comment on above: Performed By: #### C BC #### [facility] [address] [place], [place] [address] [place] LACTATE/LACTIC ACIDon 2020 Lactate [Moles/Vol] 1.3 mmol/L Normal 0.7-2.0 [facility] Comment on above: Performed By: #### L ACT #### [facility] [address] [place], [place] [address] [place] LIPASEon 10-27-2020 Lipase [Catalytic activity/Vol] 94.0 U/L Normal 23.0-300.0 [facility] Comment on above: Performed By: #### C BC #### [facility] [address] [place], [place] [address] Mereshahnaz Soto PERIPHERAL SMEARon Pathologist Cyto stain Nom (Cvx/Vag) [ID] DR. COLLETTE COKER Normal [facility] Comment on above: Result Comment: Neut ropenia and lymphopenia of unknown etiology. CPT: [address] Dr. Collette Coker 10/30/2020 Performed By: #### C HCIP DE LA PAZMR #### [facility] [address] [place] [address] Mere [place]any PROF 14(COMP METB)on 021 Albumin [Mass/Vol] 3.2 g/dL Critically low 3.5-5.0 Th [facility] Comment on above: Performed By: #### C BC #### [facility] [address] [place], [place] [address] [place] Albumin/Globulin [Mass ratio] 0.7 {ratio} Normal [facility] Comment on above: Performed By: #### C BC #### [facility] [address] [place], [place] [address] Mere [place]any ALP [Catalytic activity/Vol] 59 U/L Normal 38-126 [facility] Comment on above: Performed By: #### C BC #### [facility] [address] [place] [address] Mere [place]any ALT [Catalytic activity/Vol] 24 U/L Normal 9-52 [facility] Comment on above: Performed By: #### C BC #### [facility] [address] [place] [address] Mere Brittany Anion gap [Moles/Vol] 16.7 mmol/L Normal [facility] Comment on above: Performed By: #### C BC #### [facility] [address] [place] [address] Mere Brittany AST [Catalytic activity/Vol] 21 U/L Normal 14-36 [facility] Comment on above: Performed By: #### C BC #### [facility] [address] [place], [place] [address] Me[place]any Bilirubin [Mass/Vol] 0.4 mg/dL Normal 0.2-1.3 [facility] Comment on above: Performed By: #### C BC #### [facility] [address] [place], [place] [address] Me[place]any Calcium [Mass/Vol] 8.8 mg/dL Normal 8.4-10.2 [facility] Comment on above: Performed By: #### C BC #### [facility] [address] [place], [place] [address] [place] Chloride [Moles/Vol] 98 mmol/L Normal 98-107 [facility] Comment on above: Performed By: #### C BC #### [facility] [address] [place], [place] [address] Me[place]any CO2 [Moles/Vol] 25.0 mmol/L Normal 22.0-30.0 [facility] Comment on above: Performed By: #### C BC #### [facility] [address] [place], [place] [address] Me[place]any Creatinine [Mass/Vol] 0.92 mg/dL Normal 0.52-1.04 [facility] Comment on above: Performed By: #### C BC #### [facility] [address] [place], [place] [address] Me[place]any EGFR-AF KITTITIAN >60 Normal >=60 [facility] Comment on above: Performed By: #### C BC #### [facility] [address] [place], [place] [address] [place] EGFR-NON AF KITTITIAN >60 Normal >=60 [facility] Comment on above: Performed By: #### C BC #### [facility] [address] [place], [place] [address] [place]any Globulin (S) [Mass/Vol] 4.8 g/dL Normal [facility] Comment on above: Performed By: #### C BC #### [facility] [address] [place] [address] Mere Brittany Glucose [Mass/Vol] 93 mg/dL Normal 74-106 [facility] Comment on above: Performed By: #### C BC #### [facility] [address] [place], [place] [address] Mere [place]any Potassium [Moles/Vol] 3.7 mmol/L Normal 3.4-5.0 [facility] Comment on above: Performed By: #### C BC #### [facility] [address] [place], [place] [address] Me[place]any Protein [Mass/Vol] 8.0 g/dL Normal 6.1-8.2 [facility] Comment on above: Performed By: #### C BC #### [facility] [address], [place] [address] Mere Brittany Sodium [Moles/Vol] 136 mmol/L Critically low 137-145 [facility] Comment on above: Performed By: #### C BC #### [facility] [address] [id number] Me[place]any Urea nitrogen [Mass/Vol] 14.0 mg/dL Normal 7.0-17.0 [facility] Comment on above: Performed By: #### C BC #### [facility] [address] [place], [place] [address] Mere [place]any Urea nitrogen/Creatinine [Mass ratio] 15.2 mg/mg Normal [facility] Comment on above: Performed By: #### C BC #### [facility] [address] [place] [address] [place] TROPONIN, HIGH SENSITIVITYon 10-27-2020 HSTROP 10.4 pg/mL Normal 4.0-35.5 [facility] Comment on above: Result Comment: CUT- OFF POINTS HAVE BEEN ESTABLISHED BASED ON THE FOURTH UNIVERSAL DEFINITIONS OF MYOCARDIAL INFARCTION. THE UPPER REFERENCE LIMIT (URL) OF TROPONIN, DEFINED THE 99TH PERCENTILE OF cTnI DISTRIBUTION IN A REFERENCE POPULATION, HAS BEEN CONFIRMED THE DECISION THRESHOLD FOR NC DIAGNOSIS. Performed By: #### C BC #### [facility] [address] [place], [place] [address] Me[place]any URINE MICROSCOPIC ONLYon BACTERIA TRACE Abnormal NONE SEEN [facility] Comment on above: Performed By: #### C BC #### [facility] [address] [place], [place] [address] Me[place]any Bacteria identified Cx Nom (U) NOT INDICATED Normal [facility] Comment on above: Performed By: #### C BC #### [facility] [address] [place], [place] [address] Me[place]any CAST NONE SEEN Normal NONE SEEN [facility] Comment on above: Performed By: #### C BC #### [facility] [address] [place], [place] [address] Me[place]any Crystals LM Nom (Urine sed) NONE SEEN Normal NONE SEEN [facility] Comment on above: Performed By: #### C BC #### [facility] [address] [place], [place] [address] Me[place] Epithelial cells LM Ql (Urine sed) RARE Normal NONE SEEN /RARE [facility] Comment on above: Performed By: #### C BC #### [facility] [address] [place] [address] [place]any MUCOUS NONE SEEN Normal NONE SEEN [facility] Comment on above: Performed By: #### C BC #### [facility] [address] [place] [address] Me[place]any RBC 2-5 Abnormal 0-2 [facility] Comment on above: Performed By: #### C BC #### [facility] [address] [place] [address] Me[place]any WBC NONE SEEN Normal NONE SEEN [facility] Comment on above: Performed By: #### C BC #### [facility] [address] [place], [place] [address] Me[place]any XR CHEST 1 Von 10-27-2020 [...] AYLIN JOHNSON Date: 2020-10-27 20:41 Normal [facility] CBC AUTO DIFFon 07-27-2020 BASO # 0.0 103/ul Normal 0.0-0.1 [facility] Comment on above: Performed By: #### C BC #### [facility] [address] [place] [address] Me[place]any Basophils/100 WBC (Bld) 0.5 % Normal 0.2-2.0 [facility] Comment on above: Performed By: #### C BC #### [facility] [address] [place] [address] Mere Brittany EO # 0.1 103/ul Normal 0.0-0.7 [facility] Comment on above: Performed By: #### C BC #### [facility] [address] [place], [place] [address] [place]any Eosinophils/100 WBC (Bld) 3.2 % Normal 0.9-7.0 [facility] Comment on above: Performed By: #### C BC #### [facility] [address] [place] [address] Mere [place]any Erythrocyte distribution width (RBC) [Ratio] 12.6 % Normal 11.0-15.0 [facility] Comment on above: Performed By: #### C BC #### [facility] [address] [place] [address] Mere [place]any Hematocrit (Bld) [Volume fraction] 39.9 % Normal 36.0-48.0 [facility] Comment on above: Performed By: #### C BC #### [facility] [address] [place] [address] Mere [place]any Hemoglobin (Bld) [Mass/Vol] 13.5 g/dL Normal 12.0-16.0 [facility] Comment on above: Performed By: #### C BC #### [facility] [address] [place] [address] Mere Brittany IG # 0.01 10e3/ul Normal 0.00-0.03 [facility] Comment on above: Performed By: #### C BC #### [facility] [address] [place] [address] Mere Brittany IG % 0.2 % Normal 0.0-0.5 [facility] Comment on above: Performed By: #### C BC #### [facility] [address] [place], [place] [address] Me[place]any LYMPH # 1.1 103/ul Critically low 1.2-3.8 [facility] Comment on above: Performed By: #### C BC #### [facility] [address] [place], [place] [address] Mere [place]any Lymphocytes/100 WBC (Bld) 24.0 % Normal 20.5-60.0 [facility] Comment on above: Performed By: #### C BC #### [facility] [address] [place], [place] [address] [place] MANUAL DIFF REQ NO Normal [facility] Comment on above: Performed By: #### C BC #### [facility] [address] [place], [place] [address] Mereshahnaz Soto MCH (RBC) [Entitic mass] 30.7 pg Normal 26.7-34.0 [facility] Comment on above: Performed By: #### C BC #### [facility] [address] [place], [place] [address] Mereshahnaz Soto MCHC (RBC) [Mass/Vol] 33.8 g/dL Normal 29.9-35.2 [facility] Comment on above: Performed By: #### C BC #### [facility] [address] [place] [address] Mereshahnaz Soto MCV (RBC) [Entitic vol] 90.7 fL Normal 81.0-99.0 [facility] Comment on above: Performed By: #### C BC #### [facility] [address] [place], [place] [address] Mereshahnaz Soto MONO # 0.5 103/ul Normal 0.3-0.8 [facility] Comment on above: Performed By: #### C BC #### [facility] [address] [place], [place] [address] Mere Patelen Monocytes/100 WBC (Bld) 10.4 % Normal 1.7-12.0 [facility] Comment on above: Performed By: #### C BC #### [facility] [address] [place], [place] [address] Mere Brittany NEUT # 2.7 103/ul Normal 1.4-6.5 [facility] Comment on above: Performed By: #### C BC #### [facility] [address] [place], [place] [address] Mere Brittany Neutrophils/100 WBC (Bld) 61.7 % Normal 43.0-75.0 [facility] Comment on above: Performed By: #### C BC #### [facility] [address], [place] [address] Mere Soto Platelet mean volume (Bld) [Entitic vol] 8.8 fL Critically low 9.5-13.5 [facility] Comment on above: Performed By: #### C BC #### [facility] [address] [place] [address] Mereshahnaz Patelen PLT 224 103/ul Normal 150-450 [facility] Comment on above: Performed By: #### C BC #### [facility] [address] [place], [place] [address] Mere Brittany RBC 4.40 106/ul Normal 4.20-5.40 [facility] Comment on above: Performed By: #### C BC #### [facility] [address] [place] [address] Mere Patelen WBC 4.4 103/ul Normal 4.0-11.0 [facility] Comment on above: Performed By: #### C BC #### [facility] [address] [place] [address] Me[place] MRI BRAIN W WO CONTRASTon [...] Max Hunter MD 09/01/19 Final result Normal [facility] MRI ORBITS FACE NECK W WO [...] MD - In Basket Final result Normal [facility] Other 09-01-2019 1. There is an [...] communicated to the referring/covering health care provider/office. [place], [place] EXAMINATION: MRI OF THE BRAIN WITHOUT AND [...] extraocular muscles are symmetric. No orbital mass. [place], [place] Km, [facility] Incoming Radiant Results From Ofelia Feliz - 09/01/2019 10:44 AM EST EXAMINATION: MRI [...] communicated to the referring/covering health care provider/office. [place], [place] Coding Summary.on 01-12-2019 Coding Summary. CODING DATE: 019 FINAL [facility] STATUS: Home (Routine DC) PAYOR: [...] CphT Date Saved: 01/12/2019 11:24 am Normal [facility] Hbv Core Abon 01-12-2019 HBV core Ab IA Ql Negative Negative [facility] Comment on above: Result Comment: Perf ormed at: [address] [id number] PhD Roshan Carmona Performed By: #### 2 425328, 1113125, 0132967, 37287036, 2649664, 6580478, 96105196, 93724661 ####[facility] [address] [place] [address] HBV core IgM IA Ql Negative Negative [facility] Comment on above: Performed By: #### 2 230667, 1922472, 4953150, 96227969, 7062224, 5985597, 61651364, 89641613 ####[facility] [address] [place] [address] Hep Bs Agon 01-12-2019 HBV surface Ag IA Ql Negative Negative [facility] Comment on above: Result Comment: Perf ormed at: [address] [id number] PhD Roshan Carmona Performed By: #### 2 814074, 9477352, 8541637, 24443960, 9167937, 0151437, 69222966, 34092038 #### [facility] [address] [place] [address] Varic IgGon 01-12-2019 VZV IgG IA Qn (S) 2223 Immune >165 [facility] Comment on above: Result Comment: Nega tive <135 Equivocal 135 - 165 Positive >165 A positive result generally indicates exposure to the pathogen or administration of specific immunoglobulins, but it is not indication of active infection or stage of disease. Performed at: [facility] [address] [place], [place] [id number] PhD Roshan Carmona Performed By: #### 2 795112, 0798146, 2258984, 05972223, 4437024, 2926195, 94783792, 25312452 ####[facility] [address] [place] [address] Auto Diffon 01-11-2019 Basophils/100 WBC (Bld) 0.7 % Normal 0.0-2.0 [facility] Comment on above: Order Comment: Order Added by Discern Expert. Performed By: #### 2 007464, 2573849, 2034604, 09637452, 3994342, 8879854, 92369851, 80499081 #### [facility] [address] [place] [address] Basophils/Leukocyte s Auto (Bld) [Pure # fraction] 0.0 E9/L Normal 0.0-0.2 [facility] Comment on above: Order Comment: Order Added by Discern Expert. Performed By: #### 2 780767, 4934718, 5710328, 64992840, 7809813, 0446426, 56791840, 43500207 #### [facility] [address] [place] [address] Eosinophils/100 WBC (Bld) 3.3 % Normal 0.0-8.0 [facility] Comment on above: Order Comment: Order Added by Discern Expert. Performed By: #### 2 325858, 8960239, 4229759, 00278929, 0367443, 3106049, 92632253, 77798403 #### [facility] [address] [place] [address] Eosinophils/Leukocy cassi Auto (Bld) [Pure # fraction] 0.2 E9/L Normal 0.0-0.5 [facility] Comment on above: Order Comment: Order Added by Discern Expert. Performed By: #### 2 058688, 2504764, 8357995, 55027749, 2562107, 7566818, 20816327, 18352478 #### [facility] [address] [place] [address] Lymphocytes/100 WBC (Bld) 28.7 % Normal 14.0-50.0 [facility] Comment on above: Order Comment: Order Added by Discern Expert. Performed By: #### 2 315409, 0587033, 9909269, 08004655, 0188610, 0192935, 15940392, 45578022 #### [facility] [address] [place] [address] Lymphocytes/Leukocy cassi Auto (Bld) [Pure # fraction] 1.3 E9/L Normal 1.0-4.0 [facility] Comment on above: Order Comment: Order Added by Discern Expert. Performed By: #### 2 040165, 0327615, 4780095, 82749798, 4423275, 1675703, 45090639, 96568758 #### [facility] [address] [place] [address] Monocytes/100 WBC (Bld) 7.4 % Normal 4.0-14.0 [facility] Comment on above: Order Comment: Order Added by Discern Expert. Performed By: #### 2 024177, 5941610, 7122755, 81447255, 9354493, 5518537, 50536375, 02925608 #### [facility] [address] [place] [address] Monocytes/Leukocyte s Auto (Bld) [Pure # fraction] 0.3 E9/L Normal 0.2-1.0 [facility] Comment on above: Order Comment: Order Added by Discern Expert. Performed By: #### 2 991416, 6507141, 4228773, 91791185, 8107602, 7119160, 54901004, 31976170 #### [facility] [address] [place] [address] Neutrophils/100 WBC (Bld) 59.9 % Normal 36.0-75.0 [facility] Comment on above: Order Comment: Order Added by Discern Expert. Performed By: #### 2 544942, 2551049, 8561439, 51489863, 1148497, 2973557, 62718632, 22589885 #### [facility] [address] [place] [address] Neutrophils/Leukocy cassi Auto (Bld) [Pure # fraction] 2.8 E9/L Normal 2.0-7.5 [facility] Comment on above: Order Comment: Order Added by Discern Expert. Performed By: #### 2 102598, 1931174, 7872753, 04334368, 5948408, 8086937, 98835023, 55062407 #### [facility] [address] [place] [address] BMPon 01-11-2019 Anion gap [Moles/Vol] 14 mmol/L Normal 6-16 [facility] Comment on above: Performed By: #### 2 841356, 0203514, 0027913, 64858805, 7067455, 7708440, 43714413, 11808403 #### [facility] [address] [place] [address] Calcium [Mass/Vol] 9.0 mg/dL Normal 8.9-11.1 [facility] Comment on above: Performed By: #### 2 364032, 6244523, 1769866, 48250113, 3138358, 9303524, 44048211, 76248593 #### [facility] [address] [place] [address] Chloride [Moles/Vol] 103 mmol/L Normal 101-111 [facility] Comment on above: Performed By: #### 2 247684, 4290473, 7841297, 26664647, 4241560, 9955639, 21059858, 00623340 #### [facility] [address] [place] [address] CO2 [Moles/Vol] 24 mmol/L Normal 21-31 [facility] Comment on above: Performed By: #### 2 151652, 3182579, 5607019, 76130279, 3770161, 8920111, 84942519, 62489241 #### [facility] [address] [place] [address] Creatinine [Mass/Vol] 0.7 mg/dL Normal 0.5-1.3 [facility] Comment on above: Performed By: #### 2 541408, 4277648, 0945285, 10745988, 5177575, 3323284, 40973957, 25411419 #### [facility] [address] [place] [address] Glucose [Mass/Vol] 104 mg/dL Normal 55-199 [facility] Comment on above: Result Comment: If t his glucose result represents a fasting glucose, interpretation should refer to the following reference range: 55-99 mg/dL Performed By: #### 2 712478, 8590679, 2901630, 39182274, 9028512, 8449218, 07743452, 86031114 #### [facility] [address] [place] [address] Potassium [Moles/Vol] 3.0 mmol/L Low 3.5-5.3 [facility] Comment on above: Performed By: #### 2 244761, 3785902, 5265433, 07139028, 7447223, 5005162, 52536763, 26576817 #### [facility] [address] [place] [address] Sodium [Moles/Vol] 138 mmol/L Normal 135-145 [facility] Comment on above: Performed By: #### 2 966461, 9500470, 6190346, 70515854, 5730239, 2818878, 01473383, 72061119 #### [facility] [address] [place] [address] Urea nitrogen [Mass/Vol] 8 mg/dL Normal 5-21 [facility] Comment on above: Performed By: #### 2 049156, 4251059, 5683509, 91513488, 5522311, 3039968, 56279527, 64766470 #### [facility] [address] [place] [address] Urea nitrogen/Creatinine [Mass ratio] 11 No Units Normal 10-20 [facility] Comment on above: Performed By: #### 2 151444, 6723191, 6999978, 61309349, 5859990, 2639887, 99152325, 57128137 #### [facility] [address] [place] [address] CBC w/ Auto Diffon 9 Erythrocyte distribution width (RBC) [Ratio] 13.8 % Normal 10.9-14.2 [facility] Comment on above: Performed By: #### 2 257719, 1963691, 2762642, 06723676, 1135872, 5558554, 92327032, 80781248 #### [facility] [address] [place] [address] Hematocrit (Bld) [Volume fraction] 41.3 % Normal 34.0-46.0 [facility] Comment on above: Performed By: #### 2 522858, 4644801, 7757460, 90754827, 5479527, 4720933, 74455373, 31746998 #### [facility] [address] [place] [address] Hemoglobin (Bld) [Mass/Vol] 13.9 g/dL Normal 12.0-16.0 [facility] Comment on above: Performed By: #### 2 202017, 1899523, 4702119, 35544258, 8190175, 6192396, 91345940, 92138766 #### [facility] [address] [place] [address] MCH (RBC) [Entitic mass] 29.5 pg Normal 27.0-34.0 [facility] Comment on above: Performed By: #### 2 190627, 2873614, 0536904, 50723156, 9639051, 7175685, 94220287, 99851403 #### [facility] [address] [place] [address] MCHC (RBC) [Mass/Vol] 33.7 g/dL Normal 33.3-35.7 [facility] Comment on above: Performed By: #### 2 843178, [id number], 4376256, 83622667, 4075549, 5614784, 98002501, [id number] #### [facility] [address] [place] [address] MCV (RBC) [Entitic vol] 87.5 fL Normal 80.0-100.0 [facility] Comment on above: Performed By: #### 2 532692, 5065822, 4190130, 60793613, 9058621, 7526072, 81238628, 52845748 #### [facility] [address] [place] [address] Platelet mean volume (Bld) [Entitic vol] 7.7 fL Normal 6.4-10.8 [facility] Comment on above: Performed By: #### 2 271508, 5544802, 6309371, 95669719, 2828519, 5095921, 08651669, 85256846 #### [facility] [address] [place] [address] Platelets (Bld) [#/Vol] 290.0 E9/L Normal 150.0-500.0 [facility] Comment on above: Performed By: #### 2 249490, 8757719, 2872312, 76917420, 9522230, 0214351, 96338613, 49517230 #### [facility] [address] [place] [address] RBC (Bld) [#/Vol] 4.7 E12/L Normal 4.3-5.9 [facility] Comment on above: Performed By: #### 2 836324, 3805544, 6290853, 78724485, 8730590, 6473310, 26287897, 49269768 #### [facility] [address] [place] [address] WBC corrected for nucl RBC Auto (Bld) [#/Vol] 4.7 E9/L Normal 4.0-11.0 [facility] Comment on above: Performed By: #### 2 636704, 2536584, 2887758, 44774321, 2832475, 9982130, 17084515, 38549197 #### [facility] [address] [place] [address] TSHon 01-11-2019 TSH Qn 1.84 mcIU/mL Normal 0.34-5.60 [facility] Comment on above: Performed By: #### 2 689298, 1895551, 0418784, 76290747, 4500710, 2724059, 15856067, 38475782 #### [facility] [address] [place] [address] Urinalysison 01-11-2019 Bilirubin Ql (U) Negative Normal Negative [facility] Comment on above: Performed By: #### 1 [id number] #### [facility] [address] [place] [address] Clarity (U) CLEAR Normal Clear [facility] Comment on above: Performed By: #### 1 [id number] #### [facility] [address] [place] [address] Color (U) YELLOW Normal Yellow [facility] Comment on above: Performed By: #### 1 [id number] #### [facility] [address] [place] [address] Epithelial cells.squamous LM.HPF (Urine sed) [#/Area] 3-4 Normal 0-2 [facility] Comment on above: Performed By: #### 1 [id number] #### [facility] [address] [place] [address] Glucose Test strip (U) [Mass/Vol] Negative Normal Negative [facility] Comment on above: Performed By: #### 1 [id number] #### [facility] [address] [place] [address] Hemoglobin Ql (U) TRACE Abnormal Negative [facility] Comment on above: Performed By: #### 1 [id number] #### [facility] [address] [place] [address] Ketones (U) [Mass/Vol] Negative Normal Negative [facility] Comment on above: Performed By: #### 1 6178100 #### [facility] [address] [place] [address] [place].plasma/Lith ium.RBC (Bld) [Mass ratio] 0-3 Normal 0-3 [facility] Comment on above: Performed By: #### 1 [id number] #### [facility] [address] [place] [address] Mucus Ql (Urine sed) 1+ Normal [facility] Comment on above: Performed By: #### 1 4572016 #### [facility] [address] [place] [address] Nitrite Ql (U) Negative Normal Negative [facility] Comment on above: Performed By: #### 1 3414344 #### [facility] [address] [place] [address] pH (U) 5.5 [pH] 5.0-9.0 [facility] Comment on above: Performed By: #### 1 [id number] #### [facility] [address] [place] [address] Protein (U) [Mass/Vol] Negative Normal Negative [facility] Comment on above: Performed By: #### 1 0061325 #### [facility] [address] [place] [address] Specific gravity (U) [Rel density] 1.025 1.005-1.030 [facility] Comment on above: Performed By: #### 1 6407216 #### [facility] [address] [place] [address] UA Spec Desc Clean Catch Normal [facility] Comment on above: Performed By: #### 1 [id number] #### [facility] [address] [place] [address] Urobilinogen Qn (U) 0.2 {Sage'U}/dL Normal 0.0-1.0 [facility] Comment on above: Performed By: #### 1 [id number] #### [facility] [address] [place] [address] WBC Auto Ql (U) Negative Normal Negative [facility] Comment on above: Performed By: #### 1 [id number] #### [facility] [address] [place] [address] WBC LM.HPF (Urine sed) [#/Area] 0-5 Normal 0-5 [facility] Comment on above: Performed By: #### 1 6111556 #### [facility] [address] [place] [address] eGFRon 01-11-2019 GFR/1.73 sq M predicted among blacks MDRD (S/P/Bld) [Vol rate/Area] mL/min/{1.73_m2} Normal >=59 [facility] Comment on above: Order Comment: Order added by Discern Expert. Result Comment: eGFR is race adjusted. AA=. Performed By: #### 2 957703, 4493643, 9743394, 86413301, 5362310, 8172503, 40252908, 34152196 #### [facility] [address] [place] [address] GFR/1.73 sq M predicted among non-blacks MDRD (S/P/Bld) [Vol rate/Area] mL/min/{1.73_m2} Normal >=59 [facility] Comment on above: Order Comment: Order added by Discern Expert. 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 Kidney failure is indicated at less than 15 mL/min/1.73m2. Performed By: #### 2 002092, 3605664, 6247030, 28998236, 4856448, 6711200, 74734179, 90362840 #### [facility] [address] [place] [address] Coding Summary.on 12-14-2018 Coding Summary. CODING DATE: 019 FINAL [facility] STATUS: Home (Routine DC) PAYOR: [...] CphT Date Saved: 12/14/2018 07:18 am Normal [facility] Hep Func Panelon 12-13-2018 Bilirubin.direct [Mass/Vol] UTC Abnormal 0.1-0.9 [facility] Comment on above: Result Comment: Resu lt verified by Discern Rule. Performed result UTC (Unable to Calculate) was sent as an Alpha code due the inability to calculate a valid numeric value. Performed By: #### 2 765017 #### [facility] [address] [place] [address] Albumin [Mass/Vol] 1.1 g/dL Normal 1.1-2.2 [facility] Comment on above: Performed By: #### 2 948210 #### [facility] [address] [place] [address] Albumin [Mass/Vol] 4.2 g/dL Normal 3.3-5.0 [facility] Comment on above: Performed By: #### 2 230828 #### [facility] [address] [place] [address] ALP [Catalytic activity/Vol] 63 Int._Unit/L Normal 21-98 [facility] Comment on above: Performed By: #### 2 067704 #### [facility] [address] [place] [address] ALT No additional P-5'-P [Catalytic activity/Vol] 21 Int._Unit/L Normal 6-46 [facility] Comment on above: Performed By: #### 2 455595 #### [facility] [address] [place] [address] AST [Catalytic activity/Vol] 19 Int._Unit/L Normal 5-43 [facility] Comment on above: Performed By: #### 2 572179 #### [facility] [address] [place] [address] Bilirubin [Mass/Vol] 0.8 mg/dL Normal 0.0-1.1 [facility] Comment on above: Performed By: #### 2 777647 #### [facility] [address] [place] [address] Bilirubin.direct [Mass/Vol] mg/dL Normal 0.1-0.4 [facility] Comment on above: Performed By: #### 2 728274 #### [facility] [address] [place] [address] Globulin (S) [Mass/Vol] 3.8 g/dL Normal 1.4-4.0 [facility] Comment on above: Performed By: #### 2 836858 #### [facility] [address] [place] [address] Protein [Mass/Vol] 8.0 g/dL High 6.0-7.8 [facility] Comment on above: Performed By: #### 2 507308 #### [facility] [address] [place] [address] MRI Brain w/ + w/o Contrasto n [...] MultiHance Contrast amount in ml's: 20 Normal [facility] Encounters Encounter Date Encounter Type Care Provider Facility Start: 07-19-2021 End: 07-20-[address] JAES AGUSTIN Facility: Start: 10-27-2020 End: 10-30-2020 Evaluation and management of inpatient DR ANGEL SANDERSON Facility:[facility] Start: 07-27-2020 End: 07-28-2020 ambulatory LIZETTEMEENA WILKS Facility:[facility] Start: 09-01-2019 End: 09-04-2019 Patient encounter procedure ABEL BOOGIE [facility] Start: 09-01-2019 End: 09-03-2019 Subsequent hospital visit by physician [facility] MRI Comment on above: Homonymous bilateral [...] 2) Shannon gles Vaccine (1 of 2) [place] Start: 03-06-2019 Influenza vaccination Flu vaccine (# 1) [place] Start: 2012 Lipid screen Lipid screen [place], [place] Start: 1993 Cervical cancer screen Cervical canc er screen [place], [place] Start: 1987 HIV screen HIV screen [place], [place] Start: 1983 DTaP/Tdap/Td vaccine (1 - Tdap) DTaP/Tdap/Td vaccine (1 - Tdap) [place] Payers Date Payer Category Payer Unknown [facility] xxxxxxxxxxxx 2014-Present [phone] [address] [place] [address] xxxxxxxxxxxx [id number] 1972 Unknown [id number] 1972 Unknown [id number] 1972 Unknown [id number] 1972 Unknown [id number] 1972 Unknown [id number] 1959 Unknown [id number] Social History Date Type Detail Facility Tobacco smoking status NHIS Unknown if ev er smoked [place], [place] Sex Assigned At Not on file [place] Summary Purpose Family History No Family History Records FoundNo Family History Records FoundNo Family History Records Found Advance Directives No Advanced Directives Records FoundDocuments on File Type Date 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 Advance Directives and 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 Will 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 Reason for Referral Status Reason Specialty Diagnoses / Procedures Referred By Contact Referred To Contact Canceled Radiology Diagnoses 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, left MS (multiple sclerosis) ([facility]) Procedures MRI ORBITS FACE NECK W WO CONTRAST Abel Boogie, DO [address] [place] [address] Assessments Diagnosis 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 DATE CREATED AUTHOR AUTHOR'S ORGANIZ ATION 09/03/2019 [facility] DATE CREATED AUTHOR AUTHOR'S ORGANIZ ATION 07/24/2021 [facility] Reason for Visit (unrecogniz ed section and content) Status Reason Specialty Diagnoses / Procedures Referred By Contact Referred To Contact Authorized Radiology Diagnoses MS (multiple sclerosis) (HCC) Visual field defects Procedures HC MRI FACE NECK EYE W CONTRAST Abel Boogie, DO [address] [place] [address] [facility] [address] [place] [address] Status Reason Specialty Diagnoses / Procedures Referred By Contact Referred To Contact Authorized Radiology Diagnoses MS (multiple sclerosis) (HCC) Visual field defects Procedures HC MRI-BRAIN WO & W CONTRAST Abel Boogie, DO [address] [place] [address] [place] [address] FOR RECORDS PERTAINING TO PATIENTS WHO ARE [...] BE BASED ON THE PRIMARY CLINICAL RECORDS. [facility] [employer] [facility] provides no warranty or guarantee of the accuracy or completeness of information in this document.
== END 2024-02-15 08:57 | disposition home or self-care (01) ==
LOC: EC 08:56
PROVIDERS: PCP Family Medicine; Visit Provider Orthopaedic Surgery
DX: S82.441D Displaced spiral fracture of shaft of right fibula, subsequent encounter for closed fracture with routine healing (principal)
CPT/HCPCS: 73590